=== PATIENT | female | born 1960 | race Caucasian/White ===

== ENCOUNTER → 2017-12-10 17:00 | Outpatient (CLI) | payer OTHER, SELFPAY ==
--- NOTE | 2017-12-10 17:03 | CT_ITS ---
STUDY: LOW DOSE CT LUNG CANCER SCREENING REASON FOR EXAM: Female, 57 years old. Former smoker 2 packs a day. Quit 8 years ago. RADIATION DOSAGE (If Supplied By Facility): CTDIvol = ( 4.02 ) mGy, DLP = ( 144.46 ) mGycm TECHNIQUE: No contrast was administered. Low dose technique was utilized (average mAS-38 and kVp 120). 1.25 mm axial source images with a slice interval of 1.25-mm were reconstructed in lung windows. 2.5 mm axial source images with a slice interval of 2.5-mm were reconstructed in lung windows. 5.0 mm axial source images with a slice interval of 5.0-mm were reconstructed in soft tissue windows. Nodule measured using lung windows on PACS and/or independent workstation with automated measurement of minimum and maximum diameter. Nodule measurement reported as average diameter rounded to the nearest whole number. Growth is defined as an increase ins size of greater than 1.5 mm. COMPARISON: None. NODULES: Total lung nodules (excluding granulomas): 0 Emphysema: No Endobronchial lesion: No Aorta: There is no evidence of atherosclerotic changes or aneurysm. Coronary arteries: There are no coronary artery calcifications. Heart: Normal Pulmonary artery: Normal Mediastinal nodes: Normal Other chest and abdominal findings: There are degenerative changes of the thoracic spine. CT/Low Dose CT Lung Screening IMPRESSION: Lung-RADS category 1 - Continue annual screening with LDCT in 12 months. IMPORTANT NOTES FOR USE: ACR Lung-RADS Version 1.0 Assessment Categories Release Date: January 12, 2014 Category: Coded 0-4 bases on nodule(s) with highest degree of suspicion. Negative screen is defined as categories 1 and 2; a positive screen is defined as categories 3 and 4. Category 3 and 4A nodules that are unchanged on interval CT should be coded as category 2, and individuals returned to screening in 12 months. Category 4X: Category 3 or 4 nodules with additional imaging findings that increase the suspicion of lung cancer, such as spiculation, GGN that doubles in size in 1 year, enlarged lymph notes, etc. Category Modifiers: S (significant finding unrelated to lung cancer) and C (prior history of treated lung cancer) may be added to the 0-4 Lung-RADS Electronically Signed: Florencio Palacios DO at 18:13 EDT Tel [phone], Service support ,
== END ==
PROVIDERS: Family Provider Internal Medicine; PCP Internal Medicine; Visit Provider Internal Medicine
DX: Z12.2 Encounter for screening for malignant neoplasm of respiratory organs (principal); Z87.891 Personal history of nicotine dependence
CPT/HCPCS: G0297

== ENCOUNTER → 2017-12-18 15:05 | Outpatient (CLI) | payer OTHER, SELFPAY ==
--- NOTE | 2017-12-18 15:07 | BD_ITS ---
STUDY: DUAL ENERGY X-RAY ABSORPTIOMETRY / DXA REASON FOR EXAM: Female, 57 years old. The patient is postmenopausal. Loss of height of 4 inches. TECHNIQUE: Bone Mineral Density (BMD) measurements of lumbar spine and bilateral hips were obtained. COMPARISON: None. FINDINGS: Lumbar Spine (L1-L4): g/cm2 (1.209) / T-score (0.1) / Z-score (1.1) Findings are suggestive of normal bone density with a low fracture risk. Increased thoracic kyphosis. Left Femur Total: g/cm2 (1.007) / T-score (0.0) / Z-score (0.8) Left Femoral Neck: g/cm2 (0.967) / T-score (-0.5) / Z-score (0.6) Right Femur Total: g/cm2 (1.030) / T-score (0.2) / Z-score (1.0) Right Femoral Neck: g/cm2 (1.007) / T-score (-0.2) / Z-score (0.9) BD/Dexa Bone Density Study IMPRESSION: The patient is considered normal as outlined below according to World [employer]illa[employer] Organization (WHO) criteria with a low fracture risk. Reference Information: The T-score is the number of standard deviations above or below the standard which is normal for young adults at their peak bone mineral density. The World Health Organization (WHO) interprets the T-scores as follows: Above -1 Normal bone density Between -1 and -2.5 Osteopenia Equal to / or below -2.5 Osteoporosis As a practical clinical guideline, osteopenia may be graded as follows: Mild -1 through -1.5 Moderate -1.6 through -2.0 Severe -2.1 through -2.4 The Z-score is the number of standard deviations above or below age-matched controls. A Z-score of less than -1.5 would be considered abnormal. References: 1. NIH Osteoporosis and Related Bone Diseases http://www.osteo.org 2. International Society for Clinical Densitometry http://www.iscd.org 3. National Osteoporosis Foundation http://www.nof.org Electronically Signed: Cesario Guillaume MD at 10:15 EDT Tel [phone], Service support ,
== END ==
PROVIDERS: Family Provider Internal Medicine; PCP Internal Medicine; Visit Provider Internal Medicine
DX: Z13.820 Encounter for screening for osteoporosis (principal)
CPT/HCPCS: 77080

== ENCOUNTER → 2018-01-14 16:07 | Outpatient (CLI) | payer OTHER, SELFPAY ==
[2018-01-14 19:58] LABS: Anion Gap 7 (5-15); BUN 22 mg/dL (7-18); BUN/Creat Ratio 20.8 RATIO (10-20); Calcium,Total 9.1 mg/dL (8.5-10.1); Chloride 99 mmol/L (98-107); Creatinine, Serum 1.06 mg/dL (0.55-1.02); EST Glomerular Filtration Rate 57 mL/min (>60); Est Glom Filt Rate - Afr Amer 69 mL/min (>60); Glucose 138 mg/dL (74-106); Magnesium 1.8 mg/dL (1.6-2.6); Potassium 2.6 mmol/L (3.5-5.1); Sodium Level 137 mmol/L (136-145)
== END ==
PROVIDERS: Family Provider Internal Medicine; PCP Internal Medicine; Visit Provider Internal Medicine
DX: E83.41 Hypermagnesemia (principal); I10 Essential (primary) hypertension
CPT/HCPCS: 36415; 80048; 83735

== ENCOUNTER → 2018-01-18 16:45 | Outpatient (CLI) | payer OTHER, SELFPAY ==
[2018-01-18 17:45] LABS: Potassium 3.4 mmol/L (3.5-5.1)
== END ==
PROVIDERS: Family Provider Internal Medicine; PCP Internal Medicine
DX: E87.6 Hypokalemia (principal)
CPT/HCPCS: 36415; 84132

== ENCOUNTER → 2018-02-13 16:42 | Outpatient (CLI) | payer OTHER, SELFPAY ==
[2018-02-13 18:00] LABS: Anion Gap 10 (5-15); BUN 22 mg/dL (7-18); BUN/Creat Ratio 20.8 RATIO (10-20); Chloride 99 mmol/L (98-107); Creatinine, Serum 1.06 mg/dL (0.55-1.02); EST Glomerular Filtration Rate 57 mL/min (>60); Est Glom Filt Rate - Afr Amer 68 mL/min (>60); Glucose 122 mg/dL (74-106); Sodium Level 137 mmol/L (136-145)
[2018-02-13 18:06] LABS: Hemoglobin A1c 7.9 % (4.2-6.3)
== END ==
PROVIDERS: Family Provider Internal Medicine; PCP Internal Medicine; Visit Provider Internal Medicine
DX: I10 Essential (primary) hypertension (principal); R73.02 Impaired glucose tolerance (oral)
CPT/HCPCS: 36415; 80048; 83036

== ENCOUNTER → 2018-02-25 16:45 | Outpatient (CLI) | payer OTHER, SELFPAY ==
--- NOTE | 2018-02-25 16:45 | DT_ITS ---
This patient was seen during an EMR downtime February 18, 2018 - February 25, 2018. This patient may have a combination of paper and electronic documentation or all paper documentation. All documentation is viewable within the e-chart portion of [email or web address] for each patient visit.
[2018-02-25 17:49] LABS: Color, Urine Yellow (Yellow); Glucose, Dipstick Normal (Normal); Ketone-Dipstick Negative (Negative); Leukocyte Esterase-Dipstick Negative /ul (Negative); Nitrite-Dipstick Negative (Negative); Occult Blood-Urine Negative /ul (Negative); Protein-Dipstick Negative (Negative); Urine Bilirubin Dipstick Negative (Negative); Urine Clarity Clear (Clear); Urine Urobilinogen Normal (Normal)
[2018-03-04 20:08] LABS: Cytoplasmic Ab (C-ANCA) <1:20 titer (Neg:<1:20)
== END ==
PROVIDERS: Family Provider Internal Medicine; PCP Internal Medicine; Visit Provider Internal Medicine
DX: N28.9 Disorder of kidney and ureter, unspecified (principal)
CPT/HCPCS: 36415; 81002; 86256

== ENCOUNTER → 2018-02-27 11:05 | Outpatient (CLI) | payer OTHER, SELFPAY ==
--- NOTE | 2018-02-27 11:06 | US_ITS ---
STUDY: RENAL ULTRASOUND - COMPLETE REASON FOR EXAM: Female, 58 years old. Abnormal kidney function. TECHNIQUE: Ultrasound evaluation of the kidneys was performed with real-time and static armstrong-scale imaging. COMPARISON: None. FINDINGS: RIGHT KIDNEY: Normal location of the right kidney, which is normal in size. The right kidney measures 11.2 x 5.6 x 4.6 cm. There is a normal cortex of the right kidney. The renal cortex measures 1.5 cm. There is no right renal mass or cyst. There are no right renal calculi. There is no right hydronephrosis. DISTAL RIGHT URETER: There is no demonstrated right ureteral jet. LEFT KIDNEY: Normal location of the left kidney, which is normal in size. The left kidney measures 10.6 x 4.5 x 5.8 cm. There is a normal cortex of the left kidney. The renal cortex measures 2.1 cm. There is no left renal mass or cyst. There are no left renal calculi. There is no left hydronephrosis. DISTAL LEFT URETER: There is a visualized left ureteral jet. BLADDER: The urinary bladder is incompletely distended with a volume of 92 mL. There is a normal wall thickness of the distended urinary bladder. There is no demonstrated mass within the urinary bladder. There are no demonstrated bladder calculi. US/Kidney and Bladder IMPRESSION: Within normal limits ultrasound of the kidneys and urinary bladder. Electronically Signed: Geraldine Swenson MD at 11:42 EDT Tel , Service support ,
== END ==
PROVIDERS: Family Provider Internal Medicine; PCP Internal Medicine; Visit Provider Internal Medicine
DX: N28.9 Disorder of kidney and ureter, unspecified (principal)
CPT/HCPCS: 76770

== ENCOUNTER → 2018-05-21 16:56 | Outpatient (CLI) | payer OTHER, SELFPAY ==
[2018-05-21 18:20] LABS: Creatinine, Serum 0.87 mg/dL (0.55-1.02); EST Glomerular Filtration Rate 71 mL/min (>60); Est Glom Filt Rate - Afr Amer 86 mL/min (>60); Potassium 3.2 mmol/L (3.5-5.1)
== END ==
PROVIDERS: Family Provider Internal Medicine; PCP Internal Medicine; Visit Provider Internal Medicine
DX: N28.9 Disorder of kidney and ureter, unspecified (principal); E87.6 Hypokalemia
CPT/HCPCS: 36415; 82565; 84132

== ENCOUNTER → 2018-05-22 17:21 | Outpatient (CLI) | payer OTHER, SELFPAY ==
[2018-05-22 18:47] LABS: Amphetamine Urine VISTA NEGATIVE (<1000 ng/mL); Barbiturate Urine VISTA NEGATIVE (< 200 ng/mL); Benzodiazepine Urine VISTA NEGATIVE (< 200 ng/mL); Cocaine Urine VISTA NEGATIVE (< 300 ng/mL); Ecstacy Urine VISTA NEGATIVE (< 500 ng/mL); Methadone Urine VISTA NEGATIVE (< 300 ng/mL); PCP Urine VISTA NEGATIVE (< 25 ng/mL); THC Urine VISTA NEGATIVE (< 50 ng/mL); Vista UDS pH Range 5
== END ==
PROVIDERS: Family Provider Internal Medicine; PCP Internal Medicine; Visit Provider Anesthesiology Pain Medicine
DX: F11.20 Opioid dependence, uncomplicated (principal)
CPT/HCPCS: 80307

== ENCOUNTER → 2018-07-01 16:37 | Outpatient (CLI) | payer OTHER, SELFPAY ==
[2018-07-04 11:02] LABS: HPV Reflexed? NOT INDICATED
== END ==
PROVIDERS: Visit Provider Obstetrics & Gynecology
DX: Z12.4 Encounter for screening for malignant neoplasm of cervix (principal)
CPT/HCPCS: 88175; G0145

== ENCOUNTER → 2018-08-05 14:43 | Outpatient (CLI) | payer OTHER, SELFPAY ==
--- NOTE | 2018-08-05 14:45 | BI_ITS ---
MAMMOGRAPHY - BILATERAL SCREENING REASON FOR EXAM: Female, 58 years old. Routine annual screening examination. PERTINENT HISTORY: Mother with breast cancer. Remote right excisional breast biopsy. TECHNIQUE: Digital bilateral breast denae (3D mammographic acquisition) in the CC and MLO projections. 2-D mediolateral oblique (MLO) and craniocaudad (CC) views of both breasts were obtained. CAD: Full Field Digital Mammography with Computer Added Detection was performed. COMPARISON: Comparison is made with prior study dated July 10, 2017 and June 29, 2016. FINDINGS: Breast Composition: The breasts are heterogeneously dense, which may obscure small masses. There are no dominant masses or suspicious calcifications. No other significant abnormalities are identified. There has been no significant change since the prior study. BI/SCREENING MAMM (CAD), BILAT IMPRESSION: Stable bilateral screening mammogram. Yearly follow-up mammogram recommended. (A) ASSESSMENT CATEGORY: BIRADS Category 1: Negative. A letter regarding these results will be sent to the patient by the facility within 30 days. Approximately 10% of breast cancers are not detected by mammography. A normal mammogram should not delay biopsy of a clinically suspicious abnormality. [id number] Electronically Signed: Cesario Guillaume MD at 10:46 EST Tel [phone], Service support ,
== END ==
PROVIDERS: Family Provider Internal Medicine; PCP Internal Medicine; Referring Provider Obstetrics & Gynecology; Visit Provider Obstetrics & Gynecology
DX: Z12.31 Encounter for screening mammogram for malignant neoplasm of breast (principal)
CPT/HCPCS: 77063; 77067

== ENCOUNTER → 2018-09-04 16:36 | Outpatient (CLI) | payer OTHER, SELFPAY ==
[2018-09-04 17:28] LABS: Potassium 3.5 mmol/L (3.5-5.1)
== END ==
PROVIDERS: Family Provider Internal Medicine; PCP Internal Medicine; Referring Provider Internal Medicine; Visit Provider Internal Medicine
DX: E87.6 Hypokalemia (principal)
CPT/HCPCS: 36415; 84132

== ENCOUNTER → 2019-11-04 17:33 | Outpatient (CLI) | payer OTHER, SELFPAY ==
[2019-11-07 03:06] LABS: Age Gdln ACOG Testing 30-65 (.)
[2019-11-07 11:56] LABS: HPV APTIMA, High Risk Negative (Negative)
[2019-11-07 12:03] LABS: HPV Reflexed? YES, CHARGE PATIENT
== END ==
PROVIDERS: PCP Internal Medicine; Referring Provider Obstetrics & Gynecology; Visit Provider Obstetrics & Gynecology
DX: Z12.4 Encounter for screening for malignant neoplasm of cervix (principal)
CPT/HCPCS: 87624; 88175; G0145

== ENCOUNTER → 2019-11-06 14:27 | Outpatient (CLI) | payer OTHER, SELFPAY ==
--- NOTE | 2019-11-06 14:32 | BI_ITS ---
MAMMOGRAPHY - BILATERAL DIAGNOSTIC REASON FOR EXAM: Female, 59 years old. Lateral right breast lump. PERTINENT HISTORY: Mother with breast cancer. TECHNIQUE: Digital bilateral breast denae (3D mammographic acquisition) in the CC and MLO projections. 2-D mediolateral oblique (MLO) and craniocaudad (CC) views of both breasts were obtained. CAD: Full Field Digital Mammography with Computer Added Detection was performed. COMPARISON: Comparison is made with prior examination dated August 05, 2018 and July 10, 2017. FINDINGS: Breast Composition: The breasts are heterogeneously dense, which may obscure small masses. There are no dominant masses or suspicious calcifications. No other significant abnormalities are identified. There has been no significant change since the prior study. BI/DIAG MAMM W/CAD, BILAT IMPRESSION: Stable bilateral diagnostic mammogram. With the patient''s history of a lump in the lateral aspect of the right breast, correlation with ultrasound is recommended. ASSESSMENT CATEGORY: BIRADS Category 0: Incomplete. Need additional imaging evaluation. A letter regarding these results will be sent to the patient by the facility within 30 days. Approximately 10% of breast cancers are not detected by mammography. A normal mammogram should not delay biopsy of a clinically suspicious abnormality. Pending Final Proof Editing
--- NOTE | 2019-11-06 14:34 | US_ITS ---
STUDY: ULTRASOUND BREAST - RIGHT REASON FOR EXAM: Female, 59 years old. Palpable lump in the right breast. TECHNIQUE: Axial and longitudinal images of the RIGHT breast were performed with a high resolution ultrasound transducer. # OF IMAGES: 44 COMPARISON: Comparison is made with prior mammogram done earlier in the day. FINDINGS: RIGHT Breast: The lateral half of the right breast was examined by ultrasound. There is homogeneous fibroglandular tissue. No sonographic abnormality is seen. US/Breast Limited Unilateral IMPRESSION: No sonographic abnormality is seen. ASSESSMENT CATEGORY: BIRADS Category 1: Negative. A letter regarding these results will be sent to the patient by the facility within 30 days. Electronically Signed: Cesario Guillaume, at 14:00 EST , Service support ,
== END ==
PROVIDERS: PCP Internal Medicine; Referring Provider Obstetrics & Gynecology; Visit Provider Obstetrics & Gynecology
DX: N63.11 Unspecified lump in the right breast, upper outer quadrant (principal)
CPT/HCPCS: 76642; 77062; 77066; G0279

== ENCOUNTER → 2019-11-19 17:02 | Outpatient (CLI) | payer OTHER, SELFPAY ==
[2019-11-19 17:44] LABS: Amphetamine Urine VISTA NEGATIVE (<1000 ng/mL); Barbiturate Urine VISTA NEGATIVE (< 200 ng/mL); Benzodiazepine Urine VISTA NEGATIVE (< 200 ng/mL); Cocaine Urine VISTA NEGATIVE (< 300 ng/mL); Ecstacy Urine VISTA NEGATIVE (< 500 ng/mL); Methadone Urine VISTA NEGATIVE (< 300 ng/mL); PCP Urine VISTA NEGATIVE (< 25 ng/mL); THC Urine VISTA NEGATIVE (< 50 ng/mL); Vista UDS pH Range 6
== END ==
PROVIDERS: PCP Internal Medicine; Referring Provider Anesthesiology Pain Medicine; Visit Provider Anesthesiology Pain Medicine
DX: F11.20 Opioid dependence, uncomplicated (principal)
CPT/HCPCS: 80307

== ENCOUNTER → 2020-06-16 12:42 | Outpatient (CLI) | payer OTHER, SELFPAY ==
[2020-06-16 15:33] LABS: AST(SGOT) 14 U/L (15-37); Alanine Aminotransfer ALT/SGPT 24 U/L (13-56); Albumin, Serum 3.6 g/dL (3.2-5.0); Alkaline Phosphatase 85 U/L (45-117); Anion Gap 4 (5-15); BUN 15 mg/dL (7-18); BUN/Creat Ratio 18.8 RATIO (10-20); Calcium,Total 8.6 mg/dL (8.5-10.1); Chloride 106 mmol/L (98-107); Cholesterol 198 mg/dL (200); EST Glomerular Filtration Rate 78 mL/min (>60); Est Glom Filt Rate - Afr Amer 94 mL/min (>60); Globulin 3.7 g/dL (2.2-4.2); Glucose 84 mg/dL (74-106); High Density Lipoprotein 51 mg/dL; Potassium 4.2 mmol/L (3.5-5.1); Protein, Total 7.3 g/dL (6.4-8.2); Sodium Level 139 mmol/L (136-145); Triglycerides 117 mg/dL; Very Low Density Lipoprotein 23 mg/dL (5-40)
== END ==
PROVIDERS: PCP Internal Medicine; Referring Provider Internal Medicine; Visit Provider Internal Medicine
DX: E13.9 Other specified diabetes mellitus without complications (principal)
CPT/HCPCS: 36415; 80053; 80061

== ENCOUNTER → 2020-07-20 15:36 | Outpatient (CLI) | payer SELFPAY ==
--- NOTE | 2020-07-20 15:45 | RAD_ITS ---
STUDY: X-RAY - CERVICAL SPINE REASON FOR EXAM: Female, 60 years old. patient complains of pain in hands, numbness and tingling in fingers TECHNIQUE: 4 view(s) of the cervical spine were obtained. COMPARISON: None FINDINGS: Normal anterior atlantoaxial articulation. Normal odontoid process. Decreased cervical lordosis. No evidence for acute fracture or subluxation.. Disc space heights are well-maintained. There is minor endplate spurring at C5-6 The soft tissue structures are unremarkable. RAD/Cerv Spine 2 or 3 Views IMPRESSION: Mild spondylosis. No acute fracture or subluxation Electronically Signed: Shyam Prater MD at 19:29 EST , Service support ,
== END ==
PROVIDERS: PCP Internal Medicine; Referring Provider Anesthesiology Pain Medicine; Visit Provider Anesthesiology Pain Medicine
DX: M54.2 Cervicalgia (principal)
CPT/HCPCS: 72040

== ENCOUNTER 2020-08-09 16:45 | Emergency (ER) | payer SELFPAY ==
[2020-08-09 16:45] VITALS: BP 191/72; PULSE 90; RESP 16; TEMP 35.8; O2SAT 100; BMI 35.7
--- NOTE | 2020-08-09 17:09 | ED.DCSUM_ITS ---
History of Present Illness Chief Complaint: Lower Extremity Injury Detail of Chief Complaint: Right knee pain Informant: Patient Onset: Today Current Severity: Moderate Maximum Severity: Moderate Narrative: Patient presents with right knee injury. She slipped and fell at [facility]. She states she feels like her leg bent the wrong direction. She now has swelling to her right knee and significant pain. She has had difficulty with any weightbearing. She denies any other injury from her fall. - Past Medical History (1) Hypertension Status: Chronic Past Medical History - Allergies and Home Meds Allergies/Adverse Reactions: Allergies lisinopril Allergy (Mild, Verified 08/09/20 16:46) coughing Primary Care Physician: Oc Mullen MD [Primary Care Provider] - Surgical History: - - Left knee replacement Lives: Spouse/ Significant Other Smoking Status: Former smoker Review of Systems General: Denies: Chills, Fever Eyes: Denies: Visual changes - bilaterally ENT: Denies: Bilateral ear pain Cardiovascular: Denies: Chest pain Respiratory: Denies: Dyspnea, Cough Gastrointestinal: Denies: Abdominal pain Musculoskeletal: Reports: Swelling, Extremity Pain Skin: Denies: Rash Neurological: Denies: Headache Hematologic: Denies: Easy bruising, Easy bleeding Allergy: Denies: Uticaria Physical Exam Vital Signs/Narrative: Vital Signs Temp Pulse Resp BP Pulse Ox 08/09/20 16:45 96.5 F L 90 16 191/72 H 100 Inital Vital Signs reviewed: Yes General: Well nourished, Well developed Head: Normocephalic ENT: Moist mucous membranes Cardiovascular: Regular rate, Regular rhythm Respiratory: No distress, CTA bilaterally Abdomen: Soft, Nontender Extremities: - - Edema around the right knee. Mild diffuse tenderness. She is able to raise her heel off the bed. Normal sensation with strong distal pulses. Neurological: Alert, Oriented x3 Psychological: Normal affect Diagnostic/Tx/Re-eval Impressions Knee X-Ray 08/09/20 17:20 IMPRESSION: Probable lateral plateau fracture. Electronically Signed: Karen Hdz, at 18:19 EST Tel , Service support , Lower Extremity CT 08/09/20 19:06 IMPRESSION: Minimally, less than 2 mm, depressed right lateral tibial plateau fracture. Electronically Signed: Karen Hdz, at 20:26 EST Tel , Service support , 08/09/20 17:20 Knee 4 or More Views [RAD] Stat 08/09/20 19:06 CT Lower [Extremity Lower without Contra] [CT] Stat - Medical Decision Making Patient was initially given a dose of [place]. With this did not help I did order morphine, however the patient states she must drive home and did not want to take another narcotic. She was given a dose of Toradol IM. X-ray and CT results are discussed with her. Patient is noted Dr. Monet and I spoke with Dr. Townsend, on-call jazmine. He states the patient can be placed in a knee immobilizer, crutches and made nonweightbearing. She can follow-up as an outpatient. Patient is comfortable with this plan. I will write her Percocet for pain control. ED Disposition - Plan for ED Patient: Disposition: Home or Assisted Living Diagnosis: Tibial plateau fracture, right Instructions: ED Fx Knee Prescriptions: Oxycodone HCl/Acetaminophen [Percocet 5/325] 1 tablet PO Q6H PRN PRN 5 Days #20 tablet PRN Reason: Pain Score 4-10 Referrals: Renee Monet DO [STAFF PHYSICIAN] - 5-7 Days
[2020-08-09] MEDS: HYDROcodone Bitartrate/Apap 5/325 Tablet PO (17:20)
--- NOTE | 2020-08-09 17:20 | RAD_ITS ---
STUDY: X-RAY - RIGHT KNEE REASON FOR EXAM: Female, 60 years old. 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 RIGHT KNEE PAIN. TECHNIQUE: 4 view(s) of the knee. COMPARISON: 18 September 2013, 20 September 2017 FINDINGS: The knee is located. There is irregularity of the lateral tibial plateau, possibly fracture. Patella is intact and located. There is a joint effusion. There are moderate to severe patellofemoral degenerative changes. RAD/Knee 4 or More Views IMPRESSION: Probable lateral plateau fracture. Electronically Signed: Karen Hdz, at 18:19 EST Tel , Service support ,
--- NOTE | 2020-08-09 19:06 | CT_ITS ---
STUDY: CT RIGHT KNEE WITHOUT CONTRAST REASON FOR EXAM: Female, 60 years old. FELL. HAVING RIGHT KNEE PAIN. LATERAL PLATEAU FX ON XRAY RADIATION DOSAGE (If Supplied By Facility): CTDIvol = ( 15.35 ) mGy, DLP = ( 372.95 ) mGycm TECHNIQUE: Transaxial CT imaging of the knee was performed. Coronal and sagittal images were reformatted. Individualized dose optimization techniques were used for this CT. COMPARISON: Earlier same day x-ray FINDINGS: There is a small segmental minimally depressed fracture of the lateral plateau posterior lateral region and posterolateral cortex avulsion. Fracture fragment is depressed less than 2 mm compared to the rest of the plateau. There are moderate degenerative changes in all 3 compartments. Mineralization is decreased. There is a joint effusion. CT/Extremity Lower without Contra IMPRESSION: Minimally, less than 2 mm, depressed right lateral tibial plateau fracture. Electronically Signed: Karen Hdz, at 20:26 EST Tel , Service support ,
[2020-08-09] MEDS: Ketorolac 60 MG/2 ML Vial IM (20:22)
[2020-08-09 22:13] VITALS: BP 161/78; PULSE 78; RESP 18; O2SAT 97
== END 2020-08-09 22:14 | disposition home or self-care (01) ==
PROVIDERS: Emergency Provider Emergency Medicine; PCP Internal Medicine
DX: S82.141A Displaced bicondylar fracture of right tibia, initial encounter for closed fracture (principal); W01.0XXA Fall on same level from slipping, tripping and stumbling without subsequent striking against object, initial encounter; Z87.891 Personal history of nicotine dependence
CPT/HCPCS: 73564; 73700; 96372; 99284

== ENCOUNTER 2020-09-16 14:51 | Outpatient (RCR) | payer SELFPAY ==
--- NOTE | 2020-09-16 15:46 | HP.PTEVAL ---
Patient's Visit Information TOMÁS MORAES is a 60 year old F referred to Physical Therapy by Dr. Renee Monet DO with a diagnosis of Lateral tibial plateau fracture- stiffness. Date of Evaluation: 09/16/20 Physical Therapist: Angelita Quintero DPT - Visit Plan Frequency: 2x /Week Duration: 4 Weeks Plan: Hold- PT to speak to MD due to restrictions, TTWB status with brace and lack of compliance. - Subjective Aug 09 slipped and fell in [employer] and broke her leg. She went to the ED and they took x-rays and CT Scan- tibial plateau fracture- they put her in the extension brace. She then went to see Dr. Monet who put her in a TROM brace. They are looking to put her in lateral supervisor cellars brace. She has been walking on it- she knows that but she can't work on crutches so she has been putting weight on it. 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 She is leaving here and headed to get a spinal injection. At the end of the day she is really sore. She has OA in the knee and no cartilage. Thinks she needs a total knee repacement in the next few years. Tripped over her cat on [facility] and so its been pretty sore. Worst: 810 Agg: being on it to much, twisting on it. Eases: stay in bed Best: 2/10. Describes the pain as dull and achy. The pain is located in the anterior knee and the lateral aspect of the knee. No radiating pain- does have tarsal tunnel in both feet. Is using a straight cane except when at work (carries 10-15lbs) and TROM brace locked out into extension when she is out. No radiating pain into the ankle or into the hip. Sleep: not disturbed in the last 10 days- does not use the brace. PMHx/Meds: no changes since she saw . Goals: go without the cane and be full weight bearing. - Objective Posture: good throughout session. Gait: straight cane with TROM brace locked in extension- full weight bearing. ROM: Hip: WFL, Knee: 0-70 degrees with pain at end range Strength: Ankle: 5/5, Knee: 4/5 with pain, Hip: 4/5 throughout SLR: mild lag due to decreased quad strength secondary to brace Sensation: WNL. Balance: not tested due to WB restricions Flex:gastroc: moderate, Hamstring: severe - Goals Goal 1:: Patient will be I with HEP and progression Goal Time Frame: 4-6 Weeks Goal 2:: Patient will ambulate >300 feet with a normalized gait pattern and LRD Goal Time Frame: 4-6 Weeks Goal 3:: Patient will asc/desc 8 stairs recip with 1 HR and good technique Goal Time Frame: 4-6 Weeks Goal 4:: Patient will demo 0-125 degrees of ROM Goal Time Frame: 4-6 Weeks - Rehabilitation Potential Physical Therapy Diagnosis: Patient presents with hypomobility-she has decreased ROM,strength, flex and muscular endurance leading to inability to perform ADL's. Rehabilitation Potential: Fair - Anticipated Interventions Patient/Client Instruction: Educate patient on: Benefits of Fitness Program Therapeutic Exercise to Include: Strength training, Endurance training, Balance training, Coordination, Agility training, Body mechanics, Postural training, Flexibilty training, Gait and locomotor training, Neuromotor development, Passive ROM, Active ROM, Dynamic Lumbar Stabilization, Scapular Strength/Stabilization For the Purpose of:: To improve muscle performance and motor function TENS: Yes Cryotherapy (ice pack, ice massage): Yes Thermo therapy (hot pack): Yes Ultrasound (thermal/non thermal): Yes Thank you for the opportunity to evaluate your patient. For Medicare and Medicare HMO plans, please review the plan of care and approve it. It will need to be FAXED BACK to us at [phone] for Medicare purposes. For Medicare only, by signing this I certify the plan of care. Please let me know if there are questions or concerns regarding this plan of care. Physician Signature: Date:
--- NOTE | 2020-11-22 14:03 | HP.PT.NRP ---
TOMÁS MORAES was seen in my office for initial evaluation on 09/16/20. The following Plan of Care was established for this patient: Initial Frequency: 2x /Week Initial Duration: 4 Weeks Patient/Client Instruction: Educate patient on: Benefits of Fitness Program Therapeutic Exercise to Include: Strength training, Endurance training, Balance training, Coordination, Agility training, Body mechanics, Postural training, Flexibilty training, Gait and locomotor training, Neuromotor development, Passive ROM, Active ROM, Dynamic Lumbar Stabilization, Scapular Strength/Stabilization For the Purpose of:: To improve muscle performance and motor function TENS: Yes Cryotherapy (ice pack, ice massage): Yes Thermo therapy (hot pack): Yes Ultrasound (thermal/non thermal): Yes This patient was last seen in our office . Pertinent comments regarding their Physical therapy will appear below: Patient has not attended PT in over 30 days- appropriate to be discharge and return to MD for further evaluation. At this point I will be discontinuing this patient from physical therapy. I would be happy to see this patient again in the future if found appropriate by the physician. Thank you! KERRY BossT
== END 2020-09-16 19:00 | disposition home or self-care (01) ==
LOC: PT 14:51
PROVIDERS: PCP Internal Medicine; Visit Provider Orthopaedic Surgery
DX: S82.143D Displaced bicondylar fracture of unspecified tibia, subsequent encounter for closed fracture with routine healing (principal)
CPT/HCPCS: 97110; 97161

== ENCOUNTER → 2020-11-22 17:14 | Outpatient (CLI) | payer OTHER, SELFPAY ==
[2020-11-22 18:21] LABS: Amphetamine Urine VISTA NEGATIVE (<1000 ng/mL); Barbiturate Urine VISTA NEGATIVE (< 200 ng/mL); Benzodiazepine Urine VISTA NEGATIVE (< 200 ng/mL); Cocaine Urine VISTA NEGATIVE (< 300 ng/mL); Ecstacy Urine VISTA NEGATIVE (< 500 ng/mL); Methadone Urine VISTA NEGATIVE (< 300 ng/mL); PCP Urine VISTA NEGATIVE (< 25 ng/mL); THC Urine VISTA NEGATIVE (< 50 ng/mL); Vista UDS pH Range 5
== END ==
PROVIDERS: PCP Family Medicine; Referring Provider Anesthesiology Pain Medicine; Visit Provider Anesthesiology Pain Medicine
DX: F11.20 Opioid dependence, uncomplicated (principal)
CPT/HCPCS: 80307

== ENCOUNTER → 2020-12-06 15:32 | Outpatient (CLI) | payer OTHER, SELFPAY ==
--- NOTE | 2020-12-06 15:51 | MRI_ITS ---
STUDY: MRI CERVICAL SPINE WITHOUT CONTRAST REASON FOR EXAM: Female, 60 years old. BACK PAIN, TECHNIQUE: Standardized fat and water weighted pulse sequences were obtained in the sagittal and axial planes. COMPARISON: None FINDINGS: Normal foramen magnum and brainstem-cervical cord junction. Normal craniovertebral junction. Normal anterior atlantoaxial articulation. Normal odontoid process. Normal cervical lordosis. Normal vertebral bodies and posterior osseous elements. C2-3: Normal endplates. Normal disc height, signal and morphology. Normal central canal and intervertebral neural foramina. C3-4: Normal endplates. Normal disc height, signal and morphology. Normal central canal and intervertebral neural foramina. C4-5: Normal endplates. Normal disc height, signal and morphology. Normal central canal and intervertebral neural foramina. C5-6: Normal endplates. Normal disc height, signal and morphology. Small central and left paracentral disc protrusion causes mild cord flattening and mild canal stenosis. There is mild left foraminal encroachment due to uncinate hypertrophy. C6-7: Normal endplates. Normal disc height, signal and morphology. Mild spondylotic bar causes mild cord flattening and mild canal stenosis. Moderate foraminal stenosis, greater on the left, due to uncinate hypertrophy. C7-T1: Normal endplates. Normal disc height, signal and morphology. Normal central canal and intervertebral neural foramina. Normal cervical cord. Normal visualized soft tissue structures. MRI/Spine Cervical (Routine) IMPRESSION: 1. C5-6 disc protrusion with cord flattening and mild canal stenosis. 2. C6-7 mild cord flattening and canal stenosis. 3. Moderate C6-7 foraminal encroachment. Electronically Signed: Chantel Velasquez MD at 22:41 EDT Tel , Service support ,
--- NOTE | 2020-12-06 15:51 | MRI_ITS ---
STUDY: MRI LUMBAR SPINE WITHOUT CONTRAST REASON FOR EXAM: Female, 60 years old. BACK PAIN TECHNIQUE: Standardized fat and water weighted pulse sequences were obtained in the sagittal and axial planes. COMPARISON: 09/12/2012. FINDINGS: T12-L1: Normal endplates. Disc dehydration. Normal bilateral facet joints. Small, central, noncompressive disc protrusion. Normal bilateral intervertebral neural foramina. Normal lumbar lordosis. There is no substantial scoliosis. Normal conus medullaris that terminates at the L1 level. L1-2: Normal endplates. Normal disc height, hydration and morphology. Normal bilateral facet joints. Normal central canal and bilateral lateral recesses. Normal bilateral intervertebral neural foramina. L2-3: Disc dehydration and mild disc space narrowing. Small Schmorl''s nodes. Borderline concentric canal stenosis due to a mild spondylotic bar, mild facet and ligamentous hypertrophy. Mild inferior foraminal encroachment, greater on the right, due to spurring. L3-4: Disc dehydration. Small, central, noncompressive disc protrusion. No canal or foraminal stenosis. L4-5: Disc dehydration and mild disc space narrowing. Small right paramedian disc protrusion, significantly decreased compared to the prior study. This causes mild deformation of the ventral thecal sac. No nerve root displacement. No canal stenosis. Mild right foraminal encroachment due to spurring. Mild facet hypertrophy. L5-S1: Disc dehydration and mild disc space narrowing. Mild, noncompressive spondylotic bar. Mild facet hypertrophy. No canal stenosis. Mild left foraminal encroachment due to spurring. Normal visualized sacral ala. Normal visualized paraspinous soft tissue structures. MRI/Spine Lumbar (Routine) IMPRESSION: 1. Small L4-5 disc protrusion, significantly decreased compared to 2011. 2. Noncompressive L3-4 disc protrusion. 3. Borderline canal stenosis at L2-3 4. Mild foraminal encroachment. Electronically Signed: Chantel Velasquez MD at 23:38 EDT Tel , Service support ,
== END ==
PROVIDERS: PCP Family Medicine; Referring Provider Anesthesiology Pain Medicine; Visit Provider Anesthesiology Pain Medicine
DX: M54.9 Dorsalgia, unspecified (principal)
CPT/HCPCS: 72141; 72148

== ENCOUNTER → 2021-07-05 17:54 | Outpatient (CLI) | payer OTHER, SELFPAY ==
--- NOTE | 2021-07-05 18:05 | CT_ITS ---
STUDY: LOW DOSE CT LUNG CANCER SCREENING REASON FOR EXAM: Female, 61 years old. Former smoker. The patient smoked 1 1/2 packs per day for 38 years. RADIATION DOSAGE (If Supplied By Facility): CTDIvol = ( 3.02 ) mGy, DLP = ( 103.07 ) mGycm TECHNIQUE: No contrast was administered. Low dose technique was utilized (average mAS-38 and kVp 120). 1.25 mm axial source images with a slice interval of 1.25-mm were reconstructed in lung windows. 2.5 mm axial source images with a slice interval of 2.5-mm were reconstructed in lung windows. 5.0 mm axial source images with a slice interval of 5.0-mm were reconstructed in soft tissue windows. Nodule measured using lung windows on PACS and/or independent workstation with automated measurement of minimum and maximum diameter. Nodule measurement reported as average diameter rounded to the nearest whole number. Growth is defined as an increase ins size of greater than 1.5 mm. COMPARISON: Comparison is made with prior study dated 12/10/2017. NODULES: No suspicious nodules are seen. There is mild degree of increased markings in the posterior medial aspect of the superior segment of the right lower lobe suggestive of scarring. Emphysema: No significant emphysema is seen. Endobronchial lesion: None Aorta: Atherosclerotic calcific plaques. Mild coronary artery calcification. Mediastinal nodes: Small benign-appearing mediastinal lymph nodes. Other chest and abdominal findings: CT/Low Dose CT Lung Screening IMPRESSION: Lung-RADS category 2 - Continue annual screening with LDCT in 12 months. IMPORTANT NOTES FOR USE: ACR Lung-RADS Version 1.1 Assessment Categories Release Date: 2018 Category: Coded 0-4 bases on nodule(s) with highest degree of suspicion. Negative screen is defined as categories 1 and 2; a positive screen is defined as categories 3 and 4. Category 3 and 4A nodules that are unchanged on interval CT should be coded as category 2, and individuals returned to screening in 12 months. Category 4X: Category 3 or 4 nodules with additional imaging findings that increase the suspicion of lung cancer, such as spiculation, GGN that doubles in size in 1 year, enlarged lymph notes, etc. Category Modifiers: S (significant finding unrelated to lung cancer) Electronically Signed: Cesario Guillaume MD at 14:03 EDT , Service support ,
== END ==
PROVIDERS: PCP Family Medicine; Visit Provider Family Medicine
DX: Z87.891 Personal history of nicotine dependence (principal)
CPT/HCPCS: 71271

== ENCOUNTER 2021-09-21 13:24 | Inpatient (IN) | payer OTHER, SELFPAY ==
[2021-09-21] VITALS (14 sets, daily range): BP systolic 101–154; BP diastolic 58–79; PULSE 64–90; RESP 12–40; TEMP 36.1–36.9; O2SAT 62–99; BMI 32.1; BMI 29.0
--- NOTE | 2021-09-21 13:41 | EKG12_ITS ---
Test Reason : SOB Blood Pressure : / mmHG Vent. Rate : 081 BPM Atrial Rate : 081 BPM P-R Int : 140 ms QRS Dur : 082 ms QT Int : 398 ms P-R-T Axes : 049 026 092 degrees QTc Int : 462 ms Normal sinus rhythm T wave abnormality, consider lateral ischemia Abnormal ECG Confirmed by MENDEL MATIAS, ROSALINA ([id number]), restaurant expeditor SHARON MONTALVO ([id number]) on 09/23/2021 10:07:40 AM Referred By: JOHANA/AJAY Confirmed By:ROSALINA OGLESBY MD
--- NOTE | 2021-09-21 13:43 | ED.VIS.DYS ---
HPI History of Present Illness Chief Complaint: Shortness of Breath Narrative Narrative: 61-year-old female with shortness of breath and fatigue since of last week. This would make it day 6 of symptoms. She states she felt a little bit achy. She has not had a fever. She does not have a significant cough. She is a little bit of diarrhea. No loss of taste or smell. She was going to get tested today for Covid but the nurse that was interviewing her stated she looked very dyspneic and labored and needed to come to the ER. Patient does deny any chest pain. She states she has a history of hypertension. She previously was a smoker. She is also a diabetic. [facility] Medical History Hypertension Neuralgia and neuritis, unspecified Other intervertebral disc degeneration, lumbar region Polyosteoarthritis Radiculopathy, lumbar region Radiculopathy, lumbosacral region Sacroiliitis Home Medications albuterol sulfate 90 mcg/actuation breath activated powder inhaler 90 mcg INHALATION ONCE PRN 09/20/17 [History Last Taken Unknown] potassium chloride 20 mEq oral packet 20 meq PO QDAY 04/18/18 [History Last Taken Unknown] losartan 25 mg tablet 25 mg PO DAILY 09/28/20 [History Last Taken Unknown] meloxicam 7.5 mg tablet 7.5 mg PO DAILY tab 11/16/20 [History Last Taken Unknown] tizanidine 4 mg tablet 4 mg PO QHS tab 11/16/20 [History Last Taken Unknown] clonidine HCl 0.2 mg tablet 0.1 mg PO DAILY tab 07/18/21 [History Last Taken Unknown] glimepiride 1 mg tablet 1 mg PO BID tab 07/18/21 [History Last Taken Unknown] tramadol 50 mg tablet 50 mg PO QHS tab 07/18/21 [History Last Taken Unknown] gabapentin 300 mg capsule 600 mg PO TID cap 08/15/21 [History Last Taken Unknown] Allergy/AdvReac Type Severity Reaction Status Date / Time lisinopril Allergy Mild coughing Verified 09/21/21 13:29 Family History Father Cancer CVA (cerebral vascular accident) Hypertension Mother Cancer Diabetes Sister Cancer Surgical History H/O right breast biopsy History of total left knee replacement right foot Social History Smoking Status: Former smoker how long ago did patient quit smokin ROS ROS ED Constitutional Constitutional ED: Reports chills; Denies fever(s) Eyes Eyes: Denies blurry vision or diplopia ENT ENT ED: Denies rhinorrhea or sore throat Cardiovascular Cardiovascular: Denies chest pain or palpitations Respiratory/Chest Respiratory/Chest: Reports cough, dyspnea and dyspnea on exertion Gastrointestinal Gastrointestinal: Reports diarrhea; Denies abdominal pain, nausea or vomiting Genitourinary Genitourinary ED: Denies dysuria or hematuria Musculoskeletal Musculoskeletal: Reports myalgias; Denies arthralgias or neck pain Integumentary Denies Abrasions or rash Neurologic Neurologic: Denies headache(s), paresthesias or weakness EXAM Physical Exam Const Vital Signs: 09/21/21 13:25 09/21/21 13:35 09/21/21 13:53 Temperature 97.1 F L 97.1 F L Temperature Source Temporal Temporal Pulse Rate 90 84 81 Respiratory Rate 18 23 H 26 H Blood Pressure 101/58 L 154/71 H 135/72 H Blood Pressure Mean 72 98 93 Pulse Ox 62 94 97 Oxygen Delivery Method Room Air Non-Rebreather Non-Rebreather Oxygen Flow Rate (L/min) 15 Fraction of Inspired Oxygen (FIO2) 09/21/21 15:11 09/21/21 15:58 09/21/21 16:00 Temperature 97.2 F L Temperature Source Temporal Pulse Rate 73 69 68 Respiratory Rate 40 H 28 H 31 H Blood Pressure 137/70 H 132/79 H Blood Pressure Mean 92 96 Pulse Ox 89 99 98 Oxygen Delivery Method Non-Rebreather Bi-pap Oxygen Flow Rate (L/min) 15 Fraction of Inspired Oxygen (FIO2) 100 09/21/21 16:09 Temperature Temperature Source Pulse Rate Respiratory Rate Blood Pressure Blood Pressure Mean Pulse Ox Oxygen Delivery Method Oxygen Flow Rate (L/min) Fraction of Inspired Oxygen (FIO2) 75 Positive well nourished Constitutional Narrative: Labored breathing. Patient noted to be hypoxic into the 50s on arrival. She is placed on nonrebreather at 15 L and is stable at 95%. General Appearance ED: Negative for pallor HEENT Reports dry mucous membranes atraumatic Mouth ED: Yes dry mucous membranes Mouth: dry mucous membranes Eyes Negative for PERRL or EOMs intact bilaterally Neck no lymphadenopathy, supple and no meningeal signs Resp normal respiratory effort and clear to auscultation bilaterally Cardio regular rate and regular rhythm GI non-tender and non-distended Palpation: soft Neuro oriented x3 and CN's II-XII intact bilaterally Sensorium / Orientation: alert Psych mental status grossly normal Skin General Skin Exam: Negative for jaundice or pallor MDM MDM MDM Narrative Medical decision making narrative: Patient with COVID-19 symptoms presenting with hypoxia. He is placed on high flow and eventually had to be switched to BiPAP given that she was still not maintaining good O2 saturations. She is tolerating BiPAP well. EKG is obtained which shows a sinus rhythm at [address]-T wave changes. High-sensitivity troponin is 36. Chest x-ray on my interpretation is bilateral pulmonary infiltrates worse on the right and radiologist's agreement. CBC shows her white blood troponins 11.0. Hemoglobin is concentrated at 15 headaches. Platelets normal at 166. Coagulation studies are normal. Creatinine is slightly elevated at 1.19. Patient was given small bolus of IV fluids and since her D-dimer is elevated at greater than 20 a CTA of the chest is ordered. Lactic acid is 2.9 this is likely due to her hypoxia. CTA of the chest is negative for pulmonary emboli however it does show COVID-19 pneumonitis. Patient did test positive for COVID-19 today. Given patient's hypoxic respiratory failure she will need to stay in the hospital. She was given dexamethasone 6 mg IV. She is admitted to the floor in stabilized condition. Impression: 1. COVID-19 pneumonitis 2. Dehydration 3. Lactic acidosis 4. Hypoxic respiratory failure Lab Data Labs: Laboratory Results - last 24 hr 09/21/21 09/21/21 09/21/21 13:55 13:55 13:55 WBC 11.0 RBC 5.41 H Hgb 15.6 H Hct 47.1 H MCV 87.1 MCH 28.8 MCHC 33.1 RDW Std Deviation 45.2 H RDW Coeff of Ana Maria 14.3 Plt Count 166 MPV 10.3 Immature Gran % (Auto) 0.800 Neut % (Auto) 89.7 H Lymph % (Auto) 5.7 L Wilcox % (Auto) 3.7 Eos % (Auto) 0.0 Baso % (Auto) 0.1 Absolute Neuts (auto) 9.9 H Absolute Lymphs (auto) 0.63 L Nucleated RBC % 0.4 Reactive Lymphocytes RARE PT 14.0 INR 1.1 APTT 25.4 D-Dimer Quant (PE/DVT) > 20.00 H* Sodium 135 L Potassium 3.4 L Chloride 98 Carbon Dioxide 23.0 Anion Gap 14 BUN 34 H Creatinine 1.19 H Estim Creat Clear Calc 51.88 Est GFR (MDRD) Af Amer 59 L Est GFR (MDRD) Non-Af 49 L BUN/Creatinine Ratio 28.6 H Glucose 191 H Lactic Acid Calcium 8.6 Total Bilirubin 0.90 AST 62 H ALT 27 Alkaline Phosphatase 76 Troponin I High Sens 36 Total Protein 8.1 Albumin 2.8 L Globulin 5.3 H Albumin/Globulin Ratio 0.5 L 09/21/21 13:55 WBC RBC Hgb Hct MCV MCH MCHC RDW Std Deviation RDW Coeff of Ana Maria Plt Count MPV Immature Gran % (Auto) Neut % (Auto) Lymph % (Auto) Wilcox % (Auto) Eos % (Auto) Baso % (Auto) Absolute Neuts (auto) Absolute Lymphs (auto) Nucleated RBC % Reactive Lymphocytes PT INR APTT D-Dimer Quant (PE/DVT) Sodium Potassium Chloride Carbon Dioxide Anion Gap BUN Creatinine Estim Creat Clear Calc Est GFR (MDRD) Af Amer Est GFR (MDRD) Non-Af BUN/Creatinine Ratio Glucose Lactic Acid 2.9 H* Calcium Total Bilirubin AST ALT Alkaline Phosphatase Troponin I High Sens Total Protein Albumin Globulin Albumin/Globulin Ratio Radiography Diagnostic Testing: Clinical Impression(s) from Imaging Studies Chest X-Ray 09/21/21 14:19 IMPRESSION: Patchy bilateral pulmonary infiltrates worse in the right hemithorax. Electronically Signed: Cesario Guillaume MD at 14:40 EST , Service support , Chest CTA 09/21/21 15:05 IMPRESSION: No demonstrated pulmonary embolism or arterial dissection. Bilateral diffuse patchy groundglass densities and possible patchy infiltrates. Mild mediastinal adenopathy Electronically Signed: Luke Smith DO at 17:01 EST Tel [phone], Service support , Discharge Plan Triage Chief Complaint: Shortness of Breath ED Provider: Kirill Murray Dx/Rx/DC Orders Prescriptions: No Action albuterol sulfate 90 mcg/actuation aerosol powdr breath activated 90 mcg INHALATION ONCE PRN (Reason: sob) RF: 0 potassium chloride [Klor-Con] 20 mEq packet 20 meq PO QDAY RF: 0 losartan 25 mg tablet 25 mg PO DAILY RF: 0 tramadol 50 mg tablet 50 mg PO QHS RF: 0 meloxicam 7.5 mg tablet 7.5 mg PO DAILY RF: 0 tizanidine 4 mg tablet 4 mg PO QHS RF: 0 clonidine HCl 0.2 mg tablet 0.1 mg PO DAILY RF: 0 glimepiride 1 mg tablet 1 mg PO BID RF: 0 gabapentin 300 mg capsule 600 mg PO TID RF: 0 Primary Care Provider: Suzie Melendez
[2021-09-21 14:13] LABS: Absolute Lymphocyte Count 0.63 X10^3/uL (0.83-4.51); Absolute Neutrophil Count 9.9 X10^3/uL (2.0-7.7); Basophil# 0.01 X10^3/uL; Basophil% 0.1 % (0-1); Hematocrit 47.1 % (37-47); Hemoglobin 15.6 g/dL (12.0-15.0); Lymphocyte # 0.63 X10^3/ul (0.83-4.51); Lymphocyte % 5.7 % (19-41); Mean Corp Hgb Conc 33.1 g/dL (32-36); Mean Corpuscular Hgb 28.8 pg (27.0-32.0); Mean Corpuscular Volume 87.1 fL (81-99); Mean Platelet Vol. 10.3 fl (6.2-12.0); Monocyte# 0.41 X10^3/uL; Monocyte% 3.7 % (0-10); NRBC Flagged by Analyzer 0.4 % (0-5); Neutrophil # 9.89 X10^3/uL (2.7-7.7); Neutrophil % 89.7 % (47-70); POSITIVE MORPHOLOGY YES; Platelet Count 166 K/mm3 (150-450); RBC Distribution Width CV 14.3 % (11.6-14.6); RBC Distribution Width SD 45.2 fl (35.1-43.9); Red Blood Count 5.41 M/mm3 (4.2-5.4)
--- NOTE | 2021-09-21 14:19 | RAD_ITS ---
STUDY: X-RAY CHEST REASON FOR EXAM: Female, 61 years old. Cough and chest congestion. Weakness. TECHNIQUE: Single AP portable view of the chest. COMPARISON: Comparison is made with prior radiograph dated 02/23/2012. FINDINGS: EKG electrodes are seen. Patchy bilateral pulmonary infiltrates worse in the right hemithorax. There is no demonstrated pleural abnormality. Normal size heart. Normal mediastinum and parish. Normal visualized pulmonary arteries. Normal visualized aortic arch and descending thoracic aorta. There are diffuse degenerative changes of the visualized thoracic spine. Normal visualized ribs, clavicles, and shoulders. There is no demonstrated abnormality of the visualized soft tissue structures of the upper abdomen. RAD/Chest 1 View (Portable) IMPRESSION: Patchy bilateral pulmonary infiltrates worse in the right hemithorax. Electronically Signed: Cesario Guillaume MD at 14:40 EST , Service support ,
[2021-09-21 14:33] LABS: ALB/GLOB Ratio 0.5 RATIO (0.9-2.4); AST(SGOT) 62 U/L (15-37); Alanine Aminotransfer ALT/SGPT 27 U/L (13-56); Albumin, Serum 2.8 g/dL (3.2-5.0); Alkaline Phosphatase 76 U/L (45-117); Anion Gap 14 (5-15); BUN 34 mg/dL (7-18); BUN/Creat Ratio 28.6 RATIO (10-20); Calcium,Total 8.6 mg/dL (8.5-10.1); Chloride 98 mmol/L (98-107); Creatinine, Serum 1.19 mg/dL (0.55-1.02); EST Glomerular Filtration Rate 49 mL/min (>60); Est Glom Filt Rate - Afr Amer 59 mL/min (>60); Estimated Creatinine Clearance 51.88 ml/min; Globulin 5.3 g/dL (2.2-4.2); Glucose 191 mg/dL (74-106); Potassium 3.4 mmol/L (3.5-5.1); Protein, Total 8.1 g/dL (6.4-8.2); Sodium Level 135 mmol/L (136-145); Troponin-I HS 36 pg/mL (3.0-54.0)
[2021-09-21 14:34] LABS: International Normalized Ratio 1.1
[2021-09-21 14:35] LABS: Differential Indicated SCAN CRITERIA MET; Partial Thromboplast Time 25.4 Seconds (24.1-36.2)
[2021-09-21 14:38] LABS: Lactic Acid 2.9 mmol/L (0.4-1.9)
[2021-09-21 14:45] LABS: Reactive Lymphocyte RARE
[2021-09-21 15:04] LABS: D-Dimer Quantitative (DVT/PE) > 20.00 FEU/ug/m (0.27-0.49)
--- NOTE | 2021-09-21 15:05 | CT_ITS ---
STUDY: CTA CHEST REASON FOR EXAM: Female, 61 years old. Hypoxia RADIATION DOSAGE (If Supplied By Facility): CTDIvol = ( 11.23 ) mGy, DLP = ( 442.78 ) mGycm TECHNIQUE: The examination was performed with the intravenous administration of IV 100mL Isovue-370. Post-processing of the angiographic images was performed, with multiplanar reformation and 3D reconstruction. Individualized dose optimization techniques were used for this CT. COMPARISON: None. FINDINGS: Normal enhancement of the main pulmonary artery and right and left pulmonary arteries. Normal enhancement of the bilateral peripheral pulmonary arteries. There is no demonstrated pulmonary embolism. Normal thoracic aorta and visualized great vessels. There is no demonstrated aortic dissection. Normal heart and pericardium. Mild adenopathy in the mediastinum. Normal hilar regions. Normal visualized trachea and bronchi. Bilateral diffuse patchy groundglass densities and possible patchy infiltrates. Bibasalar atelectasis Normal pleura. Normal chest wall structures. Degenerative vertebral changes are. Normal visualized upper abdomen. CT/CTA Chest W/WO Contrast IMPRESSION: No demonstrated pulmonary embolism or arterial dissection. Bilateral diffuse patchy groundglass densities and possible patchy infiltrates. Mild mediastinal adenopathy Electronically Signed: Luke Smith DO at 17:01 EST Tel [phone], Service support ,
[2021-09-21] MEDS: dexAMETHasone 10 MG/ML Vial 6 MG IV (15:57)
--- NOTE | 2021-09-21 17:49 | HP.PCM.HOS_ITS ---
HPI - General HPI Narrative TOMÁS MORAES, is a 61 F who presents presents with illness as well as progressive shortness of breath over the past 6 days. Patient presented emergency room and was eventually put on BiPAP was able to be weaned down to 70% FiO2. Patient is very listless and reluctant to engage in conversation so much of the information is obtained to the emergency room physician as well as the patient's segment other at bedside. Patient is unvaccinated for COVID-19 and tested positive for COVID-19. [facility] Medical History (Updated 09/21/21 @ 17:[address] Pedro Luis Castrejon DO) Hypertension Neuralgia and neuritis, unspecified Other intervertebral disc degeneration, lumbar region Polyosteoarthritis Radiculopathy, lumbar region Radiculopathy, lumbosacral region Sacroiliitis Home Medications albuterol sulfate 90 mcg/actuation breath activated powder inhaler 90 mcg INHALATION ONCE PRN 09/20/17 [History Last Taken Unknown] potassium chloride 20 mEq oral packet 20 meq PO QDAY 04/18/18 [History Last Taken Unknown] losartan 25 mg tablet 25 mg PO DAILY 09/28/20 [History Last Taken Unknown] meloxicam 7.5 mg tablet 7.5 mg PO DAILY tab 11/16/20 [History Last Taken Unknown] tizanidine 4 mg tablet 4 mg PO QHS tab 11/16/20 [History Last Taken Unknown] clonidine HCl 0.2 mg tablet 0.1 mg PO DAILY tab 07/18/21 [History Last Taken Unknown] glimepiride 1 mg tablet 1 mg PO BID tab 07/18/21 [History Last Taken Unknown] tramadol 50 mg tablet 50 mg PO QHS tab 07/18/21 [History Last Taken Unknown] gabapentin 300 mg capsule 600 mg PO TID cap 08/15/21 [History Last Taken Unknown] Allergy/AdvReac Type Severity Reaction Status Date / Time lisinopril Allergy Mild coughing Verified 09/21/21 13:29 Family History Father Cancer CVA (cerebral vascular accident) Hypertension Mother Cancer Diabetes Sister Cancer Surgical History H/O right breast biopsy History of total left knee replacement right foot Social History Smoking Status: Former smoker how long ago did patient quit smokin ROS ROS Narrative Unable to obtain an adequate review of systems as patient is reluctant to engage with questioning given her underlying illness. Vital Signs Vital Signs Vital Signs: 09/21/21 13:25 09/21/21 13:35 09/21/21 13:53 Temperature 36.2 C L 36.2 C L Temperature Source Temporal Temporal Pulse Rate 90 84 81 Respiratory Rate 18 23 H 26 H Blood Pressure 101/58 L 154/71 H 135/72 H Blood Pressure Mean 72 98 93 Pulse Ox 62 94 97 Oxygen Delivery Method Room Air Non-Rebreather Non-Rebreather Oxygen Flow Rate (L/min) 15 Fraction of Inspired Oxygen (FIO2) 09/21/21 15:11 09/21/21 15:58 09/21/21 16:00 Temperature 36.2 C L Temperature Source Temporal Pulse Rate 73 69 68 Respiratory Rate 40 H 28 H 31 H Blood Pressure 137/70 H 132/79 H Blood Pressure Mean 92 96 Pulse Ox 89 99 98 Oxygen Delivery Method Non-Rebreather Bi-pap Oxygen Flow Rate (L/min) 15 Fraction of Inspired Oxygen (FIO2) 100 09/21/21 16:09 Temperature Temperature Source Pulse Rate Respiratory Rate Blood Pressure Blood Pressure Mean Pulse Ox Oxygen Delivery Method Oxygen Flow Rate (L/min) Fraction of Inspired Oxygen (FIO2) 75 Weight Weight: 98.883 kg Body Mass Index (BMI) 32.1 Physical Exam Const Constitutional Narrative: Awake. On BiPAP. HEENT normocephalic Resp normal respiratory effort and no retractions Resp Narrative: Coarse breath sounds bilaterally Cardio regular rate, regular rhythm, S1 normal heart sound and S2 normal heart sound GI normal to inspection, nondistended, normoactive bowel sounds, soft to palpation, non-tender and non-distended Extremity normal to inspection Skin no rashes or lesions noted Neuro Sensorium / Orientation: awake and alert Psych Psych Narrative: Flat affect Results Lab / Micro Data Attestation: I reviewed the patient's lab results. Result Diagrams: 09/21/21 13:55 09/21/21 13:55 Labs: Laboratory Results - last 24 hr 09/21/21 13:55: WBC 11.0, RBC 5.41 H, Hgb 15.6 H, Hct 47.1 H, MCV 87.1, MCH 28.8, MCHC 33.1, RDW Std Deviation 45.2 H, RDW Coeff of Ana Maria 14.3, Plt Count 166, MPV 10.3, Immature Gran % (Auto) 0.800, Neut % (Auto) 89.7 H, Lymph % (Auto) 5.7 L, Moody % (Auto) 3.7, Eos % (Auto) 0.0, Baso % (Auto) 0.1, Absolute Neuts (auto) 9.9 H, Absolute Lymphs (auto) 0.63 L, Nucleated RBC % 0.4, Reactive Lymphocytes RARE 09/21/21 13:55: PT 14.0, INR 1.1, APTT 25.4, D-Dimer Quant (PE/DVT) > 20.00 H* 09/21/21 13:55: Sodium 135 L, Potassium 3.4 L, Chloride 98, Carbon Dioxide 23.0, Anion Gap 14, BUN 34 H, Creatinine 1.19 H, Estim Creat Clear Calc 51.88, Est GFR (MDRD) Af Amer 59 L, Est GFR (MDRD) Non-Af 49 L, BUN/Creatinine Ratio 28.6 H, Glucose 191 H, Calcium 8.6, Total Bilirubin 0.90, AST 62 H, ALT 27, Alkaline Phosphatase 76, Troponin I High Sens 36, Total Protein 8.1, Albumin 2.8 L, Globulin 5.3 H, Albumin/Globulin Ratio 0.5 L 09/21/21 13:55: Lactic Acid 2.9 H* Micro: Microbiology 09/21/21 14:10 Nasal Secretion SARS-CoV-2 Antigen (Rapid) - Final SARS-CoV-2 (COVID 19) Radiology Impression Chest X-Ray 09/21/21 14:19 IMPRESSION: Patchy bilateral pulmonary infiltrates worse in the right hemithorax. Electronically Signed: Cesario Guillaume MD at 14:40 EST , Service support , Chest CTA 09/21/21 15:05 IMPRESSION: No demonstrated pulmonary embolism or arterial dissection. Bilateral diffuse patchy groundglass densities and possible patchy infiltrates. Mild mediastinal adenopathy Electronically Signed: Luke Smith DO at 17:01 EST Tel [phone], Service support , Assessment & Plan Assessment/Plan (1) COVID-19: (2) Acute respiratory failure with hypoxia: PLAN: 1. Acute hypoxic respiratory failure Secondary to COVID-19 Currently on BiPAP at 70% FiO2 and satting in the low 90s. Rule out bacterial superinfection CTA negative for PE and was personally reviewed and shows diffuse bilateral groundglass changes Discussed with the patient and her that I am greatly concerned that she may continue to deteriorate and may wind up being on ventilator in the coming days. Pulmonary consultation as this case is very concerning for eventual intubation though I do not feel that is necessary at this time. 2. COVID-19 pneumonia Unvaccinated Dexamethasone and remdesivir Onset was September 16 and patient will need to quarantine through October 05 Infectious disease to see if patient be a candidate for baricitinib 3. Diabetes mellitus type 2 Blood sugar was 191 I fully expect her blood sugars to be very difficult to control after initiation of steroids so she will be on sliding scale insulin for now. 4. VTE prophylaxis with enoxaparin 5. CODE STATUS: Addressed with the patient segment other as patient is to listless to engage in questioning. He stated patient is full CODE STATUS. Charges/Coding Visit Charges Inpatient E&M: 59896 Init Hosp L3
[2021-09-21 18:09] LABS: Reflex Lactate? Y
[2021-09-21 19:26] LABS: Lactic Acid 0.8 mmol/L (0.4-1.9)
[2021-09-21] MEDS: 0.9% Saline Lock 10 ML Syringe IV (21:15)
[2021-09-21 21:25] LABS: Bedside Glucose 204 mg/dL (70-110)
--- NOTE | 2021-09-21 22:59 | CPS ---
INCREASED FIO2 70%
[2021-09-22] VITALS (23 sets, daily range): BP systolic 106–134; BP diastolic 55–90; PULSE 60–79; RESP 12–39; TEMP 35.6–36.9; O2SAT 90–97
[2021-09-22 05:02] LABS: Mucous, Urine 0 SEEN /hpf (<or=2+); Red Blood Cells-Urine 0 SEEN /hpf (0-5)
[2021-09-22 05:10] LABS: Color, Urine Yellow (Yellow); Glucose, Dipstick Normal (Normal); Ketone-Dipstick Negative (Negative); Leukocyte Esterase-Dipstick Negative /ul (Negative); Nitrite-Dipstick Negative (Negative); Occult Blood-Urine 25 /ul (Negative); Protein-Dipstick 30 mg/dl (Negative); Specific Gravity, Urine 1.015 (1.002-1.030); Urine Bilirubin Dipstick Negative (Negative); Urine Clarity Clear (Clear); Urine Urobilinogen Normal (Normal)
[2021-09-22 05:20] LABS: Bacteria 1+ /hpf (None Seen); Squamous Epithelial Cells - UA 0-5 SEEN /hpf (5-10); White Blood Cells 0-5 SEEN /hpf (0-5)
[2021-09-22 05:51] LABS: Absolute Lymphocyte Count 0.65 X10^3/uL (0.83-4.51); Absolute Neutrophil Count 5.7 X10^3/uL (2.0-7.7); Basophil# 0.01 X10^3/uL; Basophil% 0.1 % (0-1); Hematocrit 46.3 % (37-47); Hemoglobin 15.1 g/dL (12.0-15.0); Lymphocyte # 0.65 X10^3/ul (0.83-4.51); Lymphocyte % 9.7 % (19-41); Mean Corp Hgb Conc 32.6 g/dL (32-36); Mean Corpuscular Volume 88.9 fL (81-99); Mean Platelet Vol. 10.2 fl (6.2-12.0); Monocyte# 0.29 X10^3/uL; Monocyte% 4.3 % (0-10); NRBC Flagged by Analyzer 0.7 % (0-5); Neutrophil # 5.67 X10^3/uL (2.7-7.7); POSITIVE MORPHOLOGY YES; Platelet Count 118 K/mm3 (150-450); RBC Distribution Width CV 14.6 % (11.6-14.6); RBC Distribution Width SD 47.8 fl (35.1-43.9); Red Blood Count 5.21 M/mm3 (4.2-5.4); White Blood Count 6.7 K/mm3 (4.4-11.0)
[2021-09-22 05:56] LABS: Differential Indicated SCAN CRITERIA MET
[2021-09-22 06:19] LABS: ALB/GLOB Ratio 0.5 RATIO (0.9-2.4); AST(SGOT) 45 U/L (15-37); Alanine Aminotransfer ALT/SGPT 24 U/L (13-56); Albumin, Serum 2.4 g/dL (3.2-5.0); Alkaline Phosphatase 71 U/L (45-117); Anion Gap 9 (5-15); BUN 30 mg/dL (7-18); BUN/Creat Ratio 37.4 RATIO (10-20); Calcium,Total 8.3 mg/dL (8.5-10.1); Chloride 105 mmol/L (98-107); EST Glomerular Filtration Rate 77 mL/min (>60); Est Glom Filt Rate - Afr Amer 93 mL/min (>60); Estimated Creatinine Clearance 77.18 ml/min; Globulin 4.8 g/dL (2.2-4.2); Glucose 181 mg/dL (74-106); Potassium 4.2 mmol/L (3.5-5.1); Protein, Total 7.2 g/dL (6.4-8.2); Sodium Level 139 mmol/L (136-145)
[2021-09-22 06:40] LABS: Bedside Glucose 188 mg/dL (70-110)
[2021-09-22 07:46] LABS: Differential Comment SCANNED; Reactive Lymphocyte 1+
--- NOTE | 2021-09-22 08:25 | CPS ---
RESOURCE COORDINATOR encouraged patient to prone and lay on side
[2021-09-22] MEDS: dexAMETHasone 10 MG/ML Vial 6 MG IV (09:20)
[2021-09-22] MEDS: 0.9% Saline Lock 10 ML Syringe IV (09:20)
[2021-09-22] MEDS: Enoxaparin 40 MG/0.4 ML Syringe SC (09:20)
--- NOTE | 2021-09-22 09:26 | VDLE_ITS ---
Reason For Study: Elevated D-dimer RIGHT LEFT GSV is normal. GSV previously harvested. CFV, FV and PopV are compressible. CFV, FV and PopV are compressible. Acute deep vein thrombosis is noted in the Acute deep vein thrombosis is noted in the right SoleusV. left T/P Trunk, PTV, PeroV and SoleusV. T/P Trunk is compressible. PTV is compressible. RT PerV is compressible. Procedure This is a venous duplex using B-mode, color flow and spectral Doppler. Exam performed portable in patient room. A preliminary report was called and/or faxed to RN. VL/Venous Duplex US - Kendall Extrem Interpretation Summary Acute deep venous thrombosis right soleus vein Acute deep venous thrombosis left tibioperoneal trunk, posterior tibial, perone al, and soleus veins Patent and compressible right great saphenous vein Surgically harvested left great saphenous vein Ordering Physician: Chas Pérez Referring Physician: Suzie Melendez Performed By: Aneta Culver RVT
[2021-09-22 09:53] LABS: BNP,B-Type NATRIURETIC PEPTIDE 28.8 pg/mL (0-100)
[2021-09-22 10:41] LABS: Procalcitonin 0.25 ng/mL (0.00-0.09)
--- NOTE | 2021-09-22 10:43 | CON.PCM.ID_ITS ---
Assessment & Plan Assessment/Plan (1) COVID-19: PLAN: Sx started 09/15/21. Isolate untili 10/04/21. Unvaccinated, camilo mmended vaccine in one month. On bipap/airvo. On dex, remdesivir. D-dimer over 20, CT neg for PE. Will check BLE doppler and increase lovenox to 40mg bid. Reviewed EUA and risks/benefits, we agree to start baricitinib. Will follow, thank you (2) Acute respiratory failure with hypoxia: HPI Consult Data Date of Consult: 09/22/21 HPI Narrative HPI Narrative: TOMÁS MORAES, is a 61 F who presented 09/21 with sx since 09/15. C/o cough, fatigue, progressive dyspnea. Unvaccinated. sick at home, recovering. No change in taste and smell. Small amount torres sputum. Came to ED, admitted on dex, remdesivir, bipap. Full ROS performed and neg except as noted above. [facility] Medical History Hypertension Neuralgia and neuritis, unspecified Other intervertebral disc degeneration, lumbar region Polyosteoarthritis Radiculopathy, lumbar region Radiculopathy, lumbosacral region Sacroiliitis Home Medications albuterol sulfate 90 mcg/actuation breath activated powder inhaler 90 mcg IN HALATION ONCE PRN 09/20/17 [History Last Taken Unknown] potassium chloride 20 mEq oral packet 20 meq PO QDAY 04/18/18 [History Last Taken Unknown] losartan 25 mg tablet 25 mg PO DAILY 09/28/20 [History Last Taken Unknown] meloxicam 7.5 mg tablet 7.5 mg PO DAILY tab 11/16/20 [History Last Taken Unkn own] tizanidine 4 mg tablet 4 mg PO QHS tab 11/16/20 [History Last Taken Unknown] clonidine HCl 0.2 mg tablet 0.1 mg PO DAILY tab 07/18/21 [History Last Taken Unknown] glimepiride 1 mg tablet 1 mg PO BID tab 07/18/21 [History Last Taken Unknown] tramadol 50 mg tablet 50 mg PO QHS tab 07/18/21 [History Last Taken Unknown] gabapentin 300 mg capsule 600 mg PO TID cap 08/15/21 [History Last Taken Unknown] Allergy/AdvReac Type Severity Reaction Status Date / Time lisinopril Allergy Mild coughing Verified 09/21/21 13:29 Family History Father Cancer CVA (cerebral vascular accident) Hypertension Mother Cancer Diabetes Sister Cancer Surgical History H/O right breast biopsy History of total left knee replacement right foot Social History (Updated 09/21/21 @ 20:12 by Georgie Sawyer) household members: spouse number of children: 1 current occupational status: employed 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 Smoking Status: Former smoker how long ago did patient quit smokin Physical Exam Const alert, oriented x3 and no apparent distress General Appearance: cooperative Exam Limitations: no limitations HEENT normocephalic and head/scalp atraumatic Eyes PERRL and EOMs intact bilaterally Neck supple and No nodes Resp Auscultation: diminished lung sounds Cardio regular rate and regular rhythm GI soft to palpation, non-tender and non-distended Extremity no clubbing, cyanosis or edema Skin no rashes or lesions noted Neuro CN's II-XII intact bilaterally Lab / Micro Data Result Diagrams: 09/22/21 04:52 09/22/21 04:52 Labs: Laboratory Results - last 24 hr 09/21/21 13:55: WBC 11.0, RBC 5.41 H, Hgb 15.6 H, Hct 47.1 H, MCV 87.1, MCH 28.8, MCHC 33.1, RDW Std Deviation 45.2 H, RDW Coeff of Ana Maria 14.3, Plt Count 166, MPV 10.3, Immature Gran % (Auto) 0.800, Neut % (Auto) 89.7 H, Lymph % (Auto) 5.7 L, [place] % (Auto) 3.7, Eos % (Auto) 0.0, Baso % (Auto) 0.1, Absolute Neuts (auto) 9.9 H, Absolute Lymphs (auto) 0.63 L, Nucleated RBC % 0.4, Reactive Lymphocytes RARE 09/21/21 13:55: PT 14.0, INR 1.1, APTT 25.4, D-Dimer Quant (PE/DVT) > 20.00 H* 09/21/21 13:55: Sodium 135 L, Potassium 3.4 L, Chloride 98, Carbon Dioxide 23.0, Anion Gap 14, BUN 34 H, Creatinine 1.19 H, Estim Creat Clear Calc 51.88, Est GFR (MDRD) Af Amer 59 L, Est GFR (MDRD) Non-Af 49 L, BUN/Creatinine Ratio 28.6 H, Glucose 191 H, Calcium 8.6, Total Bilirubin 0.90, AST 62 H, ALT 27, Alkaline Phosphatase 76, Troponin I High Sens 36, Total Protein 8.1, Albumin 2.8 L, Globulin 5.3 H, Albumin/Globulin Ratio 0.5 L 09/21/21 13:55: Lactic Acid 2.9 H* 09/21/21 18:30: Lactic Acid 0.8 09/21/21 21:07: POC Glucose 204 H 09/22/21 04:19: Urine Color Yellow, Urine Clarity Clear, Urine pH 5.0, Ur Specific [place] 1.015, Urine Protein 30 H, Urine Glucose (UA) Normal, Urine Ketones Negative, Urine Occult Blood 25 H, Urine Nitrite Negative, Urine Bilirubin Negative, Urine Urobilinogen Normal, Ur Leukocyte Esterase Negative, Urine RBC 0 SEEN, Urine WBC 0-5 SEEN, Ur Squamous Epith Cells 0-5 SEEN, Urine Bacteria 1+, Urine Mucus 0 SEEN 09/22/21 04:52: WBC 6.7, RBC 5.21, Hgb 15.1 H, Hct 46.3, MCV 88.9, MCH 29.0, MCHC 32.6, RDW Std Deviation 47.8 H, RDW Coeff of [place] 14.6, Plt Count 118 L, MPV 10.2, Immature Gran % (Auto) 0.900, Neut % (Auto) 85.0 H, Lymph % (Auto) 9.7 L, [place] % (Auto) 4.3, Eos % (Auto) 0.0, Baso % (Auto) 0.1, Absolute Neuts (auto) 5.7, Absolute Lymphs (auto) 0.65 L, Nucleated RBC % 0.7, Differential Comment SCANNED, Reactive Lymphocytes 1+ 09/22/21 04:52: Sodium 139, Potassium 4.2, Chloride 105, Carbon Dioxide 25.0, Anion Gap 9, BUN 30 H, Creatinine 0.80, Estim Creat Clear Calc 77.18, Est GFR (MDRD) Af Amer 93, Est GFR (MDRD) Non-Af 77, BUN/Creatinine Ratio 37.4 H, Glucose 181 H, Calcium 8.3 L, Total Bilirubin 0.70, AST 45 H, ALT 24, Alkaline Phosphatase 71, Total Protein 7.2, Albumin 2.4 L, Globulin 4.8 H, Albumin/Globulin Ratio 0.5 L 09/22/21 04:52: B-Natriuretic Peptide 28.8 09/22/21 04:52: C-React Prot Ext Range 163.00 H 09/22/21 06:32: POC Glucose 188 H 09/22/21 10:02: Procalcitonin 0.25 H Micro: Microbiology 09/21/21 14:10 Nasal Secretion SARS-CoV-2 Antigen (Rapid) - Final SARS-CoV-2 (COVID 19) Radiology Impression Chest X-Ray 09/21/21 14:19 IMPRESSION: Patchy bilateral pulmonary infiltrates worse in the right hemithorax. Electronically Signed: Cesario Guillaume MD at 14:40 EST , Service support , Chest CTA 09/21/21 15:05 IMPRESSION: No demonstrated pulmonary embolism or arterial dissection. Bilateral diffuse patchy groundglass densities and possible patchy infiltrates. Mild mediastinal adenopathy Electronically Signed: Luke Smith DO at 17:01 EST Tel [phone], Service support ,
[2021-09-22 12:06] LABS: Bedside Glucose 147 mg/dL (70-110)
[2021-09-22] MEDS: Glucerna Shake 120 ML LIQUID PO (13:52)
--- NOTE | 2021-09-22 14:37 | CON.PCM.CC_ITS ---
Assessment & Plan Assessment/Plan (1) Acute respiratory failure with hypoxia: (2) COVID-19: (3) Hypertension: PLAN: RECOMMENDATIONS: 1. Complete Remdesivir (09/25/2021), Decadron (10/01/2021) and baricitinib (10/05/2021) 2. Daily labs to monitor for complications 3. Titrate insulin as necessary 4. Encourage incentive spirometer, Acapella and prone positioning as tolerated 5. Diuretics as necessary to maintain euvolemia 6. Continue BiPAP with Airvo breaks as tolerated during the day IMPRESSIONS: 1. Acute hypoxic respiratory failure secondary to COVID-19 Unclear patient has an element of COPD complicating respiratory status. Patient does have a significant smoking history in the past. Patient with extensive groundglass opacities, but no PE. Agree with Lovenox at the current dosing. Patient on maximal medical therapy at this time. Will need to have daily labs to monitor for complications. Encourage incentive spirometer, Acapella and prone positioning, but patient appears to be precontemplative. We will dose intermittently with Lasix as necessary to maintain euvolemia. BiPAP should be used with sleep. Patient could take breaks with Airvo during the day to maintain nutrition. 2. Diabetes mellitus Patient presented with elevated blood sugars. Part of this may be seconda ry to endogenous steroid use, but patient will need Decadron for the next 10 days. Continue to monitor blood sugars with sliding scale. Cannot exclude the need for Lantus moving forward. 3. Overweight/hypertension/musculoskeletal issues/unvaccinated status/chronic pain syndrome Complicates care, management, recovery and prognosis. Okay to continue with baseline antihypertensive medications. Patient may need additional medications given the need for Decadron therapy. Will need to watch for rebound as patient is on clonidine at baseline. Confirmed that patient is a full code. HPI Consult Data Date of Consult: 09/22/21 HPI Narrative HPI Narrative: TOMÁS MORAES is a 61 F, with past medical history listed below, who presented to [facility] on 09/21/2021 secondary to progressive shortness of breath and fatigue over the last 7 days. Patient had reported some muscle aches, but denied any fever or change in taste and smell. Patient did report a productive cough starting today. Patient has had some loose bowel movements. Patient had reportedly gone for Covid testing, but the nurse thought that she needed to be evaluated and came to the ER. Patient does have a protracted smoking history, but quit sometime ago and denies a diagnosis of COPD. In the ER, patient was afebrile, but tachypneic as high as 40 breaths/min. Patient was requiring a nonrebreather to maintain saturations and was noted to be 62% on room air on presentation. Laboratory work-up showed a white blood cell count of 11, hemoglobin of 15.6 and a D-dimer greater than 20. Potassium was low at 3.4 and creatinine was elevated at 1.19. Liver function was within normal limits. Lactate was elevated at 2.9. Chest x-ray showed right greater than left patchy infiltrates and this was again demonstrated on a CTA showing no PE with bilateral groundglass opacities and mild mediastinal lymphadenopathy. Patient tested positive for COVID-19 and was initiated on Decadron. Patient was admitted to the hospital for further evaluation. Patient states that she is never required supplemental oxygen previously. Patient does have up significant smoking history, but is never been diagnosed with COPD. Patient does report that she has used albuterol in the past with bronchitis. Patient does not have any history of previous blood clots or miscarriages. Patient does have a history of a previous knee replacement and foot injuries, but does not report any increased swelling recently. Patient denies any exposure to asbestos or TB. 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 Review of systems otherwise negative from a constitutional, HEENT, respiratory, cardiovascular, GI, genitourinary, musculoskeletal, skin, neurologic, psyc hiatric and hematologic system unless stated above. [facility] Medical History Hypertension Neuralgia and neuritis, unspecified Other intervertebral disc degeneration, lumbar region Polyosteoarthritis Radiculopathy, lumbar region Radiculopathy, lumbosacral region Sacroiliitis Home Medications albuterol sulfate 90 mcg/actuation breath activated powder inhaler 90 mcg INHALATION ONCE PRN 09/20/17 [History Last Taken Unknown] potassium chloride 20 mEq oral packet 20 meq PO QDAY 04/18/18 [History Last Taken Unknown] losartan 25 mg tablet 25 mg PO DAILY 09/28/20 [History Last Taken Unknown] meloxicam 7.5 mg tablet 7.5 mg PO DAILY tab 11/16/20 [History Last Taken Unknown] tizanidine 4 mg tablet 4 mg PO QHS tab 11/16/20 [History Last Taken Unknown] clonidine HCl 0.2 mg tablet 0.1 mg PO DAILY tab 07/18/21 [History Last Taken Unknown] glimepiride 1 mg tablet 1 mg PO BID tab 07/18/21 [History Last Taken Unknown] tramadol 50 mg tablet 50 mg PO QHS tab 07/18/21 [History Last Taken Unknown] gabapentin 300 mg capsule 600 mg PO TID cap 08/15/21 [History Last Taken Unknown] Allergy/AdvReac Type Severity Reaction Status Date / Time lisinopril Allergy Mild coughing Verified 09/21/21 13:29 Family History Father Cancer CVA (cerebral vascular accident) Hypertension Mother Cancer Diabetes Sister Cancer Surgical History H/O right breast biopsy History of total left knee replacement right foot Social History household members: spouse number of children: 1 current occupational status: employed 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 Moderate conversational dyspnea noted. General Appearance: in distress Positive for moderate and ill appearing Positive for acutely Nutritional Appearance: overweight HEENT normocephalic Eyes PERRL, EOMs intact bilaterally and no scleral icterus Neck No nuchal rigidity, supple and no JVD Chest inspection of chest normal Chest: symmetrical chest wall rise; Negative for crepitus Resp Resp Narrative: Coarse breath sounds bilaterally Effort and Inspection: tachypneic Auscultation: diminished lung sounds; Negative for rales, rhonchi or wheezes Cardio regular rhythm, S1 normal heart sound, S2 normal heart sound, no murmurs, no rub and no gallops Rate: tachycardic GI normal to inspection, nondistended, normoactive bowel sounds, soft to palpation, non-tender and non-distended Extremity General Extremity: Negative for clubbing, cyanosis or edema Skin no rashes or lesions noted Neuro Sensorium / Orientation: awake and alert Psych Psych Narrative: Flat affect Lab / Micro Data Result Diagrams: 09/22/21 04:52 09/22/21 04:52 Labs: Laboratory Results - last 24 hr 09/21/21 13:55: Reactive Lymphocytes RARE 09/21/21 13:55: PT 14.0, INR 1.1, APTT 25.4, D-Dimer Quant (PE/DVT) > 20.00 H* 09/21/21 13:55: Lactic Acid 2.9 H* 09/21/21 18:30: Lactic Acid 0.8 09/21/21 21:07: POC Glucose 204 H 09/22/21 04:19: Urine Color Yellow, Urine Clarity Clear, Urine pH 5.0, Ur Specific [place] 1.015, Urine Protein 30 H, Urine Glucose (UA) Normal, Urine Ketones Negative, Urine Occult Blood 25 H, Urine Nitrite Negative, Urine Bilirubin Negative, Urine Urobilinogen Normal, Ur Leukocyte Esterase Negative, Urine RBC 0 SEEN, Urine WBC 0-5 SEEN, Ur Squamous Epith Cells 0-5 SEEN, Urine Ba cteria 1+, Urine Mucus 0 SEEN 09/22/21 04:52: WBC 6.7, RBC 5.21, Hgb 15.1 H, Hct 46.3, MCV 88.9, MCH 29.0, MCHC 32.6, RDW Std Deviation 47.8 H, RDW Coeff of Ana [place] 14.6, Plt Count 118 L, MPV 10.2, Immature Gran % (Auto) 0.900, Neut % (Auto) 85.0 H, Lymph % (Auto) 9.7 L, [place] % (Auto) 4.3, Eos % (Auto) 0.0, Baso % (Auto) 0.1, Absolute Neuts (auto) 5.7, Absolute Lymphs (auto) 0.65 L, Nucleated RBC % 0.7, Differential Comment SCANNED, Reactive Lymphocytes 1+ 09/22/21 04:52: Sodium 139, Potassium 4.2, Chloride 105, Carbon Dioxide 25.0, Anion Gap 9, BUN 30 H, Creatinine 0.80, Estim Creat Clear Calc 77.18, Est GFR (MDRD) Af Amer 93, Est GFR (MDRD) Non-Af 77, BUN/Creatinine Ratio 37.4 H, Glucose 181 H, Calcium 8.3 L, Total Bilirubin 0.70, AST 45 H, ALT 24, Alkaline Phosphatase 71, Total Protein 7.2, Albumin 2.4 L, Globulin 4.8 H, Albumin/Josselin bulin Ratio 0.5 L 09/22/21 04:52: B-Natriuretic Peptide 28.8 09/22/21 04:52: C-React Prot Ext Range 163.00 H 09/22/21 06:32: POC Glucose 188 H 09/22/21 10:02: Procalcitonin 0.25 H 09/22/21 11:59: POC Glucose 147 H Micro: Microbiology 09/22/21 10:30 Sputum, Expectorated/Coughed Gram Stain - Final 09/22/21 10:30 Urine, Clean Catch Legionella Antigen - Final 09/22/21 10:30 Urine, Clean Catch Streptococcus pneumoniae Antigen (M - Final 09/22/21 04:19 Urine, Clean Catch Urine Culture - Preliminary Culture exhibits no growth. 09/21/21 14:10 Nasal Secretion SARS-CoV-2 Antigen (Rapid) - Final SARS-CoV-2 (COVID 19) Radiology Impression Chest X-Ray 09/21/21 14:19 IMPRESSION: Patchy bilateral pulmonary infiltrates worse in the right hemithorax. Electronically Signed: Cesario Guillaume MD at 14:40 EST , Service support , Chest CTA 09/21/21 15:05 IMPRESSION: No demonstrated pulmonary embolism or arterial dissection. Bilateral diffuse patchy groundglass densities and possible patchy infiltrates. Mild mediastinal adenopathy Electronically Signed: Luke Smith DO at 17:01 EST Tel [phone], Service support , Charges/Coding Visit Charges Inpatient E&M: 79883 Init Hosp L3
--- NOTE | 2021-09-22 14:58 | CASEMGMT ---
INDIO PACK attempted to call patient in room to complete assessment. No answer, will attempt again at later time.
--- NOTE | 2021-09-22 16:15 | PCM.PN.HOSP ---
Subjective Subjective Patient had been requiring BiPAP and had been converted to air Vo. Seems to go back and forth between BiPAP and air Vo. Has no specific complaints other than she is hungry when I arrived at her room. She seems a bit aloof at the severity of her current situation. Objective Data Objective Data Vital Signs: Vital Signs Temp Pulse Resp BP Pulse Ox 97.7 F L 74 20 H 126/68 H 90 09/22/21 14:00 09/22/21 14:41 09/22/21 14:00 09/22/21 14:00 09/22/21 14:00 Oxygen Flow Rate (L/min) 60 Oxygen Delivery Method Airvo Weight: 89.4 kg Body Mass Index (BMI) 29.0 Intake & Output: Intake and Output for Last 24 Hours 09/20/21 09/21/21 09/22/21 23:59 23:59 23:59 Intake Total 750 / 750 750 / 750 Output Total 300 / 300 Balance 750 / 750 450 / 450 Lab / Micro Data Result Diagrams: 09/22/21 04:52 09/22/21 04:52 Labs: Laboratory Results - last 24 hr 09/21/21 18:30: Lactic Acid 0.8 09/21/21 21:07: POC Glucose 204 H 09/22/21 04:19: Urine Color Yellow, Urine Clarity Clear, Urine pH 5.0, Ur Specific [place] 1.015, Urine Protein 30 H, Urine Glucose (UA) Normal, Urine Ketones Negative, Urine Occult Blood 25 H, Urine Nitrite Negative, Urine Bilirubin Negative, Urine Urobilinogen Normal, Ur Leukocyte Esterase Negative, Urine RBC 0 SEEN, Urine WBC 0-5 SEEN, Ur Squamous Epith Cells 0-5 SEEN, Urine Bacteria 1+, Urine Mucus 0 SEEN 09/22/21 04:52: WBC 6.7, RBC 5.21, Hgb 15.1 H, Hct 46.3, MCV 88.9, MCH 29.0, MCHC 32.6, RDW Std Deviation 47.8 H, RDW Coeff of [place] 14.6, Plt Count 118 L, MPV 10.2, Immature Gran % (Auto) 0.900, Neut % (Auto) 85.0 H, Lymph % (Auto) 9.7 L, [place] % (Auto) 4.3, Eos % (Auto) 0.0, Baso % (Auto) 0.1, Absolute Neuts (auto) 5.7, Absolute Lymphs (auto) 0.65 L, Nucleated RBC % 0.7, Differential Comment SCANNED, Reactive Lymphocytes 1+ 09/22/21 04:52: Sodium 139, Potassium 4.2, Chloride 105, Carbon Dioxide 25.0, Anion Gap 9, BUN 30 H, Creatinine 0.80, Estim Creat Clear Calc 77.18, Est GFR (MDRD) Af Amer 93, Est GFR (MDRD) Non-Af 77, BUN/Creatinine Ratio 37.4 H, Glucose 181 H, Calcium 8.3 L, Total Bilirubin 0.70, AST 45 H, ALT 24, Alkaline Phosphatase 71, Total Protein 7.2, Albumin 2.4 L, Globulin 4.8 H, Albumin/Globulin Ratio 0.5 L 09/22/21 04:52: B-Natriuretic Peptide 28.8 09/22/21 04:52: C-React Prot Ext Range 163.00 H 09/22/21 06:32: POC Glucose 188 H 09/22/21 10:02: Procalcitonin 0.25 H 09/22/21 11:59: POC Glucose 147 H Micro: Microbiology 09/22/21 10:30 Sputum, Expectorated/Coughed Gram Stain - Final 09/22/21 10:30 Urine, Clean Catch Legionella Antigen - Final 09/22/21 10:30 Urine, Clean Catch Streptococcus pneumoniae Antigen (M - Final 09/22/21 04:19 Urine, Clean Catch Urine Culture - Preliminary Culture exhibits no growth. 09/21/21 14:10 Nasal Secretion SARS-CoV-2 Antigen (Rapid) - Final SARS-CoV-2 (COVID 19) Radiography Diagnostic Testing: Radiology Impression Chest CTA 09/21/21 15:05 IMPRESSION: No demonstrated pulmonary embolism or arterial dissection. Bilateral diffuse patchy groundglass densities and possible patchy infiltrates. Mild mediastinal adenopathy Electronically Signed: Luke Smith DO at 17:01 EST Tel [phone], Service support , Physical Exam Const alert and oriented x3 Constitutional Narrative: Overweight middle-aged white female sitting up in bed currently on air Vo, watching television, demonstrates tachypnea but no signs of extremis, asking to eat and upset that she has not gotten her food yet Exam Limitations: no limitations Nutritional Appearance: overweight HEENT head/scalp atraumatic, moist oral mucous membranes and oropharynx normal HEENT Narrative: Mallampati 2, no thrush Head and Scalp: normocephalic Resp No normal respiratory effort, no retractions, no use of accessory muscles and clear to auscultation bilaterally Resp Narrative: Diffusely diminished but no adventitious sounds, tachypnea but no accessory muscle use Auscultation: Negative for crackles, rales, rhonchi or wheezes Cardio regular rate, regular rhythm, S1 normal heart sound, S2 normal heart sound, no murmurs, no rub, no gallops, no clicks and no JVD GI normal to inspection, nondistended, normoactive bowel sounds, soft to palpation, non-tender and non-distended; Negative for hepatosplenomegaly Extremity no clubbing, cyanosis or edema Peripheral Pulses: Yes pulses 2+ throughout Neuro oriented x3, CN's II-XII intact bilaterally, moves all extremities and no focal motor deficits Neuro Narrative: Generalized weakness and patient is significantly fatigued Sensorium / Orientation: awake and alert Speech: speech normal Psych Psych Narrative: Patient seems mildly anxious and a bit agitated Assessment & Plan Assessment/Plan (1) Acute respiratory failure with hypoxia: (2) DVT of lower extremity, bilateral: (3) COVID-19: (4) Hyperglycemia: (5) Transaminitis: PLAN: Acute hypoxic respiratory failure secondary to COVID-19 pneumonia -Nonvaccinated--> recommend vaccine 1 month after isolation -Symptom onset 09/15/2021--> will need quarantine until 10/04/2021 -Decadron day 2 of 10 -Remdesivir day 1 of 5 -ID consulted for initiation of baricitinib -Continue Pep therapy/I-S -Prone lying as able -Mobilization -Patient currently requiring air Vo at an FiO2 of 89% and a flow of 60 L/min with an FiO2 of 90 to 94% Elevated D-dimer -CTA negative for PE -Bilateral lower extremity Dopplers show DVT Bilateral lower extremity DVTs -Continue prophylactic dose Lovenox -Start therapeutic dose Lovenox at 1 mg/kg twice daily -We will transition to Eliquis if patient remains stable and able to take p.o. on a regular basis Transaminitis -Mild -Suspect related to Covid -We will continue to monitor with utilization of baricitinib and remdesivir DM-2 -Currently uncontrolled with utilization of Decadron -Continue Lantus 6 units with breakfast and SSI -Continue Accu-Cheks -Goal blood sugar 140-180--> if patient having elevations higher than this will institute higher doses of insulin -Hold home oral antihyperglycemic's Hypertension -Patient is on losartan 25 mg daily and clonidine 0.2 mg daily -Hold antihypertensives at this time and follow blood pressures for need of reinitiation Chronic low back pain -Hold home medication including Ultram, meloxicam and tizanidine at this time DVT prophylaxis -Full dose Lovenox CODE STATUS -Full code Charges/Coding Visit Charges Inpatient E&M: 49927 Subs Hosp L2
[2021-09-22] MEDS: Enoxaparin 100 MG/ML Syringe 90 MG SC (18:04)
[2021-09-22] MEDS: Insulin Lispro 100 UNIT/ML INSULN.PEN SC (18:06)
[2021-09-22 18:16] LABS: Bedside Glucose 230 mg/dL (70-110)
[2021-09-22] MEDS: NYSTATIN 500,000 UNIT/5 ML UDC 500000 UNIT PO (19:55)
[2021-09-22 22:15] LABS: Bedside Glucose 233 mg/dL (70-110)
[2021-09-23] VITALS (18 sets, daily range): BP systolic 136–160; BP diastolic 72–92; PULSE 57–85; RESP 12–34; TEMP 36.2–36.9; O2SAT 91–96
[2021-09-23] MEDS: Insulin Lispro 100 UNIT/ML INSULN.PEN SC ×4 (06:47→21:03)
[2021-09-23 07:05] LABS: Bedside Glucose 183 mg/dL (70-110)
[2021-09-23 08:40] LABS: Hematocrit 44.4 % (37-47); Hemoglobin 14.6 g/dL (12.0-15.0); Mean Corp Hgb Conc 32.9 g/dL (32-36); Mean Corpuscular Volume 88.3 fL (81-99); Mean Platelet Vol. 10.4 fl (6.2-12.0); POSITIVE MORPHOLOGY YES; Platelet Count 102 K/mm3 (150-450); RBC Distribution Width CV 14.5 % (11.6-14.6); RBC Distribution Width SD 46.4 fl (35.1-43.9); Red Blood Count 5.03 M/mm3 (4.2-5.4); White Blood Count 12.3 K/mm3 (4.4-11.0)
--- NOTE | 2021-09-23 08:43 | PN.CC_ITS ---
Assessment & Plan Assessment/Plan (1) Acute respiratory failure with hypoxia: (2) COVID-19: (3) Hypertension: PLAN: RECOMMENDATIONS: 1. Complete Remdesivir (09/25/2021), Decadron (10/01/2021) and baricitinib (10/05/2021) 2. Daily labs to monitor for complications. Continue therapeutic Lovenox 3. Titrate insulin as necessary 4. Encourage incentive spirometer, Acapella and prone positioning as tolerated 5. Diuretics as necessary to maintain euvolemia 6. Continue BiPAP with Airvo breaks as tolerated during the day 7. Await morning labs to assess for diuretics IMPRESSIONS: 1. Acute hypoxic respiratory failure secondary to COVID-19 Unclear patient has an element of COPD complicating respiratory status. Patient does have a significant smoking history in the past. Patient with extensive groundglass opacities, but no PE. Agree with Lovenox at the current dosing. Patient on maximal medical therapy at this time. Will need to have daily labs to monitor for complications. Encourage incentive spirometer, Acapella and prone positioning, but patient appears to be precontemplative. We will dose intermittently with Lasix as necessary to maintain euvolemia. BiPAP should be used with sleep. Patient could take breaks with Airvo during the day to maintain nutrition. Patient does appear more comfortable today compared to yesterday 2. Diabetes mellitus Patient presented with elevated blood sugars. Part of this may be secondary to endogenous steroid use, but patient will need Decadron for the next 10 days. Continue to monitor blood sugars with sliding scale. Glucose is acceptable at this point. Cannot exclude the need for Lantus moving forward. 3. Overweight/hypertension/musculoskeletal issues/unvaccinated status/chronic pain syndrome Complicates care, management, recovery and prognosis. Okay to continue with baseline antihypertensive medications. Patient may need additional medications given the need for Decadron therapy. Will need to watch for rebound as patient is on clonidine at baseline. 4. DVT Currently on therapeutic Lovenox and tolerating well. Anticipate 3 months of anticoagulation. Monitor for bleeding complications. Subjective Subjective Patient subjectively feels somewhat improved today compared to yesterday. Patient with less conversational dyspnea. Patient did have a positive DVT scan overnight, so was started on Lovenox. Patient is not reporting any bleeding complications. Objective Data Objective Data Vital Signs: Vital Signs Temp Pulse Resp BP Pulse Ox 36.8 C 67 18 143/92 H 93 09/23/21 06:00 09/23/21 07:42 09/23/21 07:42 09/23/21 06:00 09/23/21 07:42 Oxygen Flow Rate (L/min) 60 Oxygen Delivery Method Bi-pap Weight: 89.4 kg Body Mass Index (BMI) 29.0 Intake & Output: Intake and Output for Last 24 Hours 09/21/21 09/22/21 09/23/21 23:59 23:59 23:59 Intake Total 750 / 750 1450 / 1450 300 / 300 Output Total 650 / 650 600 / 600 Balance 750 / 750 800 / 800 -300 / -300 Lab / Micro Data Result Diagrams: 09/22/21 04:52 09/22/21 04:52 Labs: Laboratory Results - last 24 hr 09/22/21 04:52: B-Natriuretic Peptide 28.8 09/22/21 04:52: C-React Prot Ext Range 163.00 H 09/22/21 10:02: Procalcitonin 0.25 H 09/22/21 11:59: POC Glucose 147 H 09/22/21 18:00: POC Glucose 230 H 09/22/21 22:00: POC Glucose 233 H 09/23/21 06:43: POC Glucose 183 H Micro: Microbiology 09/22/21 10:30 Sputum, Expectorated/Coughed Gram Stain - Final 09/22/21 10:30 Urine, Clean Catch Legionella Antigen - Final 09/22/21 10:30 Urine, Clean Catch Streptococcus pneumoniae Antigen (M - Final 09/22/21 04:19 Urine, Clean Catch Urine Culture - Preliminary Culture exhibits no growth. 09/21/21 14:10 Nasal Secretion SARS-CoV-2 Antigen (Rapid) - Final SARS-CoV-2 (COVID 19) Radiography Diagnostic Testing: Radiology Impression Venous Doppler Study 09/22/21 09:26 Interpretation Summary Acute deep venous thrombosis right soleus vein Acute deep venous thrombosis left tibioperoneal trunk, posterior tibial, peroneal, and soleus veins Patent and compressible right great saphenous vein Surgically harvested left great saphenous vein Ordering Physician: Chas Pérez Referring Physician: Suzie Melendez Performed By: Aneta Culver RVT Physical Exam Const alert Constitutional Narrative: On Airvo. Mild conversational dyspnea noted. General Appearance: in distress Positive for mild and ill appearing Positive for acutely Nutritional Appearance: overweight HEENT normocephalic Eyes PERRL, EOMs intact bilaterally and no scleral icterus Neck No nuchal rigidity, supple and no JVD Chest inspection of chest normal Chest: symmetrical chest wall rise; Negative for crepitus Resp Resp Narrative: Coarse breath sounds bilaterally Effort and Inspection: tachypneic Auscultation: diminished lung sounds; Negative for rales, rhonchi or wheezes Cardio regular rhythm, S1 normal heart sound, S2 normal heart sound, no murmurs, no rub and no gallops Rate: tachycardic GI normal to inspection, nondistended, normoactive bowel sounds, soft to palpation, non-tender and non-distended Extremity General Extremity: Negative for clubbing, cyanosis or edema Skin no rashes or lesions noted Neuro Sensorium / Orientation: awake and alert Psych Psych Narrative: Flat affect Charges/Coding Visit Charges Inpatient E&M: 58942 Subs Hosp L3
[2021-09-23] MEDS: dexAMETHasone 10 MG/ML Vial 6 MG IV (09:03)
[2021-09-23] MEDS: NYSTATIN 500,000 UNIT/5 ML UDC 500000 UNIT PO ×3 (09:03→20:31)
[2021-09-23] MEDS: Enoxaparin 100 MG/ML Syringe 90 MG SC ×2 (09:03→20:29)
[2021-09-23] MEDS: 0.9% Saline Lock 10 ML Syringe IV ×3 (09:03→20:28)
[2021-09-23 09:11] LABS: ALB/GLOB Ratio 0.5 RATIO (0.9-2.4); AST(SGOT) 41 U/L (15-37); Alanine Aminotransfer ALT/SGPT 29 U/L (13-56); Albumin, Serum 2.5 g/dL (3.2-5.0); Alkaline Phosphatase 88 U/L (45-117); Anion Gap 8 (5-15); BUN 33 mg/dL (7-18); BUN/Creat Ratio 42.9 RATIO (10-20); Chloride 105 mmol/L (98-107); Creatinine, Serum 0.77 mg/dL (0.55-1.02); EST Glomerular Filtration Rate 81 mL/min (>60); Est Glom Filt Rate - Afr Amer 98 mL/min (>60); Estimated Creatinine Clearance 80.18 ml/min; Globulin 4.8 g/dL (2.2-4.2); Glucose 155 mg/dL (74-106); Potassium 4.2 mmol/L (3.5-5.1); Protein, Total 7.3 g/dL (6.4-8.2); Sodium Level 138 mmol/L (136-145)
[2021-09-23 09:27] LABS: Differential Indicated MANUAL DIFF
[2021-09-23 09:39] LABS: Lymphocyte 22 % (19-41); Metamyelocyte 4 % (0-1); Monocyte 1 % (0-10); Myelocyte 2 % (0-0); Neutrophil-Band 3 % (0-5); Neutrophil-Segmented 68 % (47-70); Total Cells Counted 100 (MANUAL DIFF)
[2021-09-23 09:40] LABS: Microcytosis 1+; Polychromasia 1+
[2021-09-23 09:52] LABS: Absolute Neutrophil Count 8.7 X10^3/uL (2.0-7.7)
--- NOTE | 2021-09-23 10:40 | CASEMGMT ---
RN [facility] [employer] CM to room to meet with patient for initial transition planning/care coordination assessment. INDIO PACK introduced self and role at [facility]. Pt voices understanding and consents to assessment at this time. Pt sitting up in recliner chair in no distress at this time. Airvo in place. Pt is A/O at this time and answers all questions appropriately. Care providers, pharmacy, and demographics verified/updated at this time. COVID +. Testing done @ [facility] 09/21/21 PCP: Suzie Melendez Specialists:Dr Burrows-pain mgmt, Dr Alvarenga @ [facility], Dr Srinivasan-ortho surgeon Preferred Pharmacy: [facility] Retail Insurance:MMO Prescription Benefit: Rx Living Will/HPOA: Does not have LW or HPOA LNOK: , Balbir. Son, Mateus Henley (only child)--lives in [place], [place] Living Arrangements: Lives w/, Balbir, in 2-story home w/2 steps to enter. Bedroom and bathroom on 2nd floor. Also has bathroom on ground floor. Pt is independent w/ADL's and IADL's and denies difficulty w/stairs. Per pt, has not had signs/symptoms of COVID. Pt states He says he's okay. Pt states friends can bring groceries/supplies. Transportation: Pt states drives self and states no transportation concerns at this time. also drives. DME: Has a functioning glucometer w/supplies. No home O2. Discussed possible need of Home O2 @ d/c and reviewed list of local DME companies. Also discussed home O2 set-up process. Pt denies having preference of DME co for O2. Pt does not have a pulse ox and this was recommended by INDIO PACK to get one. Pt has access to the following, but does not use: walker, cane, [facility] HHC/SNF: No hx of SNF. Has had HHC in the past after knee surgery. Pt denies need for HHC at this time. Pt wishes to return home and states has no concerns with going home at time of discharge. Pt states does not smoke or drink ETOH. 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 CM to follow for home oxygen needs and any further discharge planning/needs. Pt voices no further concerns/needs at this time. Advised pt to ask for CM if any further questions/concerns/needs arise. Voices understanding. PLAN: Home. Follow for possible Home O2 @ discharge. Karen ALBRECHTN RN CM
[2021-09-23 11:35] LABS: Bedside Glucose 346 mg/dL (70-110)
[2021-09-23] MEDS: Furosemide 40 MG/4 ML Vial IV (11:52)
--- NOTE | 2021-09-23 15:37 | PN.HOSP_ITS ---
Subjective Subjective Patient sleeping soundly upon my examination today. Per discussion with nursing staff she has been more comfortable on air Vo however remains tachypneic. This is expected with Covid infection. Currently on air Vo at 60 L/min and 92% FiO2 with an SPO2 of 91 to 96%. Objective Data Objective Data Vital Signs: Vital Signs Temp Pulse Resp BP Pulse Ox 97.2 F L 67 32 H 160/82 H 92 09/23/21 09:27 09/23/21 14:58 09/23/21 10:28 09/23/21 09:27 09/23/21 12:24 Oxygen Flow Rate (L/min) 60 Oxygen Delivery Method Airvo Weight: 89.4 kg Body Mass Index (BMI) 29.0 Intake & Output: Intake and Output for Last 24 Hours 09/21/21 09/22/21 09/23/21 23:59 23:59 23:59 Intake Total 750 / 750 1450 / 1450 780 / 780 Output Total 650 / 650 1600 / 1600 Balance 750 / 750 800 / 800 -820 / -820 Lab / Micro Data Result Diagrams: 09/23/21 08:18 09/23/21 08:18 Labs: Laboratory Results - last 24 hr 09/22/21 18:00: POC Glucose 230 H 09/22/21 22:00: POC Glucose 233 H 09/23/21 06:43: POC Glucose 183 H 09/23/21 08:18: WBC 12.3 H, RBC 5.03, Hgb 14.6, Hct 44.4, MCV 88.3, MCH 29.0, MCHC 32.9, RDW Std Deviation 46.4 H, RDW Coeff of Ana Maria 14.5, Plt Count 102 L, MPV 10.4, Neut % (Auto) Not Reportable, Absolute Neuts (auto) 8.7 H, Absolute Lymphs (auto) 2.70, Total Counted 100, Neutrophils % (Manual) 68, Band Neutrophils % 3, Lymphocytes % (Manual) 22, Monocytes % (Manual) 1, Metamyelocytes % 4 H, Myelocytes % 2 H, Diff Path Review May , Polychromasia 1+, Microcytosis 1+ 09/23/21 08:18: Sodium 138, Potassium 4.2, Chloride 105, Carbon Dioxide 25.0, Anion Gap 8, BUN 33 H, Creatinine 0.77, Estim Creat Clear Calc 80.18, Est GFR (MDRD) Af Amer 98, Est GFR (MDRD) Non-Af 81, BUN/Creatinine Ratio 42.9 H, Glucose 155 H, Calcium 9.0, Total Bilirubin 1.00, AST 41 H, ALT 29, Alkaline Phosphatase 88, Total Protein 7.3, Albumin 2.5 L, Globulin 4.8 H, Albumin/Globu kip Ratio 0.5 L 09/23/21 11:21: POC Glucose 346 H Micro: Microbiology 09/22/21 10:30 Sputum, Expectorated/Coughed Gram Stain - Final 09/22/21 10:30 Sputum, Expectorated/Coughed Respiratory Culture - Preliminary 09/21/21 14:43 Blood Culture (Wb) - Right Hand Blood Culture - Preliminary No growth in 48 hours. 09/21/21 13:55 Blood Culture (Wb) - Anticubital Left Blood Culture - Preliminary No growth in 48 hours. 09/22/21 04:19 Urine, Clean Catch Urine Culture - Final Mixed Gram Positive Organisms 09/22/21 10:30 Urine, Clean Catch Legionella Antigen - Final 09/22/21 10:30 Urine, Clean Catch Streptococcus pneumoniae Antigen (M - Final 09/21/21 14:10 Nasal Secretion SARS-CoV-2 Antigen (Rapid) - Final SARS-CoV-2 (COVID 19) Radiography Diagnostic Testing: Radiology Impression Venous Doppler Study 09/22/21 09:26 Interpretation Summary Acute deep venous thrombosis right soleus vein Acute deep venous thrombosis left tibioperoneal trunk, posterior tibial, peroneal, and soleus veins Patent and compressible right great saphenous vein Surgically harvested left great saphenous vein Ordering Physician: Chas Pérez Referring Physician: Suzie Melendez Performed By: Aneta Culver RVT Physical Exam Const alert and oriented x3 Constitutional Narrative: Overweight middle-aged white female lying in bed sleeping soundly, appears comfortable, tachypneic Exam Limitations: no limitations Nutritional Appearance: overweight HEENT normocephalic and head/scalp atraumatic Head and Scalp: normocephalic Resp No normal respiratory effort, no retractions, no use of accessory muscles and clear to auscultation bilaterally Resp Narrative: Diffusely diminished but no adventitious sounds, tachypnea but no accessory muscle use Auscultation: Negative for crackles, rales, rhonchi or wheezes Cardio regular rate, regular rhythm, S1 normal heart sound, S2 normal heart sound, no murmurs, no rub, no gallops, no clicks and no JVD GI normal to inspection, nondistended, normoactive bowel sounds, soft to palpation, non-tender and non-distended; Negative for hepatosplenomegaly Extremity normal to inspection and no clubbing, cyanosis or edema Neuro Neuro Narrative: Sleeping soundly Assessment & Plan Assessment/Plan (1) Acute respiratory failure with hypoxia: (2) DVT of lower extremity, bilateral: (3) COVID-19: (4) Hyperglycemia: (5) Transaminitis: PLAN: Acute hypoxic respiratory failure secondary to COVID-19 pneumonia -Nonvaccinated--> recommend vaccine 1 month after isolation -Symptom onset 09/15/2021--> will need quarantine until 10/04/2021 -Decadron day 3 of 10 -Remdesivir day 3 of 5 -Baricitinib day 2 of 14 -Continue Pep therapy/I-S -Prone lying as able -Mobilization -Lasix 40 mg IV push x1 dose given this morning -Patient currently requiring air Vo at an FiO2 of 92% and a flow of 60 L/min with an FiO2 of 91 to 95% -ID and pulmonary are following-appreciate input Elevated D-dimer -CTA negative for PE -Bilateral lower extremity Dopplers show DVT Bilateral lower extremity DVTs -Acute DVT of right soleal vein and left tibial peroneal trunk, posterior tibial, peroneal, and soleal veins -Technically these are below the knee DVTs and could be followed serially but with COVID-19 her risk of further clot given hypercoagulable state is high and we will therefore continue full dose therapy -Lovenox 90 mg subcu twice daily -We will transition to Eliquis if patient remains stable and able to take p.o. on a regular basis Transaminitis -Mild -Slowly trending down -Suspect related to Covid -We will continue to monitor with utilization of baricitinib and remdesivir DM-2 -Fasting blood sugar this morning was 155 -Continue to monitor for trends and adjust insulins as needed -Continue Lantus 6 units with breakfast and SSI -Continue Accu-Cheks -Goal blood sugar 140-180--> if patient having elevations higher than this will institute higher doses of insulin -Hold home oral antihyperglycemic's Hypertension -Patient is on losartan 25 mg daily and clonidine 0.2 mg daily -Blood pressures are starting to trend up and therefore will restart home antihypertensives Chronic low back pain -Hold home medication including Ultram, meloxicam and tizanidine at this time DVT prophylaxis -Full dose Lovenox CODE STATUS -Full code
--- NOTE | 2021-09-23 15:46 | CASEMGMT ---
Green sheet on chart for O2. Juli BORJAS CM
[2021-09-23] MEDS: cloNIDine HCl 0.1 MG Tablet PO (16:52)
[2021-09-23] MEDS: Losartan Potassium 25 MG Tablet PO (16:52)
[2021-09-23 17:15] LABS: Bedside Glucose 222 mg/dL (70-110)
--- NOTE | 2021-09-23 20:43 | NURSING ---
patent requesting medications early to rest.
[2021-09-23 20:50] LABS: Bedside Glucose 279 mg/dL (70-110)
[2021-09-24] VITALS (24 sets, daily range): BP systolic 116–167; BP diastolic 73–96; PULSE 82–99; RESP 12–43; TEMP 36.6–37.3; O2SAT 85–94
--- NOTE | 2021-09-24 00:45 | RAD_ITS ---
EXAM: XR CHEST, 1 VIEW : 1960 CLINICAL INDICATION: sob TECHNIQUE: Frontal view of the chest. This report was created using Mess[employer] report generation technology. COMPARISON: 09/21/21 FINDINGS: LUNGS AND PLEURAL SPACES: Patchy bilateral airspace disease. No pneumothorax. No effusion. HEART: Unremarkable. Cardiac silhouette not enlarged. MEDIASTINUM: Central airways and mediastinal contour are unremarkable. BONES/JOINTS: Degenerative changes of the spine. SOFT TISSUES: Unremarkable. RAD/Chest 1 View (Portable) IMPRESSION: Patchy bilateral airspace disease. Findings may indicate pneumonia. at 0127 Reported and signed by: Beny Moreno MD Electronically Signed: Beny Moreno MD at 1:27 EST Tel , Service support ,
[2021-09-24] MEDS: Insulin Lispro 100 UNIT/ML INSULN.PEN SC ×4 (06:50→21:08)
[2021-09-24 07:06] LABS: Bedside Glucose 182 mg/dL (70-110)
[2021-09-24] MEDS: Enoxaparin 100 MG/ML Syringe 90 MG SC ×2 (07:47→21:07)
[2021-09-24] MEDS: Losartan Potassium 25 MG Tablet PO (07:49)
[2021-09-24] MEDS: cloNIDine HCl 0.1 MG Tablet PO (07:49)
[2021-09-24] MEDS: dexAMETHasone 10 MG/ML Vial 6 MG IV (07:50)
[2021-09-24] MEDS: NYSTATIN 500,000 UNIT/5 ML UDC 500000 UNIT PO ×4 (07:52→21:09)
[2021-09-24 08:21] LABS: Basophil# 0.01 X10^3/uL; Basophil% 0.1 % (0-1); Differential Indicated SCAN CRITERIA MET; Eosinophil# 0.01 X10^3/uL; Eosinophils% 0.1 % (0-5); Hematocrit 46.7 % (37-47); Hemoglobin 15.2 g/dL (12.0-15.0); Lymphocyte % 8.2 % (19-41); Mean Corp Hgb Conc 32.5 g/dL (32-36); Mean Corpuscular Hgb 28.8 pg (27.0-32.0); Mean Corpuscular Volume 88.6 fL (81-99); Mean Platelet Vol. 11.2 fl (6.2-12.0); Monocyte# 0.13 X10^3/uL; Monocyte% 1.1 % (0-10); NRBC Flagged by Analyzer 0.4 % (0-5); Neutrophil # 11.03 X10^3/uL (2.7-7.7); POSITIVE MORPHOLOGY YES; Platelet Count 115 K/mm3 (150-450); RBC Distribution Width CV 14.5 % (11.6-14.6); RBC Distribution Width SD 45.7 fl (35.1-43.9); Red Blood Count 5.27 M/mm3 (4.2-5.4); White Blood Count 12.2 K/mm3 (4.4-11.0)
[2021-09-24 08:55] LABS: ALB/GLOB Ratio 0.6 RATIO (0.9-2.4); AST(SGOT) 42 U/L (15-37); Alanine Aminotransfer ALT/SGPT 27 U/L (13-56); Albumin, Serum 2.6 g/dL (3.2-5.0); Alkaline Phosphatase 88 U/L (45-117); Anion Gap 10 (5-15); BUN 29 mg/dL (7-18); BUN/Creat Ratio 36.2 RATIO (10-20); Calcium,Total 8.8 mg/dL (8.5-10.1); Chloride 101 mmol/L (98-107); EST Glomerular Filtration Rate 77 mL/min (>60); Est Glom Filt Rate - Afr Amer 93 mL/min (>60); Estimated Creatinine Clearance 77.18 ml/min; Globulin 4.3 g/dL (2.2-4.2); Glucose 137 mg/dL (74-106); Protein, Total 6.9 g/dL (6.4-8.2); Sodium Level 137 mmol/L (136-145)
[2021-09-24] MEDS: HYDROmorphone 0.5 MG/0.5 ML SYRINGE IV (10:28)
[2021-09-24] MEDS: 0.9% Saline Lock 10 ML Syringe IV (10:29)
[2021-09-24] MEDS: Furosemide 40 MG/4 ML Vial IV ×2 (10:29→23:56)
[2021-09-24 12:11] LABS: Bedside Glucose 288 mg/dL (70-110)
--- NOTE | 2021-09-24 12:33 | PN.CC_ITS ---
Assessment & Plan Assessment/Plan (1) Acute respiratory failure with hypoxia: (2) COVID-19: (3) Hypertension: PLAN: RECOMMENDATIONS: 1. Complete Remdesivir (09/25/2021), Decadron (10/01/2021) and baricitinib (10/05/2021) 2. Daily labs to monitor for complications. Continue therapeutic Lovenox 3. Titrate insulin as necessary 4. Encourage incentive spirometer, Acapella and prone positioning as tolerated 5. Diuretics as necessary to maintain euvolemia 6. Continue BiPAP with Airvo breaks as tolerated during the day 7. Await morning labs to assess for diuretics IMPRESSIONS: 1. Acute hypoxic respiratory failure secondary to COVID-19 Unclear patient has an element of COPD complicating respiratory status. Patient does have a significant smoking history in the past. Patient with extensive groundglass opacities, but no PE. Agree with Lovenox at the current dosing. Patient on maximal medical therapy at this time. Will need to have daily labs to monitor for complications. Total bilirubin and AST are up slightly, but not enough to change therapy. Encourage incentive spirometer, Acapella and prone positioning, but patient appears to be precontemplative. We will dose intermittently with Lasix as necessary to maintain euvolemia. BiPAP should be used with sleep. Patient could take breaks with Airvo during the day to maintain nutrition. 2. Diabetes mellitus Patient presented with elevated blood sugars. Part of this may be secondary to endogenous steroid use, but patient will need Decadron for the next 10 days. Continue to monitor blood sugars with sliding scale. Glucose is acceptable at this point. Cannot exclude the need for additional Lantus moving forward. 3. Overweight/hypertension/musculoskeletal issues/unvaccinated status/chronic pain syndrome Complicates care, management, recovery and prognosis. Okay to continue with baseline antihypertensive medications. Patient may need additional medications given the need for Decadron therapy. Will need to watch for rebound as patient is on clonidine at baseline. 4. DVT Currently on therapeutic Lovenox and tolerating well. Anticipate 3 months of anticoagulation. Monitor for bleeding complications. Subjective Subjective Patient did okay overnight. No acute issues were reported. Patient feels subjectively unchanged compared to yesterday and describes her current situation as rough. Patient has been tolerating Airvo during the day and BiPAP with sleep. Patient is denying any chest pain, nausea or vomiting. No bleeding has been reported Objective Data Objective Data Vital Signs: Vital Signs Temp Pulse Resp BP Pulse Ox 36.9 C 86 37 H 116/75 89 09/24/21 11:59 09/24/21 11:59 09/24/21 11:59 09/24/21 11:59 09/24/21 11:59 Oxygen Flow Rate (L/min) 60 Oxygen Delivery Method Airvo Weight: 89.4 kg Body Mass Index (BMI) 29.0 Intake & Output: Intake and Output for Last 24 Hours 09/22/21 09/23/21 09/24/21 23:59 23:59 23:59 Intake Total 1450 / 1450 1510 / 1510 440 / 440 Output Total 650 / 650 2200 / 4200 2830 / 2830 Balance 800 / 800 -690 / -2690 -2390 / -2390 Lab / Micro Data Result Diagrams: 09/24/21 07:02 09/24/21 07:02 Labs: Laboratory Results - last 24 hr 09/23/21 16:49: POC Glucose 222 H 09/23/21 20:41: POC Glucose 279 H 09/24/21 06:49: POC Glucose 182 H 09/24/21 07:02: WBC 12.2 H, RBC 5.27, Hgb 15.2 H, Hct 46.7, MCV 88.6, MCH 28.8, MCHC 32.5, RDW Std Deviation 45.7 H, RDW Coeff of Ana Maria 14.5, Plt Count 115 L, MPV 11.2, Immature Gran % (Auto) 0.500, Neut % (Auto) 90.0 H, Lymph % (Auto) 8.2 L, [place] % (Auto) 1.1, Eos % (Auto) 0.1, Baso % (Auto) 0.1, Absolute Neuts (auto) 11.0 H, Absolute Lymphs (auto) 1.00, Nucleated RBC % 0.4 09/24/21 07:02: Sodium 137, Potassium 4.0, Chloride 101, Carbon Dioxide 26.0, Anion Gap 10, BUN 29 H, Creatinine 0.80, Estim Creat Clear Calc 77.18, Est GFR (MDRD) Af Amer 93, Est GFR (MDRD) Non-Af 77, BUN/Creatinine Ratio 36.2 H, Glucose 137 H, Calcium 8.8, Total Bilirubin 1.40 H, AST 42 H, ALT 27, Alkaline Phosphatase 88, Total Protein 6.9, Albumin 2.6 L, Globulin 4.3 H, Albumin/Globulin Ratio 0.6 L 09/24/21 11:50: POC Glucose 288 H Micro: Microbiology 09/22/21 10:30 Sputum, Expectorated/Coughed Gram Stain - Final 09/22/21 10:30 Sputum, Expectorated/Coughed Respiratory Culture - Preliminary 09/21/21 14:43 Blood Culture (Wb) - Right Hand Blood Culture - Preliminary No growth in 48 hours. 09/21/21 13:55 Blood Culture (Wb) - Anticubital Left Blood Culture - Preliminary No growth in 48 hours. 09/22/21 04:19 Urine, Clean Catch Urine Culture - Final Mixed Gram Positive Organisms 09/22/21 10:30 Urine, Clean Catch Legionella Antigen - Final 09/22/21 10:30 Urine, Clean Catch Streptococcus pneumoniae Antigen (M - Final 09/21/21 14:10 Nasal Secretion SARS-CoV-2 Antigen (Rapid) - Final SARS-CoV-2 (COVID 19) Physical Exam Const alert Constitutional Narrative: On Airvo. Mild conversational dyspnea noted. General Appearance: in distress Positive for mild and ill appearing Positive for acutely Nutritional Appearance: overweight HEENT normocephalic Eyes PERRL, EOMs intact bilaterally and no scleral icterus Neck No nuchal rigidity, supple and no JVD Chest inspection of chest normal Chest: symmetrical chest wall rise; Negative for crepitus Resp Resp Narrative: Coarse breath sounds bilaterally Effort and Inspection: tachypneic Auscultation: diminished lung sounds; Negative for rales, rhonchi or wheezes Cardio regular rhythm, S1 normal heart sound, S2 normal heart sound, no murmurs, no rub and no gallops Rate: tachycardic GI normal to inspection, nondistended, normoactive bowel sounds, soft to palpation, non-tender and non-distended Extremity General Extremity: Negative for clubbing, cyanosis or edema Skin no rashes or lesions noted Neuro Sensorium / Orientation: awake and alert Psych Psych Narrative: Flat affect Charges/Coding Visit Charges Inpatient E&M: 98980 Subs Hosp L3
[2021-09-24 15:55] LABS: Bedside Glucose 418 mg/dL (70-110)
--- NOTE | 2021-09-24 17:18 | PN.HOSP_ITS ---
Subjective Subjective Patient has been on and off of BiPAP switching between that airflow throughout the day. She is doing a bit better today. She seems less tachypneic. She has no complaints at this time. She has been able to eat lunch and was up in a chair earlier. Objective Data Objective Data Vital Signs: Vital Signs Temp Pulse Resp BP Pulse Ox 98.5 F 85 21 H 116/75 94 09/24/21 11:59 09/24/21 16:46 09/24/21 16:46 09/24/21 11:59 09/24/21 16:46 Oxygen Flow Rate (L/min) 60 Oxygen Delivery Method Airvo Weight: 89.4 kg Body Mass Index (BMI) 29.0 Intake & Output: Intake and Output for Last 24 Hours 09/22/21 09/23/21 09/24/21 23:59 23:59 23:59 Intake Total 1450 / 1450 1510 / 1510 440 / 440 Output Total 650 / 650 2200 / 4200 2830 / 2830 Balance 800 / 800 -690 / -2690 -2390 / -2390 Lab / Micro Data Result Diagrams: 09/24/21 07:02 09/24/21 07:02 Labs: Laboratory Results - last 24 hr 09/23/21 20:41: POC Glucose 279 H 09/24/21 06:49: POC Glucose 182 H 09/24/21 07:02: WBC 12.2 H, RBC 5.27, Hgb 15.2 H, Hct 46.7, MCV 88.6, MCH 28.8, MCHC 32.5, RDW Std Deviation 45.7 H, RDW Coeff of [place] 14.5, Plt Count 115 L, MPV 11.2, Immature Gran % (Auto) 0.500, Neut % (Auto) 90.0 H, Lymph % (Auto) 8.2 L, [place] % (Auto) 1.1, Eos % (Auto) 0.1, Baso % (Auto) 0.1, Absolute Neuts (auto) 11.0 H, Absolute Lymphs (auto) 1.00, Nucleated RBC % 0.4 09/24/21 07:02: Sodium 137, Potassium 4.0, Chloride 101, Carbon Dioxide 26.0, Anion Gap 10, BUN 29 H, Creatinine 0.80, Estim Creat Clear Calc 77.18, Est GFR (MDRD) Af Amer 93, Est GFR (MDRD) Non-Af 77, BUN/Creatinine Ratio 36.2 H, Glu cose 137 H, Calcium 8.8, Total Bilirubin 1.40 H, AST 42 H, ALT 27, Alkaline Phosphatase 88, Total Protein 6.9, Albumin 2.6 L, Globulin 4.3 H, Albumin/Globulin Ratio 0.6 L 09/24/21 11:50: POC Glucose 288 H 09/24/21 15:27: POC Glucose 418 H Micro: Microbiology 09/22/21 10:30 Sputum, Expectorated/Coughed Gram Stain - Final 09/22/21 10:30 Sputum, Expectorated/Coughed Respiratory Culture - Final 09/21/21 14:43 Blood Culture (Wb) - Right Hand Blood Culture - Preliminary No growth in 48 hours. 09/21/21 13:55 Blood Culture (Wb) - Anticubital Left Blood Culture - Preliminary No growth in 48 hours. 09/22/21 04:19 Urine, Clean Catch Urine Culture - Final Mixed Gram Positive Organisms 09/22/21 10:30 Urine, Clean Catch Legionella Antigen - Final 09/22/21 10:30 Urine, Clean Catch Streptococcus pneumoniae Antigen (M - Final 09/21/21 14:10 Nasal Secretion SARS-CoV-2 Antigen (Rapid) - Final SARS-CoV-2 (COVID 19) Physical Exam Const alert and oriented x3 Constitutional Narrative: Overweight middle-aged white female sitting up in bed currently on noninvasive ventilation with BiPAP, mild tachypnea but appears improved Exam Limitations: no limitations Nutritional Appearance: overweight HEENT normocephalic and head/scalp atraumatic HEENT Narrative: Tongue is dry from being on BiPAP Head and Scalp: normocephalic Resp No normal respiratory effort, no retractions, no use of accessory muscles and clear to auscultation bilaterally Resp Narrative: Diffusely diminished with few crackles at bases bilaterally, tachypnea but no accessory muscle use Auscultation: crackles; Negative for rales, rhonchi or wheezes Cardio regular rate, regular rhythm, S1 normal heart sound, S2 normal heart sound, no murmurs, no rub, no gallops, no clicks and no JVD GI normal to inspection, nondistended, normoactive bowel sounds, soft to palpation, non-tender and non-distended; Negative for hepatosplenomegaly Extremity no clubbing, cyanosis or edema Peripheral Pulses: Yes pulses 2+ throughout Neuro oriented x3, moves all extremities and no focal motor deficits Neuro Narrative: Sleeping soundly Sensorium / Orientation: awake and alert Speech: speech normal Assessment & Plan Assessment/Plan (1) Acute respiratory failure with hypoxia: (2) DVT of lower extremity, bilateral: (3) COVID-19: (4) Hyperglycemia: (5) Transaminitis: PLAN: Acute hypoxic respiratory failure secondary to COVID-19 pneumonia -Nonvaccinated--> recommend vaccine 1 month after isolation -Symptom onset 09/15/2021--> will need quarantine until 10/04/2021 -Decadron day 4 of 10 -Remdesivir day 4 of 5 -Baricitinib day 3 of 14 -Continue Pep therapy/I-S -Prone lying as able -Mobilization -Lasix 40 mg IV push x1 dose given this morning -Patient currently requiring air Vo and BiPAP as she goes back and forth between the two -Air Vo is 60 L/min and an FiO2 of 90% with an SPO2 of 89 to 91% -ID and pulmonary are following-appreciate input Elevated D-dimer -CTA negative for PE -Bilateral lower extremity Dopplers show DVT Bilateral lower extremity DVTs -Acute DVT of right soleal vein and left tibial peroneal trunk, posterior tibial, peroneal, and soleal veins -Technically these are below the knee DVTs and could be followed serially but with COVID-19 her risk of further clot given hypercoagulable state is high and we will therefore continue full dose therapy -Lovenox 90 mg subcu twice daily -We will transition to Eliquis if patient remains stable and able to take p.o. on a regular basis Transaminitis -Mild -Slowly trending down--> AST is mildly elevated at 42 but shows stability -Suspect related to Covid -We will continue to monitor with utilization of baricitinib and remdesivir DM-2 -Blood sugars have trended up and is having blood sugars in the 300s at times -Increase Lantus to 15 units with breakfast and SSI but change to high-dose from medium dose -Continue Accu-Cheks -May need to schedule log with meals if blood sugars remain elevated -Goal blood sugar 140-180 -Hold home oral antihyperglycemic's Hypertension -Blood pressure is better with the reinitiation of her home medications to in clude losartan 25 mg daily and clonidine 0.2 mg daily Chronic low back pain -Restart Ultram as needed -Hold muscle relaxant -Meloxicam DVT prophylaxis -Full dose Lovenox CODE STATUS -Full code Charges/Coding Visit Charges Inpatient E&M: 35015 Subs Hosp L2
[2021-09-24 21:50] LABS: Bedside Glucose 284 mg/dL (70-110)
--- NOTE | 2021-09-24 23:17 | CPS ---
PT WAS ON AIRVO FROM AROUND 6-9:15 PM. SWITCHED BACK TO BIPAP AT 21:15 PER RT. SpO2 WAS DROPPING TO HIGH 80s
[2021-09-25] VITALS (19 sets, daily range): BP systolic 113–134; BP diastolic 73–86; PULSE 68–88; RESP 12–29; TEMP 35.6–36.2; O2SAT 83–98
[2021-09-25 06:28] LABS: Absolute Lymphocyte Count 0.73 X10^3/uL (0.83-4.51); Absolute Neutrophil Count 8.7 X10^3/uL (2.0-7.7); Basophil# 0.02 X10^3/uL; Basophil% 0.2 % (0-1); Hematocrit 45.7 % (37-47); Hemoglobin 15.2 g/dL (12.0-15.0); Lymphocyte # 0.73 X10^3/ul (0.83-4.51); Lymphocyte % 7.6 % (19-41); Mean Corp Hgb Conc 33.3 g/dL (32-36); Mean Corpuscular Volume 87.2 fL (81-99); Mean Platelet Vol. 11.1 fl (6.2-12.0); Monocyte# 0.15 X10^3/uL; Monocyte% 1.6 % (0-10); NRBC Flagged by Analyzer 0 % (0-5); Neutrophil # 8.66 X10^3/uL (2.7-7.7); Neutrophil % 90.1 % (47-70); Platelet Count 124 K/mm3 (150-450); RBC Distribution Width CV 13.8 % (11.6-14.6); RBC Distribution Width SD 43.4 fl (35.1-43.9); Red Blood Count 5.24 M/mm3 (4.2-5.4); White Blood Count 9.6 K/mm3 (4.4-11.0)
[2021-09-25 06:48] LABS: ALB/GLOB Ratio 0.5 RATIO (0.9-2.4); AST(SGOT) 64 U/L (15-37); Alanine Aminotransfer ALT/SGPT 49 U/L (13-56); Albumin, Serum 2.5 g/dL (3.2-5.0); Alkaline Phosphatase 82 U/L (45-117); Anion Gap 9 (5-15); BUN 30 mg/dL (7-18); BUN/Creat Ratio 39.4 RATIO (10-20); Calcium,Total 8.9 mg/dL (8.5-10.1); Chloride 98 mmol/L (98-107); Creatinine, Serum 0.76 mg/dL (0.55-1.02); EST Glomerular Filtration Rate 82 mL/min (>60); Est Glom Filt Rate - Afr Amer 99 mL/min (>60); Estimated Creatinine Clearance 81.24 ml/min; Globulin 4.8 g/dL (2.2-4.2); Glucose 218 mg/dL (74-106); Potassium 4.1 mmol/L (3.5-5.1); Protein, Total 7.3 g/dL (6.4-8.2); Sodium Level 135 mmol/L (136-145)
[2021-09-25] MEDS: Insulin Lispro 100 UNIT/ML INSULN.PEN SC ×4 (06:57→21:03)
[2021-09-25 07:06] LABS: Bedside Glucose 227 mg/dL (70-110)
[2021-09-25] MEDS: Enoxaparin 100 MG/ML Syringe 90 MG SC ×2 (09:39→21:00)
[2021-09-25] MEDS: Furosemide 40 MG/4 ML Vial IV (09:39)
[2021-09-25] MEDS: cloNIDine HCl 0.1 MG Tablet PO (09:40)
[2021-09-25] MEDS: NYSTATIN 500,000 UNIT/5 ML UDC 500000 UNIT PO ×2 (09:40→21:00)
[2021-09-25] MEDS: dexAMETHasone 10 MG/ML Vial 6 MG IV (09:40)
[2021-09-25] MEDS: Losartan Potassium 25 MG Tablet PO (09:40)
[2021-09-25] MEDS: 0.9% Saline Lock 10 ML Syringe IV ×2 (09:41→21:00)
--- NOTE | 2021-09-25 09:48 | PCM.PN.INT ---
Assessment & Plan Assessment/Plan (1) Acute respiratory failure with hypoxia: (2) COVID-19: (3) Hypertension: PLAN: RECOMMENDATIONS: 1. Complete Remdesivir (09/25/2021), Decadron (10/01/2021) and baricitinib (10/05/2021) 2. Daily labs to monitor for complications. Continue therapeutic Lovenox 3. Titrate insulin as necessary 4. Encourage incentive spirometer, Acapella and prone positioning as tolerated 5. Diuretics as necessary to maintain euvolemia 6. Continue BiPAP with Airvo breaks as tolerated during the day 7. Challenge with diuretics today IMPRESSIONS: 1. Acute hypoxic respiratory failure secondary to COVID-19 Unclear patient has an element of COPD complicating respiratory status. Patient does have a significant smoking history in the past. Patient with extensive groundglass opacities, but no PE. Agree with Lovenox at the current dosing. Patient on maximal medical therapy at this time. Will need to have daily labs to monitor for complications. Total bilirubin and AST are up slightly, but not enough to change therapy. Encourage incentive spirometer, Acapella and prone positioning, but patient appears to be precontemplative. We will dose intermittently with Lasix as necessary to maintain euvolemia. BiPAP should be used with all sleep. Patient could take breaks with Airvo during the day to maintain nutrition. Patient remains guarded and prognosis 2. Diabetes mellitus Patient presented with elevated blood sugars. Part of this may be secondary to endogenous steroid use, but patient will need Decadron for the next 10 days. Continue to monitor blood sugars with sliding scale. Glucose control is marginal at this point. Will increase basal insulin slightly 3. Overweight/hypertension/musculoskeletal issues/unvaccinated status/chronic pain syndrome Complicates care, management, recovery and prognosis. Okay to continue with baseline antihypertensive medications. Patient may need additional medications given the need for Decadron therapy. Will need to watch for rebound as patient is on clonidine at baseline. 4. DVT Currently on therapeutic Lovenox and tolerating well. Anticipate 3 months of anticoagulation. Monitor for bleeding complications. Subjective Subjective Patient did okay overnight. Patient was unable to come off of BiPAP this morning secondary to high oxygen demands prior to my evaluation. Patient subjectively feels unchanged compared to previous. Patient does have intermittent cough. Objective Data Objective Data Vital Signs: Vital Signs Temp Pulse Resp BP Pulse Ox 36.2 C L 83 20 H 134/83 H 88 09/25/21 09:33 09/25/21 09:33 09/25/21 09:33 09/25/21 09:33 09/25/21 09:35 Oxygen Flow Rate (L/min) 60 Oxygen Delivery Method Airvo Weight: 89.4 kg Body Mass Index (BMI) 29.0 Intake & Output: Intake and Output for Last 24 Hours 09/23/21 09/24/21 09/25/21 23:59 23:59 23:59 Intake Total 1510 / 1510 1170 / 1170 300 / 300 Output Total 2200 / 4200 4030 / 4030 800 / 800 Balance -690 / -2690 -2860 / -2860 -500 / -500 Lab / Micro Data Result Diagrams: 09/25/21 05:28 09/25/21 05:28 Labs: Laboratory Results - last 24 hr 09/24/21 11:50: POC Glucose 288 H 09/24/21 15:27: POC Glucose 418 H 09/24/21 21:02: POC Glucose 284 H 09/25/21 05:28: WBC 9.6, RBC 5.24, Hgb 15.2 H, Hct 45.7, MCV 87.2, MCH 29.0, MCHC 33.3, RDW Std Deviation 43.4, RDW Coeff of [place] 13.8, Plt Count 124 L, MPV 11.1, Immature Gran % (Auto) 0.500, Neut % (Auto) 90.1 H, Lymph % (Auto) 7.6 L, [place] % (Auto) 1.6, Eos % (Auto) 0.0, Baso % (Auto) 0.2, Absolute Neuts (auto) 8.7 H, Absolute Lymphs (auto) 0.73 L, Nucleated RBC % 0 09/25/21 05:28: Sodium 135 L, Potassium 4.1, Chloride 98, Carbon Dioxide 28.0, Anion Gap 9, BUN 30 H, Creatinine 0.76, Estim Creat Clear Calc 81.24, Est GFR (MDRD) Af Amer 99, Est GFR (MDRD) Non-Af 82, BUN/Creatinine Ratio 39.4 H, Glucose 218 H, Calcium 8.9, Total Bilirubin 1.00, AST 64 H, ALT 49, Alkaline Phosphatase 82, Total Protein 7.3, Albumin 2.5 L, Globulin 4.8 H, Albumin/Globulin Ratio 0.5 L 09/25/21 06:55: POC Glucose 227 H Micro: Microbiology 09/22/21 10:30 Sputum, Expectorated/Coughed Gram Stain - Final 09/22/21 10:30 Sputum, Expectorated/Coughed Respiratory Culture - Final 09/21/21 14:43 Blood Culture (Wb) - Right Hand Blood Culture - Preliminary No growth in 48 hours. 09/21/21 13:55 Blood Culture (Wb) - Anticubital Left Blood Culture - Preliminary No growth in 48 hours. 09/22/21 04:19 Urine, Clean Catch Urine Culture - Final Mixed Gram Positive Organisms 09/22/21 10:30 Urine, Clean Catch Legionella Antigen - Final 09/22/21 10:30 Urine, Clean Catch Streptococcus pneumoniae Antigen (M - Final 09/21/21 14:10 Nasal Secretion SARS-CoV-2 Antigen (Rapid) - Final SARS-CoV-2 (COVID 19) Radiography Diagnostic Testing: Radiology Impression Chest X-Ray 09/24/21 00:45 IMPRESSION: Patchy bilateral airspace disease. Findings may indicate pneumonia. at 0127 Reported and signed by: Beny Moreno MD Electronically Signed: Beny Moreno MD at 1:27 EST Tel , Service support , Physical Exam Const alert Constitutional Narrative: On BiPAP. Moderate conversational dyspnea noted. General Appearance: in distress Positive for mild and ill appearing Positive for acutely Nutritional Appearance: overweight HEENT normocephalic Eyes PERRL, EOMs intact bilaterally and no scleral icterus Neck No nuchal rigidity, supple and no JVD Chest inspection of chest normal Chest: symmetrical chest wall rise; Negative for crepitus Resp Resp Narrative: Coarse breath sounds bilaterally Effort and Inspection: tachypneic Auscultation: diminished lung sounds; Negative for rales, rhonchi or wheezes Cardio regular rhythm, S1 normal heart sound, S2 normal heart sound, no murmurs, no rub and no gallops Rate: tachycardic GI normal to inspection, nondistended, normoactive bowel sounds, soft to palpation, non-tender and non-distended Extremity General Extremity: Negative for clubbing, cyanosis or edema Skin no rashes or lesions noted Neuro Sensorium / Orientation: awake and alert Psych Psych Narrative: Flat affect Charges/Coding Visit Charges Inpatient E&M: 92198 Subs Hosp L3
[2021-09-25 10:01] LABS: Bedside Glucose 182 mg/dL (70-110)
[2021-09-25] MEDS: traMADol 50 MG Tablet 100 MG PO ×2 (11:38→21:08)
[2021-09-25 12:06] LABS: Bedside Glucose 290 mg/dL (70-110)
--- NOTE | 2021-09-25 15:06 | PCM.PN.HOSP ---
Subjective Subjective Patient is demanding a drink of water and states she wants her hair done. She is currently on BiPAP. I discussed her once with her nurse and he states she was just on air Vo but having oxygen saturation issues and dropping into the low 80s on air Vo and that is why she is back on BiPAP. She voices no other complaints at this time. Objective Data Objective Data Vital Signs: Vital Signs Temp Pulse Resp BP Pulse Ox 97.1 F L 70 26 H 134/83 H 94 09/25/21 09:33 09/25/21 14:04 09/25/21 14:04 09/25/21 09:33 09/25/21 14:04 Oxygen Flow Rate (L/min) 60 Oxygen Delivery Method Airvo Weight: 89.4 kg Body Mass Index (BMI) 29.0 Intake & Output: Intake and Output for Last 24 Hours 09/23/21 09/24/21 09/25/21 23:59 23:59 23:59 Intake Total 1510 / 1510 1170 / 1170 780 / 780 Output Total 2200 / 4200 4030 / 4030 1400 / 1400 Balance -690 / -2690 -2860 / -2860 -620 / -620 Lab / Micro Data Result Diagrams: 09/25/21 05:28 09/25/21 05:28 Labs: Laboratory Results - last 24 hr 09/24/21 15:27: POC Glucose 418 H 09/24/21 21:02: POC Glucose 284 H 09/25/21 05:28: WBC 9.6, RBC 5.24, Hgb 15.2 H, Hct 45.7, MCV 87.2, MCH 29.0, MCHC 33.3, RDW Std Deviation 43.4, RDW Coeff of [place] 13.8, Plt Count 124 L, MPV 11.1, Immature Gran % (Auto) 0.500, Neut % (Auto) 90.1 H, Lymph % (Auto) 7.6 L, [place] % (Auto) 1.6, Eos % (Auto) 0.0, Baso % (Auto) 0.2, Absolute Neuts (auto) 8.7 H, Absolute Lymphs (auto) 0.73 L, Nucleated RBC % 0 09/25/21 05:28: Sodium 135 L, Potassium 4.1, Chloride 98, Carbon Dioxide 28.0, Anion Gap 9, BUN 30 H, Creatinine 0.76, Estim Creat Clear Calc 81.24, Est GFR (MDRD) Af Amer 99, Est GFR (MDRD) Non-Af 82, BUN/Creatinine Ratio 39.4 H, Glucose 218 H, Calcium 8.9, Total Bilirubin 1.00, AST 64 H, ALT 49, Alkaline Phosphatase 82, Total Protein 7.3, Albumin 2.5 L, Globulin 4.8 H, Albumin/Globulin Ratio 0.5 L 09/25/21 06:55: POC Glucose 227 H 09/25/21 09:29: POC Glucose 182 H 09/25/21 11:42: POC Glucose 290 H Micro: Microbiology 09/22/21 10:30 Sputum, Expectorated/Coughed Gram Stain - Final 09/22/21 10:30 Sputum, Expectorated/Coughed Respiratory Culture - Final 09/21/21 14:43 Blood Culture (Wb) - Right Hand Blood Culture - Preliminary No growth in 48 hours. 09/21/21 13:55 Blood Culture (Wb) - Anticubital Left Blood Culture - Preliminary No growth in 48 hours. 09/22/21 04:19 Urine, Clean Catch Urine Culture - Final Mixed Gram Positive Organisms 09/22/21 10:30 Urine, Clean Catch Legionella Antigen - Final 09/22/21 10:30 Urine, Clean Catch Streptococcus pneumoniae Antigen (M - Final 09/21/21 14:10 Nasal Secretion SARS-CoV-2 Antigen (Rapid) - Final SARS-CoV-2 (COVID 19) Radiography Diagnostic Testing: Radiology Impression Chest X-Ray 09/24/21 00:45 IMPRESSION: Patchy bilateral airspace disease. Findings may indicate pneumonia. at 0127 Reported and signed by: Beny Moreno MD Electronically Signed: Beny Moreno MD at 1:27 EST Tel , Service support , Physical Exam Const alert and oriented x3 Constitutional Narrative: Overweight middle-aged white female sitting up in bed currently on noninvasive ventilation with BiPAP, mild tachypnea, patient is mildly agitated at this time and dipping her finger in water and then putting in her mouth Exam Limitations: no limitations Nutritional Appearance: overweight HEENT normocephalic, head/scalp atraumatic and moist oral mucous membranes HEENT Narrative: No signs of thrush and mucous membranes are moist at this time Head and Scalp: normocephalic Resp No normal respiratory effort, no retractions, no use of accessory muscles and clear to auscultation bilaterally Resp Narrative: Diffusely diminished with few crackles at bases bilaterally, tachypnea but no accessory muscle use Auscultation: crackles; Negative for rales, rhonchi or wheezes Cardio regular rate, regular rhythm, S1 normal heart sound, S2 normal heart sound, no murmurs, no rub, no gallops, no clicks and no JVD GI normal to inspection, nondistended, normoactive bowel sounds, soft to palpation, non-tender and non-distended; Negative for hepatosplenomegaly Extremity no clubbing, cyanosis or edema Peripheral Pulses: Yes pulses 2+ throughout Neuro oriented x3, moves all extremities and no focal motor deficits Sensorium / Orientation: awake and alert Assessment & Plan Assessment/Plan (1) Acute respiratory failure with hypoxia: (2) DVT of lower extremity, bilateral: (3) COVID-19: (4) Hyperglycemia: (5) Transaminitis: (6) Thrombocytopenia: PLAN: Acute hypoxic respiratory failure secondary to COVID-19 pneumonia -Nonvaccinated--> recommend vaccine 1 month after isolation -Symptom onset 09/15/2021--> will need quarantine until 10/04/2021 -Decadron day 4 of 10 -Remdesivir day 5 of 5 -Baricitinib day 4 of 14 -Continue Pep therapy/I-S -Prone lying as able -Mobilization -Patient received Lasix 40 mg IV push x2 doses yesterday and will repeat this a.m. -Patient currently requiring air Vo and BiPAP as she goes back and forth between the two -Air Vo is 60 L/min and an FiO2 of 85-90% with an SPO2 of 83 to 94% -ID and pulmonary are following-appreciate input Thrombocytopenia -Overall stable -Appears to be slowly trending up -Monitor with anticoagulation Elevated D-dimer -CTA negative for PE -Bilateral lower extremity Dopplers show DVT Bilateral lower extremity DVTs -Acute DVT of right soleal vein and left tibial peroneal trunk, posterior tibial, peroneal, and soleal veins -Technically these are below the knee DVTs and could be followed serially but with COVID-19 her risk of further clot given hypercoagulable state is high and we will therefore continue full dose therapy -Lovenox 90 mg subcu twice daily -We will transition to Eliquis if patient remains stable and able to take p.o. on a regular basis -Would like to see her on air Vo consistently before this transition Transaminitis -Mild -Had been trending down but slight uptrend in AST in the last 24 hours -Suspect related to Covid -We will continue to monitor with utilization of baricitinib and remdesivir -Patient completes remdesivir today DM-2 -Blood sugars have trended up and is having blood sugars in the 300s at times -Increase Lantus to 20 units with breakfast -High-dose SSI -We will add 8 units 3 times daily with meals -Continue Accu-Cheks -Goal blood sugar 140-180 -Hold home oral antihyperglycemic's Hypertension -Blood pressure is better with the reinitiation of her home medications to include losartan 25 mg daily and clonidine 0.2 mg daily Chronic low back pain -Continue Ultram as needed -Hold muscle relaxant -hold meloxicam DVT prophylaxis -Full dose Lovenox CODE STATUS -Full code Charges/Coding Visit Charges Inpatient E&M: 12989 Subs Hosp L2
[2021-09-25 17:01] LABS: Bedside Glucose 265 mg/dL (70-110)
[2021-09-25] MEDS: Insulin Lispro 100 UNIT/ML INSULN.PEN 8 UNIT SC (17:22)
[2021-09-26] VITALS (16 sets, daily range): BP systolic 106–133; BP diastolic 57–80; PULSE 61–97; RESP 12–24; TEMP 35.7–36.3; O2SAT 86–96
[2021-09-26 01:00] LABS: Bedside Glucose 311 mg/dL (70-110)
[2021-09-26] MEDS: Insulin Lispro 100 UNIT/ML INSULN.PEN SC ×4 (09:21→20:58)
[2021-09-26] MEDS: Insulin Lispro 100 UNIT/ML INSULN.PEN 8 UNIT SC ×3 (09:23→16:43)
[2021-09-26] MEDS: cloNIDine HCl 0.1 MG Tablet PO (09:23)
[2021-09-26] MEDS: Enoxaparin 100 MG/ML Syringe 90 MG SC ×2 (09:23→20:55)
[2021-09-26] MEDS: Losartan Potassium 25 MG Tablet PO (09:23)
[2021-09-26 09:41] LABS: Bedside Glucose 159 mg/dL (70-110)
[2021-09-26] MEDS: dexAMETHasone 10 MG/ML Vial 6 MG IV (10:02)
[2021-09-26] MEDS: 0.9% Saline Lock 10 ML Syringe IV (10:03)
[2021-09-26 13:31] LABS: Pathologist Review Reviewed
[2021-09-26 13:41] LABS: Bedside Glucose 354 mg/dL (70-110)
--- NOTE | 2021-09-26 13:42 | PN.HOSP_ITS ---
Subjective Subjective Patient seen and examined. She was on Airvo. She had just been taken off of BiPAP. Patient looked quite uncomfortable and was tachypneic. She denied any fever, chills, cough, chest pain, nausea or vomiting. Review of systems otherwise negative. Objective Data Objective Data Vital Signs: Vital Signs Temp Pulse Resp BP Pulse Ox 96.4 F L 97 20 H 133/67 H 96 09/26/21 10:05 09/26/21 10:05 09/26/21 10:05 09/26/21 10:05 09/26/21 10:05 Oxygen Flow Rate (L/min) 60 Oxygen Delivery Method Airvo Weight: 197 lb 1.492 oz Body Mass Index (BMI) 29.0 Intake & Output: Intake and Output for Last 24 Hours 09/24/21 09/25/21 09/26/21 23:59 23:59 23:59 Intake Total 1170 / 1170 1270 / 1390 120 / 120 Output Total 4030 / 4030 1800 / 1950 250 / 250 Balance -2860 / -2860 -530 / -560 -130 / -130 Lab / Micro Data Result Diagrams: 09/25/21 05:28 09/25/21 05:28 Labs: Laboratory Results - last 24 hr 09/23/21 08:18: Diff Path Review Reviewed 09/25/21 16:51: POC Glucose 265 H 09/25/21 20:57: POC Glucose 311 H 09/26/21 09:08: POC Glucose 159 H 09/26/21 11:45: POC Glucose 354 H Micro: Microbiology 09/22/21 10:30 Sputum, Expectorated/Coughed Gram Stain - Final 09/22/21 10:30 Sputum, Expectorated/Coughed Respiratory Culture - Final 09/21/21 14:43 Blood Culture (Wb) - Right Hand Blood Culture - Preliminary No growth in 48 hours. 09/21/21 13:55 Blood Culture (Wb) - Anticubital Left Blood Culture - Preliminary No growth in 48 hours. 09/22/21 04:19 Urine, Clean Catch Urine Culture - Final Mixed Gram Positive Organisms 09/22/21 10:30 Urine, Clean Catch Legionella Antigen - Final 09/22/21 10:30 Urine, Clean Catch Streptococcus pneumoniae Antigen (M - Final 09/21/21 14:10 Nasal Secretion SARS-CoV-2 Antigen (Rapid) - Final SARS-CoV-2 (COVID 19) Physical Exam Const alert and oriented x3 Constitutional Narrative: mild distress Exam Limitations: no limitations HEENT head/scalp atraumatic Head and Scalp: normocephalic Mouth: dry mucous membranes Eyes PERRL, EOMs intact bilaterally and conjunctivae normal Neck no lymphadenopathy and supple Resp Resp Narrative: tachypneic, on AirVo. diminished breath sounds bibasally, no wheezes or crackles. Cardio regular rate, regular rhythm, S1 normal heart sound, S2 normal heart sound and no murmurs GI normal to inspection, nondistended, normoactive bowel sounds, soft to palpation, non-tender and non-distended Extremity normal to inspection, full ROM and no clubbing, cyanosis or edema Peripheral Pulses: Yes pulses 2+ throughout Skin no rashes or lesions noted Neuro oriented x3, CN's II-XII intact bilaterally and moves all extremities Sensorium / Orientation: awake and alert Psych affect normal Assessment & Plan Assessment/Plan (1) Acute respiratory failure with hypoxia: (2) COVID-19: PLAN: #Acute hypoxic respiratory failure due to covid 19 pneumonia * On Airvo. On Decadron. To complete a 5 day course of remdesivir. Also on baricitinib. * Diurese as needed to maintain euvolemic status. * Titrate oxygen to maintain saturation above 90%. * Breathing treatments with bronchodilators. ID and critical care on board. * in cumulative negative balance by 2.66L * #Thrombocytopenia: Labs pending today. Will monitor. #Bilateral lower extremity DVT * Had DVT of the right soleal vein and left tibioperoneal trunk as well as the posterior tibial and peroneal as well as soleal veins. * On therapeutic Lovenox. * Will transition to Eliquis when she remains off of BiPAP for prolonged periods. * #Type 2 diabetes mellitus with hyperglycemia * Blood sugars have been poorly controlled and this likely due to the Decadron she is receiving. * Lantus has been increased to 20 units with breakfast. * High-dose insulin sliding scale. * Accuchecks [facility]. * #Hypertension: On losartan and clonidine #Chronic back pain: On Ultram as needed DVT prophylaxis: Lovenox Charges/Coding Visit Charges Inpatient E&M: 35426 Subs Hosp L3
[2021-09-26 14:43] LABS: Absolute Lymphocyte Count 0.58 X10^3/uL (0.83-4.51); Absolute Neutrophil Count 9.3 X10^3/uL (2.0-7.7); Basophil# 0.04 X10^3/uL; Basophil% 0.4 % (0-1); Eosinophil# 0.02 X10^3/uL; Eosinophils% 0.2 % (0-5); Hematocrit 46.4 % (37-47); Hemoglobin 15.3 g/dL (12.0-15.0); Lymphocyte # 0.58 X10^3/ul (0.83-4.51); Lymphocyte % 5.7 % (19-41); Mean Corpuscular Hgb 28.8 pg (27.0-32.0); Mean Corpuscular Volume 87.4 fL (81-99); Monocyte# 0.15 X10^3/uL; Monocyte% 1.5 % (0-10); NRBC Flagged by Analyzer 0 % (0-5); Neutrophil # 9.27 X10^3/uL (2.7-7.7); Neutrophil % 91.5 % (47-70); POSITIVE DIFFERENTIAL YES; Platelet Count 191 K/mm3 (150-450); RBC Distribution Width CV 14.1 % (11.6-14.6); RBC Distribution Width SD 44.5 fl (35.1-43.9); Red Blood Count 5.31 M/mm3 (4.2-5.4); White Blood Count 10.1 K/mm3 (4.4-11.0)
[2021-09-26 14:44] LABS: Differential Indicated SCAN CRITERIA MET
[2021-09-26] MEDS: NYSTATIN 500,000 UNIT/5 ML UDC 500000 UNIT PO ×3 (15:17→20:55)
[2021-09-26 16:12] LABS: Anion Gap 12 (5-15); BUN 38 mg/dL (7-18); Chloride 99 mmol/L (98-107); Creatinine, Serum 0.86 mg/dL (0.55-1.02); EST Glomerular Filtration Rate 71 mL/min (>60); Est Glom Filt Rate - Afr Amer 86 mL/min (>60); Estimated Creatinine Clearance 71.79 ml/min; Glucose 231 mg/dL (74-106); Potassium 4.4 mmol/L (3.5-5.1); Sodium Level 133 mmol/L (136-145)
[2021-09-26 17:05] LABS: Bedside Glucose 354 mg/dL (70-110)
[2021-09-26] MEDS: traMADol 50 MG Tablet 100 MG PO (20:55)
[2021-09-26 21:11] LABS: Bedside Glucose 208 mg/dL (70-110)
[2021-09-27] VITALS (16 sets, daily range): BP systolic 112–134; BP diastolic 57–77; PULSE 61–91; RESP 12–32; TEMP 35.8–36.6; O2SAT 88–95
[2021-09-27 05:21] LABS: Absolute Lymphocyte Count 0.76 X10^3/uL (0.83-4.51); Absolute Neutrophil Count 7.9 X10^3/uL (2.0-7.7); Basophil# 0.01 X10^3/uL; Basophil% 0.1 % (0-1); Eosinophil# 0.05 X10^3/uL; Eosinophils% 0.6 % (0-5); Hemoglobin 14.7 g/dL (12.0-15.0); Lymphocyte # 0.76 X10^3/ul (0.83-4.51); Lymphocyte % 8.4 % (19-41); Mean Corp Hgb Conc 33.4 g/dL (32-36); Mean Corpuscular Hgb 29.4 pg (27.0-32.0); Mean Platelet Vol. 10.9 fl (6.2-12.0); Monocyte# 0.22 X10^3/uL; Monocyte% 2.4 % (0-10); NRBC Flagged by Analyzer 0 % (0-5); Neutrophil % 87.6 % (47-70); Platelet Count 184 K/mm3 (150-450); RBC Distribution Width CV 13.8 % (11.6-14.6); RBC Distribution Width SD 43.8 fl (35.1-43.9)
[2021-09-27 05:43] LABS: Anion Gap 7 (5-15); BUN 33 mg/dL (7-18); BUN/Creat Ratio 51.5 RATIO (10-20); Calcium,Total 8.4 mg/dL (8.5-10.1); Chloride 98 mmol/L (98-107); Creatinine, Serum 0.64 mg/dL (0.55-1.02); EST Glomerular Filtration Rate 100 mL/min (>60); Est Glom Filt Rate - Afr Amer 121 mL/min (>60); Estimated Creatinine Clearance 96.47 ml/min; Glucose 128 mg/dL (74-106); Potassium 4.6 mmol/L (3.5-5.1); Sodium Level 133 mmol/L (136-145)
--- NOTE | 2021-09-27 07:39 | PCM.PN.INT ---
Assessment & Plan Assessment/Plan (1) Acute respiratory failure with hypoxia: (2) COVID-19: PLAN: RECOMMENDATIONS: 1. Continue Decadron (10/01/2021) and baricitinib (10/05/2021). Remdesivir completed. 2. Continue therapeutic Lovenox. 3. Continue BiPAP and wean FiO2 for saturations greater than 90%. 4. Encourage incentive spirometer, Acapella and prone positioning as tolerated 5. Diuretics, as needed, to maintain euvolemic state. 6. Given tenuous respiratory status, recommend n.p.o. status. 7. If the patient decompensates further from a respiratory perspective, recommend ICU transfer. IMPRESSIONS: 1. Acute hypoxic respiratory failure secondary to COVID-19 The patient was initially admitted to the hospital on September 21 with worsening dyspnea. She was subsequently found to be positive for COVID-19. Symptom onset was sometime around September 15. CTA was negative for PE. However, the patient was identified as having lower extremity DVTs on Doppler study. Therefore, she will be continued on therapeutic Lovenox. In the interim, the patient has completed a treatment course of remdesivir and will remain on Decadron and baricitinib as ordered. She is currently maintaining marginal oxygen saturations on BiPAP. This will be continued for now. In light of her tenuous respiratory status, recommend that she be made n.p.o. 2. Diabetes mellitus Continue Lantus and sliding scale insulin coverage. 3. Bilateral lower extremity DVT Continue therapeutic Lovenox as ordered. 4. Overweight/hypertension/musculoskeletal issues/unvaccinated status/chronic pain syndrome Complicates care, management, recovery and prognosis. The patient should be made n.p.o. given tenuous respiratory status. This note was generated with [employer] dictation software. It may contain incorrect words, spelling, and punctuation that were not noted in checking the note before signing. Subjective Subjective The patient was seen and examined at the bedside this morning. Events from the last 24 hours have been reviewed. The patient is currently afebrile, hemodynamically stable and maintaining appropriate oxygen saturations on BiPAP with an FiO2 requirement of 90%. The patient is currently documented to be overall net -2 L for the hospitalization. She remains on Decadron, baricitinib and therapeutic Lovenox. Renal function is stable. Objective Data Objective Data The patient's most recent lab work, culture data and imaging studies have all been personally reviewed. Rapid coronavirus antigen testing was positive on September 21. Strep and urine Legionella antigens were negative. Sputum culture has not demonstrated any growth to date. Lower extremity Doppler study from September 22 was positive for bilateral DVT. Vital Signs: Vital Signs Temp Pulse Resp BP Pulse Ox 97.1 F L 63 25 H 134/72 H 95 09/27/21 05:15 09/27/21 05:15 09/27/21 05:15 09/27/21 05:15 09/27/21 05:15 Oxygen Flow Rate (L/min) 60 Oxygen Delivery Method Bi-pap Weight: 89.4 kg Body Mass Index (BMI) 29.0 Intake & Output: Intake and Output for Last 24 Hours 09/25/21 09/26/21 09/27/21 23:59 23:59 23:59 Intake Total 1270 / 1390 1240 / 1240 120 / 120 Output Total 1800 / 1950 700 / 700 150 / 150 Balance -530 / -560 540 / 540 -30 / -30 Lab / Micro Data Attestation: I reviewed the patient's lab results. Result Diagrams: 09/27/21 04:47 09/27/21 04:47 Labs: Laboratory Results - last 24 hr 09/23/21 08:18: Diff Path Review Reviewed 09/26/21 09:08: POC Glucose 159 H 09/26/21 11:45: POC Glucose 354 H 09/26/21 14:10: WBC 10.1, RBC 5.31, Hgb 15.3 H, Hct 46.4, MCV 87.4, MCH 28.8, MCHC 33.0, RDW Std Deviation 44.5 H, RDW Coeff of [place] 14.1, Plt Count 191, MPV 11.0, Immature Gran % (Auto) 0.700, Neut % (Auto) 91.5 H, Lymph % (Auto) 5.7 L, [place] % (Auto) 1.5, Eos % (Auto) 0.2, Baso % (Auto) 0.4, Absolute Neuts (auto) 9.3 H, Absolute Lymphs (auto) 0.58 L, Nucleated RBC % 0 09/26/21 14:10: Sodium 133 L, Potassium 4.4, Chloride 99, Carbon Dioxide 22.0, Anion Gap 12, BUN 38 H, Creatinine 0.86, Estim Creat Clear Calc 71.79, Est GFR (MDRD) Af Amer 86, Est GFR (MDRD) Non-Af 71, BUN/Creatinine Ratio 44.0 H, Glucose 231 H, Calcium 9.0 09/26/21 16:40: POC Glucose 354 H 09/26/21 20:58: POC Glucose 208 H 09/27/21 04:47: WBC 9.0, RBC 5.00, Hgb 14.7, Hct 44.0, MCV 88.0, MCH 29.4, MCHC 33.4, RDW Std Deviation 43.8, RDW Coeff of [place] 13.8, Plt Count 184, MPV 10.9, Immature Gran % (Auto) 0.900, Neut % (Auto) 87.6 H, Lymph % (Auto) 8.4 L, [place] % (Auto) 2.4, Eos % (Auto) 0.6, Baso % (Auto) 0.1, Absolute Neuts (auto) 7.9 H, Absolute Lymphs (auto) 0.76 L, Nucleated RBC % 0 09/27/21 04:47: Sodium 133 L, Potassium 4.6, Chloride 98, Carbon Dioxide 28.0, Anion Gap 7, BUN 33 H, Creatinine 0.64, Estim Creat Clear Calc 96.47, Est GFR (MDRD) Af Amer 121, Est GFR (MDRD) Non-Af 100, BUN/Creatinine Ratio 51.5 H, Glucose 128 H, Calcium 8.4 L Micro: Microbiology 09/21/21 14:43 Blood Culture (Wb) - Right Hand Blood Culture - Final No growth in 5 days. 09/21/21 13:55 Blood Culture (Wb) - Anticubital Left Blood Culture - Final No growth in 5 days. 09/22/21 10:30 Sputum, Expectorated/Coughed Gram Stain - Final 09/22/21 10:30 Sputum, Expectorated/Coughed Respiratory Culture - Final 09/22/21 04:19 Urine, Clean Catch Urine Culture - Final Mixed Gram Positive Organisms 09/22/21 10:30 Urine, Clean Catch Legionella Antigen - Final 09/22/21 10:30 Urine, Clean Catch Streptococcus pneumoniae Antigen (M - Final 09/21/21 14:10 Nasal Secretion SARS-CoV-2 Antigen (Rapid) - Final SARS-CoV-2 (COVID 19) Physical Exam Const alert General Appearance: cooperative, comfortable and on BiPAP Nutritional Appearance: obese HEENT normocephalic and head/scalp atraumatic Eyes PERRL, EOMs intact bilaterally and conjunctivae normal Neck supple General: trachea midline Chest inspection of chest normal Resp Effort and Inspection: tachypneic Auscultation: diminished lung sounds; Negative for rales, rhonchi or wheezes Cardio regular rate and regular rhythm GI normal to inspection, nondistended, normoactive bowel sounds Extremity no clubbing, cyanosis or edema Skin no rashes or lesions noted Neuro CN's II-XII intact bilaterally, moves all extremities and no focal motor deficits Psych cooperative and affect normal Charges/Coding Visit Charges Inpatient E&M: 41093 Subs Hosp L3
[2021-09-27] MEDS: NYSTATIN 500,000 UNIT/5 ML UDC 500000 UNIT PO (08:12)
[2021-09-27] MEDS: Enoxaparin 100 MG/ML Syringe 90 MG SC ×2 (08:12→21:51)
[2021-09-27] MEDS: cloNIDine HCl 0.1 MG Tablet PO (08:12)
[2021-09-27] MEDS: Losartan Potassium 25 MG Tablet PO (08:12)
[2021-09-27] MEDS: dexAMETHasone 10 MG/ML Vial 6 MG IV (08:13)
[2021-09-27 08:25] LABS: Bedside Glucose 103 mg/dL (70-110)
--- NOTE | 2021-09-27 08:40 | CPS ---
Patient placed on AIRVO to take morning pills and eat
[2021-09-27] MEDS: Insulin Lispro 100 UNIT/ML INSULN.PEN 8 UNIT SC ×2 (09:18→12:30)
--- NOTE | 2021-09-27 11:09 | PN.HOSP_ITS ---
Subjective Subjective Patient seen and examined. She remains on AirVo. She also remains tachypneic. She denies fever, chills, but admitted to shortness of breath still, and is still coughing. Review of systems is otherwise negative. Objective Data Objective Data Vital Signs: Vital Signs Temp Pulse Resp BP Pulse Ox 96.6 F L 91 32 H 129/72 H 94 09/27/21 08:05 09/27/21 10:41 09/27/21 10:41 09/27/21 08:05 09/27/21 10:41 Oxygen Flow Rate (L/min) 60 Oxygen Delivery Method Airvo Weight: 197 lb 1.492 oz Body Mass Index (BMI) 29.0 Intake & Output: Intake and Output for Last 24 Hours 09/25/21 09/26/21 09/27/21 23:59 23:59 23:59 Intake Total 1270 / 1390 1240 / 1240 120 / 120 Output Total 1800 / 1950 700 / 700 150 / 150 Balance -530 / -560 540 / 540 -30 / -30 Lab / Micro Data Result Diagrams: 09/27/21 04:47 09/27/21 04:47 Labs: Laboratory Results - last 24 hr 09/23/21 08:18: Diff Path Review Reviewed 09/26/21 11:45: POC Glucose 354 H 09/26/21 14:10: WBC 10.1, RBC 5.31, Hgb 15.3 H, Hct 46.4, MCV 87.4, MCH 28.8, MCHC 33.0, RDW Std Deviation 44.5 H, RDW Coeff of [place] 14.1, Plt Count 191, MPV 11.0, Immature Gran % (Auto) 0.700, Neut % (Auto) 91.5 H, Lymph % (Auto) 5.7 L, [place] % (Auto) 1.5, Eos % (Auto) 0.2, Baso % (Auto) 0.4, Absolute Neuts (auto) 9.3 H, Absolute Lymphs (auto) 0.58 L, Nucleated RBC % 0 09/26/21 14:10: Sodium 133 L, Potassium 4.4, Chloride 99, Carbon Dioxide 22.0, Anion Gap 12, BUN 38 H, Creatinine 0.86, Estim Creat Clear Calc 71.79, Est GFR (MDRD) Af Amer 86, Est GFR (MDRD) Non-Af 71, BUN/Creatinine Ratio 44.0 H, Glucose 231 H, Calcium 9.0 09/26/21 16:40: POC Glucose 354 H 09/26/21 20:58: POC Glucose 208 H 09/27/21 04:47: WBC 9.0, RBC 5.00, Hgb 14.7, Hct 44.0, MCV 88.0, MCH 29.4, MCHC 33.4, RDW Std Deviation 43.8, RDW Coeff of [place] 13.8, Plt Count 184, MPV 10.9, Immature Gran % (Auto) 0.900, Neut % (Auto) 87.6 H, Lymph % (Auto) 8.4 L, [place] % (Auto) 2.4, Eos % (Auto) 0.6, Baso % (Auto) 0.1, Absolute Neuts (auto) 7.9 H, Absolute Lymphs (auto) 0.76 L, Nucleated RBC % 0 09/27/21 04:47: Sodium 133 L, Potassium 4.6, Chloride 98, Carbon Dioxide 28.0, Anion Gap 7, BUN 33 H, Creatinine 0.64, Estim Creat Clear Calc 96.47, Est GFR (MDRD) Af Amer 121, Est GFR (MDRD) Non-Af 100, BUN/Creatinine Ratio 51.5 H, Glucose 128 H, Calcium 8.4 L 09/27/21 08:03: POC Glucose 103 Micro: Microbiology 09/21/21 14:43 Blood Culture (Wb) - Right Hand Blood Culture - Final No growth in 5 days. 09/21/21 13:55 Blood Culture (Wb) - Anticubital Left Blood Culture - Final No growth in 5 days. 09/22/21 10:30 Sputum, Expectorated/Coughed Gram Stain - Final 09/22/21 10:30 Sputum, Expectorated/Coughed Respiratory Culture - Final 09/22/21 04:19 Urine, Clean Catch Urine Culture - Final Mixed Gram Positive Organisms 09/22/21 10:30 Urine, Clean Catch Legionella Antigen - Final 09/22/21 10:30 Urine, Clean Catch Streptococcus pneumoniae Antigen (M - Final 09/21/21 14:10 Nasal Secretion SARS-CoV-2 Antigen (Rapid) - Final SARS-CoV-2 (COVID 19) Physical Exam Const alert, oriented x3 and no apparent distress Exam Limitations: no limitations Nutritional Appearance: overweight HEENT normocephalic, head/scalp atraumatic and moist oral mucous membranes Head and Scalp: normocephalic Eyes PERRL, EOMs intact bilaterally and conjunctivae normal Neck no lymphadenopathy and supple Resp No normal respiratory effort, no retractions, no use of accessory muscles and clear to auscultation bilaterally Resp Narrative: tachypneic, still on AirVo. diminished breath sounds bibasally, no wheezes or crackles. Auscultation: crackles; Negative for rales, rhonchi or wheezes Cardio regular rate, regular rhythm, S1 normal heart sound, S2 normal heart sound, no murmurs, no rub, no gallops, no clicks and no JVD GI normal to inspection, nondistended, normoactive bowel sounds, soft to palpation, non-tender and non-distended; Negative for hepatosplenomegaly Extremity normal to inspection, full ROM and no clubbing, cyanosis or edema Peripheral Pulses: Yes pulses 2+ throughout Skin no rashes or lesions noted Neuro oriented x3, CN's II-XII intact bilaterally, moves all extremities, no focal motor deficits and no sensory deficits noted Sensorium / Orientation: awake and alert Speech: speech normal Psych affect normal Psych Narrative: patient more relaxed today Assessment & Plan Assessment/Plan (1) Acute respiratory failure with hypoxia: (2) COVID-19: PLAN: #Acute hypoxic respiratory failure due to covid 19 pneumonia * Remains on Airvo and is on 60L, with FiO2 of 90%. On Decadron. To complete a 5 day course of remdesivir. Also on baricitinib. * Diurese as needed to maintain euvolemic status. * Titrate oxygen to maintain saturation above 90%. * Breathing treatments with bronchodilators. ID and critical care on board. * in cumulative negative balance by 2.66L * #Thrombocytopenia: resolved. Platelets are 184 today. #Bilateral lower extremity DVT * Had DVT of the right soleal vein and left tibioperoneal trunk as well as the posterior tibial and peroneal as well as soleal veins. * On therapeutic Lovenox. * Will transition to Eliquis when she remains off of BiPAP for prolonged periods. * #Type 2 diabetes mellitus with hyperglycemia * Blood sugars have been poorly controlled and this likely due to the Decadron she is receiving. * On lantus 20 units with breakfast. * High-dose insulin sliding scale. * Accuchecks [facility]. * #Hypertension: On losartan and clonidine #Chronic back pain: On Ultram as needed DVT prophylaxis: Lovenox Charges/Coding Visit Charges Inpatient E&M: 88000 [facility] Hosp L3
[2021-09-27 12:00] LABS: Bedside Glucose 374 mg/dL (70-110)
[2021-09-27] MEDS: Insulin Lispro 100 UNIT/ML INSULN.PEN SC (12:29)
[2021-09-27 17:20] LABS: Bedside Glucose 106 mg/dL (70-110)
[2021-09-27 22:25] LABS: Bedside Glucose 131 mg/dL (70-110)
[2021-09-28] VITALS (26 sets, daily range): BP systolic 103–147; BP diastolic 65–94; PULSE 68–101; RESP 12–27; TEMP 36.6–37.3; O2SAT 90–100
[2021-09-28] MEDS: traMADol 50 MG Tablet 100 MG PO ×3 (03:05→20:32)
[2021-09-28 05:27] LABS: Absolute Neutrophil Count 10.9 X10^3/uL (2.0-7.7); Basophil# 0.02 X10^3/uL; Basophil% 0.2 % (0-1); Eosinophil# 0.16 X10^3/uL; Eosinophils% 1.3 % (0-5); Hematocrit 47.5 % (37-47); Hemoglobin 15.3 g/dL (12.0-15.0); Lymphocyte % 8.1 % (19-41); Mean Corp Hgb Conc 32.2 g/dL (32-36); Mean Corpuscular Hgb 28.7 pg (27.0-32.0); Mean Corpuscular Volume 89.1 fL (81-99); Mean Platelet Vol. 11.2 fl (6.2-12.0); Monocyte# 0.26 X10^3/uL; Monocyte% 2.1 % (0-10); NRBC Flagged by Analyzer 0 % (0-5); Neutrophil # 10.89 X10^3/uL (2.7-7.7); Neutrophil % 87.7 % (47-70); Platelet Count 206 K/mm3 (150-450); RBC Distribution Width SD 44.9 fl (35.1-43.9); Red Blood Count 5.33 M/mm3 (4.2-5.4); White Blood Count 12.4 K/mm3 (4.4-11.0)
[2021-09-28 05:39] LABS: Anion Gap 9 (5-15); BUN 28 mg/dL (7-18); BUN/Creat Ratio 44.4 RATIO (10-20); Calcium,Total 8.8 mg/dL (8.5-10.1); Chloride 101 mmol/L (98-107); Creatinine, Serum 0.63 mg/dL (0.55-1.02); EST Glomerular Filtration Rate 102 mL/min (>60); Est Glom Filt Rate - Afr Amer 123 mL/min (>60); Glucose 75 mg/dL (74-106); Potassium 4.5 mmol/L (3.5-5.1); Sodium Level 136 mmol/L (136-145)
--- NOTE | 2021-09-28 07:08 | PCS.PANDOC ---
PANDEMIC DOCUMENTATION INITIATED: Date: 05/02/2021 Time: 190
[2021-09-28 08:31] LABS: Bedside Glucose 84 mg/dL (70-110)
[2021-09-28] MEDS: Enoxaparin 100 MG/ML Syringe 90 MG SC ×2 (09:19→20:02)
[2021-09-28] MEDS: Losartan Potassium 25 MG Tablet PO (09:19)
[2021-09-28] MEDS: cloNIDine HCl 0.1 MG Tablet PO (09:19)
[2021-09-28] MEDS: dexAMETHasone 10 MG/ML Vial 6 MG IV (09:20)
[2021-09-28] MEDS: 0.9% Saline Lock 10 ML Syringe IV ×2 (09:20→14:43)
--- NOTE | 2021-09-28 11:09 | PN.HOSP_ITS ---
Subjective Subjective Patient seen and examined. SHe remains on BIPAP. She complained of feeling thirsty. She doesnt feel her breathing is improving. Review of systems is otherwise negative. Objective Data Objective Data Vital Signs: Vital Signs Temp Pulse Resp BP Pulse Ox 99.0 F 101 H 25 H 137/72 H 100 09/28/21 08:00 09/28/21 08:04 09/28/21 08:04 09/28/21 08:00 09/28/21 08:20 Oxygen Flow Rate (L/min) 90 Oxygen Delivery Method Bi-pap Weight: 197 lb 1.492 oz Body Mass Index (BMI) 29.0 Intake & Output: Intake and Output for Last 24 Hours 09/26/21 09/27/21 09/28/21 23:59 23:59 23:59 Intake Total 1240 / 1240 360 / 360 20 Output Total 700 / 700 650 / 650 350 / 350 Balance 540 / 540 -290 / -290 -330 / -330 Lab / Micro Data Result Diagrams: 09/28/21 04:26 09/28/21 04:26 Labs: Laboratory Results - last 24 hr 09/27/21 11:25: POC Glucose 374 H 09/27/21 16:34: POC Glucose 106 09/27/21 21:44: POC Glucose 131 H 09/28/21 04:26: WBC 12.4 H, RBC 5.33, Hgb 15.3 H, Hct 47.5 H, MCV 89.1, MCH 28.7, MCHC 32.2, RDW Std Deviation 44.9 H, RDW Coeff of [place] 14.0, Plt Count 206, MPV 11.2, Immature Gran % (Auto) 0.600, Neut % (Auto) 87.7 H, Lymph % (Auto) 8.1 L, [place] % (Auto) 2.1, Eos % (Auto) 1.3, Baso % (Auto) 0.2, Absolute Neuts (auto) 10.9 H, Absolute Lymphs (auto) 1.00, Nucleated RBC % 0 09/28/21 04:26: Sodium 136, Potassium 4.5, Chloride 101, Carbon Dioxide 26.0, Anion Gap 9, BUN 28 H, Creatinine 0.63, Estim Creat Clear Calc 98.00, Est GFR (MDRD) Af Amer 123, Est GFR (MDRD) Non-Af 102, BUN/Creatinine Ratio 44.4 H, Glucose 75, Calcium 8.8 09/28/21 08:22: POC Glucose 84 Micro: Microbiology 09/21/21 14:43 Blood Culture (Wb) - Right Hand Blood Culture - Final No growth in 5 days. 09/21/21 13:55 Blood Culture (Wb) - Anticubital Left Blood Culture - Final No growth in 5 days. 09/22/21 10:30 Sputum, Expectorated/Coughed Gram Stain - Final 09/22/21 10:30 Sputum, Expectorated/Coughed Respiratory Culture - Final 09/22/21 04:19 Urine, Clean Catch Urine Culture - Final Mixed Gram Positive Organisms 09/22/21 10:30 Urine, Clean Catch Legionella Antigen - Final 09/22/21 10:30 Urine, Clean Catch Streptococcus pneumoniae Antigen (M - Final 09/21/21 14:10 Nasal Secretion SARS-CoV-2 Antigen (Rapid) - Final SARS-CoV-2 (COVID 19) Physical Exam Const alert and oriented x3 Constitutional Narrative: mild distress Exam Limitations: no limitations Nutritional Appearance: overweight HEENT normocephalic, head/scalp atraumatic and moist oral mucous membranes Head and Scalp: normocephalic Eyes PERRL, EOMs intact bilaterally and conjunctivae normal Neck no lymphadenopathy and supple Resp No normal respiratory effort Resp Narrative: on BIPAP. Diminished breath sounds bibasally, no wheezes or c rackles. Auscultation: Negative for rales, rhonchi or wheezes Cardio regular rate, regular rhythm, S1 normal heart sound, S2 normal heart sound, no murmurs, no rub, no gallops, no clicks and no JVD GI normal to inspection, nondistended, normoactive bowel sounds, soft to palpation, non-tender and non-distended; Negative for hepatosplenomegaly Extremity normal to inspection, full ROM and no clubbing, cyanosis or edema Peripheral Pulses: Yes pulses 2+ throughout Skin no rashes or lesions noted Neuro oriented x3, CN's II-XII intact bilaterally, moves all extremities, no focal motor deficits and no sensory deficits noted Sensorium / Orientation: awake and alert Speech: speech normal Psych Psych Narrative: anxious Assessment & Plan Assessment/Plan (1) Acute respiratory failure with hypoxia: (2) COVID-19: PLAN: #Acute hypoxic respiratory failure due to covid 19 pneumonia * On BIPAP this morning. On Decadron. Completed a 5 day course of remdesivir. Also on baricitinib. * Diurese as needed to maintain euvolemic status. * Titrate oxygen to maintain saturation above 90%. * Breathing treatments with bronchodilators. ID and critical care on board. * in cumulative negative balance by 2.6L * #Thrombocytopenia: resolved. #Bilateral lower extremity DVT * Had DVT of the right soleal vein and left tibioperoneal trunk as well as the posterior tibial and peroneal as well as soleal veins. * On therapeutic Lovenox. * Will transition to Eliquis when she is able to remain off of BiPAP for prolonged periods. * #Type 2 diabetes mellitus with hyperglycemia * On lantus 20 units with breakfast. * High-dose insulin sliding scale. * Accuchecks [facility]. * #Hypertension: On losartan and clonidine #Chronic back pain: On Ultram as needed DVT prophylaxis: Lovenox Charges/Coding Visit Charges Inpatient E&M: 45646 Subs Hosp L3
[2021-09-28 12:15] LABS: Bedside Glucose 199 mg/dL (70-110)
--- NOTE | 2021-09-28 12:26 | PCM.PN.INT ---
Assessment & Plan Assessment/Plan (1) Acute respiratory failure with hypoxia: (2) COVID-19: PLAN: RECOMMENDATIONS: 1. Continue Decadron (10/01/2021) and baricitinib (10/05/2021). Remdesivir completed. 2. Continue therapeutic Lovenox. 3. Continue BiPAP and wean FiO2 for saturations greater than 90%. 4. Encourage incentive spirometer, Acapella and prone positioning as tolerated 5. Diuretics, as needed, to maintain euvolemic state. 6. Maintain n.p.o. status. 7. Given tenuous respiratory status and inability to be weaned from BiPAP, transfer to ICU. IMPRESSIONS: 1. Acute hypoxic respiratory failure secondary to COVID-19 The patient was initially admitted to the hospital on September 21 with worsening dyspnea. She was subsequently found to be positive for COVID-19. Symptom onset was sometime around September 15. CTA was negative for PE. However, the patient was identified as having lower extremity DVTs on Doppler study. Therefore, she will be continued on therapeutic Lovenox. In the interim, the patient has completed a treatment course of remdesivir and will remain on Decadron and baricitinib as ordered. She is currently maintaining marginal oxygen saturations on BiPAP. This will be continued for now. In light of her tenuous respiratory status, recommend transfer to ICU. If the patient does not demonstrate any meaningful improvement in her oxygenation status in the next 12 to 24 hours, will proceed with intubation. 2. Diabetes mellitus Continue Lantus and sliding scale insulin coverage. 3. Bilateral lower extremity DVT Continue therapeutic Lovenox as ordered. 4. Overweight/hypertension/musculoskeletal issues/unvaccinated status/chronic pain syndrome Complicates care, management, recovery and prognosis. The patient should be made n.p.o. given tenuous respiratory status. TIME: 31 minutes of critical care time, independent of procedures, was spent addressing the patient's acute hypoxemic respiratory failure secondary to COVID-19 pneumonia, lower extremity DVT, review of all data and collaboration with the care team. Subjective Subjective The patient was seen and examined at the bedside this morning. Events from the last 24 hours have been reviewed. The patient is currently afebrile, hemodynamically stable and maintaining appropriate oxygen saturations on BiPAP with an FiO2 requirement of 100%. When the patient was removed from BiPAP this morning for short period of time she readily desaturated. She is currently documented to be overall net -2.6 L for the hospitalization. She remains on Decadron, baricitinib and therapeutic Lovenox. Objective Data Objective Data The patient's most recent lab work, culture data and imaging studies have all been personally reviewed. Rapid coronavirus antigen testing was positive on September 21. Strep and urine Legionella antigens were negative. Sputum culture has not demonstrated any growth to date. Lower extremity Doppler study from September 22 was positive for bilateral DVT. Vital Signs: Vital Signs Temp Pulse Resp BP Pulse Ox 99.2 F H 81 25 H 119/65 90 09/28/21 12:00 09/28/21 12:00 09/28/21 12:00 09/28/21 12:00 09/28/21 12:00 Oxygen Flow Rate (L/min) 90 Oxygen Delivery Method Bi-pap Weight: 89.4 kg Body Mass Index (BMI) 29.0 Intake & Output: Intake and Output for Last 24 Hours 09/26/21 09/27/21 09/28/21 23:59 23:59 23:59 Intake Total 1240 / 1240 360 / 360 80 / 80 Output Total 700 / 700 650 / 650 450 / 450 Balance 540 / 540 -290 / -290 -370 / -370 Lab / Micro Data Attestation: I reviewed the patient's lab results. Result Diagrams: 09/28/21 04:26 09/28/21 04:26 Labs: Laboratory Results - last 24 hr 09/27/21 16:34: POC Glucose 106 09/27/21 21:44: POC Glucose 131 H 09/28/21 04:26: WBC 12.4 H, RBC 5.33, Hgb 15.3 H, Hct 47.5 H, MCV 89.1, MCH 28.7, MCHC 32.2, RDW Std Deviation 44.9 H, RDW Coeff of [place] 14.0, Plt Count 206, MPV 11.2, Immature Gran % (Auto) 0.600, Neut % (Auto) 87.7 H, Lymph % (Auto) 8.1 L, [place] % (Auto) 2.1, Eos % (Auto) 1.3, Baso % (Auto) 0.2, Absolute Neuts (auto) 10.9 H, Absolute Lymphs (auto) 1.00, Nucleated RBC % 0 01/12/22 04:26: Sodium 136, Potassium 4.5, Chloride 101, Carbon Dioxide 26.0, Anion Gap 9, BUN 28 H, Creatinine 0.63, Estim Creat Clear Calc 98.00, Est GFR (MDRD) Af Amer 123, Est GFR (MDRD) Non-Af 102, BUN/Creatinine Ratio 44.4 H, Glucose 75, Calcium 8.8 09/28/21 08:22: POC Glucose 84 09/28/21 12:08: POC Glucose 199 H Micro: Microbiology 09/21/21 14:43 Blood Culture (Wb) - Right Hand Blood Culture - Final No growth in 5 days. 09/21/21 13:55 Blood Culture (Wb) - Anticubital Left Blood Culture - Final No growth in 5 days. 09/22/21 10:30 Sputum, Expectorated/Coughed Gram Stain - Final 09/22/21 10:30 Sputum, Expectorated/Coughed Respiratory Culture - Final 09/22/21 04:19 Urine, Clean Catch Urine Culture - Final Mixed Gram Positive Organisms 09/22/21 10:30 Urine, Clean Catch Legionella Antigen - Final 09/22/21 10:30 Urine, Clean Catch Streptococcus pneumoniae Antigen (M - Final 09/21/21 14:10 Nasal Secretion SARS-CoV-2 Antigen (Rapid) - Final SARS-CoV-2 (COVID 19) Physical Exam Const alert General Appearance: on BiPAP Nutritional Appearance: obese HEENT normocephalic and head/scalp atraumatic Eyes PERRL, EOMs intact bilaterally and conjunctivae normal Neck supple General: trachea midline Chest inspection of chest normal Resp Effort and Inspection: tachypneic Auscultation: diminished lung sounds; Negative for rales, rhonchi or wheezes Cardio regular rate and regular rhythm GI normal to inspection, nondistended, normoactive bowel sounds Extremity no clubbing, cyanosis or edema Skin no rashes or lesions noted Neuro CN's II-XII intact bilaterally, moves all extremities and no focal motor deficits Psych cooperative and affect normal Charges/Coding Procedures Hospitalists Procedures: [id number] Critial Care 1st Hr
--- NOTE | 2021-09-28 13:14 | NURSING ---
Gave report to Nicole BORJAS in ICU
--- NOTE | 2021-09-28 13:54 | PCM.PN.ID ---
Physical Exam Narrative Feeling about the same, no sputum, no fever Const alert General Appearance: cooperative Resp Auscultation: diminished lung sounds Cardio regular rate and regular rhythm GI soft to palpation, non-tender and non-distended Skin no rashes or lesions noted ID ID: Route of nutrition/ use of supplements: [] Nutritional Intake: [] IV Site: [] Stevens Catheter: [] Assessment & Plan Assessment/Plan (1) COVID-19: PLAN: Sx started 09/15/21. Isolate until 10/04/21. Unvaccinated, recommended vaccine in one month. On bipap/airvo. On dex, baricitinib, completed remdesivir. D-dimer over 20, CT neg for PE. Doppler (+) DVT. Moving to icu. Will follow (2) Acute respiratory failure with hypoxia:
[2021-09-28] MEDS: Furosemide 40 MG/4 ML Vial IV (14:43)
[2021-09-28] MEDS: Insulin Lispro 100 UNIT/ML INSULN.PEN SC ×2 (16:10→20:02)
[2021-09-28] MEDS: NYSTATIN 500,000 UNIT/5 ML UDC 500000 UNIT PO ×2 (16:12→20:02)
[2021-09-28 16:21] LABS: Bedside Glucose 271 mg/dL (70-110)
[2021-09-28 20:40] LABS: Bedside Glucose 198 mg/dL (70-110)
[2021-09-29] VITALS (57 sets, daily range): BP systolic 68–212; BP diastolic 51–98; PULSE 45–103; RESP 12–27; TEMP 36.1–38; O2SAT 85–97
--- NOTE | 2021-09-29 02:42 | NURSING ---
pt desats quickly with movement but recovers in about 10 mins.
[2021-09-29 03:55] LABS: Absolute Lymphocyte Count 0.76 X10^3/uL (0.83-4.51); Absolute Neutrophil Count 9.6 X10^3/uL (2.0-7.7); Basophil# 0.02 X10^3/uL; Basophil% 0.2 % (0-1); Eosinophil# 0.04 X10^3/uL; Eosinophils% 0.4 % (0-5); Hematocrit 47.1 % (37-47); Hemoglobin 15.7 g/dL (12.0-15.0); Lymphocyte # 0.76 X10^3/ul (0.83-4.51); Lymphocyte % 7.1 % (19-41); Mean Corp Hgb Conc 33.3 g/dL (32-36); Mean Corpuscular Hgb 29.7 pg (27.0-32.0); Mean Platelet Vol. 10.7 fl (6.2-12.0); Monocyte# 0.27 X10^3/uL; Monocyte% 2.5 % (0-10); NRBC Flagged by Analyzer 0 % (0-5); Neutrophil # 9.58 X10^3/uL (2.7-7.7); Neutrophil % 89.1 % (47-70); Platelet Count 248 K/mm3 (150-450); RBC Distribution Width CV 14.2 % (11.6-14.6); RBC Distribution Width SD 45.2 fl (35.1-43.9); Red Blood Count 5.29 M/mm3 (4.2-5.4); White Blood Count 10.7 K/mm3 (4.4-11.0)
[2021-09-29 04:16] LABS: Anion Gap 8 (5-15); BUN 36 mg/dL (7-18); BUN/Creat Ratio 48.5 RATIO (10-20); Calcium,Total 8.9 mg/dL (8.5-10.1); Chloride 98 mmol/L (98-107); Creatinine, Serum 0.74 mg/dL (0.55-1.02); EST Glomerular Filtration Rate 84 mL/min (>60); Est Glom Filt Rate - Afr Amer 102 mL/min (>60); Estimated Creatinine Clearance 83.43 ml/min; Glucose 119 mg/dL (74-106); Potassium 5.2 mmol/L (3.5-5.1); Sodium Level 136 mmol/L (136-145)
[2021-09-29 04:17] LABS: BNP,B-Type NATRIURETIC PEPTIDE 5.6 pg/mL (0-100)
[2021-09-29 04:21] LABS: Procalcitonin 0.14 ng/mL (0.00-0.09)
[2021-09-29] MEDS: 0.9% Saline Lock 10 ML Syringe IV (04:48)
--- NOTE | 2021-09-29 05:43 | NURSING ---
pt po staying 87 to 88% on bipap with fi02 65%. resp in to increase to 75%
--- NOTE | 2021-09-29 06:12 | NURSING ---
resp notified. airvo at 60l 93%
--- NOTE | 2021-09-29 06:15 | NURSING ---
lucia notified of airvo order 60l. 93% per dr cifuentes
--- NOTE | 2021-09-29 07:21 | PN.CC_ITS ---
Assessment & Plan Assessment/Plan (1) Acute respiratory failure with hypoxia: (2) COVID-19: PLAN: RECOMMENDATIONS: 1. Proceed with intubation. 2. Obtain and send sputum for culture. 3. Start empiric antimicrobials. 4. Continue Decadron and baricitinib. Remdesivir is completed. 5. Continue therapeutic Lovenox. 6. Start appropriate GI prophylaxis. 7. Diuretics, as needed, to maintain euvolemic state. IMPRESSIONS: 1. Acute hypoxic respiratory failure secondary to COVID-19 The patient was initially admitted to the hospital on September 21 with worsening dyspnea. She was subsequently found to be positive for COVID-19. Symptom onset was sometime around September 15. CTA was negative for PE. However, the patient was identified as having lower extremity DVTs on Doppler study. Therefore, she will be continued on therapeutic Lovenox. In the interim, the patient has completed a treatment course of remdesivir and will remain on Decadron and baricitinib as ordered. Despite multiple consecutive days on noninvasive positive pressure ventilatory support, the patient failed to make any meaningful improvement. Therefore, she was intubated on September 29. In light of her decompensation, the patient will also be initiated on empiric antimicrobials. Sputum will be sent for culture. FiO2 will be weaned to maintain saturations at or above 90%. 2. Diabetes mellitus Continue Lantus and sliding scale insulin coverage. 3. Bilateral lower extremity DVT Continue therapeutic Lovenox as ordered. 4. Overweight/hypertension/musculoskeletal issues/unvaccinated status/chronic pain syndrome Complicates care, management, recovery and prognosis. Tube feeds can be initiated for nutritional support once the patient is intubated. TIME: 33 minutes of critical care time, independent of procedures, was spent addressing the patient's acute hypoxemic respiratory failure secondary to COVID- 19 pneumonia, lower extremity DVT, review of all data and collaboration with the care team. Subjective Subjective The patient was seen and examined at the bedside this morning. Events from the last 24 hours have been reviewed. The patient is currently afebrile, hemodynamically stable and maintaining appropriate oxygen saturations on BiPAP with an FiO2 requirement of 75%. No overnight issues were identified by the nursing staff. The patient did receive IV Lasix yesterday and is currently documented to be overall net -3.2 L for the hospitalization. Potassium is elevated at 5.2 this morning. Creatinine is stable. The patient remains on Decadron, baricitinib and therapeutic Lovenox. Following my initial evaluation of the patient, an attempt was made to place the patient on Airvo heated high flow. Unfortunately, the patient did not last very long before becoming hypoxemic and had to once again be placed back on BiPAP therapy with an FiO2 of 100%. In light of the aforementioned, and following a discussion with the patient, the decision was made to proceed with intubation. Objective Data Objective Data The patient's most recent lab work, culture data and imaging studies have all been personally reviewed. Rapid coronavirus antigen testing was positive on September 21. Strep and urine Legionella antigens were negative. Sputum culture has not demonstrated any growth to date. Lower extremity Doppler study from September 22 was positive for bilateral DVT. Vital Signs: Vital Signs Temp Pulse Resp BP Pulse Ox 97.8 F 82 21 H 121/70 H 90 09/29/21 04:00 09/29/21 06:58 09/29/21 06:58 09/29/21 06:58 09/29/21 06:58 Oxygen Flow Rate (L/min) 60 Oxygen Delivery Method Airvo Weight: 89.4 kg Body Mass Index (BMI) 29.0 Intake & Output: Intake and Output for Last 24 Hours 09/27/21 09/28/21 09/29/21 23:59 23:59 23:59 Intake Total 360 / 360 80 / 80 120 / 120 Output Total 650 / 650 1100 / 1100 25 / 25 Balance -290 / -290 -1020 / -1020 95 / 95 Lab / Micro Data Attestation: I reviewed the patient's lab results. Result Diagrams: 09/29/21 03:45 09/29/21 03:45 Labs: Laboratory Results - last 24 hr 09/28/21 08:22: POC Glucose 84 09/28/21 12:08: POC Glucose 199 H 09/28/21 16:09: POC Glucose 271 H 09/28/21 20:00: POC Glucose 198 H 09/29/21 03:45: WBC 10.7, RBC 5.29, Hgb 15.7 H, Hct 47.1 H, MCV 89.0, MCH 29.7, MCHC 33.3, RDW Std Deviation 45.2 H, RDW Coeff of Ana Maria 14.2, Plt Count 248, MPV 10.7, Immature Gran % (Auto) 0.700, Neut % (Auto) 89.1 H, Lymph % (Auto) 7.1 L, [place] % (Auto) 2.5, Eos % (Auto) 0.4, Baso % (Auto) 0.2, Absolute Neuts (auto) 9.6 H, Absolute Lymphs (auto) 0.76 L, Nucleated RBC % 0 09/29/21 03:45: Sodium 136, Potassium 5.2 H, Chloride 98, Carbon Dioxide 30.0, Anion Gap 8, BUN 36 H, Creatinine 0.74, Estim Creat Clear Calc 83.43, Est GFR (MDRD) Af Amer 102, Est GFR (MDRD) Non-Af 84, BUN/Creatinine Ratio 48.5 H, Glucose 119 H, Calcium 8.9 09/29/21 03:45: B-Natriuretic Peptide 5.6 09/29/21 03:45: Procalcitonin 0.14 H Micro: Microbiology 09/21/21 14:43 Blood Culture (Wb) - Right Hand Blood Culture - Final No growth in 5 days. 09/21/21 13:55 Blood Culture (Wb) - Anticubital Left Blood Culture - Final No growth in 5 days. 09/22/21 10:30 Sputum, Expectorated/Coughed Gram Stain - Final 09/22/21 10:30 Sputum, Expectorated/Coughed Respiratory Culture - Final 09/22/21 04:19 Urine, Clean Catch Urine Culture - Final Mixed Gram Positive Organisms 09/22/21 10:30 Urine, Clean Catch Legionella Antigen - Final 09/22/21 10:30 Urine, Clean Catch Streptococcus pneumoniae Antigen (M - Final 09/21/21 14:10 Nasal Secretion SARS-CoV-2 Antigen (Rapid) - Final SARS-CoV-2 (COVID 19) Physical Exam Const alert General Appearance: ill appearing and on BiPAP Nutritional Appearance: obese HEENT normocephalic and head/scalp atraumatic Mouth: dry mucous membranes Eyes PERRL, EOMs intact bilaterally and conjunctivae normal Neck supple General: trachea midline Chest inspection of chest normal Resp Effort and Inspection: tachypneic Auscultation: diminished lung sounds; Negative for rales, rhonchi or wheezes Cardio regular rate and regular rhythm GI normal to inspection, nondistended, normoactive bowel sounds Extremity no clubbing, cyanosis or edema Skin no rashes or lesions noted Neuro CN's II-XII intact bilaterally, moves all extremities and no focal motor deficits Psych cooperative Charges/Coding Procedures Hospitalists Procedures: 60784 Critial Care 1st Hr
[2021-09-29] MEDS: Losartan Potassium 25 MG Tablet PO (08:32)
[2021-09-29] MEDS: cloNIDine HCl 0.1 MG Tablet PO (08:32)
[2021-09-29] MEDS: traMADol 50 MG Tablet 100 MG PO (08:33)
[2021-09-29] MEDS: NYSTATIN 500,000 UNIT/5 ML UDC 500000 UNIT PO ×3 (08:33→17:32)
[2021-09-29] MEDS: Enoxaparin 100 MG/ML Syringe 90 MG SC ×2 (08:33→21:08)
[2021-09-29] MEDS: dexAMETHasone 10 MG/ML Vial 6 MG IV (08:34)
[2021-09-29 09:05] LABS: Bedside Glucose 93 mg/dL (70-110)
[2021-09-29] MEDS: Etomidate 20 MG/10 ML Vial IV (10:15)
[2021-09-29] MEDS: Midazolam 2 MG/2 ML Syringe IV (10:15)
--- NOTE | 2021-09-29 10:15 | RAD_ITS ---
STUDY: X-RAY CHEST REASON FOR EXAM: Female, 61 years old. ETT and OGT placement TECHNIQUE: Single AP portable view of the chest. COMPARISON: Comparison is made with prior study dated 09/24/2021. FINDINGS: An endotracheal tube is in situ. The tip is at 3.5 cm proximal to the emily. An orogastric tube is place with the tip in the distal portion of the body of the stomach. The right PICC line catheter is coiled within the right axillary vein. Bilateral pulmonary infiltrates worse in the left lower lobe. Blunting of the left costophrenic angle. RAD/Chest 1 View (Portable) IMPRESSION: The tip of the endotracheal tube is at 3.5 sinus proximal to emily. The tip of the orogastric tube is within the distal portion of the body of the stomach. Electronically Signed: Cesario Guillaume MD at 10:59 EST , Service support ,
[2021-09-29] MEDS: Propofol 10MG/Ml 1,000 MG/100 ML Bottle 26.8 MG CONT INF (10:17)
[2021-09-29] MEDS: Succinylcholine Chloride 200 MG/10 ML Vial IV (10:19)
--- NOTE | 2021-09-29 10:20 | RAD_ITS ---
STUDY: X-RAY CHEST REASON FOR EXAM: Female, 61 years old. ETT/OG PLACEMENT #2 TECHNIQUE: Single AP portable view of the chest. COMPARISON: Comparison is made with prior examination done earlier today. FINDINGS: The endotracheal tube has been placed. The tip is at 3.3 cm proximal to the emily. An orogastric tube is seen with the tip in the distal portion of the body of the stomach. A right-sided PICC line catheter is coiled within the right axillary vein. Stable appearance of the bilateral pulmonary infiltrates. There is no demonstrated pleural abnormality. Normal size heart. Normal mediastinum and parish. Normal visualized pulmonary arteries. Normal visualized aortic arch and descending thoracic aorta. There are diffuse degenerative changes of the visualized thoracic spine. Normal visualized ribs, clavicles, and shoulders. There is no demonstrated abnormality of the visualized soft tissue structures of the upper abdomen. RAD/Chest 1 View (Portable) IMPRESSION: The tip of the endotracheal tube is at 3.3 sinus proximal to emily. The tip of the orogastric tube is in the distal portion of the body of the stomach. Electronically Signed: Cesario Guillaume MD at 10:57 EST , Service support ,
--- NOTE | 2021-09-29 10:59 | PN.HOSP_ITS ---
Subjective Subjective Patient seen and examined. She remains tachypneic. She was on AirVo, and complained of stuffy nostrils and congestion. She was to be switched to BIPAP this morning. She denied any chest pain, palpitations, dizziness, nausea and vomiting. Review of systems is otherwise negative. Objective Data Objective Data Vital Signs: Vital Signs Temp Pulse Resp BP Pulse Ox 97.0 F L 81 27 H 131/80 H 91 09/29/21 08:00 09/29/21 10:17 09/29/21 10:17 09/29/21 09:00 09/29/21 10:17 Oxygen Flow Rate (L/min) 60 Oxygen Delivery Method Bi-pap Weight: 197 lb 1.492 oz Body Mass Index (BMI) 29.0 Intake & Output: Intake and Output for Last 24 Hours 09/27/21 09/28/21 09/29/21 23:59 23:59 23:59 Intake Total 360 / 360 80 / 80 120 / 120 Output Total 650 / 650 1100 / 1100 25 / 25 Balance -290 / -290 -1020 / -1020 95 / 95 Lab / Micro Data Result Diagrams: 09/29/21 03:45 09/29/21 03:45 Labs: Laboratory Results - last 24 hr 09/28/21 12:08: POC Glucose 199 H 09/28/21 16:09: POC Glucose 271 H 09/28/21 20:00: POC Glucose 198 H 09/29/21 03:45: WBC 10.7, RBC 5.29, Hgb 15.7 H, Hct 47.1 H, MCV 89.0, MCH 29.7, MCHC 33.3, RDW Std Deviation 45.2 H, RDW Coeff of Ana Maria 14.2, Plt Count 248, MPV 10.7, Immature Gran % (Auto) 0.700, Neut % (Auto) 89.1 H, Lymph % (Auto) 7.1 L, [place] % (Auto) 2.5, Eos % (Auto) 0.4, Baso % (Auto) 0.2, Absolute Neuts (auto) 9.6 H, Absolute Lymphs (auto) 0.76 L, Nucleated RBC % 0 09/29/21 03:45: Sodium 136, Potassium 5.2 H, Chloride 98, Carbon Dioxide 30.0, Anion Gap 8, BUN 36 H, Creatinine 0.74, Estim Creat Clear Calc 83.43, Est GFR (MDRD) Af Amer 102, Est GFR (MDRD) Non-Af 84, BUN/Creatinine Ratio 48.5 H, Glucose 119 H, Calcium 8.9 09/29/21 03:45: B-Natriuretic Peptide 5.6 09/29/21 03:45: Procalcitonin 0.14 H 09/29/21 08:29: POC Glucose 93 Micro: Microbiology 09/21/21 14:43 Blood Culture (Wb) - Right Hand Blood Culture - Final No growth in 5 days. 09/21/21 13:55 Blood Culture (Wb) - Anticubital Left Blood Culture - Final No growth in 5 days. 09/22/21 10:30 Sputum, Expectorated/Coughed Gram Stain - Final 09/22/21 10:30 Sputum, Expectorated/Coughed Respiratory Culture - Final 09/22/21 04:19 Urine, Clean Catch Urine Culture - Final Mixed Gram Positive Organisms 09/22/21 10:30 Urine, Clean Catch Legionella Antigen - Final 09/22/21 10:30 Urine, Clean Catch Streptococcus pneumoniae Antigen (M - Grace l 09/21/21 14:10 Nasal Secretion SARS-CoV-2 Antigen (Rapid) - Final SARS-CoV-2 (COVID 19) Radiography Diagnostic Testing: Radiology Impression Chest X-Ray 09/29/21 10:20 IMPRESSION: The tip of the endotracheal tube is at 3.3 sinus proximal to emily. The tip of the orogastric tube is in the distal portion of the body of the stomach. Electronically Signed: Cesario Guilalume MD at 10:57 EST , Service support , Physical Exam Const alert and oriented x3 Constitutional Narrative: mild distressed Exam Limitations: no limitations Nutritional Appearance: overweight HEENT normocephalic, head/scalp atraumatic and moist oral mucous membranes Head and Scalp: normocephalic Eyes PERRL, EOMs intact bilaterally and conjunctivae normal Neck no lymphadenopathy and supple Resp No normal respiratory effort Resp Narrative: on AirVo. Diminished breath sounds bibasally, no wheezes or crackles. Auscultation: Negative for rales, rhonchi or wheezes Cardio regular rate, regular rhythm, S1 normal heart sound, S2 normal heart sound, no murmurs, no rub, no gallops, no clicks and no JVD GI normal to inspection, nondistended, normoactive bowel sounds, soft to palpation, non-tender and non-distended; Negative for hepatosplenomegaly Extremity normal to inspection, full ROM and no clubbing, cyanosis or edema Peripheral Pulses: Yes pulses 2+ throughout Skin no rashes or lesions noted Neuro oriented x3, CN's II-XII intact bilaterally, moves all extremities, no focal motor deficits and no sensory deficits noted Sensorium / Orientation: awake and alert Speech: speech normal Psych Psych Narrative: anxious Assessment & Plan Assessment/Plan (1) Acute respiratory failure with hypoxia: (2) COVID-19: PLAN: #Acute hypoxic respiratory failure due to covid 19 pneumonia * On AirVo. On Decadron. Completed a 5 day course of remdesivir. Also on baricitinib. * Diurese as needed to maintain euvolemic status. * Titrate oxygen to maintain saturation above 90%. * Breathing treatments with bronchodilators. ID and critical care on board. * in cumulative negative balance by 3.2L * she was transferrred to ICU emergently yesterday due to worsening respiratory status. * #Thrombocytopenia: resolved. #Bilateral lower extremity DVT * Had DVT of the right soleal vein and left tibioperoneal trunk as well as the posterior tibial and peroneal as well as soleal veins. * On therapeutic Lovenox. * Will transition to Eliquis when she is able to remain off of BiPAP for prolonged periods. * #Type 2 diabetes mellitus with hyperglycemia * On lantus 20 units with breakfast. * High-dose insulin sliding scale. * Accuchecks [facility]. * #Hypertension: On losartan and clonidine #Chronic back pain: On Ultram as needed DVT prophylaxis: Lovenox Charges/Coding Visit Charges Inpatient E&M: 89815 [facility] Hosp L3
--- NOTE | 2021-09-29 11:34 | PCM.OP.PRO ---
Procedure Report Date of Procedure: 09/29/21 Intubation Indication: Respiratory Failure Consent was obtained from: Patient The patient was placed in the appropriate sniffing position. Preoxygenated sedation via BiPAP was provided for a minimum of 3 minutes. The patient had continuous cardiac as well as pulse oximetry monitoring during the procedure. Procedure sedation was provided by the administration of 2 mg of Versed and 20 mg of etomidate. Direct laryngoscopy was then performed using a number 3 MAC blade, which revealed a grade 1 view. A 7.0 mm endotracheal tube was visualized advancing between the cords to the level of 22 cm at the lip. The stylette was then removed and discarded. Tube placement was confirmed by fogging in the tube along with equal and bilateral breath sounds. Colorimetric change was visualized on the CO2 meter. The cuff was then inflated and the tube secured using a commercially available device. A good pulse oximetry waveform was seen on the monitor throughout the procedure. A portable chest x-ray has been ordered to confirm appropriate placement. The patient tolerated the procedure well. Procedures Hospitalists Procedures: 99003 Insert Emergency Airway
--- NOTE | 2021-09-29 11:42 | NURSING ---
Dr. Peña, RT and nursing at bedside preparing to intubate patient. 2 versed IV given at 1015 20 etomidate given at 1015 100 Succinylcholine given at 1017 Successful intubation at 1017, size 7,22 at lip. Positive color change, Equal b/l breath sounds. Vitals stable.
[2021-09-29 12:05] LABS: Allen Test Positive; Base Excess 3 mmol/L (-2 to +2); Bicarbonate 28.2 mmol/L (22-26); Blood Gas Specimen Type ART; FI02 100; Mode AC; O2 Delivery Device Adult Vent; PEEP 14; PO2 48 mmHG (75-100); RR 16; SITE L Radial; SO2 81 % (95-99); Total Carbon Dioxide 30 mmol/L; Vt 400; pCO2 49.7 mmHg (35-45); pH 7.36 (7.35-7.45)
[2021-09-29] MEDS: Insulin Lispro 100 UNIT/ML INSULN.PEN SC ×2 (12:47→17:30)
[2021-09-29 13:41] LABS: Bedside Glucose 209 mg/dL (70-110)
[2021-09-29] MEDS: Atropine Sulfate 1 MG/10 ML Syringe 0.5 MG IV (14:27)
--- NOTE | 2021-09-29 15:08 | PCM.RX.CS ---
Consult Pharmacy has been consulted to manage selected antiobiotic: Vancomycin Type of Consult: New start Prior Doses of Antibiotics Received/Current Regimen: PATIENT GIVEN 2000MG OF VANCOMYCIN 09/29/21 @1336 Labs: Sodium 136 mmol/L (136-145) 09/29/21 03:45 Potassium 5.2 mmol/L (3.5-5.1) H 09/29/21 03:45 Chloride 98 mmol/L (98-107) 09/29/21 03:45 Carbon Dioxide 30.0 mmol/L (21.0-32.0) 09/29/21 03:45 Anion Gap 8 (5-15) 09/29/21 03:45 BUN 36 mg/dL (7-18) H 09/29/21 03:45 Creatinine 0.74 mg/dL (0.55-1.02) 09/29/21 03:45 Est GFR (MDRD) Af Amer 102 mL/min (>60) 09/29/21 03:45 Est GFR (MDRD) Non-Af 84 mL/min (>60) 09/29/21 03:45 BUN/Creatinine Ratio 48.5 RATIO (10-20) H 09/29/21 03:45 Glucose 119 mg/dL (74-106) H 09/29/21 03:45 Microbiology: Microbiology 09/29/21 10:18 Sputum, Induced/[place] Gram Stain - Final 09/21/21 14:43 Blood Culture (Wb) - Right Hand Blood Culture - Final No growth in 5 days. 09/21/21 13:55 Blood Culture (Wb) - Anticubital Left Blood Culture - Final No growth in 5 days. 09/22/21 10:30 Sputum, Expectorated/Coughed Gram Stain - Final 09/22/21 10:30 Sputum, Expectorated/Coughed Respiratory Culture - Final 09/22/21 04:19 Urine, Clean Catch Urine Culture - Final Mixed Gram Positive Organisms 09/22/21 10:30 Urine, Clean Catch Legionella Antigen - Final 09/22/21 10:30 Urine, Clean Catch Streptococcus pneumoniae Antigen (M - Final 09/21/21 14:10 Nasal Secretion SARS-CoV-2 Antigen (Rapid) - Final SARS-CoV-2 (COVID 19) Weight used for dosin.5 kg Estimated Creatinine Clearance: 83crcl Goal Trough: 15-20 mcg/mL Pharmacy Plan for Drug Dosing: give 1250mg every 12 hours trough 30 minutes before 4 dose Pharmacy Service will continue to monitor and adjust dosing as required. Follow-Up Labs: Trough Vancomycin Labs to be done on [date and time ordered]: 10/01/21 @ 0100
[2021-09-29 18:29] LABS: CPK Total, Creatine Kinase 34 U/L (26-192); Triglycerides 164 mg/dL
[2021-09-29] MEDS: TITRATION PARAMETER CHANGE 1 EACH IV (18:40)
[2021-09-29] MEDS: Propofol 10MG/Ml 1,000 MG/100 ML Bottle 2.7 MG CONT INF (21:08)
[2021-09-29 21:35] LABS: Bedside Glucose 242 mg/dL (70-110)
[2021-09-29] MEDS: Chlorhexidine 15 ML PO (21:55)
[2021-09-30] VITALS (52 sets, daily range): BP systolic 74–124; BP diastolic 43–73; PULSE 48–79; RESP 14–24; TEMP 36.5–37.3; O2SAT 90–96
[2021-09-30] MEDS: Insulin Lispro 100 UNIT/ML INSULN.PEN SC ×2 (00:01→17:16)
[2021-09-30 03:31] LABS: Bedside Glucose 177 mg/dL (70-110)
[2021-09-30 03:40] LABS: Absolute Lymphocyte Count 0.69 X10^3/uL (0.83-4.51); Absolute Neutrophil Count 10.7 X10^3/uL (2.0-7.7); Basophil# 0.01 X10^3/uL; Basophil% 0.1 % (0-1); Eosinophil# 0.01 X10^3/uL; Eosinophils% 0.1 % (0-5); Hematocrit 43.3 % (37-47); Hemoglobin 13.7 g/dL (12.0-15.0); Lymphocyte # 0.69 X10^3/ul (0.83-4.51); Lymphocyte % 5.9 % (19-41); Mean Corp Hgb Conc 31.6 g/dL (32-36); Mean Corpuscular Hgb 28.8 pg (27.0-32.0); Mean Platelet Vol. 10.3 fl (6.2-12.0); Monocyte# 0.33 X10^3/uL; Monocyte% 2.8 % (0-10); NRBC Flagged by Analyzer 0 % (0-5); Neutrophil # 10.67 X10^3/uL (2.7-7.7); Neutrophil % 90.4 % (47-70); Platelet Count 270 K/mm3 (150-450); RBC Distribution Width CV 14.4 % (11.6-14.6); RBC Distribution Width SD 48.3 fl (35.1-43.9); Red Blood Count 4.76 M/mm3 (4.2-5.4); White Blood Count 11.8 K/mm3 (4.4-11.0)
[2021-09-30 03:59] LABS: Anion Gap 8 (5-15); BUN 58 mg/dL (7-18); BUN/Creat Ratio 48.7 RATIO (10-20); Calcium,Total 8.2 mg/dL (8.5-10.1); Chloride 104 mmol/L (98-107); Creatinine, Serum 1.19 mg/dL (0.55-1.02); EST Glomerular Filtration Rate 49 mL/min (>60); Est Glom Filt Rate - Afr Amer 59 mL/min (>60); Estimated Creatinine Clearance 51.88 ml/min; Glucose 151 mg/dL (74-106); Potassium 4.6 mmol/L (3.5-5.1); Sodium Level 138 mmol/L (136-145)
[2021-09-30] MEDS: TITRATION PARAMETER CHANGE 1 EACH IV (05:08)
--- NOTE | 2021-09-30 07:05 | PN.CC_ITS ---
Assessment & Plan Assessment/Plan (1) Acute respiratory failure with hypoxia: (2) COVID-19: PLAN: RECOMMENDATIONS: 1. Continue assist control mode of mechanical ventilation. Wean FiO2/PEEP for saturations greater than 90%. 2. Continue empiric antimicrobials. 3. Continue Decadron and baricitinib to complete treatment courses. 4. Continue therapeutic Lovenox. 5. Continue appropriate GI prophylaxis. 6. Hold Lasix given interval development of NURIA. 7. Okay to start tube feeds today. IMPRESSIONS: 1. Acute hypoxic respiratory failure secondary to COVID-19 The patient was initially admitted to the hospital on September 21 with worsening dyspnea. She was subsequently found to be positive for COVID-19. Symptom onset was sometime around September 15. CTA was negative for PE. However, the patient was identified as having lower extremity DVTs on Doppler study. Therefore, she will be continued on therapeutic Lovenox. In the interim, the patient has completed a treatment course of remdesivir and will remain on Decadron and bar icitinib as ordered. Despite multiple consecutive days on noninvasive positive pressure ventilatory support, the patient failed to make any meaningful improvement. Therefore, she was intubated on September 29. In light of her decompensation, the patient was initiated on empiric antimicrobials. FiO2 will be weaned to maintain saturations at or above 90%. 2. Diabetes mellitus Continue Lantus and sliding scale insulin coverage. 3. Acute kidney injury Likely ATN in the setting of #1. Will hold nephrotoxic medications including diuretics for now. Continue to monitor urine output. No current indication for renal replacement therapy. 4. Bilateral lower extremity DVT Continue therapeutic Lovenox as ordered. 5. Overweight/hypertension/musculoskeletal issues/unvaccinated status/chronic pain syndrome Complicates care, management, recovery and prognosis. Okay to initiate tube feeds today. TIME: 32 minutes of critical care time, independent of procedures, was spent addressing the patient's acute hypoxemic respiratory failure secondary to COVID- 19 pneumonia, lower extremity DVT, acute kidney injury, review of all data and collaboration with the care team. Subjective Subjective The patient was seen and examined at the bedside this morning. Events from the last 24 hours have been reviewed. Today is vent day #2. The patient is currently afebrile, hemodynamically stable and maintaining appropriate oxygen saturations on assist control mode of mechanical ventilation with an FiO2 requirement of 70% and PEEP of 14. She is currently documented to be overall net -2.6 L for the hospitalization. The patient is sedated on fentanyl and propofol. She remains on empiric antimicrobials, Decadron, therapeutic Lovenox and baricitinib. Creatinine has increased to 1.19 this morning. Objective Data Objective Data The patient's most recent lab work, culture data and imaging studies have all been personally reviewed. Rapid coronavirus antigen testing was positive on September 21. Strep and urine Legionella antigens were negative. Sputum culture has not demonstrated any growth to date. Lower extremity Doppler study from September 22 was positive for bilateral DVT. Vital Signs: Vital Signs Temp Pulse Resp BP Pulse Ox 98.8 F 71 16 94/65 93 09/30/21 05:00 09/30/21 07:00 09/30/21 07:00 09/30/21 07:00 09/30/21 07:00 Oxygen Flow Rate (L/min) 60 Oxygen Delivery Method Mechanical Ventilator Weight: 85.5 kg Body Mass Index (BMI) 29.0 Intake & Output: Intake and Output for Last 24 Hours 09/28/21 09/29/21 09/30/21 23:59 23:59 23:59 Intake Total 80 / 80 1203.33 / 1229.13 562.66 / 562.66 Output Total 1100 / 1100 815 / 890 275 / 275 Balance -1020 / -1020 388.33 / 339.13 287.66 / 287.66 Lab / Micro Data Attestation: I reviewed the patient's lab results. Result Diagrams: 09/30/21 03:30 09/30/21 03:30 Labs: Laboratory Results - last 24 hr 09/29/21 03:45: Total Creatine Kinase Cancelled, Triglycerides Cancelled 09/29/21 08:29: POC Glucose 93 09/29/21 12:44: POC Glucose 209 H 09/29/21 17:29: POC Glucose 242 H 09/29/21 17:45: Total Creatine Kinase 34, Triglycerides 164 09/29/21 23:59: POC Glucose 177 H 09/30/21 03:30: WBC 11.8 H, RBC 4.76, Hgb 13.7, Hct 43.3, MCV 91.0, MCH 28.8, MCHC 31.6 L D, RDW Std Deviation 48.3 H, RDW Coeff of [place] Maria 14.4, Plt Count 270, MPV 10.3, Immature Gran % (Auto) 0.700, Neut % (Auto) 90.4 H, Lymph % (Auto) 5.9 L, [place] % (Auto) 2.8, Eos % (Auto) 0.1, Baso % (Auto) 0.1, Absolute Neuts (auto) 10.7 H, Absolute Lymphs (auto) 0.69 L, Nucleated RBC % 0 09/30/21 03:30: Sodium 138, Potassium 4.6, Chloride 104, Carbon Dioxide 26.0, Anion Gap 8, BUN 58 H, Creatinine 1.19 H, Estim Creat Clear Calc 51.88, Est GFR (MDRD) Af Amer 59 L, Est GFR (MDRD) Non-Af 49 L, BUN/Creatinine Ratio 48.7 H, Glucose 151 H, Calcium 8.2 L Micro: Microbiology 09/29/21 10:18 Sputum, Induced/Lukens Gram Stain - Final 09/21/21 14:43 Blood Culture (Wb) - Right Hand Blood Culture - Final No growth in 5 days. 09/21/21 13:55 Blood Culture (Wb) - Anticubital Left Blood Culture - Final No growth in 5 days. 09/22/21 10:30 Sputum, Expectorated/Coughed Gram Stain - Final 09/22/21 10:30 Sputum, Expectorated/Coughed Respiratory Culture - Final 09/22/21 04:19 Urine, Clean Catch Urine Culture - Final Mixed Gram Positive Organisms 09/22/21 10:30 Urine, Clean Catch Legionella Antigen - Final 09/22/21 10:30 Urine, Clean Catch Streptococcus pneumoniae Antigen (M - Final 09/21/21 14:10 Nasal Secretion SARS-CoV-2 Antigen (Rapid) - Final SARS-CoV-2 (COVID 19) ABG Data ABG results: ABG 09/29/21 11:58 Specimen Type ART Sample Site L Radial pH 7.36 Bicarbonate Actual 28.2 H Total CO2 30 Base Excess 3 H O2 Saturation 81 L O2 % 100 ABG pCO2 49.7 H ABG pO2 48 L Doug Test Positive Respiration Rate 16 O2 Delivery Device Adult Vent Vent Mode AC Tidal Volume 400 POC PEEP 14 Radiography Diagnostic Testing: Radiology Impression Chest X-Ray 09/29/21 10:15 IMPRESSION: The tip of the endotracheal tube is at 3.5 sinus proximal to emily. The tip of the orogastric tube is within the distal portion of the body of the stomach. Electronically Signed: Cesario Guillaume MD at 10:59 EST , Service support , Chest X-Ray 09/29/21 10:20 IMPRESSION: The tip of the endotracheal tube is at 3.3 sinus proximal to emily. The tip of the orogastric tube is in the distal portion of the body of the stomach. Electronically Signed: Cesario Guillaume MD at 10:57 EST , Service support , Physical Exam Const no apparent distress General Appearance: intubated and patient mechanically ventilated Nutritional Appearance: obese HEENT normocephalic and head/scalp atraumatic Mouth: dry mucous membranes, endotracheal tube in place and OG tube in place Eyes PERRL, EOMs intact bilaterally and conjunctivae normal Neck supple General: trachea midline Chest inspection of chest normal Resp Auscultation: diminished lung sounds; Negative for rales, rhonchi or wheezes Cardio regular rate and regular rhythm GI normal to inspection, nondistended, normoactive bowel sounds Extremity no clubbing, cyanosis or edema Skin no rashes or lesions noted Neuro Sensorium / Orientation: sedated on vent Charges/Coding Procedures Hospitalists Procedures: 21344 Critial Care 1st Hr
[2021-09-30 08:50] LABS: Bedside Glucose 131 mg/dL (70-110)
[2021-09-30 09:05] LABS: Bedside Glucose 128 mg/dL (70-110)
--- NOTE | 2021-09-30 10:11 | PN.HOSP_ITS ---
Subjective Subjective Patient seen and examined. She was emergently intubated yesterday on account of worsening respiratory status. She remains intubated and sedated. Unable to review review of systems. She was also started on empiric antibiotics yesterday. Objective Data Objective Data Vital Signs: Vital Signs Temp Pulse Resp BP Pulse Ox 98.8 F 69 19 H 94/65 93 09/30/21 05:00 09/30/21 08:41 09/30/21 07:46 09/30/21 07:00 09/30/21 07:46 Oxygen Flow Rate (L/min) 60 Oxygen Delivery Method Mechanical Ventilator Weight: 188 lb 7.924 oz Body Mass Index (BMI) 29.0 Intake & Output: Intake and Output for Last 24 Hours 09/28/21 09/29/21 09/30/21 23:59 23:59 23:59 Intake Total 80 / 80 1203.33 / 1229.13 582.68 / 582.68 Output Total 1100 / 1100 815 / 890 275 / 275 Balance -1020 / -1020 388.33 / 339.13 307.68 / 307.68 Lab / Micro Data Result Diagrams: 09/30/21 03:30 09/30/21 03:30 Labs: Laboratory Results - last 24 hr 09/29/21 03:45: Total Creatine Kinase Cancelled, Triglycerides Cancelled 09/29/21 12:44: POC Glucose 209 H 09/29/21 17:29: POC Glucose 242 H 09/29/21 17:45: Total Creatine Kinase 34, Triglycerides 164 09/29/21 23:59: POC Glucose 177 H 09/30/21 03:30: WBC 11.8 H, RBC 4.76, Hgb 13.7, Hct 43.3, MCV 91.0, MCH 28.8, MCHC 31.6 L D, RDW Std Deviation 48.3 H, RDW Coeff of Ana Maria 14.4, Plt Count 270, MPV 10.3, Immature Gran % (Auto) 0.700, Neut % (Auto) 90.4 H, Lymph % (Auto) 5.9 L, [place] % (Auto) 2.8, Eos % (Auto) 0.1, Baso % (Auto) 0.1, Absolute Neuts (auto) 10.7 H, Absolute Lymphs (auto) 0.69 L, Nucleated RBC % 0 09/30/21 03:30: Sodium 138, Potassium 4.6, Chloride 104, Carbon Dioxide 26.0, Anion Gap 8, BUN 58 H, Creatinine 1.19 H, Estim Creat Clear Calc 51.88, Est GFR (MDRD) Af Amer 59 L, Est GFR (MDRD) Non-Af 49 L, BUN/Creatinine Ratio 48.7 H, Glucose 151 H, Calcium 8.2 L 09/30/21 06:25: POC Glucose 131 H 09/30/21 08:48: POC Glucose 128 H Micro: Microbiology 09/29/21 10:18 Sputum, Induced/Lukens Gram Stain - Final 09/21/21 14:43 Blood Culture (Wb) - Right Hand Blood Culture - Final No growth in 5 days. 09/21/21 13:55 Blood Culture (Wb) - Anticubital Left Blood Culture - Final No growth in 5 days. 09/22/21 10:30 Sputum, Expectorated/Coughed Gram Stain - Final 09/22/21 10:30 Sputum, Expectorated/Coughed Respiratory Culture - Final 09/22/21 04:19 Urine, Clean Catch Urine Culture - Final Mixed Gram Positive Organisms 09/22/21 10:30 Urine, Clean Catch Legionella Antigen - Final 09/22/21 10:30 Urine, Clean Catch Streptococcus pneumoniae Antigen (M - Final 09/21/21 14:10 Nasal Secretion SARS-CoV-2 Antigen (Rapid) - Final SARS-CoV-2 (COVID 19) ABG Data ABG results: ABG 09/29/21 11:58 Specimen Type ART Sample Site L Radial pH 7.36 Bicarbonate Actual 28.2 H Total CO2 30 Base Excess 3 H O2 Saturation 81 L O2 % 100 ABG pCO2 49.7 H ABG pO2 48 L Doug Test Positive Respiration Rate 16 O2 Delivery Device Adult Vent Vent Mode AC Tidal Volume 400 POC PEEP 14 Radiography Diagnostic Testing: Radiology Impression Chest X-Ray 09/29/21 10:15 IMPRESSION: The tip of the endotracheal tube is at 3.5 sinus proximal to emily. The tip of the orogastric tube is within the distal portion of the body of the stomach. Electronically Signed: Cesario Guillaume MD at 10:59 EST , Service support , Chest X-Ray 09/29/21 10:20 IMPRESSION: The tip of the endotracheal tube is at 3.3 sinus proximal to emily. The tip of the orogastric tube is in the distal portion of the body of the stomach. Electronically Signed: Cesario Guillaume MD at 10:57 EST , Service support , Physical Exam Const Constitutional Narrative: Intubated, sedated. RASS score is -4. Exam Limitations: altered mental status HEENT head/scalp atraumatic Head and Scalp: normocephalic Mouth: dry mucous membranes Eyes PERRL and conjunctivae normal Neck no lymphadenopathy Resp Resp Narrative: Diminished breath sounds bibasilar. Few crackles. Intubated and sedated. Cardio regular rate, regular rhythm, S1 normal heart sound, S2 normal heart sound and no murmurs GI normal to inspection, nondistended, normoactive bowel sounds, soft to palpation, non-tender and non-distended Extremity no clubbing, cyanosis or edema Peripheral Pulses: Yes pulses 2+ throughout Skin no rashes or lesions noted Neuro Neuro Narrative: Intubated, sedated, RASS score is -4. Assessment & Plan Assessment/Plan (1) Acute respiratory failure with hypoxia: (2) COVID-19: PLAN: #Acute hypoxic respiratory failure due to covid 19 pneumonia * emergently intubated and sedated yesterday due to worsening respiratory status. Completed a 5 day course of remdesivir. Also on baricitinib. * Diurese as needed to maintain euvolemic status. * Titrate oxygen to maintain saturation above 90%. * Breathing treatments with bronchodilators. ID and critical care on board. * started on empiric antimicrobials- vancomycin and cefepime * #Thrombocytopenia: resolved. #Bilateral lower extremity DVT * Had DVT of the right soleal vein and left tibioperoneal trunk as well as the posterior tibial and peroneal as well as soleal veins. * On therapeutic Lovenox. * * #Type 2 diabetes mellitus with hyperglycemia * On lantus 20 units * High-dose insulin sliding scale. * Accuchecks [facility]. * #Hypertension: On losartan and clonidine #Chronic back pain: On Ultram as needed DVT prophylaxis: therapeutic Lovenox Charges/Coding Visit Charges Inpatient E&M: 43134 Subs Hosp L3
[2021-09-30] MEDS: dexAMETHasone 10 MG/ML Vial 6 MG IV (10:52)
[2021-09-30] MEDS: cloNIDine HCl 0.1 MG Tablet PO (10:52)
[2021-09-30] MEDS: Enoxaparin 100 MG/ML Syringe 90 MG SC ×2 (10:53→21:03)
[2021-09-30] MEDS: Chlorhexidine 15 ML PO ×2 (10:53→21:04)
[2021-09-30] MEDS: CHLORHEXIDINE GLUC 2% CLOTH 1 EACH TOWELETTE TOPICAL (10:53)
[2021-09-30] MEDS: Losartan Potassium 25 MG Tablet PO (10:53)
[2021-09-30] MEDS: Vital AF 1.2 Cal Liquid 1,000 ML 20 ML GT (10:53)
--- NOTE | 2021-09-30 13:02 | PCM.PN.ID ---
Physical Exam Narrative On vent, no fever Const no apparent distress Resp Effort and Inspection: mechanically ventilated Auscultation: diminished lung sounds Cardio regular rate and regular rhythm GI soft to palpation, non-tender and non-distended Skin no rashes or lesions noted ID ID: Route of nutrition/ use of supplements: [] Nutritional Intake: [] IV Site: [] Stevens Catheter: [] Assessment & Plan Assessment/Plan (1) COVID-19: PLAN: Sx started 09/15/21. Isolate until 10/04/21. Unvaccinated, recommended vaccine in one month. On dex, baricitinib, completed remdesivir. D-dimer over 20, CT neg for PE. Doppler (+) DVT. On vent. On vanc/cefepime. Sputum cx pending. Will follow (2) Acute respiratory failure with hypoxia:
[2021-09-30] MEDS: Propofol 10MG/Ml 1,000 MG/100 ML Bottle 5.1 MG CONT INF (17:18)
[2021-09-30 17:36] LABS: Bedside Glucose 247 mg/dL (70-110)
--- NOTE | 2021-09-30 21:52 | PN.HOSP_ITS ---
Hospitalist Note Patient with recurrent hypotension, MAP < 60, attempted restart Levo however, patient with recurrent bradycardia, has required atropine prior and they were uncertain the etiology at that time, given recurrence following start will hold. Discussed options with TECHNICAL SOLUTION ARCHITECT, will trial vasopressin; however, noted that this could also cause bradycardia. Will continue to monitor.
[2021-10-01] VITALS (58 sets, daily range): BP systolic 78–149; BP diastolic 42–82; PULSE 39–76; RESP 13–23; TEMP 36.5–37; O2SAT 16–97
[2021-10-01] MEDS: Insulin Lispro 100 UNIT/ML INSULN.PEN SC ×5 (00:51→23:50)
[2021-10-01 02:56] LABS: Vancomycin, Trough Level 28.8 ug/mL (5.0-15.0)
--- NOTE | 2021-10-01 03:12 | PCM.RX.CS ---
Consult Pharmacy has been consulted to manage selected antiobiotic: Vancomycin Type of Consult: Follow-up Labs: Sodium 138 mmol/L (136-145) 09/30/21 03:30 Potassium 4.6 mmol/L (3.5-5.1) 09/30/21 03:30 Chloride 104 mmol/L (98-107) 09/30/21 03:30 Carbon Dioxide 26.0 mmol/L (21.0-32.0) 09/30/21 03:30 Anion Gap 8 (5-15) 09/30/21 03:30 BUN 58 mg/dL (7-18) H 09/30/21 03:30 Creatinine 1.19 mg/dL (0.55-1.02) H 09/30/21 03:30 Est GFR (MDRD) Af Amer 59 mL/min (>60) L 09/30/21 03:30 Est GFR (MDRD) Non-Af 49 mL/min (>60) L 09/30/21 03:30 BUN/Creatinine Ratio 48.7 RATIO (10-20) H 09/30/21 03:30 Glucose 151 mg/dL (74-106) H 09/30/21 03:30 Vancomycin Trough 28.8 ug/mL (5.0-15.0) H 10/01/21 02:10 Microbiology: Microbiology 09/29/21 10:18 Sputum, Induced/Lukens Gram Stain - Final 09/21/21 14:43 Blood Culture (Wb) - Right Hand Blood Culture - Final No growth in 5 days. 09/21/21 13:55 Blood Culture (Wb) - Anticubital Left Blood Culture - Final No growth in 5 days. 09/22/21 10:30 Sputum, Expectorated/Coughed Gram Stain - Final 09/22/21 10:30 Sputum, Expectorated/Coughed Respiratory Culture - Final 09/22/21 04:19 Urine, Clean Catch Urine Culture - Final Mixed Gram Positive Organisms 09/22/21 10:30 Urine, Clean Catch Legionella Antigen - Final 09/22/21 10:30 Urine, Clean Catch Streptococcus pneumoniae Antigen (M - Final 09/21/21 14:10 Nasal Secretion SARS-CoV-2 Antigen (Rapid) - Final SARS-CoV-2 (COVID 19) Goal Trough: 15-20 mcg/mL Pharmacy Plan for Drug Dosing: Pharmacy Service will continue to monitor and adjust dosing as required. TROUGH 28.8 AT 12 HRS. HOLD DOSE AND DRAW RANDOM LEVEL IN 12 HOURS Follow-Up Labs: Trough Vancomycin Labs to be done on [date and time ordered]: RANDOM 10/01 @ 1400
[2021-10-01 05:06] LABS: Absolute Neutrophil Count 6.6 X10^3/uL (2.0-7.7); Hematocrit 37.1 % (37-47); Lymphocyte % 6.7 % (19-41); Mean Corp Hgb Conc 32.3 g/dL (32-36); Mean Corpuscular Hgb 30.2 pg (27.0-32.0); Mean Corpuscular Volume 93.5 fL (81-99); Mean Platelet Vol. 10.6 fl (6.2-12.0); Monocyte# 0.31 X10^3/uL; Monocyte% 4.2 % (0-10); NRBC Flagged by Analyzer 0 % (0-5); Neutrophil % 88.4 % (47-70); POSITIVE DIFFERENTIAL YES; Platelet Count 252 K/mm3 (150-450); RBC Distribution Width CV 14.6 % (11.6-14.6); RBC Distribution Width SD 50.4 fl (35.1-43.9); Red Blood Count 3.97 M/mm3 (4.2-5.4); White Blood Count 7.5 K/mm3 (4.4-11.0)
[2021-10-01 05:13] LABS: Differential Indicated SCAN CRITERIA MET
[2021-10-01] MEDS: TITRATION PARAMETER CHANGE 1 EACH IV (05:18)
[2021-10-01 05:24] LABS: Anion Gap 6 (5-15); BUN 85 mg/dL (7-18); BUN/Creat Ratio 67.5 RATIO (10-20); Calcium,Total 7.9 mg/dL (8.5-10.1); Chloride 105 mmol/L (98-107); Creatinine, Serum 1.26 mg/dL (0.55-1.02); EST Glomerular Filtration Rate 46 mL/min (>60); Est Glom Filt Rate - Afr Amer 55 mL/min (>60); Glucose 242 mg/dL (74-106); Potassium 5.1 mmol/L (3.5-5.1); Sodium Level 136 mmol/L (136-145)
[2021-10-01 05:41] LABS: Bedside Glucose 224 mg/dL (70-110)
[2021-10-01] MEDS: Propofol 10MG/Ml 1,000 MG/100 ML Bottle 5.1 MG CONT INF (06:13)
[2021-10-01 06:23] LABS: Differential Comment SCANNED
[2021-10-01 06:41] LABS: Bedside Glucose 253 mg/dL (70-110)
--- NOTE | 2021-10-01 07:00 | PN.CC_ITS ---
Assessment & Plan Assessment/Plan (1) Acute respiratory failure with hypoxia: (2) COVID-19: PLAN: RECOMMENDATIONS: 1. Continue assist control mode of mechanical ventilation. Wean FiO2/PEEP for saturations greater than 90%. 2. Continue empiric antimicrobials. 3. Continue Decadron and baricitinib to complete treatment courses. 4. Continue therapeutic Lovenox. 5. Continue appropriate GI prophylaxis. 6. Continue to hold Lasix given interval development of NURIA. 7. Continue tube feeds as tolerated. IMPRESSIONS: 1. Acute hypoxic respiratory failure secondary to COVID-19 The patient was initially admitted to the hospital on September 21 with worsening dyspnea. She was subsequently found to be positive for COVID-19. Symptom onset was sometime around September 15. CTA was negative for PE. However, the patient was identified as having lower extremity DVTs on Doppler study. Therefore, she will be continued on therapeutic Lovenox. In the interim, the patient has completed a treatment course of remdesivir and will remain on Decadron and baricitinib as ordered. Despite multiple consecutive days on noninvasive positive pressure ventilatory support, the patient failed to make any meaningful improvement. Therefore, she was intubated on September 29. In light of her decompensation, the patient was initiated on empiric antimicrobials. FiO2 will be weaned to maintain saturations at or above 90%. 2. Diabetes mellitus Continue Lantus and sliding scale insulin coverage. 3. Acute kidney injury Likely ATN in the setting of #1. Will hold nephrotoxic medications including diuretics for now. Continue to monitor urine output. No current indication for renal replacement therapy. 4. Bilateral lower extremity DVT Continue therapeutic Lovenox as ordered. 5. Overweight/hypertension/musculoskeletal issues/unvaccinated status/chronic pain syndrome Complicates care, management, recovery and prognosis. Okay to continue tube feeds as tolerated. TIME: 35 minutes of critical care time, independent of procedures, was spent addressing the patient's acute hypoxemic respiratory failure secondary to COVID- 19 pneumonia, lower extremity DVT, acute kidney injury, review of all data and collaboration with the care team. Subjective Subjective The patient was seen and examined at the bedside this morning. Events from the last 24 hours have been reviewed. Today is vent day #3. The patient has been bradycardic overnight with heart rates in the 30s and 40s. Ironically, she became hypotensive and was placed on Levophed, which led to worsening in her bradycardia. The patient is currently on assist control mode of mechanical ventilation with an FiO2 requirement of 65% and PEEP of 14. She is sedated on propofol and fentanyl. She is currently tolerating tube feeds. The patient is currently documented to be overall net -1.8 L for the hospitalization. Creatinine is elevated at 1.26. She remains on empiric antimicrobials, Decadron, therapeutic Lovenox and baricitinib. Objective Data Objective Data The patient's most recent lab work, culture data and imaging studies have all been personally reviewed. Rapid coronavirus antigen testing was positive on September 21. Strep and urine Legionella antigens were negative. Sputum culture has not demonstrated any growth to date. Lower extremity Doppler study from September 22 was positive for bilateral DVT. Vital Signs: Vital Signs Temp Pulse Resp BP Pulse Ox 98.2 F 39 L 16 118/65 16 10/01/21 06:00 10/01/21 06:45 10/01/21 06:00 10/01/21 06:45 10/01/21 06:00 Oxygen Flow Rate (L/min) 60 Oxygen Delivery Method Mechanical Ventilator Weight: 84.6 kg Body Mass Index (BMI) 29.0 Intake & Output: Intake and Output for Last 24 Hours 09/29/21 09/30/21 10/01/21 23:59 23:59 23:59 Intake Total 1203.33 / 1229.13 1768.06 / 2038.16 832.16 / 832.16 Output Total 815 / 890 1200 / 1285 308 / 308 Balance 388.33 / 339.13 568.06 / 753.16 524.16 / 524.16 Medical Nutrition Assessment Dietitian: Malnutrition Criteria Met Start: 09/30/21 10:35 Freq: Status: Active Protocol: Document 09/30/21 10:37 AG (Rec: 09/30/21 10:37 AG [id number]) Nutrition Malnutrition Evidence of Malnutrition Exists Yes Malnutrition (severe): Acute Illness/Injury Evidenced By Suboptimal Energy Intake ( Severe),Weight Loss (Severe) Intake Problem Inadequate Oral Intake Etiology r/t acute illness, resp. failure Signs/Symptoms as evidenced by reported decreased appetite LEASING AGENT, inability to consume any nutrition via PO diet x 4 days ; estimated PO intake meeting <50% of estimated energy needs since 09/21 admission Status Active Problem Clinical Problem Acute Disease or Injury Related Malnutrition Etiology severe, acute malnutrition r/t inadequate energy intake w/ acute illness Signs/Symptoms as evidenced by unintentional wt loss of 3.9kg/4.3% x 9 days ; estimated PO intake meeting <50% of estimated energy needs since 09/21 admission Status Active Problem Recommendation Dietitian Recommendations/Changes NPO while intubated; Via OGT- Vital AF 1.2 at goal rate of 60mL/hour w/ 100mL H2O flush every 4 hours to provide 1728 calories, 108 g protein, and 1767mL fluid/day. Would start at 20mL/hour and increase by 15mL/hour every 8 hours as tolerated until goal rate is achieved. Lab / Micro Data Attestation: I reviewed the patient's lab results. Result Diagrams: 10/01/21 04:55 10/01/21 04:55 Labs: Laboratory Results - last 24 hr 09/30/21 06:25: POC Glucose 131 H 09/30/21 08:48: POC Glucose 128 H 09/30/21 17:16: POC Glucose 247 H 10/01/21 00:49: POC Glucose 224 H 10/01/21 02:10: Vancomycin Trough 28.8 H 10/01/21 04:55: WBC 7.5, RBC 3.97 L, Hgb 12.0, Hct 37.1, MCV 93.5, MCH 30.2, MCHC 32.3, RDW Std Deviation 50.4 H, RDW Coeff of [place] 14.6, Plt Count 252, MPV 10.6, Immature Gran % (Auto) 0.700, Neut % (Auto) 88.4 H, Lymph % (Auto) 6.7 L, [place] % (Auto) 4.2, Eos % (Auto) 0.0, Baso % (Auto) 0.0, Absolute Neuts (auto) 6.6, Absolute Lymphs (auto) 0.50 L, Nucleated RBC % 0, Differential Comment SCANNED 10/01/21 04:55: Sodium 136, Potassium 5.1, Chloride 105, Carbon Dioxide 25.0, Anion Gap 6, BUN 85 H, Creatinine 1.26 H, Estim Creat Clear Calc 49.00, Est GFR (MDRD) Af Amer 55 L, Est GFR (MDRD) Non-Af 46 L, BUN/Creatinine Ratio 67.5 H, Glucose 242 H, Calcium 7.9 L 10/01/21 05:48: POC Glucose 253 H Micro: Microbiology 09/29/21 10:18 Sputum, Induced/Lukens Gram Stain - Final 09/21/21 14:43 Blood Culture (Wb) - Right Hand Blood Culture - Final No growth in 5 days. 09/21/21 13:55 Blood Culture (Wb) - Anticubital Left Blood Culture - Final No growth in 5 days. 09/22/21 10:30 Sputum, Expectorated/Coughed Gram Stain - Final 09/22/21 10:30 Sputum, Expectorated/Coughed Respiratory Culture - Final 09/22/21 04:19 Urine, Clean Catch Urine Culture - Final Mixed Gram Positive Organisms 09/22/21 10:30 Urine, Clean Catch Legionella Antigen - Final 09/22/21 10:30 Urine, Clean Catch Streptococcus pneumoniae Antigen (M - Final 09/21/21 14:10 Nasal Secretion SARS-CoV-2 Antigen (Rapid) - Final SARS-CoV-2 (COVID 19) Physical Exam Const no apparent distress General Appearance: intubated and patient mechanically ventilated Nutritional Appearance: obese HEENT normocephalic and head/scalp atraumatic Mouth: dry mucous membranes, endotracheal tube in place and OG tube in place Eyes PERRL, EOMs intact bilaterally and conjunctivae normal Neck supple General: trachea midline Chest inspection of chest normal Resp Auscultation: diminished lung sounds; Negative for rales, rhonchi or wheezes Cardio S1 normal heart sound and S2 normal heart sound Rate: bradycardia GI normal to inspection, nondistended, normoactive bowel sounds Extremity no clubbing, cyanosis or edema Skin no rashes or lesions noted Neuro Sensorium / Orientation: sedated on vent Charges/Coding Procedures Hospitalists Procedures: [id number] Critial Care 1st Hr
[2021-10-01] MEDS: Chlorhexidine 15 ML PO ×2 (10:24→20:20)
[2021-10-01] MEDS: CHLORHEXIDINE GLUC 2% CLOTH 1 EACH TOWELETTE TOPICAL (10:24)
--- NOTE | 2021-10-01 10:24 | PN.HOSP_ITS ---
Subjective Subjective Patient seen and examined. She remains intubated and sedated. She was started on vasopressin overnight due to hypotension. Cr has trended up slightly to 1.26 today. Objective Data Objective Data Vital Signs: Vital Signs Temp Pulse Resp BP Pulse Ox 97.7 F L 65 18 83/53 L 97 10/01/21 07:00 10/01/21 08:00 10/01/21 07:31 10/01/21 07:15 10/01/21 07:31 Oxygen Flow Rate (L/min) 60 Oxygen Delivery Method Mechanical Ventilator Weight: 186 lb 8.177 oz Body Mass Index (BMI) 29.0 Intake & Output: Intake and Output for Last 24 Hours 09/29/21 09/30/21 10/01/21 23:59 23:59 23:59 Intake Total 1203.33 / 1229.13 1768.06 / 2038.16 998.85 / 998.85 Output Total 815 / 890 1200 / 1285 308 / 308 Balance 388.33 / 339.13 568.06 / 753.16 690.85 / 690.85 Medical Nutrition Assessment Dietitian: Malnutrition Criteria Met Start: 09/30/21 10:35 Freq: Status: Active Protocol: Document 09/30/21 10:37 AG (Rec: 09/30/21 10:37 AG [id number]) Nutrition Malnutrition Evidence of Malnutrition Exists Yes Malnutrition (severe): Acute Illness/Injury Evidenced By Suboptimal Energy Intake ( Severe),Weight Loss (Severe) Intake Problem Inadequate Oral Intake Etiology r/t acute illness, resp. 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 ; estimated PO intake meeting <50% of estimated energy needs since 09/21 admission Status Active Problem Clinical Problem Acute Disease or Injury Related Malnutrition Etiology severe, acute malnutrition r/t inadequate energy intake w/ acute illness Signs/Symptoms as evidenced by unintentional wt loss of 3.9kg/4.3% x 9 days ; estimated PO intake meeting <50% of estimated energy needs since 09/21 admission Status Active Problem Recommendation Dietitian Recommendations/Changes NPO while intubated; Via OGT- Vital AF 1.2 at goal rate of 60mL/hour w/ 100mL H2O flush every 4 hours to provide 1728 calories, 108 g protein, and 1767mL fluid/day. Would start at 20mL/hour and increase by 15mL/hour every 8 hours as tolerated until goal rate is achieved. Lab / Micro Data Result Diagrams: 10/01/21 04:55 10/01/21 04:55 Labs: Laboratory Results - last 24 hr 09/30/21 17:16: POC Glucose 247 H 10/01/21 00:49: POC Glucose 224 H 10/01/21 02:10: Vancomycin Trough 28.8 H 10/01/21 04:55: WBC 7.5, RBC 3.97 L, Hgb 12.0, Hct 37.1, MCV 93.5, MCH 30.2, MCHC 32.3, RDW Std Deviation 50.4 H, RDW Coeff of Ana Maria 14.6, Plt Count 252, MPV 10.6, Immature Gran % (Auto) 0.700, Neut % (Auto) 88.4 H, Lymph % (Auto) 6.7 L, [place] % (Auto) 4.2, Eos % (Auto) 0.0, Baso % (Auto) 0.0, Absolute Neuts (auto) 6.6, Absolute Lymphs (auto) 0.50 L, Nucleated RBC % 0, Differential Comment SCANNED 10/01/21 04:55: Sodium 136, Potassium 5.1, Chloride 105, Carbon Dioxide 25.0, Anion Gap 6, BUN 85 H, Creatinine 1.26 H, Estim Creat Clear Calc 49.00, Est GFR (MDRD) Af Amer 55 L, Est GFR (MDRD) Non-Af 46 L, BUN/Creatinine Ratio 67.5 H, Glucose 242 H, Calcium 7.9 L 10/01/21 05:48: POC Glucose 253 H Micro: Microbiology 09/29/21 10:18 Sputum, Induced/Lukens Gram Stain - Final 09/29/21 10:18 Sputum, Induced/Lukens Respiratory Culture - Preliminary Gram positive armaan 09/21/21 14:43 Blood Culture (Wb) - Right Hand Blood Culture - Final No growth in 5 days. 09/21/21 13:55 Blood Culture (Wb) - Anticubital Left Blood Culture - Final No growth in 5 days. 09/22/21 10:30 Sputum, Expectorated/Coughed Gram Stain - Final 09/22/21 10:30 Sputum, Expectorated/Coughed Respiratory Culture - Final 09/22/21 04:19 Urine, Clean Catch Urine Culture - Final Mixed Gram Positive Organisms 09/22/21 10:30 Urine, Clean Catch Legionella Antigen - Final 09/22/21 10:30 Urine, Clean Catch Streptococcus pneumoniae Antigen (M - Final 09/21/21 14:10 Nasal Secretion SARS-CoV-2 Antigen (Rapid) - Final SARS-CoV-2 (COVID 19) Physical Exam Const Constitutional Narrative: Intubated, sedated. RASS score is -4. Exam Limitations: no limitations and altered mental status Nutritional Appearance: overweight HEENT normocephalic, head/scalp atraumatic and moist oral mucous membranes Head and Scalp: normocephalic Eyes PERRL and conjunctivae normal Neck no lymphadenopathy and supple Resp No normal respiratory effort Resp Narrative: Diminished breath sounds bibasilar. Few crackles. Intubated and sedated. Auscultation: Negative for rales, rhonchi or wheezes Cardio regular rate, regular rhythm, S1 normal heart sound, S2 normal heart sound, no murmurs, no rub, no gallops, no clicks and no JVD GI normal to inspection, nondistended, normoactive bowel sounds, soft to palpation, non-tender and non-distended; Negative for hepatosplenomegaly Extremity full ROM and no clubbing, cyanosis or edema Peripheral Pulses: Yes pulses 2+ throughout Skin no rashes or lesions noted Neuro Neuro Narrative: Intubated, sedated, RASS score is -4. Psych Psych Narrative: intubated, sedated. Assessment & Plan Assessment/Plan (1) Acute respiratory failure with hypoxia: (2) COVID-19: PLAN: #Acute hypoxic respiratory failure due to covid 19 pneumonia * remains intubated and sedated. Completed a 5 day course of remdesivir. Also on baricitinib. * Diurese as needed to maintain euvolemic status. * Titrate oxygen to maintain saturation above 90%. * Breathing treatments with bronchodilators. ID and critical care on board. * started on empiric antimicrobials- vancomycin and cefepime * #Septic shock * required initiation of vasopressin overnight. levophed had to be stopped due to bradycardia. * titrate to maintain MAP >65 * #Thrombocytopenia: resolved. #Bilateral lower extremity DVT * Had DVT of the right soleal vein and left tibioperoneal trunk as well as the posterior tibial and peroneal as well as soleal veins. * On therapeutic Lovenox. * #NURIA: Cr is 1.26 today. Was 1.19 yesterday. Will monitor. Hold lasix. #Type 2 diabetes mellitus with hyperglycemia * On lantus 20 units * High-dose insulin sliding scale. * Accuchecks [facility]. * #Hypertension: On losartan and clonidine #Chronic back pain: On Ultram as needed DVT prophylaxis: therapeutic Lovenox Charges/Coding Visit Charges Inpatient E&M: 13472 Subs Hosp L3
[2021-10-01] MEDS: dexAMETHasone 10 MG/ML Vial 6 MG IV (10:25)
[2021-10-01] MEDS: Enoxaparin 100 MG/ML Syringe 90 MG SC ×2 (10:25→20:20)
[2021-10-01] MEDS: Senna/Docusate Sodium 1 Tablet 2 TABLET GT ×2 (10:25→20:21)
[2021-10-01] MEDS: 0.9% Saline Lock 10 ML Syringe IV (10:27)
[2021-10-01 12:35] LABS: Bedside Glucose 184 mg/dL (70-110)
[2021-10-01 14:52] LABS: Vancomycin, Random Level 20.4 ug/mL (0.0-15.0)
--- NOTE | 2021-10-01 15:05 | PCM.RX.CS ---
Consult Pharmacy has been consulted to manage selected antiobiotic: Vancomycin Type of Consult: Follow-up Prior Doses of Antibiotics Received/Current Regimen: the dose had been 1250mg IV q12h until that was held due to a high trough Labs: Sodium 136 mmol/L (136-145) 10/01/21 04:55 Potassium 5.1 mmol/L (3.5-5.1) 10/01/21 04:55 Chloride 105 mmol/L (98-107) 10/01/21 04:55 Carbon Dioxide 25.0 mmol/L (21.0-32.0) 10/01/21 04:55 Anion Gap 6 (5-15) 10/01/21 04:55 BUN 85 mg/dL (7-18) H 10/01/21 04:55 Creatinine 1.26 mg/dL (0.55-1.02) H 10/01/21 04:55 Est GFR (MDRD) Af Amer 55 mL/min (>60) L 10/01/21 04:55 Est GFR (MDRD) Non-Af 46 mL/min (>60) L 10/01/21 04:55 BUN/Creatinine Ratio 67.5 RATIO (10-20) H 10/01/21 04:55 Glucose 242 mg/dL (74-106) H 10/01/21 04:55 Vancomycin Trough 28.8 ug/mL (5.0-15.0) H 10/01/21 02:10 Random Vancomycin 20.4 ug/mL (0.0-15.0) H 10/01/21 14:05 Microbiology: Microbiology 09/29/21 10:18 Sputum, Induced/Lukens Gram Stain - Final 09/29/21 10:18 Sputum, Induced/Lukens Respiratory Culture - Preliminary Gram positive armaan 09/21/21 14:43 Blood Culture (Wb) - Right Hand Blood Culture - Final No growth in 5 days. 09/21/21 13:55 Blood Culture (Wb) - Anticubital Left Blood Culture - Final No growth in 5 days. 09/22/21 10:30 Sputum, Expectorated/Coughed Gram Stain - Final 09/22/21 10:30 Sputum, Expectorated/Coughed Respiratory Culture - Final 09/22/21 04:19 Urine, Clean Catch Urine Culture - Final Mixed Gram Positive Organisms 09/22/21 10:30 Urine, Clean Catch Legionella Antigen - Final 09/22/21 10:30 Urine, Clean Catch Streptococcus pneumoniae Antigen (M - Final 09/21/21 14:10 Nasal Secretion SARS-CoV-2 Antigen (Rapid) - Final SARS-CoV-2 (COVID 19) Weight used for dosin.6 kg Estimated Creatinine Clearance: 54.5ml/min Goal Trough: 15-20 mcg/mL Pharmacy Plan for Drug Dosing: The vanc random level drawn at 14:05 today was 20.4. Per policy, can restart when <20, so will wait a few more hours and restart at 1500mg IV q24h at 18:00 tonight. Will recheck a trough before the 3rd new dose in a couple days. SCr has gone up to 1.26 so will continue to monitor renal function. Pharmacy Service will continue to monitor and adjust dosing as required. Follow-Up Labs: Trough Vancomycin Labs to be done on [date and time ordered]: 10/03/21 17:30
[2021-10-01] MEDS: Propofol 10MG/Ml 1,000 MG/100 ML Bottle 7.6 MG CONT INF (15:13)
[2021-10-01] MEDS: Vital AF 1.2 Cal Liquid 1,000 ML 60 ML GT (15:14)
[2021-10-01 18:15] LABS: Bedside Glucose 296 mg/dL (70-110)
[2021-10-01] MEDS: Propofol 10MG/Ml 1,000 MG/100 ML Bottle 10.2 MG CONT INF (20:22)
[2021-10-02] VITALS (43 sets, daily range): BP systolic 88–162; BP diastolic 43–127; PULSE 40–112; RESP 14–32; TEMP 36.7–37.8; O2SAT 86–96
[2021-10-02 00:01] LABS: Bedside Glucose 253 mg/dL (70-110)
[2021-10-02 03:24] LABS: Absolute Neutrophil Count 6.7 X10^3/uL (2.0-7.7); Basophil# 0.02 X10^3/uL; Basophil% 0.3 % (0-1); Eosinophil# 0.01 X10^3/uL; Eosinophils% 0.1 % (0-5); Hematocrit 35.1 % (37-47); Hemoglobin 10.9 g/dL (12.0-15.0); Lymphocyte % 7.5 % (19-41); Mean Corp Hgb Conc 31.1 g/dL (32-36); Mean Corpuscular Volume 93.4 fL (81-99); Mean Platelet Vol. 10.3 fl (6.2-12.0); Monocyte# 0.59 X10^3/uL; Monocyte% 7.4 % (0-10); NRBC Flagged by Analyzer 0 % (0-5); Neutrophil # 6.67 X10^3/uL (2.7-7.7); Neutrophil % 83.6 % (47-70); POSITIVE DIFFERENTIAL YES; Platelet Count 282 K/mm3 (150-450); RBC Distribution Width CV 14.6 % (11.6-14.6); RBC Distribution Width SD 50.4 fl (35.1-43.9); Red Blood Count 3.76 M/mm3 (4.2-5.4)
[2021-10-02 03:26] LABS: Differential Indicated SCAN CRITERIA MET
[2021-10-02] MEDS: Propofol 10MG/Ml 1,000 MG/100 ML Bottle 7.6 MG CONT INF (03:56)
[2021-10-02 03:57] LABS: Differential Comment SCANNED
[2021-10-02 04:02] LABS: Anion Gap 8 (5-15); BUN 66 mg/dL (7-18); BUN/Creat Ratio 68.7 RATIO (10-20); Calcium,Total 7.6 mg/dL (8.5-10.1); Chloride 110 mmol/L (98-107); Creatinine, Serum 0.96 mg/dL (0.55-1.02); EST Glomerular Filtration Rate 63 mL/min (>60); Est Glom Filt Rate - Afr Amer 76 mL/min (>60); Estimated Creatinine Clearance 64.31 ml/min; Glucose 236 mg/dL (74-106); Potassium 4.5 mmol/L (3.5-5.1); Sodium Level 140 mmol/L (136-145)
[2021-10-02 04:36] LABS: Bedside Glucose 205 mg/dL (70-110)
[2021-10-02] MEDS: Insulin Lispro 100 UNIT/ML INSULN.PEN SC ×3 (05:23→17:29)
[2021-10-02] MEDS: Vital AF 1.2 Cal Liquid 1,000 ML 60 ML GT (05:24)
[2021-10-02] MEDS: CHLORHEXIDINE GLUC 2% CLOTH 1 EACH TOWELETTE TOPICAL (05:24)
[2021-10-02] MEDS: TITRATION PARAMETER CHANGE 1 EACH IV (06:04)
--- NOTE | 2021-10-02 06:22 | PN.CC_ITS ---
Assessment & Plan Assessment/Plan (1) Acute respiratory failure with hypoxia: (2) COVID-19: PLAN: RECOMMENDATIONS: 1. Continue assist control mode of mechanical ventilation. Wean FiO2/PEEP for saturations greater than 90%. 2. Continue empiric antimicrobials. 3. Continue Decadron and baricitinib to complete treatment courses. 4. Continue therapeutic Lovenox. 5. Continue appropriate GI prophylaxis. 6. Continue intermittent dosing of Lasix as tolerated by hemodynamics and renal function. 7. Continue tube feeds as tolerated. IMPRESSIONS: 1. Acute hypoxic respiratory failure secondary to COVID-19 The patient was initially admitted to the hospital on September 21 with worsening dyspnea. She was subsequently found to be positive for COVID-19. Symptom onset was sometime around September 15. CTA was negative for PE. However, the patient was identified as having lower extremity DVTs on Doppler study. Therefore, she will be continued on therapeutic Lovenox. In the interim, the patient has completed a treatment course of remdesivir and will remain on Decadron and baricitinib as ordered. Despite multiple consecutive days on noninvasive positive pressure ventilatory support, the patient failed to make any meaningful improvement. Therefore, she was intubated on September 29. In light of her decompensation, the patient was initiated on empiric antimicrobials. FiO2 will be weaned to maintain saturations at or above 90%. 2. Diabetes mellitus Continue Lantus and sliding scale insulin coverage. 3. Acute kidney injury Improved. Likely ATN in the setting of #1. Continue to monitor urine output. No current indication for renal replacement therapy. 4. Bilateral lower extremity DVT Continue therapeutic Lovenox as ordered. 5. Overweight/hypertension/musculoskeletal issues/unvaccinated status/chronic pain syndrome Complicates care, management, recovery and prognosis. Okay to continue tube feeds as tolerated. TIME: 33 minutes of critical care time, independent of procedures, was spent addressing the patient's acute hypoxemic respiratory failure secondary to COVID- 19 pneumonia, lower extremity DVT, acute kidney injury, review of all data and collaboration with the care team. Subjective Subjective The patient was seen and examined at the bedside this morning. Events from the last 24 hours have been reviewed. Today is vent day #4. The patient is afebrile and hemodynamically stable on phenylephrine at 30 ?g/min. The patient is currently on assist control mode of mechanical ventilation with an FiO2 requirement of 50% and PEEP of 10. She is sedated on propofol and fentanyl. She has been tolerant of tube feeds. The patient remains bradycardic while sleeping, but heart rate normalizes when she is awake. She is currently documented to be overall net +1.9 L for the hospitalization. She remains on empiric antimicrobials, Decadron, therapeutic Lovenox and baricitinib. Creatinine has normalized. Objective Data Objective Data The patient's most recent lab work, culture data and imaging studies have all been personally reviewed. Rapid coronavirus antigen testing was positive on September 21. Strep and urine Legionella antigens were negative. Sputum culture has not demonstrated any growth to date. Lower extremity Doppler study from September 22 was positive for bilateral DVT. Vital Signs: Vital Signs Temp Pulse Resp BP Pulse Ox 98.5 F 42 L 16 125/61 H 93 10/02/21 06:00 10/02/21 06:00 10/02/21 06:00 10/02/21 06:00 10/02/21 06:00 Oxygen Flow Rate (L/min) 60 Oxygen Delivery Method Mechanical Ventilator Weight: 87.4 kg Body Mass Index (BMI) 29.0 Intake & Output: Intake and Output for Last 24 Hours 09/30/21 10/01/21 10/02/21 23:59 23:59 23:59 Intake Total 1768.06 / 2038.16 4264.20 / 4323.15 1679.20 / 1679.20 Output Total 1200 / 1285 1608 / 1608 Balance 568.06 / 753.16 2656.20 / 2715.15 1679.20 / 1679.20 Medical Nutrition Assessment Dietitian: Malnutrition Criteria Met Start: 09/30/21 10:35 Freq: Status: Active Protocol: Document 10/01/21 11:49 RMA (Rec: 10/01/21 11:49 RMA [id number]) Nutrition Malnutrition Evidence of Malnutrition Exists Yes Malnutrition (severe): Acute Illness/Injury Evidenced By Suboptimal Energy Intake ( Severe),Weight Loss (Severe) Intake Problem Inadequate Oral Intake Etiology r/t acute illness, resp. 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 ; estimated PO intake meeting <50% of estimated energy needs since 09/21 admission and need for TF support Status Active Problem Clinical Problem Acute Disease or Injury Related Malnutrition Etiology severe, acute malnutrition r/t inadequate energy intake w/ acute illness Signs/Symptoms as evidenced by unintentional wt loss of 3.9kg/4.3% x 9 days ; estimated PO intake meeting <50% of estimated energy needs since 09/21 admission Status Active Problem Recommendation Dietitian Recommendations/Changes NPO while intubated; Continue enteral nutrition support via OGT with Vital AF 1.2 at goal rate of 60mL/hour w/ 100mL H2O flush every 4 hours to provide 1728 calories, 108 g protein, and 1767mL fluid/day. Lab / Micro Data Attestation: I reviewed the patient's lab results. Result Diagrams: 10/02/21 03:21 10/02/21 03:21 Labs: Laboratory Results - last 24 hr 10/01/21 04:55: Differential Comment SCANNED 10/01/21 05:48: POC Glucose 253 H 10/01/21 12:24: POC Glucose 184 H 10/01/21 14:05: Random Vancomycin 20.4 H 10/01/21 18:03: POC Glucose 296 H 10/01/21 23:48: POC Glucose 253 H 10/02/21 03:21: WBC 8.0, RBC 3.76 L, Hgb 10.9 L, Hct 35.1 L, MCV 93.4, MCH 29.0, MCHC 31.1 L, RDW Std Deviation 50.4 H, RDW Coeff of Ana Maria 14.6, Plt Count 282, MPV 10.3, Immature Gran % (Auto) 1.100 H, Neut % (Auto) 83.6 H, Lymph % (Auto) 7.5 L , [place] % (Auto) 7.4, Eos % (Auto) 0.1, Baso % (Auto) 0.3, Absolute Neuts (auto) 6.7, Absolute Lymphs (auto) 0.60 L, Nucleated RBC % 0, Differential Comment SCANNED 10/02/21 03:21: Sodium 140, Potassium 4.5, Chloride 110 H, Carbon Dioxide 22.0, Anion Gap 8, BUN 66 H, Creatinine 0.96, Estim Creat Clear Calc 64.31, Est GFR (MDRD) Af Amer 76, Est GFR (MDRD) Non-Af 63, BUN/Creatinine Ratio 68.7 H, Glucose 236 H, Calcium 7.6 L 01/16/22 04:28: POC Glucose 205 H Micro: Microbiology 09/29/21 10:18 Sputum, Induced/Lukens Gram Stain - Final 09/29/21 10:18 Sputum, Induced/Lukens Respiratory Culture - Preliminary Gram positive armaan 09/21/21 14:43 Blood Culture (Wb) - Right Hand Blood Culture - Final No growth in 5 days. 09/21/21 13:55 Blood Culture (Wb) - Anticubital Left Blood Culture - Final No growth in 5 days. 09/22/21 10:30 Sputum, Expectorated/Coughed Gram Stain - Final 09/22/21 10:30 Sputum, Expectorated/Coughed Respiratory Culture - Final 09/22/21 04:19 Urine, Clean Catch Urine Culture - Final Mixed Gram Positive Organisms 09/22/21 10:30 Urine, Clean Catch Legionella Antigen - Final 09/22/21 10:30 Urine, Clean Catch Streptococcus pneumoniae Antigen (M - F inal 09/21/21 14:10 Nasal Secretion SARS-CoV-2 Antigen (Rapid) - Final SARS-CoV-2 (COVID 19) Physical Exam Const no apparent distress Constitutional Narrative: No ventilator dyssynchrony. General Appearance: intubated and patient mechanically ventilated Nutritional Appearance: obese HEENT normocephalic and head/scalp atraumatic Mouth: endotracheal tube in place and OG tube in place Eyes PERRL, EOMs intact bilaterally and conjunctivae normal Neck supple General: trachea midline Chest inspection of chest normal Resp Auscultation: diminished lung sounds; Negative for rales, rhonchi or wheezes Cardio S1 normal heart sound and S2 normal heart sound Rate: bradycardia GI normal to inspection, nondistended, normoactive bowel sounds Extremity no clubbing, cyanosis or edema Skin no rashes or lesions noted Neuro Sensorium / Orientation: sedated on vent Charges/Coding Procedures Hospitalists Procedures: 68720 Critial Care 1st Hr
[2021-10-02] MEDS: Furosemide 40 MG/4 ML Vial IV (07:48)
[2021-10-02] MEDS: Chlorhexidine 15 ML PO ×2 (09:59→22:21)
[2021-10-02] MEDS: Enoxaparin 100 MG/ML Syringe 90 MG SC ×2 (09:59→22:22)
[2021-10-02] MEDS: Senna/Docusate Sodium 1 Tablet 2 TABLET GT ×2 (10:00→22:22)
[2021-10-02] MEDS: Propofol 10MG/Ml 1,000 MG/100 ML Bottle 10.5 MG CONT INF ×2 (10:00→14:27)
--- NOTE | 2021-10-02 10:26 | PN.HOSP_ITS ---
Subjective Subjective Patient seen and examined. She remains intubated and sedated. Patient is bradycardic today with heart rate around 46. Unable to do review of systems. Objective Data Objective Data Vital Signs: Vital Signs Temp Pulse Resp BP Pulse Ox 98.3 F 46 L 14 104/57 L 92 10/02/21 09:00 10/02/21 09:00 10/02/21 09:00 10/02/21 09:00 10/02/21 09:00 Oxygen Flow Rate (L/min) 60 Oxygen Delivery Method Mechanical Ventilator Weight: 192 lb 10.944 oz Body Mass Index (BMI) 29.0 Intake & Output: Intake and Output for Last 24 Hours 09/30/21 10/01/21 10/02/21 23:59 23:59 23:59 Intake Total 1768.06 / 203.16 4264.20 / 4323.15 Output Total 1200 / 1285 1608 / 1608 750 / 750 Balance 568.06 / 753.16 2656.20 / 2715.15 1255.20 / 1255.20 Medical Nutrition Assessment Dietitian: Malnutrition Criteria Met Start: 09/30/21 10:35 Freq: Status: Active Protocol: Document 10/01/21 11:49 RMA (Rec: 10/01/21 11:49 RMA [id number]) Nutrition Malnutrition Evidence of Malnutrition Exists Yes Malnutrition (severe): Acute Illness/Injury Evidenced By Suboptimal Energy Intake ( Severe),Weight Loss (Severe) Intake Problem Inadequate Oral Intake Etiology r/t acute illness, resp. 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 ; estimated PO intake meeting <50% of estimated energy needs since 09/21 admission and need for TF support Status Active Problem Clinical Problem Acute Disease or Injury Related Malnutrition Etiology severe, acute malnutrition r/t inadequate energy intake w/ acute illness Signs/Symptoms as evidenced by unintentional wt loss of 3.9kg/4.3% x 9 days ; estimated PO intake meeting <50% of estimated energy needs since 09/21 admission Status Active Problem Recommendation Dietitian Recommendations/Changes NPO while intubated; Continue enteral nutrition support via OGT with Vital AF 1.2 at goal rate of 60mL/hour w/ 100mL H2O flush every 4 hours to provide 1728 calories, 108 g protein, and 1767mL fluid/day. Lab / Micro Data Result Diagrams: 10/02/21 03:21 10/02/21 03:21 Labs: Laboratory Results - last 24 hr 10/01/21 12:24: POC Glucose 184 H 10/01/21 14:05: Random Vancomycin 20.4 H 10/01/21 18:03: POC Glucose 296 H 10/01/21 23:48: POC Glucose 253 H 10/02/21 03:21: WBC 8.0, RBC 3.76 L, Hgb 10.9 L, Hct 35.1 L, MCV 93.4, MCH 29.0, MCHC 31.1 L, RDW Std Deviation 50.4 H, RDW Coeff of Ana Maria 14.6, Plt Count 282, MPV 10.3, Immature Gran % (Auto) 1.100 H, Neut % (Auto) 83.6 H, Lymph % (Auto) 7.5 L , [place] % (Auto) 7.4, Eos % (Auto) 0.1, Baso % (Auto) 0.3, Absolute Neuts (auto) 6.7, Absolute Lymphs (auto) 0.60 L, Nucleated RBC % 0, Differential Comment SCANNED 10/02/21 03:21: Sodium 140, Potassium 4.5, Chloride 110 H, Carbon Dioxide 22.0, Anion Gap 8, BUN 66 H, Creatinine 0.96, Estim Creat Clear Calc 64.31, Est GFR (MDRD) Af Amer 76, Est GFR (MDRD) Non-Af 63, BUN/Creatinine Ratio 68.7 H, Glucose 236 H, Calcium 7.6 L 10/02/21 04:28: POC Glucose 205 H Micro: Microbiology 09/29/21 10:18 Sputum, Induced/Lukens Gram Stain - Final 09/29/21 10:18 Sputum, Induced/Lukens Respiratory Culture - Preliminary Streptococcus pneumoniae Gram positive armaan 09/21/21 14:43 Blood Culture (Wb) - Right Hand Blood Culture - Final No growth in 5 days. 09/21/21 13:55 Blood Culture (Wb) - Anticubital Left Blood Culture - Final No growth in 5 days. 09/22/21 10:30 Sputum, Expectorated/Coughed Gram Stain - Final 09/22/21 10:30 Sputum, Expectorated/Coughed Respiratory Culture - Final 09/22/21 04:19 Urine, Clean Catch Urine Culture - Final Mixed Gram Positive Organisms 09/22/21 10:30 Urine, Clean Catch Legionella Antigen - Final 09/22/21 10:30 Urine, Clean Catch Streptococcus pneumoniae Antigen (M - Final 09/21/21 14:10 Nasal Secretion SARS-CoV-2 Antigen (Rapid) - Final SARS-CoV-2 (COVID 19) Physical Exam Const Constitutional Narrative: Intubated, sedated. RASS score is -4. Exam Limitations: altered mental status Nutritional Appearance: overweight HEENT normocephalic, head/scalp atraumatic and moist oral mucous membranes Head and Scalp: normocephalic Eyes PERRL and conjunctivae normal Neck no lymphadenopathy and supple Resp No normal respiratory effort Resp Narrative: Diminished breath sounds bibasilar. Few crackles. Intubated and sedated. Auscultation: Negative for rales, rhonchi or wheezes Cardio regular rhythm, S1 normal heart sound, S2 normal heart sound, no murmurs, no rub, no gallops, no clicks and no JVD Cardio Narrative: bradycardic. GI normal to inspection, nondistended, normoactive bowel sounds, soft to palpation, non-tender and non-distended; Negative for hepatosplenomegaly Extremity no clubbing, cyanosis or edema Peripheral Pulses: Yes pulses 2+ throughout Skin no rashes or lesions noted Neuro Neuro Narrative: Intubated, sedated, RASS score is -4. Psych Psych Narrative: intubated, sedated. Assessment & Plan Assessment/Plan (1) Acute respiratory failure with hypoxia: (2) COVID-19: PLAN: #Acute hypoxic respiratory failure due to covid 19 pneumonia * remains intubated and sedated. Completed a 5 day course of remdesivir. Also on baricitinib. * Diurese as needed to maintain euvolemic status. * Titrate oxygen to maintain saturation above 90%. * Breathing treatments with bronchodilators. ID and critical care on board. * on empiric antimicrobials- vancomycin and cefepime * sputum cultures are negative so far. blood cultures pending. * #Septic shock * required initiation of vasopressin overnight. levophed had to be stopped due to bradycardia. * titrate to maintain MAP >65 * remains on vasopressin. * #Bradycardia: HR down in the 40s and 50s. may be a sequelae of covid. Will monitor. #Thrombocytopenia: resolved. #Bilateral lower extremity DVT * Had DVT of the right soleal vein and left tibioperoneal trunk as well as the posterior tibial and peroneal as well as soleal veins. * On therapeutic Lovenox. * #NURIA: resolved. Cr is down to 0.96. #Type 2 diabetes mellitus with hyperglycemia * On lantus 20 units * High-dose insulin sliding scale. * Accuchecks [facility]. * #Hypertension: On losartan and clonidine #Chronic back pain: stable. on tramadol. DVT prophylaxis: therapeutic Lovenox Charges/Coding Visit Charges Inpatient E&M: 86291 Subs Hosp L3
[2021-10-02] MEDS: 0.9% Saline Lock 10 ML Syringe IV (11:18)
[2021-10-02 11:31] LABS: Bedside Glucose 175 mg/dL (70-110)
[2021-10-02 17:35] LABS: Bedside Glucose 157 mg/dL (70-110)
--- NOTE | 2021-10-02 20:10 | RAD_ITS ---
EXAM: XR Chest, 1 View CLINICAL INDICATION: 61 years old, Female; intubation TECHNIQUE: Frontal view of the chest. This report was created using [employer] report generation technology. COMPARISON: None. FINDINGS: Lungs and pleural spaces: Pulmonary venous congestion. No pneumothorax. No effusion. Heart: Unremarkable. Cardiac silhouette not enlarged. Mediastinum: Central airways and mediastinal contour are unremarkable. Bones/joints: Unremarkable. Soft tissues: Unremarkable. Tubes, lines and devices: The endotracheal tube (ETT) is in satisfactory position with tip 2.1 cm above the emily. Left peripherally inserted central catheter (PICC) tip in the low superior vena cava. Enteric tube tip in the stomach. RAD/Chest 1 View (Portable) IMPRESSION: Pulmonary venous congestion. Electronically Signed: Veto Rhodes MD at 20:39 EST Tel , Service support ,
--- NOTE | 2021-10-02 20:14 | NURSING ---
Pt Vent alarming,pt desating into 30's and 40's, and tachy in 120's RR 40's. Pt noted to have extubated herself. Valencia RN began bagging immediately , PRODUCE TEAM LEAD called. Erica Rt responded and took over bagging. Pt extremely agitated. Pt noted to have slipped out of restraint wrist cuff on right side. Dr. Camp resonded. Succ 100 mg ordered stat and given at 2000. Pt difficult to intubate, another 100 mg of Succ given per order from Dr. Camp at 2002. #7.5 tube attempted and was not successful, #7 tube placed at 2003, equal breath sounds auscultated. 23 at the lip. New OG placed and stat CXR taken.
--- NOTE | 2021-10-02 20:21 | RAD_ITS ---
EXAM: XR Abdomen, 1 View CLINICAL INDICATION: 61 years old, Female; NG/OG PLACEMENT TECHNIQUE: Frontal supine view of the abdomen/pelvis. This report was created using [employer] report generation technology. COMPARISON: None. FINDINGS: Lower thorax: No acute pathology. Gastrointestinal tract: Unremarkable. Normal bowel gas pattern. Organs: Unremarkable as visualized. No organomegaly. No abnormal calcifications. Bones/joints: No acute pathology. Soft tissues: No acute pathology. Tubes, lines and devices: Enteric tube tip in the stomach. RAD/Abdomen Single View (Portable) IMPRESSION: Non-obstructive bowel gas pattern. Electronically Signed: Veto Rhodes MD at 20:39 EST Tel , Service support ,
--- NOTE | 2021-10-02 20:25 | PCM.HOSP.N ---
Hospitalist Note Rapid response called secondary to patient self extubating with severe hypoxia. [place]ard scope and intubation immediately set up and patient bolused with propofol however given ongoing movement requested administration of succinylcholine. Intubation Note: Patient with evidence of respiratory with COVID-pneumonia with respiratory failure in an unvaccinated status with severe hypoxia continuing. Medications administered: Succinylcholine as well as propofol bolus. ETT size: Initial trial 7.5 decreased to 7.0 eventually successful. Patient intubated in standard fashion with visualization of the vocal cords with initial attempt of placement 7.0 tube however extreme difficulty passing the cords despite visualization with eventual removal with some trauma to the oropharynx and right vocal cord noted. Transition to a 7.5 ET tube with again intubation in standard fashion with visualization of the vocal cords with glide scope with successful placement however again still difficult given significantly narrow opening with some bleeding. Positioning verified with auscultation with improvement in oxygenation. Post-intubation CXR requested. Procedures Hospitalists Procedures: 34110 Insert Emergency Airway
[2021-10-02] MEDS: Succinylcholine Chloride 200 MG/10 ML Vial IV (20:37)
[2021-10-02] MEDS: Propofol 10MG/Ml 1,000 MG/100 ML Bottle 23.6 MG CONT INF (21:00)
[2021-10-02] MEDS: Propofol 10MG/Ml 1,000 MG/100 ML Bottle 21 MG CONT INF (22:45)
[2021-10-03] VITALS (47 sets, daily range): BP systolic 87–211; BP diastolic 44–81; PULSE 41–91; RESP 15–31; TEMP 36.9–38.1; O2SAT 81–97
[2021-10-03 00:16] LABS: Bedside Glucose 113 mg/dL (70-110)
[2021-10-03 04:04] LABS: Absolute Neutrophil Count 12.1 X10^3/uL (2.0-7.7); Basophil# 0.02 X10^3/uL; Basophil% 0.1 % (0-1); Eosinophil# 0.21 X10^3/uL; Eosinophils% 1.5 % (0-5); Hematocrit 33.1 % (37-47); Hemoglobin 11.1 g/dL (12.0-15.0); Lymphocyte % 11.8 % (19-41); Mean Corp Hgb Conc 33.5 g/dL (32-36); Mean Corpuscular Volume 92.5 fL (81-99); Mean Platelet Vol. 11.3 fl (6.2-12.0); Monocyte# 0.18 X10^3/uL; Monocyte% 1.3 % (0-10); NRBC Flagged by Analyzer 0 % (0-5); Neutrophil # 12.09 X10^3/uL (2.7-7.7); Neutrophil % 84.1 % (47-70); Platelet Count 232 K/mm3 (150-450); RBC Distribution Width CV 14.8 % (11.6-14.6); RBC Distribution Width SD 50.7 fl (35.1-43.9); Red Blood Count 3.58 M/mm3 (4.2-5.4); White Blood Count 14.4 K/mm3 (4.4-11.0)
[2021-10-03] MEDS: Vital AF 1.2 Cal Liquid 1,000 ML 60 ML GT ×2 (04:10→20:36)
[2021-10-03] MEDS: Acetaminophen 325 MG Tablet 650 MG PO (04:11)
[2021-10-03] MEDS: Propofol 10MG/Ml 1,000 MG/100 ML Bottle 23.6 MG CONT INF (04:15)
[2021-10-03] MEDS: TITRATION PARAMETER CHANGE 1 EACH IV (05:07)
[2021-10-03 06:31] LABS: Anion Gap 11 (5-15); BUN 50 mg/dL (7-18); BUN/Creat Ratio 65.5 RATIO (10-20); Calcium,Total 7.1 mg/dL (8.5-10.1); Chloride 114 mmol/L (98-107); Creatinine, Serum 0.76 mg/dL (0.55-1.02); EST Glomerular Filtration Rate 82 mL/min (>60); Est Glom Filt Rate - Afr Amer 99 mL/min (>60); Estimated Creatinine Clearance 81.24 ml/min; Glucose 154 mg/dL (74-106); Potassium 3.9 mmol/L (3.5-5.1); Sodium Level 143 mmol/L (136-145)
[2021-10-03 06:40] LABS: Bedside Glucose 105 mg/dL (70-110)
[2021-10-03] MEDS: CHLORHEXIDINE GLUC 2% CLOTH 1 EACH TOWELETTE TOPICAL (06:56)
--- NOTE | 2021-10-03 07:31 | PN.CC_ITS ---
Assessment & Plan Assessment/Plan (1) Acute respiratory failure with hypoxia: (2) COVID-19: PLAN: RECOMMENDATIONS: 1. Continue assist control mode of mechanical ventilation. Wean FiO2/PEEP for saturations greater than 90%. 2. Continue empiric antimicrobials. 3. Completed Decadron. Continue baricitinib (10/05/2021) to complete treatment course. 4. Continue therapeutic Lovenox. 5. Continue appropriate GI prophylaxis. 6. Continue intermittent dosing of Lasix as tolerated by hemodynamics and renal function. 7. Continue tube feeds as tolerated. IMPRESSIONS: 1. Acute hypoxic respiratory failure secondary to COVID-19 The patient was initially admitted to the hospital on September 21 with worsening dyspnea. She was subsequently found to be positive for COVID-19. Symptom onset was sometime around September 15. CTA was negative for PE. However, the patient was identified as having lower extremity DVTs on Doppler st udy. Therefore, she will be continued on therapeutic Lovenox. In the interim, the patient has completed a treatment course of remdesivir and will remain on Decadron and baricitinib as ordered. Despite multiple consecutive days on noninvasive positive pressure ventilatory support, the patient failed to make any meaningful improvement. Therefore, she was intubated on September 29. In light of her decompensation, the patient was initiated on empiric antimicrobials. FiO2 will be weaned to maintain saturations at or above 90%. Suspect an element of the recruitment secondary to self extubation. 2. Diabetes mellitus Continue Lantus and sliding scale insulin coverage. Blood sugars well controlled at this time 3. Acute kidney injury Improved. Likely ATN in the setting of #1. Continue to monitor urine output. No current indication for renal replacement therapy. 4. Bilateral lower extremity DVT Continue therapeutic Lovenox as ordered. 5. Overweight/hypertension/musculoskeletal issues/unvaccinated status/chronic pain syndrome Complicates care, management, recovery and prognosis. Okay to continue tube feeds as tolerated. TIME: 35 minutes of critical care time, independent of procedures, was spent addressing the patient's acute hypoxemic respiratory failure secondary to COVID- 19 pneumonia, lower extremity DVT, acute kidney injury, review of all data and collaboration with the care team. Subjective Subjective Patient self extubated yesterday evening. Patient was successfully reintubated, but is requiring much more supplemental oxygen. Patient remains on [place]- Synephrine to maintain blood pressures. No bowel movements have been reported. Objective Data Objective Data Vital Signs: Vital Signs Temp Pulse Resp BP Pulse Ox 37.4 C H 47 L 18 96/54 L 92 10/03/21 07:00 10/03/21 07:00 10/03/21 07:00 10/03/21 07:00 10/03/21 07:00 Oxygen Flow Rate (L/min) 60 Oxygen Delivery Method Mechanical Ventilator Weight: 87.8 kg Body Mass Index (BMI) 29.0 Intake & Output: Intake and Output for Last 24 Hours 10/01/21 10/02/21 10/03/21 23:59 23:59 23:59 Intake Total 4264.20 / 4323.15 4993.70 / 5374.85 2034.39 / 2034.39 Output Total 1608 / 1608 3450 / 4200 1450 / 1450 Balance 2656.20 / 2715.15 1543.70 / 1174.85 584.39 / 584.39 Medical Nutrition Assessment Dietitian: Malnutrition Criteria Met Start: 09/30/21 10:35 Freq: Status: Active Protocol: Document 10/01/21 11:49 RMA (Rec: 10/01/21 11:49 RMA [id number]) Nutrition Malnutrition Evidence of Malnutrition Exists Yes Malnutrition (severe): Acute Illness/Injury Evidenced By Suboptimal Energy Intake ( Severe),Weight Loss (Severe) Intake Problem Inadequate Oral Intake Etiology r/t acute illness, resp. 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, inability to consume any nutrition via PO diet x 4 days ; estimated PO intake meeting <50% of estimated energy needs since 09/21 admission and need for TF support Status Active Problem Clinical Problem Acute Disease or Injury Related Malnutrition Etiology severe, acute malnutrition r/t inadequate energy intake w/ acute illness Signs/Symptoms as evidenced by unintentional wt loss of 3.9kg/4.3% x 9 days ; estimated PO intake meeting <50% of estimated energy needs since 09/21 admission Status Active Problem Recommendation Dietitian Recommendations/Changes NPO while intubated; Continue enteral nutrition support via OGT with Vital AF 1.2 at goal rate of 60mL/hour w/ 100mL H2O flush every 4 hours to provide 1728 calories, 108 g protein, and 1767mL fluid/day. Lab / Micro Data Result Diagrams: 10/03/21 03:15 10/03/21 03:15 Labs: Laboratory Results - last 24 hr 10/02/21 11:16: POC Glucose 175 H 10/02/21 17:29: POC Glucose 157 H 10/03/21 00:03: POC Glucose 113 H 10/03/21 03:15: WBC 14.4 H, RBC 3.58 L, Hgb 11.1 L, Hct 33.1 L, MCV 92.5, MCH 31.0, MCHC 33.5 D, RDW Std Deviation 50.7 H, RDW Coeff of [place] Maria 14.8 H, Plt Count 232, MPV 11.3, Immature Gran % (Auto) 1.200 H, Neut % (Auto) 84.1 H, Lymph % (Auto) 11.8 L, [place] % (Auto) 1.3, Eos % (Auto) 1.5, Baso % (Auto) 0.1, Absolute Neuts (auto) 12.1 H, Absolute Lymphs (auto) 1.70, Nucleated RBC % 0 10/03/21 03:15: Sodium 143, Potassium 3.9, Chloride 114 H, Carbon Dioxide 18.0 L , Anion Gap 11, BUN 50 H, Creatinine 0.76, Estim Creat Clear Calc 81.24, Est GFR (MDRD) Af Amer 99, Est GFR (MDRD) Non-Af 82, BUN/Creatinine Ratio 65.5 H, Glucose 154 H, Calcium 7.1 L 10/03/21 06:31: POC Glucose 105 Micro: Microbiology 09/29/21 10:18 Sputum, Induced/Lukens Gram Stain - Final 09/29/21 10:18 Sputum, Induced/Lukens Respiratory Culture - Preliminary Streptococcus pneumoniae Gram positive armaan 09/21/21 14:43 Blood Culture (Wb) - Right Hand Blood Culture - Final No growth in 5 days. 09/21/21 13:55 Blood Culture (Wb) - Anticubital Left Blood Culture - Final No growth in 5 days. 09/22/21 10:30 Sputum, Expectorated/Coughed Gram Stain - Final 09/22/21 10:30 Sputum, Expectorated/Coughed Respiratory Culture - Final 09/22/21 04:19 Urine, Clean Catch Urine Culture - Final Mixed Gram Positive Organisms 09/22/21 10:30 Urine, Clean Catch Legionella Antigen - Final 09/22/21 10:30 Urine, Clean Catch Streptococcus pneumoniae Antigen (M - Final 09/21/21 14:10 Nasal Secretion SARS-CoV-2 Antigen (Rapid) - Final SARS-CoV-2 (COVID 19) Radiography Diagnostic Testing: Radiology Impression Chest X-Ray 10/02/21 20:10 IMPRESSION: Pulmonary venous congestion. Electronically Signed: Veto Rhodes MD at 20:39 EST Tel , Service support , KUB X-Ray 10/02/21 20:21 IMPRESSION: Non-obstructive bowel gas pattern. Electronically Signed: Veto Rhodes MD at 20:39 EST Tel , Service support , Physical Exam Const no apparent distress Constitutional Narrative: No ventilator dyssynchrony. RASS -3 General Appearance: intubated and patient mechanically ventilated Nutritional Appearance: obese HEENT normocephalic and head/scalp atraumatic Mouth: endotracheal tube in place and OG tube in place Eyes PERRL, EOMs intact bilaterally and conjunctivae normal Neck supple General: trachea midline Chest inspection of chest normal Chest: symmetrical chest wall rise; Negative for crepitus Resp Auscultation: diminished lung sounds; Negative for rales, rhonchi or wheezes Cardio S1 normal heart sound and S2 normal heart sound Rate: bradycardia Heart Sounds: Negative for gallop, murmur or rub GI normal to inspection, nondistended, normoactive bowel sounds Extremity no clubbing, cyanosis or edema Skin no rashes or lesions noted Neuro Sensorium / Orientation: sedated on vent Charges/Coding Procedures Hospitalists Procedures: 21777 Critial Care 1st Hr
[2021-10-03] MEDS: Senna/Docusate Sodium 1 Tablet 2 TABLET GT ×2 (08:26→22:11)
[2021-10-03] MEDS: Chlorhexidine 15 ML PO ×2 (08:28→20:37)
[2021-10-03] MEDS: Enoxaparin 100 MG/ML Syringe 90 MG SC ×2 (08:29→22:10)
[2021-10-03] MEDS: Propofol 10MG/Ml 1,000 MG/100 ML Bottle 10.5 MG CONT INF (09:05)
--- NOTE | 2021-10-03 10:02 | PN.HOSP_ITS ---
Subjective Subjective Intubated and sedated, had to be reintubated last night after self extubation Objective Data Objective Data Vital Signs: Vital Signs Temp Pulse Resp BP Pulse Ox 99.2 F H 91 20 H 94/51 L 92 10/03/21 08:00 10/03/21 08:00 10/03/21 08:00 10/03/21 08:00 10/03/21 08:00 Oxygen Flow Rate (L/min) 60 Oxygen Delivery Method Mechanical Ventilator Weight: 193 lb 9.054 oz Body Mass Index (BMI) 29.0 Intake & Output: Intake and Output for Last 24 Hours 10/02/21 10/03/21 10/04/21 03:59 03:59 03:59 Intake Total 4180.17 / 4329.43 5449.90 / 5620.23 1509.30 / 1509.30 Output Total 1523 / 1523 4200 / 4200 700 / 700 Balance 2657.17 / 2806.43 1249.90 / 1420.23 809.30 / 809.30 Medical Nutrition Assessment Dietitian: Malnutrition Criteria Met Start: 09/30/21 10:35 Freq: Status: Active Protocol: Document 10/01/21 11:49 RMA (Rec: 10/01/21 11:49 RMA [id number]) Nutrition Malnutrition Evidence of Malnutrition Exists Yes Malnutrition (severe): Acute Illness/Injury Evidenced By Suboptimal Energy Intake ( Severe),Weight Loss (Severe) Intake Problem Inadequate Oral Intake Etiology r/t acute illness, resp. 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 via PO diet x 4 days ; estimated PO intake meeting <50% of estimated energy needs since 09/21 admission and need for TF support Status Active Problem Clinical Problem Acute Disease or Injury Related Malnutrition Etiology severe, acute malnutrition r/t inadequate energy intake w/ acute illness Signs/Symptoms as evidenced by unintentional wt loss of 3.9kg/4.3% x 9 days ; estimated PO intake meeting <50% of estimated energy needs since 09/21 admission Status Active Problem Recommendation Dietitian Recommendations/Changes NPO while intubated; Continue enteral nutrition support via OGT with Vital AF 1.2 at goal rate of 60mL/hour w/ 100mL H2O flush every 4 hours to provide 1728 calories, 108 g protein, and 1767mL fluid/day. Lab / Micro Data Result Diagrams: 10/03/21 03:15 10/03/21 03:15 Labs: Laboratory Results - last 24 hr 10/02/21 11:16: POC Glucose 175 H 10/02/21 17:29: POC Glucose 157 H 10/03/21 00:03: POC Glucose 113 H 10/03/21 03:15: WBC 14.4 H, RBC 3.58 L, Hgb 11.1 L, Hct 33.1 L, MCV 92.5, MCH 31.0, MCHC 33.5 D, RDW Std Deviation 50.7 H, RDW Coeff of Ana Maria 14.8 H, Plt Count 232, MPV 11.3, Immature Gran % (Auto) 1.200 H, Neut % (Auto) 84.1 H, Lymph % (Auto) 11.8 L, [place] % (Auto) 1.3, Eos % (Auto) 1.5, Baso % (Auto) 0.1, Absolute Neuts (auto) 12.1 H, Absolute Lymphs (auto) 1.70, Nucleated RBC % 0 10/03/21 03:15: Sodium 143, Potassium 3.9, Chloride 114 H, Carbon Dioxide 18.0 L , Anion Gap 11, BUN 50 H, Creatinine 0.76, Estim Creat Clear Calc 81.24, Est GFR (MDRD) Af Amer 99, Est GFR (MDRD) Non-Af 82, BUN/Creatinine Ratio 65.5 H, Glucose 154 H, Calcium 7.1 L 10/03/21 06:31: POC Glucose 105 Micro: Microbiology 09/29/21 10:18 Sputum, Induced/Lukens Gram Stain - Final 09/29/21 10:18 Sputum, Induced/Lukens Respiratory Culture - Preliminary Streptococcus pneumoniae Gram positive armaan 09/21/21 14:43 Blood Culture (Wb) - Right Hand Blood Culture - Final No growth in 5 days. 09/21/21 13:55 Blood Culture (Wb) - Anticubital Left Blood Culture - Final No growth in 5 days. 09/22/21 10:30 Sputum, Expectorated/Coughed Gram Stain - Final 09/22/21 10:30 Sputum, Expectorated/Coughed Respiratory Culture - Final 09/22/21 04:19 Urine, Clean Catch Urine Culture - Final Mixed Gram Positive Organisms 09/22/21 10:30 Urine, Clean Catch Legionella Antigen - Final 09/22/21 10:30 Urine, Clean Catch Streptococcus pneumoniae Antigen (M - Final 09/21/21 14:10 Nasal Secretion SARS-CoV-2 Antigen (Rapid) - Final SARS-CoV-2 (COVID 19) Radiography Diagnostic Testing: Radiology Impression Chest X-Ray 10/02/21 20:10 IMPRESSION: Pulmonary venous congestion. Electronically Signed: Veto Rhodes MD at 20:39 EST Tel , Service support , KUB X-Ray 10/02/21 20:21 IMPRESSION: Non-obstructive bowel gas pattern. Electronically Signed: Veto Rhodes MD at 20:39 EST Tel , Service support , Physical Exam Const General Appearance: intubated and patient mechanically ventilated HEENT moist oral mucous membranes Head and Scalp: normocephalic Eyes PERRL Neck supple and no JVD Resp Effort and Inspection: mechanically ventilated Auscultation: diminished lung sounds; Negative for rales, rhonchi or wheezes Cardio regular rate, regular rhythm, S1 normal heart sound, S2 normal heart sound, no murmurs and no gallops GI soft to palpation and non-distended; Negative for hepatosplenomegaly Extremity no clubbing, cyanosis or edema Skin no rashes or lesions noted Neuro Sensorium / Orientation: sedated on vent Psych Appearance: intubated Assessment & Plan Assessment/Plan (1) Acute respiratory failure with hypoxia: (2) COVID-19: PLAN: #Acute hypoxic respiratory failure due to covid 19 pneumonia * remains intubated and sedated. Completed a 5 day course of remdesivir. Also on baricitinib. * Diurese as needed to maintain euvolemic status. * Titrate oxygen to maintain saturation above 90%. * Breathing treatments with bronchodilators. ID and critical care on board. * on empiric antimicrobials- vancomycin and cefepime * sputum cultures are negative so far * Continue with tube feeds #Septic shock * titrate to maintain MAP >65 * remains on phenylephrine #Bradycardia: HR down in the 40s and 50s. may be a sequelae of covid. Will monitor. #Thrombocytopenia: resolved. #Bilateral lower extremity DVT * Had DVT of the right soleal vein and left tibioperoneal trunk as well as the posterior tibial and peroneal as well as soleal veins. * On therapeutic Lovenox. #NURIA: resolved. #Type 2 diabetes mellitus with hyperglycemia * On lantus 20 units * High-dose insulin sliding scale. * Accuchecks CHS. * Will continue to monitor and adjust as necessary #Hypertension: Hold blood pressure medications secondary to shock #Chronic back pain: stable. on tramadol. DVT: therapeutic Lovenox Charges/Coding Visit Charges Inpatient E&M: 21488 Subs Hosp L2
[2021-10-03] MEDS: Acetaminophen 650 MG/20 ML UDC GT (11:08)
[2021-10-03] MEDS: Insulin Lispro 100 UNIT/ML INSULN.PEN SC ×2 (11:09→18:17)
[2021-10-03] MEDS: Polyethylene Glycol 3350 17 GM PACKET PO ×2 (11:09→22:10)
[2021-10-03 11:21] LABS: Bedside Glucose 226 mg/dL (70-110)
--- NOTE | 2021-10-03 13:46 | PCM.PN.ID ---
Physical Exam Narrative On vent, phenylephrine Const no apparent distress Resp Effort and Inspection: mechanically ventilated Cardio regular rate and regular rhythm GI soft to palpation and non-tender Skin no rashes or lesions noted ID ID: Route of nutrition/ use of supplements: [] Nutritional Intake: [] IV Site: [] Stevens Catheter: [] Assessment & Plan Assessment/Plan (1) COVID-19: PLAN: Sx started 09/15/21. Isolate until 10/04/21. Unvaccinated, recommended vaccine in one month. On baricitinib, completed dex and remdesivir. D-dimer over 20, CT neg for PE. Doppler (+) DVT. On vent. On vanc/cefepime. Sputum cx with s. pneumo and diphtheroids. Will stop vanc today. Will follow (2) Acute respiratory failure with hypoxia:
[2021-10-03 18:16] LABS: Bedside Glucose 164 mg/dL (70-110)
[2021-10-03] MEDS: Propofol 10MG/Ml 1,000 MG/100 ML Bottle 7.9 MG CONT INF (19:31)
[2021-10-04] VITALS (41 sets, daily range): BP systolic 94–156; BP diastolic 45–71; PULSE 46–92; RESP 15–26; TEMP 37.4–38.2; O2SAT 68–96
[2021-10-04] MEDS: Insulin Lispro 100 UNIT/ML INSULN.PEN SC ×4 (00:19→16:47)
[2021-10-04 00:26] LABS: Bedside Glucose 162 mg/dL (70-110)
[2021-10-04] MEDS: Acetaminophen 650 MG/20 ML UDC GT ×2 (01:33→20:37)
[2021-10-04 03:40] LABS: Absolute Lymphocyte Count 0.96 X10^3/uL (0.83-4.51); Absolute Neutrophil Count 12.4 X10^3/uL (2.0-7.7); Basophil# 0.02 X10^3/uL; Basophil% 0.1 % (0-1); Eosinophil# 0.21 X10^3/uL; Eosinophils% 1.5 % (0-5); Hematocrit 32.2 % (37-47); Hemoglobin 10.3 g/dL (12.0-15.0); Lymphocyte # 0.96 X10^3/ul (0.83-4.51); Lymphocyte % 6.9 % (19-41); Mean Corpuscular Hgb 29.7 pg (27.0-32.0); Mean Corpuscular Volume 92.8 fL (81-99); Mean Platelet Vol. 10.6 fl (6.2-12.0); Monocyte# 0.12 X10^3/uL; Monocyte% 0.9 % (0-10); NRBC Flagged by Analyzer 0 % (0-5); Neutrophil # 12.39 X10^3/uL (2.7-7.7); Neutrophil % 89.4 % (47-70); Platelet Count 216 K/mm3 (150-450); RBC Distribution Width SD 51.4 fl (35.1-43.9); Red Blood Count 3.47 M/mm3 (4.2-5.4); White Blood Count 13.9 K/mm3 (4.4-11.0)
[2021-10-04 04:03] LABS: Anion Gap 6 (5-15); BUN 36 mg/dL (7-18); BUN/Creat Ratio 49.2 RATIO (10-20); Calcium,Total 7.1 mg/dL (8.5-10.1); Chloride 116 mmol/L (98-107); Creatinine, Serum 0.73 mg/dL (0.55-1.02); EST Glomerular Filtration Rate 86 mL/min (>60); Est Glom Filt Rate - Afr Amer 104 mL/min (>60); Estimated Creatinine Clearance 84.58 ml/min; Glucose 189 mg/dL (74-106); Potassium 3.7 mmol/L (3.5-5.1); Sodium Level 143 mmol/L (136-145)
[2021-10-04] MEDS: Furosemide 40 MG/4 ML Vial IV (06:11)
[2021-10-04] MEDS: Potassium Chloride Oral Soln 20 MEQ/15 ML UDC 40 MEQ PO (06:12)
[2021-10-04] MEDS: Propofol 10MG/Ml 1,000 MG/100 ML Bottle 7.9 MG CONT INF ×3 (06:23→17:47)
[2021-10-04 06:30] LABS: Bedside Glucose 219 mg/dL (70-110)
--- NOTE | 2021-10-04 06:53 | PN.CC_ITS ---
Assessment & Plan Assessment/Plan (1) Acute respiratory failure with hypoxia: (2) COVID-19: PLAN: RECOMMENDATIONS: 1. Continue assist control mode of mechanical ventilation. Wean FiO2/PEEP for saturations greater than 90%. 2. Continue empiric antimicrobials to complete a 7-day course. 3. Completed Decadron. Continue baricitinib (10/05/2021) to complete treatment course. 4. Continue therapeutic Lovenox unless drop in H&H 5. Continue appropriate GI prophylaxis. 6. Continue intermittent dosing of Lasix as tolerated by hemodynamics and renal function. 7. Continue tube feeds as tolerated. IMPRESSIONS: 1. Acute hypoxic respiratory failure secondary to COVID-19 The patient was initially admitted to the hospital on September 21 with worsening dyspnea. She was subsequently found to be positive for COVID-19. Symptom onset was sometime around September 15. CTA was negative for PE. However, the patient was identified as having lower extremity DVTs on Doppler study. Therefore, she will be continued on therapeutic Lovenox. In the interim, the patient has completed a treatment course of remdesivir and Decadron will remain baricitinib as ordered. Despite multiple consecutive days on noninvasive positive pressure ventilatory support, the patient failed to make any meaningful improvement. Therefore, she was intubated on September 29. In light of her decompensation, the patient was initiated on empiric antimicr obials. Anticipate a 7-day course of antibiotics. FiO2 will be weaned to maintain saturations at or above 90%. Suspect an element of the recruitment secondary to self extubation. Patient is also fluid positive over the course of the hospitalization. Will challenge with diuretics today. 2. Diabetes mellitus Continue Lantus and sliding scale insulin coverage. Blood sugars well controlled at this time 3. Acute kidney injury Improved. Likely ATN in the setting of #1. Continue to monitor urine output. No current indication for renal replacement therapy. 4. Bilateral lower extremity DVT Continue therapeutic Lovenox as ordered. Do not plan on holding anticoagulation unless patient has a drop in H&H or develops bronchial obstruction. 5. Overweight/hypertension/musculoskeletal issues/unvaccinated status/chronic pain syndrome Complicates care, management, recovery and prognosis. Okay to continue tube feeds as tolerated. TIME: 37 minutes of critical care time, independent of procedures, was spent addressing the patient's acute hypoxemic respiratory failure secondary to COVID- 19 pneumonia, lower extremity DVT, acute kidney injury, review of all data and collaboration with the care team. Subjective Subjective Patient did okay overnight. Patient did have increasing oxygen demand yesterday, but appears to have stabilized slightly. Patient did have a mild fever overnight. No hemodynamic instability has been reported, but patient does remain on Kodak-Synephrine. Nursing has reported some blood in oral secretions and through the endotracheal tube. No obstruction has been reported. Objective Data Objective Data Vital Signs: Vital Signs Temp Pulse Resp BP Pulse Ox 37.8 C H 56 L 23 H 113/52 L 93 10/04/21 06:00 10/04/21 06:00 10/04/21 06:00 10/04/21 06:00 10/04/21 06:00 Oxygen Flow Rate (L/min) 60 Oxygen Delivery Method Mechanical Ventilator Weight: 91.4 kg Body Mass Index (BMI) 29.0 Intake & Output: Intake and Output for Last 24 Hours 10/02/21 10/03/21 10/04/21 23:59 23:59 23:59 Intake Total 4993.70 / 5374.85 4559.60 / 4705.82 1196.75 / 1196.75 Output Total 3450 / 4200 2100 / 2675 1225 / 1225 Balance 1543.70 / 1174.85 2459.60 / 2030.82 -28.25 / -28.25 Medical Nutrition Assessment Dietitian: Malnutrition Criteria Met Start: 09/30/21 10:35 Freq: Status: Active Protocol: Document 10/03/21 10:50 PRIYANK (Rec: 10/03/21 10:50 SLA [id number]) Nutrition Malnutrition Evidence of Malnutrition Exists Yes Malnutrition (severe): Acute Illness/Injury Evidenced By Suboptimal Energy Intake ( Severe),Weight Loss (Severe) Intake Problem Inadequate Oral Intake Etiology r/t acute illness, resp. 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; estimated PO intake meeting <50% of estimated energy needs since 09/21 admission and need for TF support Status Active Problem Clinical Problem Acute Disease or Injury Related Malnutrition Etiology severe, acute malnutrition r/t inadequate energy intake w/ acute illness Signs/Symptoms as evidenced by unintentional wt loss of 1.2% since 09/21 admission; estimated PO intake meeting <50% of estimated energy needs since 09/21 admission Status Active Problem Recommendation Dietitian Recommendations/Changes NPO while intubated; Continue enteral nutrition support via OGT with Vital AF 1.2 at goal rate of 60mL/hour w/ 100mL H2O flush every 4 hours to provide 1728 calories, 108 g protein, and 1767mL fluid/day. Lab / Micro Data Result Diagrams: 10/04/21 03:30 10/04/21 03:30 Labs: Laboratory Results - last 24 hr 10/03/21 11:07: POC Glucose 226 H 10/03/21 18:08: POC Glucose 164 H 10/04/21 00:18: POC Glucose 162 H 10/04/21 03:30: WBC 13.9 H, RBC 3.47 L, Hgb 10.3 L, Hct 32.2 L, MCV 92.8, MCH 29.7, MCHC 32.0, RDW Std Deviation 51.4 H, RDW Coeff of Ana Maria 15.0 H, Plt Count 216, MPV 10.6, Immature Gran % (Auto) 1.200 H, Neut % (Auto) 89.4 H, Lymph % (Auto) 6.9 L, [place] % (Auto) 0.9, Eos % (Auto) 1.5, Baso % (Auto) 0.1, Absolute Neuts (auto) 12.4 H, Absolute Lymphs (auto) 0.96, Nucleated RBC % 0 10/04/21 03:30: Sodium 143, Potassium 3.7, Chloride 116 H, Carbon Dioxide 21.0, Anion Gap 6, BUN 36 H, Creatinine 0.73, Estim Creat Clear Calc 84.58, Est GFR (MDRD) Af Amer 104, Est GFR (MDRD) Non-Af 86, BUN/Creatinine Ratio 49.2 H, Glucose 189 H, Calcium 7.1 L 10/04/21 06:22: POC Glucose 219 H Micro: Microbiology 09/29/21 10:18 Sputum, Induced/Lukens Gram Stain - Final 09/29/21 10:18 Sputum, Induced/Lukens Respiratory Culture - Preliminary Streptococcus pneumoniae Gram positive armaan 09/21/21 14:43 Blood Culture (Wb) - Right Hand Blood Culture - Final No growth in 5 days. 09/21/21 13:55 Blood Culture (Wb) - Anticubital Left Blood Culture - Final No growth in 5 days. 09/22/21 10:30 Sputum, Expectorated/Coughed Gram Stain - Final 09/22/21 10:30 Sputum, Expectorated/Coughed Respiratory Culture - Final 09/22/21 04:19 Urine, Clean Catch Urine Culture - Final Mixed Gram Positive Organisms 09/22/21 10:30 Urine, Clean Catch Legionella Antigen - Final 09/22/21 10:30 Urine, Clean Catch Streptococcus pneumoniae Antigen (M - Final 09/21/21 14:10 Nasal Secretion SARS-CoV-2 Antigen (Rapid) - Final SARS-CoV-2 (COVID 19) Physical Exam Const no apparent distress Constitutional Narrative: No ventilator dyssynchrony. RASS -3 General Appearance: intubated and patient mechanically ventilated Nutritional Appearance: obese HEENT normocephalic and head/scalp atraumatic Mouth: endotracheal tube in place and OG tube in place Eyes PERRL, EOMs intact bilaterally and conjunctivae normal Neck supple General: trachea midline Chest inspection of chest normal Chest: symmetrical chest wall rise; Negative for crepitus Resp Auscultation: diminished lung sounds; Negative for rales, rhonchi or wheezes Cardio S1 normal heart sound and S2 normal heart sound Rate: bradycardia Heart Sounds: Negative for gallop, murmur or rub GI normal to inspection, nondistended, normoactive bowel sounds Extremity no clubbing, cyanosis or edema Skin no rashes or lesions noted Neuro Sensorium / Orientation: sedated on vent Charges/Coding Procedures Hospitalists Procedures: 91479 Critial Care 1st Hr
--- NOTE | 2021-10-04 09:15 | PN.HOSP_ITS ---
Subjective Subjective Intubated and sedated, no issues overnight Objective Data Objective Data Vital Signs: Vital Signs Temp Pulse Resp BP Pulse Ox 100.8 F H 56 L 22 H 111/53 L 96 10/04/21 08:00 10/04/21 09:00 10/04/21 09:00 10/04/21 09:00 10/04/21 09:00 Oxygen Flow Rate (L/min) 60 Oxygen Delivery Method Mechanical Ventilator Weight: 201 lb 8.04 oz Body Mass Index (BMI) 29.0 Intake & Output: Intake and Output for Last 24 Hours 10/03/21 10/04/21 10/05/21 03:59 03:59 03:59 Intake Total 5449.90 / 5620.23 4599.88 / 4776.83 819.21 / 819.21 Output Total 4200 / 4200 2175 / 2175 400 / 400 Balance 1249.90 / 1420.23 2424.88 / 2601.83 419.21 / 419.21 Medical Nutrition Assessment Dietitian: Malnutrition Criteria Met Start: 09/30/21 10:35 Freq: Status: Active Protocol: Document 10/03/21 10:50 SLA (Rec: 10/03/21 10:50 SLA [id number]) Nutrition Malnutrition Evidence of Malnutrition Exists Yes Malnutrition (severe): Acute Illness/Injury Evidenced By Suboptimal Energy Intake ( Severe),Weight Loss (Severe) Intake Problem Inadequate Oral Intake Etiology r/t acute illness, resp. 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 PO intake meeting <50% of estimated energy needs since 09/21 admission and need for TF support Status Active Problem Clinical Problem Acute Disease or Injury Related Malnutrition Etiology severe, acute malnutrition r/t inadequate energy intake w/ acute illness Signs/Symptoms as evidenced by unintentional wt loss of 1.2% since 09/21 admission; estimated PO intake meeting <50% of estimated energy needs since 09/21 admission Status Active Problem Recommendation Dietitian Recommendations/Changes NPO while intubated; Continue enteral nutrition support via OGT with Vital AF 1.2 at goal rate of 60mL/hour w/ 100mL H2O flush every 4 hours to provide 1728 calories, 108 g protein, and 1767mL fluid/day. Lab / Micro Data Result Diagrams: 10/04/21 03:30 10/04/21 03:30 Labs: Laboratory Results - last 24 hr 10/03/21 11:07: POC Glucose 226 H 10/03/21 18:08: POC Glucose 164 H 10/04/21 00:18: POC Glucose 162 H 10/04/21 03:30: WBC 13.9 H, RBC 3.47 L, Hgb 10.3 L, Hct 32.2 L, MCV 92.8, MCH 29.7, MCHC 32.0, RDW Std Deviation 51.4 H, RDW Coeff of Ana Maria 15.0 H, Plt Count 216, MPV 10.6, Immature Gran % (Auto) 1.200 H, Neut % (Auto) 89.4 H, Lymph % (Auto) 6.9 L, [place] % (Auto) 0.9, Eos % (Auto) 1.5, Baso % (Auto) 0.1, Absolute Neuts (auto) 12.4 H, Absolute Lymphs (auto) 0.96, Nucleated RBC % 0 10/04/21 03:30: Sodium 143, Potassium 3.7, Chloride 116 H, Carbon Dioxide 21.0, Anion Gap 6, BUN 36 H, Creatinine 0.73, Estim Creat Clear Calc 84.58, Est GFR (MDRD) Af Amer 104, Est GFR (MDRD) Non-Af 86, BUN/Creatinine Ratio 49.2 H, Glucose 189 H, Calcium 7.1 L 10/04/21 06:22: POC Glucose 219 H Micro: Microbiology 09/29/21 10:18 Sputum, Induced/Lukens Gram Stain - Final 09/29/21 10:18 Sputum, Induced/Lukens Respiratory Culture - Preliminary Streptococcus pneumoniae Gram positive armaan 09/21/21 14:43 Blood Culture (Wb) - Right Hand Blood Culture - Final No growth in 5 days. 09/21/21 13:55 Blood Culture (Wb) - Anticubital Left Blood Culture - Final No growth in 5 days. 09/22/21 10:30 Sputum, Expectorated/Coughed Gram Stain - Final 09/22/21 10:30 Sputum, Expectorated/Coughed Respiratory Culture - Final 09/22/21 04:19 Urine, Clean Catch Urine Culture - Final Mixed Gram Positive Organisms 09/22/21 10:30 Urine, Clean Catch Legionella Antigen - Final 09/22/21 10:30 Urine, Clean Catch Streptococcus pneumoniae Antigen (M - Final 09/21/21 14:10 Nasal Secretion SARS-CoV-2 Antigen (Rapid) - Final SARS-CoV-2 (COVID 19) Physical Exam Narrative Const General Appearance: intubated and patient mechanically ventilated HEENT moist oral mucous membranes Head and Scalp: normocephalic Eyes PERRL Neck supple and no JVD Resp Effort and Inspection: mechanically ventilated Auscultation: diminished lung sounds; Negative for rales, rhonchi or wheezes Cardio regular rate, regular rhythm, S1 normal heart sound, S2 normal heart sound, no murmurs and no gallops GI soft to palpation and non-distended; Negative for hepatosplenomegaly Extremity no clubbing, cyanosis or edema Skin no rashes or lesions noted Neuro Sensorium / Orientation: sedated on vent Psych Appearance: intubated Assessment & Plan Assessment/Plan (1) Acute respiratory failure with hypoxia: (2) COVID-19: PLAN: #Acute hypoxic respiratory failure due to covid 19 pneumonia * remains intubated and sedated. Completed a 5 day course of remdesivir. Also on baricitinib. * Diurese as needed to maintain euvolemic status. * Titrate oxygen to maintain saturation above 90%. * Breathing treatments with bronchodilators. ID and critical care on board. * Continue with cefepime, vancomycin was discontinued * sputum cultures gram-positive rods and strep pneumonia * Continue with tube feeds #Septic shock * titrate to maintain MAP >65 * remains on phenylephrine #Bradycardia: HR down in the 40s and 50s. may be a sequelae of covid. Will monitor. #Thrombocytopenia: resolved. #Bilateral lower extremity DVT * Had DVT of the right soleal vein and left tibioperoneal trunk as well as the posterior tibial and peroneal as well as soleal veins. * On therapeutic Lovenox. #NURIA: resolved. #Type 2 diabetes mellitus with hyperglycemia * On lantus 20 units * High-dose insulin sliding scale. * Accuchecks [facility]. * Will continue to monitor and adjust as necessary #Hypertension: Hold blood pressure medications secondary to shock #Chronic back pain: stable. on tramadol. DVT: therapeutic Lovenox Charges/Coding Visit Charges Inpatient E&M: 80786 Subs Hosp L2
[2021-10-04] MEDS: Enoxaparin 100 MG/ML Syringe 90 MG SC (09:31)
[2021-10-04] MEDS: Senna/Docusate Sodium 1 Tablet 2 TABLET GT ×2 (09:32→20:38)
[2021-10-04] MEDS: Polyethylene Glycol 3350 17 GM PACKET PO ×2 (09:32→20:37)
[2021-10-04] MEDS: Chlorhexidine 15 ML PO ×2 (09:33→20:37)
[2021-10-04] MEDS: CHLORHEXIDINE GLUC 2% CLOTH 1 EACH TOWELETTE TOPICAL (09:33)
[2021-10-04] MEDS: Magnesium Citrate 300 ML 150 ML PO (10:23)
[2021-10-04 12:40] LABS: Bedside Glucose 197 mg/dL (70-110)
[2021-10-04] MEDS: Vital AF 1.2 Cal Liquid 1,000 ML 60 ML GT (14:49)
--- NOTE | 2021-10-04 15:17 | CASEMGMT ---
Social Work SW participated in ICU rounds this morning. SW called this afternoon to offer support. Call went to voicemail but voicemail not set up so SW unable to leave a message. MISSY Shipman
[2021-10-04 17:00] LABS: Bedside Glucose 165 mg/dL (70-110)
[2021-10-04 17:11] LABS: Hematocrit 35.7 % (37-47); Hemoglobin 11.1 g/dL (12.0-15.0)
[2021-10-05] VITALS (41 sets, daily range): BP systolic 83–136; BP diastolic 41–76; PULSE 44–72; RESP 15–25; TEMP 36.9–38.6; O2SAT 84–95
[2021-10-05 02:06] LABS: Bedside Glucose 114 mg/dL (70-110)
[2021-10-05] MEDS: Propofol 10MG/Ml 1,000 MG/100 ML Bottle 16.1 MG CONT INF ×5 (03:30→22:27)
[2021-10-05 04:07] LABS: Absolute Lymphocyte Count 1.99 X10^3/uL (0.83-4.51); Absolute Neutrophil Count 11.2 X10^3/uL (2.0-7.7); Basophil# 0.02 X10^3/uL; Basophil% 0.1 % (0-1); Eosinophil# 0.32 X10^3/uL; Eosinophils% 2.3 % (0-5); Hematocrit 33.4 % (37-47); Hemoglobin 10.6 g/dL (12.0-15.0); Lymphocyte # 1.99 X10^3/ul (0.83-4.51); Lymphocyte % 14.4 % (19-41); Mean Corp Hgb Conc 31.7 g/dL (32-36); Mean Corpuscular Hgb 29.4 pg (27.0-32.0); Mean Corpuscular Volume 92.5 fL (81-99); Mean Platelet Vol. 10.7 fl (6.2-12.0); Monocyte# 0.16 X10^3/uL; Monocyte% 1.2 % (0-10); NRBC Flagged by Analyzer 0 % (0-5); Neutrophil # 11.19 X10^3/uL (2.7-7.7); Neutrophil % 80.7 % (47-70); Platelet Count 228 K/mm3 (150-450); RBC Distribution Width CV 15.3 % (11.6-14.6); RBC Distribution Width SD 51.8 fl (35.1-43.9); Red Blood Count 3.61 M/mm3 (4.2-5.4); White Blood Count 13.9 K/mm3 (4.4-11.0)
[2021-10-05 04:18] LABS: International Normalized Ratio 1.3; Prothrombin Time (Protime)PT. 15.6 SECONDS (11.7-14.9)
[2021-10-05 04:19] LABS: Partial Thromboplast Time 43.3 Seconds (24.1-36.2)
[2021-10-05 04:29] LABS: ALB/GLOB Ratio 0.4 RATIO (0.9-2.4); AST(SGOT) 28 U/L (15-37); Alanine Aminotransfer ALT/SGPT 27 U/L (13-56); Albumin, Serum 1.6 g/dL (3.2-5.0); Alkaline Phosphatase 63 U/L (45-117); Anion Gap 5 (5-15); BUN 41 mg/dL (7-18); BUN/Creat Ratio 40.2 RATIO (10-20); Calcium,Total 8.6 mg/dL (8.5-10.1); Chloride 110 mmol/L (98-107); Creatinine, Serum 1.02 mg/dL (0.55-1.02); EST Glomerular Filtration Rate 58 mL/min (>60); Est Glom Filt Rate - Afr Amer 71 mL/min (>60); Estimated Creatinine Clearance 60.53 ml/min; Globulin 4.2 g/dL (2.2-4.2); Glucose 99 mg/dL (74-106); Protein, Total 5.8 g/dL (6.4-8.2); Sodium Level 144 mmol/L (136-145)
[2021-10-05] MEDS: TITRATION PARAMETER CHANGE 1 EACH IV ×2 (05:11→11:03)
[2021-10-05 05:36] LABS: Bedside Glucose 88 mg/dL (70-110)
[2021-10-05] MEDS: Vital AF 1.2 Cal Liquid 1,000 ML 60 ML GT (06:50)
--- NOTE | 2021-10-05 07:17 | PCM.PN.INT ---
Assessment & Plan Assessment/Plan (1) Acute respiratory failure with hypoxia: (2) COVID-19: PLAN: RECOMMENDATIONS: 1. Continue assist control mode of mechanical ventilation. Wean FiO2/PEEP for saturations greater than 90%. 2. Continue empiric antimicrobials to complete a 7-day course (10/06/2021). 3. Completed Decadron. Continue baricitinib (10/05/2021) to complete treatment course. 4. Discontinue Lovenox. Possible ENT evaluation if not improved with conservative therapy 5. Continue appropriate GI prophylaxis. 6. Continue intermittent dosing of Lasix as tolerated by hemodynamics and renal function. 7. Continue tube feeds as tolerated. IMPRESSIONS: 1. Acute hypoxic respiratory failure secondary to COVID-19 The patient was initially admitted to the hospital on September 21 with worsening dyspnea. She was subsequently found to be positive for COVID-19. Symptom onset was sometime around September 15. CTA was negative for PE. However, the patient was identified as having lower extremity DVTs on Doppler study. Therefore, she will be continued on therapeutic Lovenox. In the interim, the patient has completed a treatment course of remdesivir and Decadron will remain baricitinib as ordered. Despite multiple consecutive days on noninvasive positive pressure ventilatory support, the patient failed to make any meaningful improvement. Therefore, she was intubated on September 29. In light of her decompensation, the patient was initiated on empiric antimicrobials. Anticipate a 7-day course of antibiotics. FiO2 will be weaned to maintain saturations at or above 90%. Suspect an element of the recruitment secondary to self extubation. Patient is also fluid positive over the course of the hospitalization. We will hold on any challenges with diuretics given oral issues. Patient did have a DVT and some concern for airway obstruction secondary to blood clots with oral bleeding. Clinical suspicion for a laceration from repeat intubation or self extubation. Attempt conservative therapy prior to ENT eval 2. Diabetes mellitus Continue Lantus and sliding scale insulin coverage. Blood sugars well controlled at this time 3. Acute kidney injury Improved. Likely ATN in the setting of #1. Continue to monitor urine output. No current indication for renal replacement therapy. 4. Bilateral lower extremity DVT Continue therapeutic Lovenox as ordered. Hold anticoagulation for at least 48 hours. Attempt conservative therapy of mouth bleeding. 5. Overweight/hypertension/musculoskeletal issues/unvaccinated status/chronic pain syndrome Complicates care, management, recovery and prognosis. Okay to continue tube feeds as tolerated. Addendum 10:40 AM: Family meeting with (in person) and son (by phone) about patient's situation. They understand the risk of discontinuation of anticoagulation and the reasoning. They agree with the decision. Did discuss CODE STATUS at length and they continue to request full CODE STATUS. They understand that the patient is currently on pressor therapy and requiring high oxygen intake to maintain saturations. Total discussion time of 36 minutes personally. developmental services worker and nursing are continuing to answer questions for the patient's and son. TIME: 76 minutes of critical care time, independent of procedures, was spent addressing the patient's acute hypoxemic respiratory failure secondary to COVID-19 pneumonia, lower extremity DVT, acute kidney injury, review of all data and collaboration with the care team. Subjective Subjective Patient with progressive bleeding noted from the mouth. Nursing overnight removed over 250 cc of blood. Gastric occult was positive. Exploration has not shown any obvious laceration. Pressors are slightly improved compared to previous. Objective Data Objective Data Vital Signs: Vital Signs Temp Pulse Resp BP Pulse Ox 36.9 C 52 L 23 H 96/62 91 10/05/21 04:00 10/05/21 07:00 10/05/21 07:00 10/05/21 07:00 10/05/21 07:00 Oxygen Flow Rate (L/min) 60 Oxygen Delivery Method Mechanical Ventilator Weight: 89.2 kg Body Mass Index (BMI) 29.0 Intake & Output: Intake and Output for Last 24 Hours 10/03/21 10/04/21 10/05/21 23:59 23:59 23:59 Intake Total 4559.60 / 4705.82 3787.80 / 3863.70 718.10 / 718.10 Output Total 2100 / 2675 5275 / 6325 1650 / 1650 Balance 2459.60 / 2030.82 -1487.20 / -2461.30 -931.90 / -931.90 Medical Nutrition Assessment Dietitian: Malnutrition Criteria Met Start: 09/30/21 10:35 Freq: Status: Active Protocol: Document 10/04/21 10:11 AG (Rec: 10/04/21 11:43 [id number]) Nutrition Malnutrition Evidence of Malnutrition Exists Yes Malnutrition (severe): Acute Illness/Injury Evidenced By Suboptimal Energy Intake ( Severe),Weight Loss (Severe) Intake Problem Inadequate Oral Intake Etiology r/t acute illness, resp. 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 759kg/7.8%; estimated PO intake meeting <50% of estimated energy needs x 6 days Status Active Problem Recommendation Dietitian Recommendations/Changes NPO while intubated; Continue enteral nutrition support via OGT with Vital AF 1.2 at goal rate of 60mL/hour w/ 100mL H2O flush every 4 hours to provide 1728 calories, 108 g protein, and 1767mL fluid/day. Lab / Micro Data Result Diagrams: 10/05/21 03:50 10/05/21 03:50 Labs: Laboratory Results - last 24 hr 10/04/21 12:33: POC Glucose 197 H 10/04/21 16:46: POC Glucose 165 H 10/04/21 16:55: Hgb 11.1 L, Hct 35.7 L 10/04/21 23:33: POC Glucose 114 H 10/05/21 03:50: WBC 13.9 H, RBC 3.61 L, Hgb 10.6 L, Hct 33.4 L, MCV 92.5, MCH 29.4, MCHC 31.7 L, RDW Std Deviation 51.8 H, RDW Coeff of Ana Maria 15.3 H, Plt Count 228, MPV 10.7, Immature Gran % (Auto) 1.300 H, Neut % (Auto) 80.7 H, Lymph % (Auto) 14.4 L, [place] % (Auto) 1.2, Eos % (Auto) 2.3, Baso % (Auto) 0.1, Absolute Neuts (auto) 11.2 H, Absolute Lymphs (auto) 1.99, Nucleated RBC % 0 10/05/21 03:50: Sodium 144, Potassium 4.0, Chloride 110 H, Carbon Dioxide 29.0, Anion Gap 5, BUN 41 H, Creatinine 1.02, Estim Creat Clear Calc 60.53, Est GFR (MDRD) Af Amer 71, Est GFR (MDRD) Non-Af 58 L, BUN/Creatinine Ratio 40.2 H, Glucose 99, Calcium 8.6, Total Bilirubin 0.40, AST 28, ALT 27, Alkaline Phosphatase 63, Total Protein 5.8 L, Albumin 1.6 L, Globulin 4.2, Albumin/Globulin Ratio 0.4 L 10/05/21 03:50: PT 15.6 H, INR 1.3, APTT 43.3 H 10/05/21 05:25: POC Glucose 88 Micro: Microbiology 10/04/21 22:50 Gastric Fluid/Contents Gastric Occult Blood - Final Occult Blood Positive 09/29/21 10:18 Sputum, Induced/Lukens Gram Stain - Final 09/29/21 10:18 Sputum, Induced/Lukens Respiratory Culture - Preliminary Streptococcus pneumoniae Gram positive armaan 09/21/21 14:43 Blood Culture (Wb) - Right Hand Blood Culture - Final No growth in 5 days. 09/21/21 13:55 Blood Culture (Wb) - Anticubital Left Blood Culture - Final No growth in 5 days. 09/22/21 10:30 Sputum, Expectorated/Coughed Gram Stain - Final 09/22/21 10:30 Sputum, Expectorated/Coughed Respiratory Culture - Final 09/22/21 04:19 Urine, Clean Catch Urine Culture - Final Mixed Gram Positive Organisms 09/22/21 10:30 Urine, Clean Catch Legionella Antigen - Final 09/22/21 10:30 Urine, Clean Catch Streptococcus pneumoniae Antigen (M - Final 09/21/21 14:10 Nasal Secretion SARS-CoV-2 Antigen (Rapid) - Final SARS-CoV-2 (COVID 19) Physical Exam Const no apparent distress Constitutional Narrative: No ventilator dyssynchrony. RASS -3 General Appearance: intubated and patient mechanically ventilated Nutritional Appearance: obese HEENT normocephalic and head/scalp atraumatic HEENT Narrative: Extensive clot burden noted in the posterior pharynx. No obvious lacerations noted Mouth: endotracheal tube in place and OG tube in place Eyes PERRL, EOMs intact bilaterally and conjunctivae normal Neck supple General: trachea midline Chest inspection of chest normal Chest: symmetrical chest wall rise; Negative for crepitus Resp Auscultation: diminished lung sounds; Negative for rales, rhonchi or wheezes Cardio S1 normal heart sound and S2 normal heart sound Rate: bradycardia Heart Sounds: Negative for gallop, murmur or rub GI normal to inspection, nondistended, normoactive bowel sounds Extremity no clubbing, cyanosis or edema Skin no rashes or lesions noted Neuro Sensorium / Orientation: sedated on vent Charges/Coding Procedures Hospitalists Procedures: [id number] Critial Care 1st Hr Multi [employer] Codes Hospitalists' Procedures Procedures: [id number] Critial Care Addl 30 Min
[2021-10-05] MEDS: Bisacodyl 10 MG Suppository RC (07:55)
--- NOTE | 2021-10-05 08:44 | PN.HOSP_ITS ---
Subjective Subjective Had some hematemesis/hemoptysis overnight, her Lovenox has been discontinued. We'll need to discuss further care with the Objective Data Objective Data Vital Signs: Vital Signs Temp Pulse Resp BP Pulse Ox 98.5 F 52 L 25 H 123/60 H 93 10/05/21 04:00 10/05/21 07:40 10/05/21 07:40 10/05/21 08:30 10/05/21 07:40 Oxygen Flow Rate (L/min) 60 Oxygen Delivery Method Mechanical Ventilator Weight: 196 lb 10.437 oz Body Mass Index (BMI) 29.0 Intake & Output: Intake and Output for Last 24 Hours 10/04/21 10/05/21 10/06/21 03:59 03:59 03:59 Intake Total 4599.88 / 4776.83 3391.85 / 3463.60 503.85 / 503.85 Output Total 2175 / 2175 5500 / 5500 600 / 600 Balance 2424.88 / 2601.83 -2108.15 / -2036.40 -96.15 / -96.15 Medical Nutrition Assessment Dietitian: Malnutrition Criteria Met Start: 09/30/21 10:35 Freq: Status: Active Protocol: Document 10/04/21 10:11 AG (Rec: 10/04/21 11:43 AG [id number]) Nutrition Malnutrition Evidence of Malnutrition Exists Yes Malnutrition (severe): Acute Illness/Injury Evidenced By Suboptimal Energy Intake ( Severe),Weight Loss (Severe) Intake Problem Inadequate Oral Intake Etiology r/t acute illness, resp. 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 759kg/7.8%; estimated PO intake meeting <50% of estimated energy needs x 6 days Status Active Problem Recommendation Dietitian Recommendations/Changes NPO while intubated; Continue enteral nutrition support via OGT with Vital AF 1.2 at goal rate of 60mL/hour w/ 100mL H2O flush every 4 hours to provide 1728 calories, 108 g protein, and 1767mL fluid/day. Lab / Micro Data Result Diagrams: 10/05/21 03:50 10/05/21 03:50 Labs: Laboratory Results - last 24 hr 10/04/21 12:33: POC Glucose 197 H 10/04/21 16:46: POC Glucose 165 H 10/04/21 16:55: Hgb 11.1 L, Hct 35.7 L 10/04/21 23:33: POC Glucose 114 H 10/05/21 03:50: WBC 13.9 H, RBC 3.61 L, Hgb 10.6 L, Hct 33.4 L, MCV 92.5, MCH 29.4, MCHC 31.7 L, RDW Std Deviation 51.8 H, RDW Coeff of Ana Maria 15.3 H, Plt Count 228, MPV 10.7, Immature Gran % (Auto) 1.300 H, Neut % (Auto) 80.7 H, Lymph % (Auto) 14.4 L, [place] % (Auto) 1.2, Eos % (Auto) 2.3, Baso % (Auto) 0.1, Absolute Neuts (auto) 11.2 H, Absolute Lymphs (auto) 1.99, Nucleated RBC % 0 10/05/21 03:50: Sodium 144, Potassium 4.0, Chloride 110 H, Carbon Dioxide 29.0, Anion Gap 5, BUN 41 H, Creatinine 1.02, Estim Creat Clear Calc 60.53, Est GFR (MDRD) Af Amer 71, Est GFR (MDRD) Non-Af 58 L, BUN/Creatinine Ratio 40.2 H, Glucose 99, Calcium 8.6, Total Bilirubin 0.40, AST 28, ALT 27, Alkaline Phosphatase 63, Total Protein 5.8 L, Albumin 1.6 L, Globulin 4.2, Albumin/Globulin Ratio 0.4 L 10/05/21 03:50: PT 15.6 H, INR 1.3, APTT 43.3 H 10/05/21 05:25: POC Glucose 88 Micro: Microbiology 09/29/21 10:18 Sputum, Induced/Lukens Gram Stain - Final 09/29/21 10:18 Sputum, Induced/Lukens Respiratory Culture - Final Streptococcus pneumoniae Gram positive armaan 10/04/21 22:50 Gastric Fluid/Contents Gastric Occult Blood - Final Occult Blood Positive 09/21/21 14:43 Blood Culture (Wb) - Right Hand Blood Culture - Final No growth in 5 days. 09/21/21 13:55 Blood Culture (Wb) - Anticubital Left Blood Culture - Final No growth in 5 days. 09/22/21 10:30 Sputum, Expectorated/Coughed Gram Stain - Final 09/22/21 10:30 Sputum, Expectorated/Coughed Respiratory Culture - Final 09/22/21 04:19 Urine, Clean Catch Urine Culture - Final Mixed Gram Positive Organisms 09/22/21 10:30 Urine, Clean Catch Legionella Antigen - Final 09/22/21 10:30 Urine, Clean Catch Streptococcus pneumoniae Antigen (M - Final 09/21/21 14:10 Nasal Secretion SARS-CoV-2 Antigen (Rapid) - Final SARS-CoV-2 (COVID 19) Physical Exam Narrative Const General Appearance: intubated and patient mechanically ventilated HEENT moist oral mucous membranes Oral bleeding unsure as to origin Head and Scalp: normocephalic Eyes PERRL Neck supple and no JVD Resp Effort and Inspection: mechanically ventilated Auscultation: diminished lung sounds; Negative for rales, rhonchi or wheezes Cardio regular rate, regular rhythm, S1 normal heart sound, S2 normal heart sound, no murmurs and no gallops GI soft to palpation and non-distended; Negative for hepatosplenomegaly Extremity no clubbing, cyanosis or edema Skin no rashes or lesions noted Neuro Sensorium / Orientation: sedated on vent Psych Appearance: intubated Assessment & Plan Assessment/Plan (1) Acute respiratory failure with hypoxia: (2) COVID-19: PLAN: #Acute hypoxic respiratory failure due to covid 19 pneumonia/oral bleeding * remains intubated and sedated. Completed a 5 day course of remdesivir. Also on baricitinib. * Diurese as needed to maintain euvolemic status. * Titrate oxygen to maintain saturation above 90%. * Breathing treatments with bronchodilators. ID and critical care on board. * Continue with cefepime, vancomycin was discontinued * sputum cultures gram-positive rods and strep pneumonia * Continue with tube feeds * Unsure as to the etiology of her oral blood loss, gastric occult was positive but there is no obvious lacerations in her oropharynx, will hold her therapeutic Lovenox which has been started for her DVTs * Will need to discuss the situation with the today during rounds #Septic shock * titrate to maintain MAP >65 * remains on phenylephrine, had to go up a little bit on her pressor support today #Bradycardia: HR down in the 40s and 50s. may be a sequelae of covid. Will monitor. #Thrombocytopenia: resolved. #Bilateral lower extremity DVT * Had DVT of the right soleal vein and left tibioperoneal trunk as well as the posterior tibial and peroneal as well as soleal veins. * Hold therapeutic Lovenox. #NURIA: resolved. #Type 2 diabetes mellitus with hyperglycemia * On lantus 20 units * High-dose insulin sliding scale. * Accuchecks CHS. * Will continue to monitor and adjust as necessary #Hypertension: Hold blood pressure medications secondary to shock #Chronic back pain: stable. on tramadol. DVT: Hold Lovenox secondary to bleeding Charges/Coding Visit Charges Inpatient E&M: 04054 Subs Hosp L2
[2021-10-05] MEDS: Menthol/Lanolin/Calamine/Znox 113 GM Tube 1 APPLIC TOPICAL ×2 (09:31→20:09)
[2021-10-05] MEDS: Nystatin Powder 15gm Bottle 1 APPLIC TOPICAL ×2 (09:32→20:10)
[2021-10-05] MEDS: Polyethylene Glycol 3350 17 GM PACKET PO ×2 (09:32→20:10)
[2021-10-05] MEDS: Senna/Docusate Sodium 1 Tablet 2 TABLET GT ×2 (09:33→20:11)
[2021-10-05] MEDS: 0.9% Saline Lock 10 ML Syringe IV (09:35)
[2021-10-05] MEDS: Acetaminophen 650 MG/20 ML UDC GT (10:41)
--- NOTE | 2021-10-05 10:47 | CASEMGMT ---
Social Work SW attended ICU rounds. Pt spouse in and meeting held with physician, nurse, SW, pt and pt's son Yair on conference call. Discussed goals of care. SW provided support to pt . SW will remain available as needs arise. CHELSI Gonzalez
[2021-10-05] MEDS: CHLORHEXIDINE GLUC 2% CLOTH 1 EACH TOWELETTE TOPICAL (11:03)
[2021-10-05 12:15] LABS: Bedside Glucose 105 mg/dL (70-110)
--- NOTE | 2021-10-05 13:10 | PCM.PN.ID ---
Physical Exam Narrative On vent, temp to 101.2. Anticoagulation being held due to bleeding. Const no apparent distress Resp Effort and Inspection: mechanically ventilated Auscultation: diminished lung sounds Cardio regular rate and regular rhythm GI soft to palpation, non-tender and non-distended Skin no rashes or lesions noted ID ID: Route of nutrition/ use of supplements: [] Nutritional Intake: [] IV Site: [] Stevens Catheter: [] Assessment & Plan Assessment/Plan (1) COVID-19: PLAN: Sx started 09/15/21. Isolate until 10/04/21. Unvaccinated, recommended vaccine in one month. Completed baricitinib, completed dex and remdesivir. D-dimer over 20, CT neg for PE. Doppler (+) DVT. On vent. On cefepime, 7 day stop date planned for tomorrow. Sputum cx with s. pneumo and diphtheroids. Will follow (2) Acute respiratory failure with hypoxia:
--- NOTE | 2021-10-05 15:09 | CHAPLAIN ---
Type of Pastoral Visit ___ Initial Visit ___ Follow-up Visit ___ On-call Visit ___ General Patient Visit ___ Spiritual Assessment ___ Family Conference ___ Bereavement ___ Rapid Response ___ Code Blue ___ Other (describe below) Pastoral Care Referral From ___ Patient ___ Family ___ Nurse ___ Physician ___ Aggregate Conveyor Operator ___ Blood Bank Manager ___ Other (describe below) Sacrament/Intervention ___ Active listening ___ Anointing ___ Yarsani ___ Bereavement ___ Communion ___ Doretha exploration ___ ___ Life review ___ Prayer ___ Reconciliation ___ Sacrament of Sick ___ Supportive presence ___ Wedding ___ Other (describe below) Pastoral Comments was asked by RN to meet with spouse of patient; spouse left previously; did leave a calling card and assurance of support/prayer
[2021-10-05 16:45] LABS: Bedside Glucose 91 mg/dL (70-110)
[2021-10-05] MEDS: Chlorhexidine 15 ML PO (20:09)
[2021-10-05 23:31] LABS: Bedside Glucose 76 mg/dL (70-110)
[2021-10-06] VITALS (28 sets, daily range): BP systolic 74–134; BP diastolic 42–68; PULSE 20–65; RESP 16–33; TEMP 36.7–38; O2SAT 21–96
[2021-10-06] MEDS: Propofol 10MG/Ml 1,000 MG/100 ML Bottle 16.1 MG CONT INF (03:22)
[2021-10-06 03:33] LABS: Absolute Lymphocyte Count 1.55 X10^3/uL (0.83-4.51); Absolute Neutrophil Count 9.9 X10^3/uL (2.0-7.7); Basophil# 0.02 X10^3/uL; Basophil% 0.2 % (0-1); Eosinophil# 0.34 X10^3/uL; Eosinophils% 2.8 % (0-5); Hematocrit 31.7 % (37-47); Lymphocyte # 1.55 X10^3/ul (0.83-4.51); Lymphocyte % 12.6 % (19-41); Mean Corp Hgb Conc 31.5 g/dL (32-36); Mean Corpuscular Hgb 29.4 pg (27.0-32.0); Mean Corpuscular Volume 93.2 fL (81-99); Mean Platelet Vol. 10.8 fl (6.2-12.0); Monocyte# 0.34 X10^3/uL; Monocyte% 2.8 % (0-10); NRBC Flagged by Analyzer 0 % (0-5); Neutrophil % 80.2 % (47-70); Platelet Count 240 K/mm3 (150-450); RBC Distribution Width CV 15.4 % (11.6-14.6); White Blood Count 12.3 K/mm3 (4.4-11.0)
[2021-10-06 03:52] LABS: ALB/GLOB Ratio 0.3 RATIO (0.9-2.4); AST(SGOT) 33 U/L (15-37); Alanine Aminotransfer ALT/SGPT 26 U/L (13-56); Albumin, Serum 1.4 g/dL (3.2-5.0); Alkaline Phosphatase 69 U/L (45-117); Anion Gap 4 (5-15); BUN 38 mg/dL (7-18); BUN/Creat Ratio 39.2 RATIO (10-20); Calcium,Total 8.5 mg/dL (8.5-10.1); Chloride 111 mmol/L (98-107); Creatinine, Serum 0.97 mg/dL (0.55-1.02); EST Glomerular Filtration Rate 62 mL/min (>60); Est Glom Filt Rate - Afr Amer 75 mL/min (>60); Estimated Creatinine Clearance 63.65 ml/min; Globulin 4.3 g/dL (2.2-4.2); Glucose 91 mg/dL (74-106); Potassium 4.4 mmol/L (3.5-5.1); Protein, Total 5.7 g/dL (6.4-8.2); Sodium Level 142 mmol/L (136-145)
[2021-10-06 04:03] LABS: CPK Total, Creatine Kinase 74 U/L (26-192); Triglycerides 209 mg/dL
[2021-10-06 06:00] LABS: Bedside Glucose 118 mg/dL (70-110)
[2021-10-06] MEDS: Propofol 10MG/Ml 1,000 MG/100 ML Bottle 21.4 MG CONT INF ×4 (06:11→19:23)
[2021-10-06] MEDS: Furosemide 40 MG/4 ML Vial IV (06:18)
--- NOTE | 2021-10-06 07:19 | PN.CC_ITS ---
Assessment & Plan Assessment/Plan (1) Acute respiratory failure with hypoxia: (2) COVID-19: PLAN: RECOMMENDATIONS: 1. Continue assist control mode of mechanical ventilation. Wean FiO2/PEEP for saturations greater than 90%. 2. Likely have to extend antibiotics given positive cultures. Defer to ID 3. Completed Decadron. Continue baricitinib (10/05/2021) to complete treatment course. 4. Discontinue Lovenox. Possible ENT evaluation if not improved with conservative therapy by tomorrow 5. Continue appropriate GI prophylaxis. 6. Continue intermittent dosing of Lasix as tolerated by hemodynamics and renal function. Dose today 7. Continue tube feeds as tolerated. IMPRESSIONS: 1. Acute hypoxic respiratory failure secondary to COVID-19 The patient was initially admitted to the hospital on September 21 with worsening dyspnea. She was subsequently found to be positive for COVID-19. Symptom onset was sometime around September 15. CTA was negative for PE. However, the patient was identified as having lower extremity DVTs on Doppler study. Therefore, she will be continued on therapeutic Lovenox. In the interim, the patient has completed a treatment course of remdesivir and Decadron will remain baricitinib as ordered. Despite multiple consecutive days on noninvasive positive pressure ventilatory support, the patient failed to make any meaningful improvement. Therefore, she was intubated on September 29. In light of her decompensation, the patient was initiated on empiric antimicrobials. While on empiric antibiotics, patient does have a positive sputum culture. FiO2 will be weaned to maintain saturations at or above 90%. Patient is also fluid positive over the course of the hospitalization. We will challenge with diuretics today. Patient did have a DVT and some concern for airway obstruction secondary to blood clots with oral bleeding. Clinical suspicion for a laceration from repeat intubation or self extubation. Family meeting yesterday. Patient appears to be responding to conservative therapy without signs of PE 2. Diabetes mellitus Continue Lantus and sliding scale insulin coverage. Blood sugars well controlled at this time 3. Acute kidney injury Improved. Likely ATN in the setting of #1. Continue to monitor urine output. No current indication for renal replacement therapy. 4. Bilateral lower extremity DVT Continue therapeutic Lovenox as ordered. Hold anticoagulation for at least another 24 hours. Attempt conservative therapy of mouth bleeding. 5. Overweight/hypertension/musculoskeletal issues/unvaccinated status/chronic pain syndrome Complicates care, management, recovery and prognosis. Okay to continue tube feeds as tolerated. TIME: 34 minutes of critical care time, independent of procedures, was spent addressing the patient's acute hypoxemic respiratory failure secondary to COVID- 19 pneumonia, lower extremity DVT, acute kidney injury, review of all data and collaboration with the care team. Subjective Subjective Patient did okay overnight. Oral bleeding appears to be improving, but nursing is still reporting some bright red blood in the endotracheal secretions. Patient hemodynamically has remained stable. Nursing did provide an enema last night with manual disimpaction. Moderate bowel movement was noted. Objective Data Objective Data Vital Signs: Vital Signs Temp Pulse Resp BP Pulse Ox 36.8 C 61 27 H 108/66 90 10/06/21 00:00 10/06/21 06:46 10/06/21 06:46 10/06/21 02:00 10/06/21 06:46 Oxygen Flow Rate (L/min) 60 Oxygen Delivery Method Mechanical Ventilator Weight: 90.3 kg Body Mass Index (BMI) 29.0 Intake & Output: Intake and Output for Last 24 Hours 10/04/21 10/05/21 10/06/21 23:59 23:59 23:59 Intake Total 3787.80 / 3863.70 4200.23 / 4278.13 587.08 / 587.08 Output Total 5275 / 6325 2250 / 2950 700 / 700 Balance -1487.20 / -2461.30 1950.23 / 1328.13 -112.92 / -112.92 Medical Nutrition Assessment Dietitian: Malnutrition Criteria Met Start: 09/30/21 10:35 Freq: Status: Active Protocol: Document 10/04/21 10:11 AG (Rec: 10/04/21 11:43 [id number]) Nutrition Malnutrition Evidence of Malnutrition Exists Yes Malnutrition (severe): Acute Illness/Injury Evidenced By Suboptimal Energy Intake ( Severe),Weight Loss (Severe) Intake Problem Inadequate Oral Intake Etiology r/t acute illness, resp. 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 759kg/7.8%; estimated PO intake meeting <50% of estimated energy needs x 6 days Status Active Problem Recommendation Dietitian Recommendations/Changes NPO while intubated; Continue enteral nutrition support via OGT with Vital AF 1.2 at goal rate of 60mL/hour w/ 100mL H2O flush every 4 hours to provide 1728 calories, 108 g protein, and 1767mL fluid/day. Lab / Micro Data Result Diagrams: 10/06/21 03:20 10/06/21 03:20 Labs: Laboratory Results - last 24 hr 10/05/21 12:10: POC Glucose 105 10/05/21 16:39: POC Glucose 91 10/05/21 23:24: POC Glucose 76 10/06/21 03:20: WBC 12.3 H, RBC 3.40 L, Hgb 10.0 L, Hct 31.7 L, MCV 93.2, MCH 29.4, MCHC 31.5 L, RDW Std Deviation 52.0 H, RDW Coeff of Ana Maria 15.4 H, Plt Count 240, MPV 10.8, Immature Gran % (Auto) 1.400 H, Neut % (Auto) 80.2 H, Lymph % (Auto) 12.6 L, [place] % (Auto) 2.8, Eos % (Auto) 2.8, Baso % (Auto) 0.2, Absolute Neuts (auto) 9.9 H, Absolute Lymphs (auto) 1.55, Nucleated RBC % 0 10/06/21 03:20: Sodium 142, Potassium 4.4, Chloride 111 H, Carbon Dioxide 27.0, Anion Gap 4 L, BUN 38 H, Creatinine 0.97, Estim Creat Clear Calc 63.65, Est GFR (MDRD) Af Amer 75, Est GFR (MDRD) Non-Af 62, BUN/Creatinine Ratio 39.2 H, Glucose 91, Calcium 8.5, Total Bilirubin 0.50, AST 33, ALT 26, Alkaline Phosphatase 69, Total Protein 5.7 L, Albumin 1.4 L, Globulin 4.3 H, Albumin/Globulin Ratio 0.3 L 10/06/21 03:20: Total Creatine Kinase 74, Triglycerides 209 H 10/06/21 05:55: POC Glucose 118 H Micro: Microbiology 09/29/21 10:18 Sputum, Induced/Lukens Gram Stain - Final 09/29/21 10:18 Sputum, Induced/Lukens Respiratory Culture - Final Streptococcus pneumoniae Gram positive armaan 10/04/21 22:50 Gastric Fluid/Contents Gastric Occult Blood - Final Occult Blood Positive 09/21/21 14:43 Blood Culture (Wb) - Right Hand Blood Culture - Final No growth in 5 days. 09/21/21 13:55 Blood Culture (Wb) - Anticubital Left Blood Culture - Final No growth in 5 days. 09/22/21 10:30 Sputum, Expectorated/Coughed Gram Stain - Final 09/22/21 10:30 Sputum, Expectorated/Coughed Respiratory Culture - Final 09/22/21 04:19 Urine, Clean Catch Urine Culture - Final Mixed Gram Positive Organisms 09/22/21 10:30 Urine, Clean Catch Legionella Antigen - Final 09/22/21 10:30 Urine, Clean Catch Streptococcus pneumoniae Antigen (M - Final 09/21/21 14:10 Nasal Secretion SARS-CoV-2 Antigen (Rapid) - Final SARS-CoV-2 (COVID 19) Physical Exam Const no apparent distress Constitutional Narrative: No ventilator dyssynchrony. RASS -3 General Appearance: intubated and patient mechanically ventilated Nutritional Appearance: obese HEENT normocephalic and head/scalp atraumatic HEENT Narrative: Clot burden improved in the posterior pharynx. No obvious lacerations noted Mouth: endotracheal tube in place and OG tube in place Eyes PERRL, EOMs intact bilaterally and conjunctivae normal Neck supple General: trachea midline Chest inspection of chest normal Chest: symmetrical chest wall rise; Negative for crepitus Resp Auscultation: diminished lung sounds; Negative for rales, rhonchi or wheezes Cardio S1 normal heart sound and S2 normal heart sound Rate: bradycardia Heart Sounds: Negative for gallop, murmur or rub GI normal to inspection, nondistended, normoactive bowel sounds Extremity no clubbing, cyanosis or edema Skin no rashes or lesions noted Neuro Sensorium / Orientation: sedated on vent Charges/Coding Procedures Hospitalists Procedures: 35096 Critial Care 1st Hr
[2021-10-06] MEDS: Chlorhexidine 15 ML PO ×2 (08:25→21:48)
[2021-10-06] MEDS: Menthol/Lanolin/Calamine/Znox 113 GM Tube 1 APPLIC TOPICAL ×2 (08:25→21:48)
[2021-10-06] MEDS: Polyethylene Glycol 3350 17 GM PACKET PO ×2 (08:26→21:48)
[2021-10-06] MEDS: Nystatin Powder 15gm Bottle 1 APPLIC TOPICAL ×2 (08:26→21:48)
[2021-10-06] MEDS: Senna/Docusate Sodium 1 Tablet 2 TABLET GT ×2 (08:27→21:48)
[2021-10-06] MEDS: CHLORHEXIDINE GLUC 2% CLOTH 1 EACH TOWELETTE TOPICAL (08:29)
[2021-10-06 11:50] LABS: Bedside Glucose 100 mg/dL (70-110)
[2021-10-06] MEDS: Vital AF 1.2 Cal Liquid 1,000 ML 60 ML GT (16:08)
--- NOTE | 2021-10-06 17:27 | CHAPLAIN ---
Type of Pastoral Visit _x__ Initial Visit ___ Follow-up Visit ___ On-call Visit ___ General Patient Visit ___ Spiritual Assessment ___ Family Conference ___ Bereavement ___ Rapid Response ___ Code Blue ___ Other (describe below) Pastoral Care Referral From ___ Patient _x__ Family _x__ Nurse ___ Physician ___ Geospatial Information Scientist ___ Qualitative Executive Researcher ___ Other (describe below) Sacrament/Intervention _x__ Active listening ___ Anointing ___ Holiness ___ Bereavement ___ Communion _x__ Doretha exploration ___ _x__ Life review _x__ Prayer ___ Reconciliation ___ Sacrament of Sick _x__ Supportive presence ___ Wedding ___ Other (describe below) Pastoral Comments at bedside with spouse; listening to his concerns about possible and his doretha wavering; spouse expresses appreciation for presence and prayer as I really needed to talk to someone and we need lots of prayer; support continued
[2021-10-06 17:35] LABS: Bedside Glucose 118 mg/dL (70-110)
[2021-10-06] MEDS: 0.9% Saline Lock 10 ML Syringe IV (21:55)
[2021-10-07] VITALS (53 sets, daily range): BP systolic 80–147; BP diastolic 42–76; PULSE 54–122; RESP 25–36; TEMP 37.4–38.1; O2SAT 74–92
[2021-10-07] MEDS: Propofol 10MG/Ml 1,000 MG/100 ML Bottle 21.4 MG CONT INF (00:07)
[2021-10-07 01:00] LABS: Bedside Glucose 109 mg/dL (70-110)
[2021-10-07] MEDS: Propofol 10MG/Ml 1,000 MG/100 ML Bottle 26.8 MG CONT INF (03:16)
[2021-10-07 04:29] LABS: Absolute Lymphocyte Count 0.56 X10^3/uL (0.83-4.51); Absolute Neutrophil Count 10.5 X10^3/uL (2.0-7.7); Basophil# 0.02 X10^3/uL; Basophil% 0.2 % (0-1); Eosinophil# 0.46 X10^3/uL; Eosinophils% 3.8 % (0-5); Hematocrit 26.8 % (37-47); Lymphocyte # 0.56 X10^3/ul (0.83-4.51); Lymphocyte % 4.7 % (19-41); Mean Corp Hgb Conc 33.6 g/dL (32-36); Mean Corpuscular Hgb 31.5 pg (27.0-32.0); Mean Corpuscular Volume 93.7 fL (81-99); Mean Platelet Vol. 11.2 fl (6.2-12.0); Monocyte% 2.5 % (0-10); NRBC Flagged by Analyzer 0 % (0-5); Neutrophil % 87.2 % (47-70); POSITIVE DIFFERENTIAL YES; POSITIVE MORPHOLOGY YES; Platelet Count 166 K/mm3 (150-450); RBC Distribution Width CV 15.5 % (11.6-14.6); RBC Distribution Width SD 53.3 fl (35.1-43.9); Red Blood Count 2.86 M/mm3 (4.2-5.4)
[2021-10-07 04:32] LABS: Differential Indicated SCAN CRITERIA MET
[2021-10-07] MEDS: CHLORHEXIDINE GLUC 2% CLOTH 1 EACH TOWELETTE TOPICAL ×2 (05:00→21:00)
[2021-10-07 05:05] LABS: ALB/GLOB Ratio 0.3 RATIO (0.9-2.4); AST(SGOT) 31 U/L (15-37); Alanine Aminotransfer ALT/SGPT 20 U/L (13-56); Albumin, Serum 1.1 g/dL (3.2-5.0); Alkaline Phosphatase 63 U/L (45-117); Anion Gap 7 (5-15); BUN 36 mg/dL (7-18); BUN/Creat Ratio 41.4 RATIO (10-20); Calcium,Total 7.1 mg/dL (8.5-10.1); Chloride 111 mmol/L (98-107); Creatinine, Serum 0.87 mg/dL (0.55-1.02); EST Glomerular Filtration Rate 70 mL/min (>60); Est Glom Filt Rate - Afr Amer 85 mL/min (>60); Estimated Creatinine Clearance 70.97 ml/min; Globulin 3.8 g/dL (2.2-4.2); Glucose 123 mg/dL (74-106); Potassium 3.7 mmol/L (3.5-5.1); Protein, Total 4.9 g/dL (6.4-8.2); Sodium Level 139 mmol/L (136-145)
[2021-10-07] MEDS: Insulin Lispro 100 UNIT/ML INSULN.PEN SC ×2 (05:27→11:44)
[2021-10-07 05:49] LABS: Differential Comment SCANNED; Smudge Cells 2+
[2021-10-07 05:50] LABS: Bedside Glucose 181 mg/dL (70-110)
[2021-10-07] MEDS: TITRATION PARAMETER CHANGE 1 EACH IV (06:00)
--- NOTE | 2021-10-07 06:44 | RAD_ITS ---
STUDY: X-RAY CHEST REASON FOR EXAM: Female, 61 years old. Intubation TECHNIQUE: Single AP portable view of the chest. COMPARISON: Comparison is made with prior study dated 2021. FINDINGS: An endotracheal tube is in situ. The tip is at 3.4 cm proximal to the emily. An orogastric tube is seen with the tip below the left hemidiaphragm. EKG electrodes are seen. A left-sided PICC line catheter is seen with the tip at the junction of the superior vena cava and right atrium. Since prior study, there has been progressive infiltrate in the left lower lobe. There is also evidence of a superimposed mild degree of CHF. Blunting of both clustering angles. There is mild cardiac enlargement. Normal mediastinum and parish. Normal visualized pulmonary arteries. There is atherosclerotic tortuosity of the aortic arch and descending thoracic aorta. There are diffuse degenerative changes of the visualized thoracic spine. Normal visualized ribs, clavicles, and shoulders. There is no demonstrated abnormality of the visualized soft tissue structures of the upper abdomen. RAD/Chest 1 View (Portable) IMPRESSION: The tip of the endotracheal tube is at 3.4 cm proximal to the emily. Progressive left lower lobe infiltrate with superimposed CHF. Electronically Signed: Cesario Guillaume MD at 10:20 EST , Service support ,
[2021-10-07] MEDS: Propofol 10MG/Ml 1,000 MG/100 ML Bottle 21.9 MG CONT INF (06:45)
--- NOTE | 2021-10-07 07:00 | PN.CC_ITS ---
Assessment & Plan Assessment/Plan (1) Acute respiratory failure with hypoxia: (2) COVID-19: PLAN: RECOMMENDATIONS: 1. Continue assist control mode of mechanical ventilation. Wean FiO2/PEEP for saturations greater than 90%. 2. Likely have to extend antibiotics given positive cultures. Defer to ID. Obtain chest x-ray 3. Completed Decadron and baricitinib. 4. Continue to hold Lovenox. Will resume normal oral care and evaluate response 5. Continue appropriate GI prophylaxis. 6. Continue intermittent dosing of Lasix as tolerated by hemodynamics and renal function. Dose today 7. Continue tube feeds as tolerated. IMPRESSIONS: 1. Acute hypoxic respiratory failure secondary to COVID-19 The patient was initially admitted to the hospital on September 21 with worsening dyspnea. She was subsequently found to be positive for COVID-19. Symptom onset was sometime around September 15. CTA was negative for PE. Howeve r, the patient was identified as having lower extremity DVTs on Doppler study. Therefore, she will be continued on therapeutic Lovenox. In the interim, the patient has completed a treatment course of remdesivir and Decadron will remain baricitinib as ordered. Despite multiple consecutive days on noninvasive positive pressure ventilatory support, the patient failed to make any meaningful improvement. Therefore, she was intubated on September 29. In light of her decompensation, the patient was initiated on empiric antimicrobials. While on empiric antibiotics, patient does have a positive sputum culture. FiO2 will be weaned to maintain saturations at or above 90%. Patient is also fluid positive over the course of the hospitalization. We will challenge with diuretics today. Patient did have a DVT and some concern for airway obstruction secondary to blood clots with oral bleeding. Clinical suspicion for a laceration from repeat intubation or self extubation. We will diurese a little bit more aggressively given increase in FiO2. Chest x-ray will be obtained for evaluation of lobar collapse secondary to clot/mucous plug. 2. Diabetes mellitus Continue Lantus and sliding scale insulin coverage. Blood sugars well controlled at this time 3. Acute kidney injury Improved. Likely ATN in the setting of #1. Continue to monitor urine output. No current indication for renal replacement therapy. 4. Bilateral lower extremity DVT Continue therapeutic Lovenox as ordered. Hold anticoagulation for at least another 24 hours. Attempt conservative therapy of mouth bleeding. 5. Overweight/hypertension/musculoskeletal issues/unvaccinated status/chronic pain syndrome Complicates care, management, recovery and prognosis. Okay to continue tube feeds as tolerated. TIME: 36 minutes of critical care time, independent of procedures, was spent addressing the patient's acute hypoxemic respiratory failure secondary to COVID- 19 pneumonia, lower extremity DVT, acute kidney injury, review of all data and collaboration with the care team. Subjective Subjective Patient was some difficulties overnight. Patient reportedly had had some vent dyssynchrony leading to worsening oxygenation. Patient increased to 100% FiO2. Bleeding has improved, but nursing is still reporting removal of clots with checking residuals. Endotracheal secretions have had some blood tinge, but no obvious clots. Objective Data Objective Data Vital Signs: Vital Signs Temp Pulse Resp BP Pulse Ox 38.0 C H 75 27 H 120/59 L 88 10/07/21 06:00 10/07/21 06:00 10/07/21 06:00 10/07/21 06:00 10/07/21 06:00 Oxygen Flow Rate (L/min) 60 Oxygen Delivery Method Mechanical Ventilator Weight: 91.2 kg Body Mass Index (BMI) 29.0 Intake & Output: Intake and Output for Last 24 Hours 10/05/21 10/06/21 10/07/21 23:59 23:59 23:59 Intake Total 4200.23 / 4278.13 3386.53 / 3802.33 1562.47 / 1562.47 Output Total 2250 / 2950 3800 / 3900 1100 / 1100 Balance 1950.23 / 1328.13 -413.47 / -97.67 462.47 / 462.47 Medical Nutrition Assessment Dietitian: Malnutrition Criteria Met Start: 09/30/21 10:35 Freq: Status: Active Protocol: Document 10/06/21 11:41 RMA (Rec: 10/06/21 11:42 RMA [id number]) Nutrition Malnutrition Evidence of Malnutrition Exists Yes Malnutrition (severe): Acute Illness/Injury Evidenced By Suboptimal Energy Intake ( Severe),Weight Loss (Severe) Intake Problem Inadequate Oral Intake Etiology r/t acute illness, resp. 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 759kg/7.8%; estimated PO intake meeting <50% of estimated energy needs x 6 days Status Active Problem Recommendation Dietitian Recommendations/Changes NPO while intubated; Via OGT- Vital AF 1.2 at goal rate of 60mL/hour w/ 100mL H2O flush every 4 hours to provide 1728 calories, 108 g protein, and 1767mL fluid/day. Would continue at 20mL/hour and increase by 15mL/hour every 8 hours as tolerated until goal rate is achieved. Lab / Micro Data Result Diagrams: 10/07/21 04:15 10/07/21 04:15 Labs: Laboratory Results - last 24 hr 10/06/21 11:40: POC Glucose 100 10/06/21 17:28: POC Glucose 118 H 10/07/21 00:00: POC Glucose 109 10/07/21 04:15: WBC 12.0 H, RBC 2.86 L, Hgb 9.0 L, Hct 26.8 L, MCV 93.7, MCH 31.5, MCHC 33.6 D, RDW Std Deviation 53.3 H, RDW Coeff of Ana Maria 15.5 H, Plt Count 166, MPV 11.2, Immature Gran % (Auto) 1.600 H, Neut % (Auto) 87.2 H, Lymph % (Auto) 4.7 L, [place] % (Auto) 2.5, Eos % (Auto) 3.8, Baso % (Auto) 0.2, Absolute Neuts (auto) 10.5 H, Absolute Lymphs (auto) 0.56 L, Nucleated RBC % 0, Differential Comment SCANNED, Smudge Cells 2+ 10/07/21 04:15: Sodium 139, Potassium 3.7, Chloride 111 H, Carbon Dioxide 21.0, Anion Gap 7, BUN 36 H, Creatinine 0.87, Estim Creat Clear Calc 70.97, Est GFR (MDRD) Af Amer 85, Est GFR (MDRD) Non-Af 70, BUN/Creatinine Ratio 41.4 H, Glucose 123 H, Calcium 7.1 L, Total Bilirubin 0.50, AST 31, ALT 20, Alkaline Phosphatase 63, Total Protein 4.9 L, Albumin 1.1 L, Globulin 3.8, Albumin/Globulin Ratio 0.3 L 10/07/21 05:26: POC Glucose 181 H Micro: Microbiology 09/29/21 10:18 Sputum, Induced/Lukens Gram Stain - Final 09/29/21 10:18 Sputum, Induced/Lukens Respiratory Culture - Final Streptococcus pneumoniae Gram positive armaan 10/04/21 22:50 Gastric Fluid/Contents Gastric Occult Blood - Final Occult Blood Positive 09/21/21 14:43 Blood Culture (Wb) - Right Hand Blood Culture - Final No growth in 5 days. 09/21/21 13:55 Blood Culture (Wb) - Anticubital Left Blood Culture - Final No growth in 5 days. 09/22/21 10:30 Sputum, Expectorated/Coughed Gram Stain - Final 09/22/21 10:30 Sputum, Expectorated/Coughed Respiratory Culture - Final 09/22/21 04:19 Urine, Clean Catch Urine Culture - Final Mixed Gram Positive Organisms 09/22/21 10:30 Urine, Clean Catch Legionella Antigen - Final 09/22/21 10:30 Urine, Clean Catch Streptococcus pneumoniae Antigen (M - Final 09/21/21 14:10 Nasal Secretion SARS-CoV-2 Antigen (Rapid) - Final SARS-CoV-2 (COVID 19) Physical Exam Const no apparent distress Constitutional Narrative: No ventilator dyssynchrony. RASS -3 General Appearance: intubated and patient mechanically ventilated Nutritional Appearance: obese HEENT normocephalic and head/scalp atraumatic HEENT Narrative: Clot burden improved in the posterior pharynx. No obvious lacerations noted Mouth: endotracheal tube in place and OG tube in place Eyes PERRL, EOMs intact bilaterally and conjunctivae normal Neck supple General: trachea midline Chest inspection of chest normal Chest: symmetrical chest wall rise; Negative for crepitus Resp Auscultation: diminished lung sounds; Negative for rales, rhonchi or wheezes Cardio S1 normal heart sound and S2 normal heart sound Rate: bradycardia Heart Sounds: Negative for gallop, murmur or rub GI normal to inspection, nondistended, normoactive bowel sounds Extremity no clubbing, cyanosis or edema Skin no rashes or lesions noted Neuro Sensorium / Orientation: sedated on vent Charges/Coding Procedures Hospitalists Procedures: [id number] Critial Care 1st Hr
--- NOTE | 2021-10-07 07:28 | PCM.PN.BLA ---
Progress Note discussed case with ICU. No bill
[2021-10-07] MEDS: Chlorhexidine 15 ML PO ×2 (08:04→20:58)
[2021-10-07] MEDS: Potassium Chloride Oral Soln 20 MEQ/15 ML UDC 40 MEQ PO ×2 (08:05→21:57)
[2021-10-07] MEDS: Menthol/Lanolin/Calamine/Znox 113 GM Tube 1 APPLIC TOPICAL ×2 (08:05→20:57)
[2021-10-07] MEDS: Furosemide 40 MG/4 ML Vial IV ×3 (08:07→21:57)
[2021-10-07] MEDS: Senna/Docusate Sodium 1 Tablet 2 TABLET GT (08:08)
[2021-10-07] MEDS: Polyethylene Glycol 3350 17 GM PACKET PO (08:11)
[2021-10-07] MEDS: Nystatin Powder 15gm Bottle 1 APPLIC TOPICAL ×2 (08:17→20:59)
[2021-10-07] MEDS: Propofol 10MG/Ml 1,000 MG/100 ML Bottle 24.6 MG CONT INF ×2 (10:37→14:10)
[2021-10-07 11:51] LABS: Bedside Glucose 192 mg/dL (70-110)
--- NOTE | 2021-10-07 12:21 | PCM.PN.ID ---
Physical Exam Narrative On vent, low grade temps. Const no apparent distress Resp Effort and Inspection: mechanically ventilated Auscultation: diminished lung sounds Cardio regular rate and regular rhythm Skin no rashes or lesions noted ID ID: Route of nutrition/ use of supplements: [] Nutritional Intake: [] IV Site: [] Stevens Catheter: [] Assessment & Plan Assessment/Plan (1) COVID-19: PLAN: Sx started 09/15/21. Isolate until 10/04/21. Unvaccinated, recommended vaccine in one month. Completed baricitinib, completed dex and remdesivir. D-dimer over 20, CT neg for PE. Doppler (+) DVT. On vent, 100% fiO2, still low grade temps. Completed 7 day course of cefepime 10/06 for sputum with spneumo and diphtheroids. Anticoagulation on hold due to bleeding episode. On precedex. If condition worsens, would re-culture and start empiric vanc/jose. Will follow (2) Acute respiratory failure with hypoxia:
[2021-10-07] MEDS: 0.9% Saline Lock 10 ML Syringe IV (16:52)
[2021-10-07 17:41] LABS: Bedside Glucose 100 mg/dL (70-110)
[2021-10-07] MEDS: Propofol 10MG/Ml 1,000 MG/100 ML Bottle 19.2 MG CONT INF (18:15)
--- NOTE | 2021-10-07 21:15 | NURSING ---
2030-Patient successfully transitioned to prone position with appropriate staff at bedside. 3 RNs, MEDICAL CASE WORKER, and RT. Patient tolerated well. O2 sats are still sitting between 78-82% at this time. All over vitals are stable at this time. Patient is appropriately sedated at a Rass of -3 to -[address] Powell's order. Will continue to monitor to see if patient's oxygen sats recover at this time.
[2021-10-07] MEDS: Acetaminophen 650 MG/20 ML UDC GT (21:57)
[2021-10-07] MEDS: Propofol 10MG/Ml 1,000 MG/100 ML Bottle 27.4 MG CONT INF (22:04)
[2021-10-08] VITALS (44 sets, daily range): BP systolic 77–130; BP diastolic 53–81; PULSE 56–65; RESP 15–30; TEMP 37.8–38.4; O2SAT 78–92
[2021-10-08] MEDS: Propofol 10MG/Ml 1,000 MG/100 ML Bottle 27.4 MG CONT INF ×2 (02:00→05:00)
[2021-10-08 02:15] LABS: Bedside Glucose 146 mg/dL (70-110)
[2021-10-08 04:04] LABS: Absolute Lymphocyte Count 0.82 X10^3/uL (0.83-4.51); Absolute Neutrophil Count 11.8 X10^3/uL (2.0-7.7); Basophil# 0.02 X10^3/uL; Basophil% 0.1 % (0-1); Eosinophil# 0.33 X10^3/uL; Eosinophils% 2.4 % (0-5); Hematocrit 30.6 % (37-47); Hemoglobin 9.4 g/dL (12.0-15.0); Lymphocyte # 0.82 X10^3/ul (0.83-4.51); Mean Corp Hgb Conc 30.7 g/dL (32-36); Mean Corpuscular Hgb 28.9 pg (27.0-32.0); Mean Corpuscular Volume 94.2 fL (81-99); Monocyte# 0.61 X10^3/uL; Monocyte% 4.4 % (0-10); NRBC Flagged by Analyzer 0 % (0-5); Neutrophil # 11.82 X10^3/uL (2.7-7.7); Neutrophil % 85.9 % (47-70); Platelet Count 204 K/mm3 (150-450); RBC Distribution Width CV 15.7 % (11.6-14.6); RBC Distribution Width SD 53.7 fl (35.1-43.9); Red Blood Count 3.25 M/mm3 (4.2-5.4); White Blood Count 13.8 K/mm3 (4.4-11.0)
[2021-10-08 04:36] LABS: Anion Gap 8 (5-15); BUN 42 mg/dL (7-18); BUN/Creat Ratio 26.8 RATIO (10-20); Calcium,Total 8.4 mg/dL (8.5-10.1); Chloride 111 mmol/L (98-107); Creatinine, Serum 1.57 mg/dL (0.55-1.02); EST Glomerular Filtration Rate 36 mL/min (>60); Est Glom Filt Rate - Afr Amer 43 mL/min (>60); Estimated Creatinine Clearance 39.33 ml/min; Glucose 148 mg/dL (74-106); Magnesium 2.3 mg/dL (1.6-2.6); Phosphorus 4.8 mg/dL (2.5-4.9); Potassium 4.7 mmol/L (3.5-5.1); Sodium Level 143 mmol/L (136-145)
[2021-10-08 06:35] LABS: Bedside Glucose 145 mg/dL (70-110)
[2021-10-08] MEDS: TITRATION PARAMETER CHANGE 1 EACH IV (06:53)
--- NOTE | 2021-10-08 06:56 | PN.CC_ITS ---
Assessment & Plan Assessment/Plan (1) Acute respiratory failure with hypoxia: (2) COVID-19: PLAN: RECOMMENDATIONS: 1. Continue assist control mode of mechanical ventilation. Wean FiO2/PEEP for saturations greater than 90%. 2. Likely have to extend antibiotics given positive cultures. Defer to ID. 3. Completed Decadron and baricitinib. 4. Reinitiate heparin drip 5. Continue appropriate GI prophylaxis. 6. Continue intermittent dosing of Lasix as tolerated by hemodynamics and renal function. No dose today 7. Continue tube feeds as tolerated. IMPRESSIONS: 1. Acute hypoxic respiratory failure secondary to COVID-19 The patient was initially admitted to the hospital on September 21 with worsening dyspnea. She was subsequently found to be positive for COVID-19. Symptom onset was sometime around September 15. CTA was negative for PE. However, the patient was identified as having lower extremity DVTs on Doppler study. Therefore, she will be continued on therapeutic Lovenox. In the interim, the patient has completed a treatment course of remdesivir and Decadron will remain baricitinib as ordered. Despite multiple consecutive days on noninvasive positive pressure ventilatory support, the patient failed to make any meaningful improvement. Therefore, she was intubated on September 29. In light of her decompensation, the patient was initiated on empiric antimicrobials. While on empiric antibiotics, patient does have a positive sputum culture. FiO2 will be weaned to maintain saturations at or above 90%. Patient is also fluid positive over the course of the hospitalization. Unable to challenge with diuretics secondary to renal function. Patient did have a DVT and some concern for airway obstruction secondary to blood clots with oral bleeding. Clinical suspicion for a laceration from repeat intubation or self extubation. There is some concern for possible PE complicating overall conditio n. Patient will be started on a heparin drip given mouth bleeding. Patient not a tPA candidate given oral bleeding. 2. Diabetes mellitus Continue Lantus and sliding scale insulin coverage. Blood sugars well controlled at this time 3. Acute kidney injury Improved. Likely ATN in the setting of #1. Continue to monitor urine output. No current indication for renal replacement therapy. 4. Bilateral lower extremity DVT Continue therapeutic Lovenox as ordered. We will reinitiate heparin drip. Attempt conservative therapy of mouth bleeding. 5. Overweight/hypertension/musculoskeletal issues/unvaccinated status/chronic pain syndrome Complicates care, management, recovery and prognosis. Okay to continue tube feeds as tolerated. TIME: 34 minutes of critical care time, independent of procedures, was spent addressing the patient's acute hypoxemic respiratory failure secondary to COVID- 19 pneumonia, lower extremity DVT, acute kidney injury, review of all data and collaboration with the care team. Subjective Subjective Patient with significant difficulties over the last 24 hours secondary to oxygenation. Attempts at increasing FiO2, PEEP, sedation and prone positioning have been relatively ineffective. Patient did have her tube feeds held s econdary to the prone positioning. No significant oral bleeding has been noted. Nursing has reported some dried blood. Objective Data Objective Data Vital Signs: Vital Signs Temp Pulse Resp BP Pulse Ox 38.0 C H 63 22 H 105/63 88 10/08/21 04:00 10/08/21 05:00 10/08/21 05:00 10/08/21 05:00 10/08/21 05:00 Oxygen Flow Rate (L/min) 60 Oxygen Delivery Method Mechanical Ventilator Weight: 88.9 kg Body Mass Index (BMI) 29.0 Intake & Output: Intake and Output for Last 24 Hours 10/06/21 10/07/21 10/08/21 23:59 23:59 23:59 Intake Total 3386.53 / 3802.33 4818.75 / 5005.35 1179.72 / 1179.72 Output Total 3800 / 3900 2250 / 3750 1900 / 1900 Balance -413.47 / -97.67 2568.75 / 1255.35 -720.28 / -720.28 Medical Nutrition Assessment Dietitian: Malnutrition Criteria Met Start: 09/30/21 10:35 Freq: Status: Active Protocol: Document 10/07/21 10:45 PRIYANK (Rec: 10/07/21 10:45 [email or web address] [id number]) Nutrition Malnutrition Evidence of Malnutrition Exists Yes Malnutrition (severe): Acute Illness/Injury Evidenced By Suboptimal Energy Intake ( Severe),Weight Loss (Severe) Intake Problem Inadequate Oral Intake Etiology r/t acute illness, resp. 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; estimated PO intake meeting <50% of estimated energy needs since 15 admission Status Active Problem Clinical Problem Acute Disease or Injury Related Malnutrition Etiology severe, acute malnutrition r/t inadequate energy intake w/ acute illness Signs/Symptoms as evidenced by reported unintentional wt loss of 8.1% wt loss of UBW since adm; estimated PO intake meeting < 50% of estimated energy needs x 6 days block captain and tf not at goal rate Status Active Problem Recommendation Dietitian Recommendations/Changes NPO while intubated Via OGT- Vital AF 1.2 at goal rate of 60mL/hour w/ 100mL H2O flush every 4 hours to provide 1728 calories, 108 g protein, and 1767mL fluid/day. Would continue at 20mL/hour and increase by 15mL/hour every 8 hours as tolerated until goal rate is achieved. Lab / Micro Data Result Diagrams: 10/08/21 03:40 10/08/21 03:40 Labs: Laboratory Results - last 24 hr 10/07/21 11:42: POC Glucose 192 H 10/07/21 17:34: POC Glucose 100 10/08/21 01:51: POC Glucose 146 H 10/08/21 03:40: WBC 13.8 H, RBC 3.25 L, Hgb 9.4 L, Hct 30.6 L, MCV 94.2, MCH 28.9, MCHC 30.7 L D, RDW Std Deviation 53.7 H, RDW Coeff of [place] 15.7 H, Plt Count 204, MPV 11.0, Immature Gran % (Auto) 1.200 H, Neut % (Auto) 85.9 H, Lymph % (Auto) 6.0 L, [place] % (Auto) 4.4, Eos % (Auto) 2.4, Baso % (Auto) 0.1, Absolute Neuts (auto) 11.8 H, Absolute Lymphs (auto) 0.82 L, Nucleated RBC % 0 10/08/21 03:40: Sodium 143, Potassium 4.7, Chloride 111 H, Carbon Dioxide 24.0, Anion Gap 8, BUN 42 H, Creatinine 1.57 H, Estim Creat Clear Calc 39.33, Est GFR (MDRD) Af Amer 43 L, Est GFR (MDRD) Non-Af 36 L, BUN/Creatinine Ratio 26.8 H, Glucose 148 H, Calcium 8.4 L, Phosphorus 4.8, Magnesium 2.3 10/08/21 06:31: POC Glucose 145 H Micro: Microbiology 09/29/21 10:18 Sputum, Induced/Lukens Gram Stain - Final 09/29/21 10:18 Sputum, Induced/Lukens Respiratory Culture - Final Streptococcus pneumoniae Gram positive armaan 10/04/21 22:50 Gastric Fluid/Contents Gastric Occult Blood - Final Occult Blood Positive 09/21/21 14:43 Blood Culture (Wb) - Right Hand Blood Culture - Final No growth in 5 days. 09/21/21 13:55 Blood Culture (Wb) - Anticubital Left Blood Culture - Final No growth in 5 days. 09/22/21 10:30 Sputum, Expectorated/Coughed Gram Stain - Final 09/22/21 10:30 Sputum, Expectorated/Coughed Respiratory Culture - Final 09/22/21 04:19 Urine, Clean Catch Urine Culture - Final Mixed Gram Positive Organisms 09/22/21 10:30 Urine, Clean Catch Legionella Antigen - Final 09/22/21 10:30 Urine, Clean Catch Streptococcus pneumoniae Antigen (M - Final 09/21/21 14:10 Nasal Secretion SARS-CoV-2 Antigen (Rapid) - Final SARS-CoV-2 (COVID 19) Radiography Diagnostic Testing: Radiology Impression Chest X-Ray 10/07/21 06:44 IMPRESSION: The tip of the endotracheal tube is at 3.4 cm proximal to the emily. Progressive left lower lobe infiltrate with superimposed CHF. Electronically Signed: Cesario Guillaume MD at 10:20 EST , Service support , Physical Exam Const no apparent distress Constitutional Narrative: No ventilator dyssynchrony. RASS -4 General Appearance: intubated and patient mechanically ventilated Nutritional Appearance: obese HEENT normocephalic and head/scalp atraumatic HEENT Narrative: Improvement in oral bleeding. No obvious lacerations noted Mouth: endotracheal tube in place and OG tube in place Eyes PERRL, EOMs intact bilaterally and conjunctivae normal Neck supple General: trachea midline Chest inspection of chest normal Chest: symmetrical chest wall rise; Negative for crepitus Resp Auscultation: diminished lung sounds; Negative for rales, rhonchi or wheezes Cardio S1 normal heart sound and S2 normal heart sound Rate: bradycardia Heart Sounds: Negative for gallop, murmur or rub GI normal to inspection, nondistended, normoactive bowel sounds Extremity no clubbing, cyanosis or edema Skin no rashes or lesions noted Neuro Sensorium / Orientation: sedated on vent Charges/Coding Procedures Hospitalists Procedures: [id number] Critial Care 1st Hr
[2021-10-08] MEDS: Propofol 10MG/Ml 1,000 MG/100 ML Bottle 26.7 MG CONT INF ×5 (08:14→22:00)
[2021-10-08] MEDS: Chlorhexidine 15 ML PO ×2 (08:16→21:03)
[2021-10-08] MEDS: Menthol/Lanolin/Calamine/Znox 113 GM Tube 1 APPLIC TOPICAL ×2 (08:17→21:04)
--- NOTE | 2021-10-08 09:38 | PN.HOSP_ITS ---
Subjective Subjective Gnosis is poor, she is still only 87% on FiO2 of 100% while being proned since about 2030 last night Objective Data Objective Data Vital Signs: Vital Signs Temp Pulse Resp BP Pulse Ox 100.4 F H 60 21 H 95/61 87 10/08/21 09:00 10/08/21 09:00 10/08/21 09:00 10/08/21 09:00 10/08/21 09:00 Oxygen Flow Rate (L/min) 60 Oxygen Delivery Method Mechanical Ventilator Weight: 195 lb 15.855 oz Body Mass Index (BMI) 29.0 Intake & Output: Intake and Output for Last 24 Hours 10/07/21 10/08/21 10/09/21 03:59 03:59 03:59 Intake Total 3854.78 / 4275.43 4694.49 / 4850.35 972.83 / 972.83 Output Total 3200 / 3200 3650 / 3650 400 / 400 Balance 654.78 / 1075.43 1044.49 / 1200.35 572.83 / 572.83 Medical Nutrition Assessment Dietitian: Malnutrition Criteria Met Start: 09/30/21 10:35 Freq: Status: Active Protocol: Document 10/07/21 10:45 PRIYANK (Rec: 10/07/21 10:45 PRIYANK [id number]) Nutrition Malnutrition Evidence of Malnutrition Exists Yes Malnutrition (severe): Acute Illness/Injury Evidenced By Suboptimal Energy Intake ( Severe),Weight Loss (Severe) Intake Problem Inadequate Oral Intake Etiology r/t acute illness, resp. 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; estimated PO intake meeting <50% of estimated energy needs since 09/21 admission Status Active Problem Clinical Problem Acute Disease or Injury Related Malnutrition Etiology severe, acute malnutrition r/t inadequate energy intake w/ acute illness Signs/Symptoms as evidenced by reported unintentional wt loss of 8.1% wt loss of UBW since adm; estimated PO intake meeting < 50% of estimated energy needs x 6 days lpta and tf not at goal rate Status Active Problem Recommendation Dietitian Recommendations/Changes NPO while intubated Via OGT- Vital AF 1.2 at goal rate of 60mL/hour w/ 100mL H2O flush every 4 hours to provide 1728 calories, 108 g protein, and 1767mL fluid/day. Would continue at 20mL/hour and increase by 15mL/hour every 8 hours as tolerated until goal rate is achieved. Lab / Micro Data Result Diagrams: 10/08/21 03:40 10/08/21 03:40 Labs: Laboratory Results - last 24 hr 10/07/21 11:42: POC Glucose 192 H 10/07/21 17:34: POC Glucose 100 10/08/21 01:51: POC Glucose 146 H 10/08/21 03:40: WBC 13.8 H, RBC 3.25 L, Hgb 9.4 L, Hct 30.6 L, MCV 94.2, MCH 28.9, MCHC 30.7 L D, RDW Std Deviation 53.7 H, RDW Coeff of Ana Maria 15.7 H, Plt Count 204, MPV 11.0, Immature Gran % (Auto) 1.200 H, Neut % (Auto) 85.9 H, Lymph % (Auto) 6.0 L, [place] % (Auto) 4.4, Eos % (Auto) 2.4, Baso % (Auto) 0.1, Absolute Neuts (auto) 11.8 H, Absolute Lymphs (auto) 0.82 L, Nucleated RBC % 0 10/08/21 03:40: Sodium 143, Potassium 4.7, Chloride 111 H, Carbon Dioxide 24.0, Anion Gap 8, BUN 42 H, Creatinine 1.57 H, Estim Creat Clear Calc 39.33, Est GFR (MDRD) Af Amer 43 L, Est GFR (MDRD) Non-Af 36 L, BUN/Creatinine Ratio 26.8 H, Glucose 148 H, Calcium 8.4 L, Phosphorus 4.8, Magnesium 2.3 10/08/21 06:31: POC Glucose 145 H Micro: Microbiology 09/29/21 10:18 Sputum, Induced/Lukens Gram Stain - Final 09/29/21 10:18 Sputum, Induced/Lukens Respiratory Culture - Final Streptococcus pneumoniae Gram positive armaan 10/04/21 22:50 Gastric Fluid/Contents Gastric Occult Blood - Final Occult Blood Positive 09/21/21 14:43 Blood Culture (Wb) - Right Hand Blood Culture - Final No growth in 5 days. 09/21/21 13:55 Blood Culture (Wb) - Anticubital Left Blood Culture - Final No growth in 5 days. 09/22/21 10:30 Sputum, Expectorated/Coughed Gram Stain - Final 09/22/21 10:30 Sputum, Expectorated/Coughed Respiratory Culture - Final 09/22/21 04:19 Urine, Clean Catch Urine Culture - Final Mixed Gram Positive Organisms 09/22/21 10:30 Urine, Clean Catch Legionella Antigen - Final 09/22/21 10:30 Urine, Clean Catch Streptococcus pneumoniae Antigen (M - Final 09/21/21 14:10 Nasal Secretion SARS-CoV-2 Antigen (Rapid) - Final SARS-CoV-2 (COVID 19) Radiography Diagnostic Testing: Radiology Impression Chest X-Ray 10/07/21 06:44 IMPRESSION: The tip of the endotracheal tube is at 3.4 cm proximal to the emily. Progressive left lower lobe infiltrate with superimposed CHF. Electronically Signed: Cesario Guillaume MD at 10:20 EST , Service support , Physical Exam Narrative Const General Appearance: intubated and patient mechanically ventilated HEENT moist oral mucous membranes Oral bleeding potentially from the extubations and reintubation's. She is currently on a heparin drip so we will monitor Head and Scalp: normocephalic Eyes PERRL Neck supple and no JVD Resp Effort and Inspection: mechanically ventilated Auscultation: diminished lung sounds; Negative for rales, rhonchi or wheezes Cardio regular rate, regular rhythm, S1 normal heart sound, S2 normal heart sound, no murmurs and no gallops GI soft to palpation and non-distended; Negative for hepatosplenomegaly Extremity no clubbing, cyanosis or edema Skin no rashes or lesions noted Neuro Sensorium / Orientation: sedated on vent Psych Appearance: intubated Assessment & Plan Assessment/Plan (1) Acute respiratory failure with hypoxia: (2) COVID-19: PLAN: #Acute hypoxic respiratory failure due to covid 19 pneumonia/oral bleeding * remains intubated and sedated. Completed a 5 day course of remdesivir. Also on baricitinib. * Diurese as needed to maintain euvolemic status. * Titrate oxygen to maintain saturation above 90%. * Breathing treatments with bronchodilators. ID and critical care on board. * Continue with Zosyn, vancomycin * sputum cultures gram-positive rods and strep pneumonia * Continue with tube feeds * She has been transitioned to a heparin drip in case there is issues with PE in the setting of her DVTs while here, she is too unstable to get a CT scan at this time. Will need to monitor for any recurrence of her oral bleeding #Septic shock * titrate to maintain MAP >65 * remains on phenylephrine, had to go up a little bit on her pressor support today #Bilateral lower extremity DVT * Had DVT of the right soleal vein and left tibioperoneal trunk as well as the posterior tibial and peroneal as well as soleal veins. * Start heparin drip #NURIA: resolved. #Type 2 diabetes mellitus with hyperglycemia * On lantus 20 units * High-dose insulin sliding scale. * Accuchecks CHS. * Will continue to monitor and adjust as necessary #Hypertension: Hold blood pressure medications secondary to shock #Chronic back pain: stable. on tramadol. DVT: Heparin drip Charges/Coding Visit Charges Inpatient E&M: 94355 Subs Hosp L2
[2021-10-08] MEDS: Polyethylene Glycol 3350 17 GM PACKET PO ×2 (10:09→21:03)
[2021-10-08] MEDS: Senna/Docusate Sodium 1 Tablet 2 TABLET GT ×2 (10:09→21:03)
[2021-10-08] MEDS: Nystatin Powder 15gm Bottle 1 APPLIC TOPICAL ×2 (11:26→21:03)
[2021-10-08 12:10] LABS: Bedside Glucose 138 mg/dL (70-110)
[2021-10-08 13:18] LABS: Partial Thromboplast Time 54.1 Seconds (24.1-36.2)
[2021-10-08] MEDS: Heparin Injection (Vial) 5,000 UNIT/ML VIAL IV (13:35)
[2021-10-08] MEDS: Insulin Lispro 100 UNIT/ML INSULN.PEN SC (18:02)
[2021-10-08 18:06] LABS: Bedside Glucose 153 mg/dL (70-110)
[2021-10-08 19:28] LABS: Partial Thromboplast Time 58.3 Seconds (24.1-36.2)
[2021-10-08] MEDS: 0.9% Saline Lock 10 ML Syringe IV (21:04)
[2021-10-08] MEDS: Acetaminophen 650 MG/20 ML UDC GT (21:09)
[2021-10-09] VITALS (28 sets, daily range): BP systolic 79–109; BP diastolic 53–77; PULSE 56–60; RESP 16–28; TEMP 38.1–38.7; O2SAT 71–84
[2021-10-09 00:51] LABS: Bedside Glucose 138 mg/dL (70-110)
[2021-10-09 01:03] LABS: Partial Thromboplast Time 51.2 Seconds (24.1-36.2)
[2021-10-09] MEDS: Propofol 10MG/Ml 1,000 MG/100 ML Bottle 26.7 MG CONT INF ×2 (01:47→06:31)
[2021-10-09 05:03] LABS: Absolute Lymphocyte Count 0.96 X10^3/uL (0.83-4.51); Absolute Neutrophil Count 8.4 X10^3/uL (2.0-7.7); Basophil# 0.03 X10^3/uL; Basophil% 0.3 % (0-1); Eosinophil# 0.29 X10^3/uL; Eosinophils% 2.7 % (0-5); Hematocrit 27.5 % (37-47); Hemoglobin 8.3 g/dL (12.0-15.0); Lymphocyte # 0.96 X10^3/ul (0.83-4.51); Mean Corp Hgb Conc 30.2 g/dL (32-36); Mean Corpuscular Hgb 30.2 pg (27.0-32.0); Mean Platelet Vol. 11.1 fl (6.2-12.0); Monocyte# 0.58 X10^3/uL; Monocyte% 5.5 % (0-10); NRBC Flagged by Analyzer 0.6 % (0-5); Neutrophil # 8.37 X10^3/uL (2.7-7.7); Neutrophil % 78.7 % (47-70); Platelet Count 192 K/mm3 (150-450); RBC Distribution Width CV 16.1 % (11.6-14.6); RBC Distribution Width SD 59.5 fl (35.1-43.9); Red Blood Count 2.75 M/mm3 (4.2-5.4); White Blood Count 10.6 K/mm3 (4.4-11.0)
[2021-10-09 05:15] LABS: Anion Gap 9 (5-15); BUN 41 mg/dL (7-18); BUN/Creat Ratio 22.9 RATIO (10-20); Chloride 113 mmol/L (98-107); Creatinine, Serum 1.79 mg/dL (0.55-1.02); EST Glomerular Filtration Rate 31 mL/min (>60); Est Glom Filt Rate - Afr Amer 37 mL/min (>60); Estimated Creatinine Clearance 34.49 ml/min; Glucose 139 mg/dL (74-106); Potassium 5.2 mmol/L (3.5-5.1); Sodium Level 139 mmol/L (136-145)
[2021-10-09 05:16] LABS: Calcium,Total 6.9 mg/dL (8.5-10.1)
--- NOTE | 2021-10-09 06:24 | PN.CC_ITS ---
Assessment & Plan Assessment/Plan (1) Acute respiratory failure with hypoxia: (2) COVID-19: PLAN: RECOMMENDATIONS: 1. Continue assist control mode of mechanical ventilation. Wean FiO2/PEEP for saturations greater than 90%. 2. Continue antibiotics for now 3. Completed Decadron and baricitinib. 4. Continue heparin drip 5. Continue appropriate GI prophylaxis. 6. Continue intermittent dosing of Lasix as tolerated by hemodynamics and renal function. No dose today 7. Continue tube feeds as tolerated. 8. Anticipate transition to comfort measures later today IMPRESSIONS: 1. Acute hypoxic respiratory failure secondary to COVID-19 The patient was initially admitted to the hospital on September 21 with worsening dyspnea. She was subsequently found to be positive for COVID-19. Symptom onset was sometime around September 15. CTA was negative for PE. However, the patient was identified as having lower extremity DVTs on Doppler study. Therefore, she will be continued on therapeutic Lovenox. In the interim, the patient has completed a treatment course of remdesivir and Decadron will remain baricitinib as ordered. Despite multiple consecutive days on noninvasive positive pressure ventilatory support, the patient failed to make any meaningful improvement. Therefore, she was intubated on September 29. In lig ht of her decompensation, the patient was initiated on empiric antimicrobials. While on empiric antibiotics, patient does have a positive sputum culture. FiO2 will be weaned to maintain saturations at or above 90%. Patient is also fluid positive over the course of the hospitalization. Unable to challenge with diuretics secondary to renal function. Patient has tolerated a heparin drip. Unfortunately, oxygenation continues to be marginal. Patient appears to be becoming more acidotic and is likely actively dying. Patient's son is traveling from [place] and we will continue to be aggressive in an attempt to allow him to see her. There is no indication of complication such as pneumothorax or pneumomediastinum that are readily reversible. 2. Diabetes mellitus Continue Lantus and sliding scale insulin coverage. Blood sugars well controlled at this time 3. Acute kidney injury Worsened. Likely ATN in the setting of #1. Continue to monitor urine output. No current indication for renal replacement therapy. 4. Bilateral lower extremity DVT Continue therapeutic Lovenox as ordered. We will continue heparin drip. Mouth bleeding appears to be well controlled 5. Overweight/hypertension/musculoskeletal issues/unvaccinated status/chronic pain syndrome Complicates care, management, recovery and prognosis. Okay to continue tube feeds as tolerated. TIME: 38 minutes of critical care time, independent of procedures, was spent addressing the patient's acute hypoxemic respiratory failure secondary to COVID- 19 pneumonia, lower extremity DVT, acute kidney injury, review of all data and collaboration with the care team. Subjective Subjective Patient did okay overnight. Patient continues to have marginal saturations despite high PEEP and FiO2. No significant oral bleeding has been noted on heparin drip. Patient's did transition her to a DNR Comfort Care arrest yesterday and the plan is to remain aggressive until patient's son arrives later today from [place]. Patient has had increased residuals despite holding of tube feeds. Vasopressin had to be added secondary to hypotension Objective Data Objective Data Vital Signs: Vital Signs Temp Pulse Resp BP Pulse Ox 38.6 C H 57 L 17 85/57 L 81 10/09/21 04:00 10/09/21 04:35 10/09/21 04:35 10/09/21 04:00 10/09/21 04:35 Oxygen Flow Rate (L/min) 60 Oxygen Delivery Method Mechanical Ventilator Weight: 89 kg Body Mass Index (BMI) 29.0 Intake & Output: Intake and Output for Last 24 Hours 10/07/21 10/08/21 10/09/21 23:59 23:59 23:59 Intake Total 4818.75 / 5005.35 5191.97 / 5289.14 1105.59 / 1105.59 Output Total 2250 / 3750 2575 / 2635 60 / 60 Balance 2568.75 / 1255.35 2616.97 / 2654.14 1045.59 / 1045.59 Medical Nutrition Assessment Dietitian: Malnutrition Criteria Met Start: 09/30/21 10:35 Freq: Status: Active Protocol: Document 10/08/21 09:43 PRIYANK (Rec: 10/08/21 09:43 PRIYANK [id number]) Nutrition Malnutrition Evidence of Malnutrition Exists Yes Malnutrition (severe): Acute Illness/Injury Evidenced By Suboptimal Energy Intake ( Severe),Weight Loss (Severe) Intake Problem Inadequate Oral Intake Etiology r/t acute illness, resp. 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; estimated PO intake meeting <50% of estimated energy needs since 09/21 admission - TF currently on hold Status Active Problem Clinical Problem Acute Disease or Injury Related Malnutrition Etiology severe, acute malnutrition r/t inadequate energy intake w/ acute illness Signs/Symptoms as evidenced by reported unintentional wt loss of 8.1% wt loss of UBW since adm; estimated PO intake meeting < 50% of estimated energy needs x 6 days 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 Would continue at 20mL/hour and increase by 15mL/hour every 8 hours as tolerated until goal rate is achieved. Lab / Micro Data Result Diagrams: 10/09/21 04:45 10/09/21 04:45 Labs: Laboratory Results - last 24 hr 10/08/21 06:31: POC Glucose 145 H 10/08/21 12:05: POC Glucose 138 H 10/08/21 13:00: APTT 54.1 H 10/08/21 18:01: POC Glucose 153 H 10/08/21 19:05: APTT 58.3 H 10/09/21 00:30: APTT 51.2 H 10/09/21 00:38: POC Glucose 138 H 10/09/21 04:45: WBC 10.6, RBC 2.75 L, Hgb 8.3 L, Hct 27.5 L, MCV 100.0 H D, MCH 30.2, MCHC 30.2 L, RDW Std Deviation 59.5 H, RDW Coeff of Ana Maria 16.1 H, Plt Count 192, MPV 11.1, Immature Gran % (Auto) 3.800 H, Neut % (Auto) 78.7 H, Lymph % ( Auto) 9.0 L, [place] % (Auto) 5.5, Eos % (Auto) 2.7, Baso % (Auto) 0.3, Absolute Neuts (auto) 8.4 H, Absolute Lymphs (auto) 0.96, Nucleated RBC % 0.6 10/09/21 04:45: Sodium 139, Potassium 5.2 H, Chloride 113 H, Carbon Dioxide 17.0 L, Anion Gap 9, BUN 41 H, Creatinine 1.79 H, Estim Creat Clear Calc 34.49, Est GFR (MDRD) Af Amer 37 L, Est GFR (MDRD) Non-Af 31 L, BUN/Creatinine Ratio 22.9 H , Glucose 139 H, Calcium 6.9 L Micro: Microbiology 09/29/21 10:18 Sputum, Induced/Lukens Gram Stain - Final 09/29/21 10:18 Sputum, Induced/Lukens Respiratory Culture - Final Streptococcus pneumoniae Gram positive armaan 10/04/21 22:50 Gastric Fluid/Contents Gastric Occult Blood - Final Occult Blood Positive 09/21/21 14:43 Blood Culture (Wb) - Right Hand Blood Culture - Final No growth in 5 days. 09/21/21 13:55 Blood Culture (Wb) - Anticubital Left Blood Culture - Final No growth in 5 days. 09/22/21 10:30 Sputum, Expectorated/Coughed Gram Stain - Final 09/22/21 10:30 Sputum, Expectorated/Coughed Respiratory Culture - Final 09/22/21 04:19 Urine, Clean Catch Urine Culture - Final Mixed Gram Positive Organisms 09/22/21 10:30 Urine, Clean Catch Legionella Antigen - Final 09/22/21 10:30 Urine, Clean Catch Streptococcus pneumoniae Antigen (M - Final 09/21/21 14:10 Nasal Secretion SARS-CoV-2 Antigen (Rapid) - Final SARS-CoV-2 (COVID 19) Physical Exam Const no apparent distress Constitutional Narrative: No ventilator dyssynchrony. RASS -4 General Appearance: intubated and patient mechanically ventilated Nutritional Appearance: obese HEENT normocephalic and head/scalp atraumatic HEENT Narrative: Resolved in oral bleeding. No obvious lacerations noted Mouth: endotracheal tube in place and OG tube in place Eyes PERRL, EOMs intact bilaterally and conjunctivae normal Neck supple General: trachea midline Chest inspection of chest normal Chest: symmetrical chest wall rise; Negative for crepitus Resp Auscultation: diminished lung sounds; Negative for rales, rhonchi or wheezes Cardio S1 normal heart sound and S2 normal heart sound Rate: bradycardia Heart Sounds: Negative for gallop, murmur or rub GI normal to inspection, nondistended, normoactive bowel sounds Extremity no clubbing, cyanosis or edema Extremity Narrative: Cool to the touch despite fever Skin no rashes or lesions noted Neuro Sensorium / Orientation: sedated on vent Charges/Coding Procedures Hospitalists Procedures: 27783 Critial Care 1st Hr
--- NOTE | 2021-10-09 07:32 | NURSING ---
pt placed in the prone position x4 nurses and RT
--- NOTE | 2021-10-09 08:01 | NURSING ---
pt not tolerating the prone position. SPO2 65%. , Balbir contacted. Pt posiitoned back into the supine position. SPO2 now 79%.
[2021-10-09 08:11] LABS: Partial Thromboplast Time 56.6 Seconds (24.1-36.2)
--- NOTE | 2021-10-09 08:52 | PN.HOSP_ITS ---
Subjective Subjective Intubated and sedated, was unable to be proned today. Renal function is worsening Objective Data Objective Data Vital Signs: Vital Signs Temp Pulse Resp BP Pulse Ox 101.4 F H 57 L 18 99/69 78 10/09/21 08:00 10/09/21 08:00 10/09/21 08:00 10/09/21 08:00 10/09/21 08:00 Oxygen Flow Rate (L/min) 60 Oxygen Delivery Method Mechanical Ventilator Weight: 196 lb 3.382 oz Body Mass Index (BMI) 29.0 Intake & Output: Intake and Output for Last 24 Hours 10/08/21 10/09/21 10/10/21 03:59 03:59 03:59 Intake Total 4694.49 / 4850.35 5358.10 / 5449.83 899.59 / 899.59 Output Total 3650 / 3650 1135 / 1135 50 / 50 Balance 1044.49 / 1200.35 4223.10 / 4314.83 849.59 / 849.59 Medical Nutrition Assessment Dietitian: Malnutrition Criteria Met Start: 09/30/21 10:35 Freq: Status: Active Protocol: Document 10/08/21 09:43 PRIYANK (Rec: 10/08/21 09:43 [facility] [id number]) Nutrition Malnutrition Evidence of Malnutrition Exists Yes Malnutrition (severe): Acute Illness/Injury Evidenced By Suboptimal Energy Intake ( Severe),Weight Loss (Severe) Intake Problem Inadequate Oral Intake Etiology r/t acute illness, resp. 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 meeting <50% of estimated energy needs since 09/21 admission - TF currently on hold Status Active Problem Clinical Problem Acute Disease or Injury Related Malnutrition Etiology severe, acute malnutrition r/t inadequate energy intake w/ acute illness Signs/Symptoms as evidenced by reported unintentional wt loss of 8.1% wt loss of UBW since adm; estimated PO intake meeting < 50% of estimated energy needs x 6 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 Would continue at 20mL/hour and increase by 15mL/hour every 8 hours as tolerated until goal rate is achieved. Lab / Micro Data Result Diagrams: 10/09/21 04:45 10/09/21 04:45 Labs: Laboratory Results - last 24 hr 10/08/21 12:05: POC Glucose 138 H 10/08/21 13:00: APTT 54.1 H 10/08/21 18:01: POC Glucose 153 H 10/08/21 19:05: APTT 58.3 H 10/09/21 00:30: APTT 51.2 H 10/09/21 00:38: POC Glucose 138 H 10/09/21 04:45: WBC 10.6, RBC 2.75 L, Hgb 8.3 L, Hct 27.5 L, MCV 100.0 H D, MCH 30.2, MCHC 30.2 L, RDW Std Deviation 59.5 H, RDW Coeff of [place] 16.1 H, Plt Count 192, MPV 11.1, Immature Gran % (Auto) 3.800 H, Neut % (Auto) 78.7 H, Lymph % (Auto) 9.0 L, [place] % (Auto) 5.5, Eos % (Auto) 2.7, Baso % (Auto) 0.3, Absolute Neuts (auto) 8.4 H, Absolute Lymphs (auto) 0.96, Nucleated RBC % 0.6 10/09/21 04:45: Sodium 139, Potassium 5.2 H, Chloride 113 H, Carbon Dioxide 17.0 L, Anion Gap 9, BUN 41 H, Creatinine 1.79 H, Estim Creat Clear Calc 34.49, Est GFR (MDRD) Af Amer 37 L, Est GFR (MDRD) Non-Af 31 L, BUN/Creatinine Ratio 22.9 H , Glucose 139 H, Calcium 6.9 L 10/09/21 07:00: APTT 56.6 H Micro: Microbiology 09/29/21 10:18 Sputum, Induced/Lukens Gram Stain - Final 09/29/21 10:18 Sputum, Induced/Lukens Respiratory Culture - Final Streptococcus pneumoniae Gram positive armaan 10/04/21 22:50 Gastric Fluid/Contents Gastric Occult Blood - Final Occult Blood Positive 09/21/21 14:43 Blood Culture (Wb) - Right Hand Blood Culture - Final No growth in 5 days. 09/21/21 13:55 Blood Culture (Wb) - Anticubital Left Blood Culture - Final No growth in 5 days. 09/22/21 10:30 Sputum, Expectorated/Coughed Gram Stain - Final 09/22/21 10:30 Sputum, Expectorated/Coughed Respiratory Culture - Final 09/22/21 04:19 Urine, Clean Catch Urine Culture - Final Mixed Gram Positive Organisms 09/22/21 10:30 Urine, Clean Catch Legionella Antigen - Final 09/22/21 10:30 Urine, Clean Catch Streptococcus pneumoniae Antigen (M - Final 09/21/21 14:10 Nasal Secretion SARS-CoV-2 Antigen (Rapid) - Final SARS-CoV-2 (COVID 19) Physical Exam Narrative Const General Appearance: intubated and patient mechanically ventilated HEENT moist oral mucous membranes Oral bleeding potentially from the extubations and reintubation's. She is c urrently on a heparin drip so we will monitor Head and Scalp: normocephalic Eyes PERRL Neck supple and no JVD Resp Effort and Inspection: mechanically ventilated Auscultation: diminished lung sounds; Negative for rales, rhonchi or wheezes Cardio regular rate, regular rhythm, S1 normal heart sound, S2 normal heart sound, no murmurs and no gallops GI soft to palpation and non-distended; Negative for hepatosplenomegaly Extremity no clubbing, cyanosis or edema Skin no rashes or lesions noted Neuro Sensorium / Orientation: sedated on vent Psych Appearance: intubated Assessment & Plan Assessment/Plan (1) Acute respiratory failure with hypoxia: (2) COVID-19: PLAN: #Acute hypoxic respiratory failure due to covid 19 pneumonia/oral bleeding * remains intubated and sedated. Completed a 5 day course of remdesivir. Also on baricitinib. * Diurese as needed to maintain euvolemic status. * Titrate oxygen to maintain saturation above 90%. * Breathing treatments with bronchodilators. ID and critical care on board. * Continue with Zosyn, vancomycin * sputum cultures gram-positive rods and strep pneumonia * Continue with tube feeds * She has been transitioned to a heparin drip in case there is issues with PE in the setting of her DVTs while here, she is too unstable to get a CT scan at this time. Will need to monitor for any recurrence of her oral bleeding * Added vasopressin yesterday to help keep her alive until her son was able to get here from [place]. Once he arrives we will have further family dis cussions and potentially withdraw care. She is not oxygenating very well and her blood pressures continue to be somewhat borderline despite being on 2 pressors #Septic shock * titrate to maintain MAP >65 * remains on phenylephrine, had to go up a little bit on her pressor support today #Bilateral lower extremity DVT * Had DVT of the right soleal vein and left tibioperoneal trunk as well as the posterior tibial and peroneal as well as soleal veins. * Start heparin drip #NURIA: Renal function is worsening likely secondary to the level of vasopressors and likely worsening acidosis. #Type 2 diabetes mellitus with hyperglycemia * On lantus 20 units * High-dose insulin sliding scale. * Accuchecks CHS. * Will continue to monitor and adjust as necessary #Hypertension: Hold blood pressure medications secondary to shock #Chronic back pain: stable. on tramadol. DVT: Heparin drip Charges/Coding Visit Charges Inpatient E&M: 59324 Subs Hosp L2
[2021-10-09] MEDS: Menthol/Lanolin/Calamine/Znox 113 GM Tube 1 APPLIC TOPICAL (09:16)
[2021-10-09] MEDS: Chlorhexidine 15 ML PO (09:16)
[2021-10-09] MEDS: Nystatin Powder 15gm Bottle 1 APPLIC TOPICAL (09:17)
[2021-10-09] MEDS: Propofol 10MG/Ml 1,000 MG/100 ML Bottle 21.3 MG CONT INF (10:08)
[2021-10-09 11:55] LABS: Bedside Glucose 146 mg/dL (70-110)
[2021-10-09] MEDS: Propofol 10MG/Ml 1,000 MG/100 ML Bottle 24 MG CONT INF (14:06)
[2021-10-09 14:50] LABS: Partial Thromboplast Time 56.4 Seconds (24.1-36.2)
[2021-10-09] MEDS: 0.9% Saline Lock 10 ML Syringe IV (15:16)
[2021-10-09] MEDS: LORazepam 2 MG/ML Syringe IV (15:16)
--- NOTE | 2021-10-09 15:48 | PCM.DEATH ---
Preliminary Cause of Preliminary Cause of Preliminary Cause of : Distributive shock secondary to acute hypoxic respiratory failure due to COVID-19 pneumonia Principle Diagnosis Problem List: Active and Suspected Problems (Updated 09/25/21 @ 15:[address] Valerie Appiah, DO) Thrombocytopenia (Acute) Transaminitis (Acute) Hyperglycemia (Acute) DVT of lower extremity, bilateral (Acute) Acute respiratory failure with hypoxia (Acute) COVID-19 (Acute) Hospital Course Mrs. Cummins is a 61-year-old female who presented on 09/21/2021 with worsening shortness of breath since about New Year's Nataly. She was started on BiPAP on around 70% FiO2 when she first came in. She is unvaccinated for COVID and she had tested positive for COVID on admission. On admission she had a CTA of the chest which was negative for PE but did show bilateral groundglass opacities consistent with COVID-19 pneumonia. She was started on dexamethasone and remdesivir which she had completed. She was also started and completed baricitinib as well. Both infectious disease and pulmonology were consulted to assist in managing this patient. On 09/29/2021 she had to be intubated secondary to progressive respiratory failure. She did develop hypotension consistent with septic shock/distributive shock and initially was started on Levophed however she kept having episodes of bradycardia with Levophed so she was transitioned to phenylephrine. On 10/02/2021 she self extubated and had to be reintubated. Of note, on admission her D-dimer was severely elevated so we obtained bilateral lower extremity Dopplers which demonstrated bilateral lower extremity DVTs and she had been started on therapeutic Lovenox. She did develop some hematemesis and it is unclear as to the source, but it was believed to secondary to her self extubation and reintubation. She also had a G-tube and at this time and gastric contents were Hemoccult positive. Her anticoagulation was discontinued for several days however as her condition deteriorated and oxygenation became a bigger issue, she was started on a heparin drip in case she was having difficulties with PEs. She continued to have respiratory decline and need to have progressive increases in her FiO2 and PEEP. We attempted proning however none of this seemed to make a difference in the end. I had family discussion on 10/08/2021 with the family where they elected to proceed with a DNR CCA however they were awaiting arrival of her son who was coming from out of town. Therefore she was started on vasopressin and the phenylephrine was increased until he could arrive. On arrival on 10/09/2021, another family discussion was had where they elected to withdraw care. Mrs. Cummins on 10/09/2021 at 1525. Visit Charges Inpatient E&M: [id number] Disch Hosp
== END 2021-10-09 15:25 | DRG 207 ==
LOC: ED 14:10 → PCU 18:25 → ICU 09-28 13:38
PROVIDERS: Internal Medicine; Internal Medicine Critical Care Medicine; Internal Medicine Infectious Disease; Student in an Organized Health Care Education/Training Program; Emergency Provider Student in an Organized Health Care Education/Training Program; PCP Family Medicine; Visit Provider Family Medicine
DX: U07.1 COVID-19 (principal); N17.0 Acute kidney failure with tubular necrosis; R65.21 Severe sepsis with septic shock; A41.89 Other specified sepsis; J12.82 Pneumonia due to coronavirus disease 2019; E43 Unspecified severe protein-calorie malnutrition; J13 Pneumonia due to Streptococcus pneumoniae; J96.01 Acute respiratory failure with hypoxia; E87.2 Acidosis; I82.442 Acute embolism and thrombosis of left tibial vein; J44.0 Chronic obstructive pulmonary disease with (acute) lower respiratory infection; I82.452 Acute embolism and thrombosis of left peroneal vein; K92.0 Hematemesis; D69.6 Thrombocytopenia, unspecified; E11.40 Type 2 diabetes mellitus with diabetic neuropathy, unspecified; E11.65 Type 2 diabetes mellitus with hyperglycemia; I82.463 Acute embolism and thrombosis of calf muscular vein, bilateral; Z93.1 Gastrostomy status; I10 Essential (primary) hypertension; E86.0 Dehydration; M15.9 Polyosteoarthritis, unspecified; M51.16 Intervertebral disc disorders with radiculopathy, lumbar region; G89.4 Chronic pain syndrome; Z87.891 Personal history of nicotine dependence; Z79.899 Other long term (current) drug therapy; Z79.84 Long term (current) use of oral hypoglycemic drugs; Z68.29 Body mass index [BMI] 29.0-29.9, adult; Z66 Do not resuscitate
CPT/HCPCS: 31500; 31720; 36415; 36569; 36600; 71045; 71275; 74018; 80048; 80053; 80202; 81001; 82271; 82550; 82803; 82962; 83605; 83735; 83880; 84100; 84145; 84478; 84484; 85014; 85018; 85025; 85379; 85610; 85730; 86140; 87040; 87070; 87077; 87086; 87088; 87186; 87205; 87426; 87449; 92950; 93005; 93970; 94002; 94003; 94667; 94668; 97162; 97166; 97802; 97803; 99251; 99284; J7040; J7050; Q9967; A4216; G0463; J0248; J0330; J1940; J3010; J3490